=== PATIENT | female | born 1945 | race Caucasian/White ===

== ENCOUNTER 2023-08-09 18:40 | Inpatient (IN) | payer OTHER ==
[~2023-08-09] VITALS: Ht 154.9 cm; Wt 74.5 kg
[2023-08-09 20:01] LABS: Basophils # (auto) 0 10 ^3/uL (0-0.2); Basophils % (auto) 0.4 % (0.0-2.0); Eosinophils # (auto) 0 10 ^3/uL (0-0.8); Eosinophils % (auto) 0.5 % (0.0-7.0); Hematocrit 36.5 % (36.0-46.0); Hemoglobin 11.6 g/dL (12.2-16.2); Lymphocytes # (auto) 0.3 10 ^3/uL (0.4-5.4); Lymphocytes % (auto) 5.4 % (10.0-50.0); Mean Corpuscular Hemoglobin 29.6 pg (28.0-32.0); Mean Corpuscular Hgb Conc. 31.9 g/dL (32.0-36.0); Mean Corpuscular Volume 92.9 fL (80.0-100.0); Monocytes # (auto) 0.5 10 ^3/uL (0-1.3); Monocytes % (auto) 8.2 % (0.0-12.0); Neutrophils # (auto) 5.2 10 ^3/uL (1.6-8.6); Neutrophils % (auto) 85.5 % (37.0-80.0); Nucleated Red Blood Cells % 0.1 %; Red Blood Cells 3.93 10^6/uL (4.0-5.20); Red Cell Distribution Width 16.7 % (11.8-14.3); White Blood Cell 6.1 10^3/uL (4.4-10.8)
[2023-08-09 20:14] LABS: Alanine Aminotransferase 21 U/L (7-40); Albumin 4.1 g/dL (3.2-4.8); Alkaline Phosphatase 81 U/L (46-116); Anion Gap 9 (5-15); Aspartate Aminotransferase 23 U/L (13-40); BUN/Creatinine Ratio 15.9 (10.0-20.0); Blood Urea Nitrogen 13 mg/dL (9-23); Calcium 9.5 mg/dL (8.5-10.1); Carbon Dioxide 29 mmol/L (20-30); Chloride 107 mmol/L (98-107); Glucose 158 mg/dL (74-106); Magnesium 1.9 mg/dL (1.6-2.6); Potassium 3.2 mmol/L (3.5-5.1); Sodium 145 mmol/L (136-145)
[2023-08-09 20:15] LABS: Bilirubin, Total 1.6 mg/dL (0.2-1.0); Total Protein 6.9 g/dL (5.7-8.2)
[2023-08-09 20:17] LABS: INR 1.22 (0.9-1.15); Prothrombin Time 12.7 sec (9.3-11.8)
[2023-08-09 20:45] VITALS: PULSE 87; RESP 17; O2SAT 97
[2023-08-09] MEDS: FUROSEMIDE 40 MG/4 ML VIAL IV ONE (21:02)
[2023-08-09] MEDS ORDERED: ONDANSETRON HCL 4 MG/2 ML VIAL IV PRN (22:15)
[2023-08-09] MEDS ORDERED: ACETAMINOPHEN 325 MG TAB PO PRN (22:15)
[2023-08-09] MEDS ORDERED: DOCUSATE SOD 100 MG CAP PO PRN (22:15)
[2023-08-09] MEDS ORDERED: HYDROcodone-ACET 5/325MG TAB PO PRN (22:15)
[2023-08-09] MEDS ORDERED: DEXTROSE (50%) 50ML SYRG IV PRN (22:15)
[2023-08-09] MEDS ORDERED: hydrALAZINE HCL 20 MG/ML VL IV PRN (22:15)
[2023-08-09] MEDS ORDERED: NITROGLYCERIN 0.4 MG SL TAB SL PRN (23:00)
[2023-08-09] MEDS ORDERED: MORPHINE SULFATE INJ 2 MG/ml SYRG IV PRN (23:00)
[2023-08-09] MEDS: ACETAMINOPHEN 500 MG TAB PO ONE (23:27)
[2023-08-09] MEDS: POTASSIUM CHL 20 Meq TABLET PO ONE (23:27)
[2023-08-10] VITALS (9 sets, daily range): BP systolic 127–144; BP diastolic 55–76; PULSE 72–99; RESP 17–22; TEMP 97.8–98.6; O2SAT 93–96
[2023-08-10 00:03] LABS: Rapid Influenza A Negative (Negative); Rapid Influenza B Negative (Negative)
[2023-08-10 00:04] LABS: COVID19 ANTIGEN SOFIA FIA NEGATIVE (NEGATIVE)
[2023-08-10] MEDS: OXYCODONE W/ ACETAMINOPHEN 5/325MG TABLET PO PRN (02:09)
[2023-08-10] MEDS ORDERED: DONE5TAB80 PO (02:55)
[2023-08-10] MEDS ORDERED: LEVO75TA6 PO (02:55)
[2023-08-10] MEDS ORDERED: FERR325T20 PO (02:55)
[2023-08-10] MEDS ORDERED: PERCOT PO (02:55)
[2023-08-10] MEDS ORDERED: APIX5TAB PO (02:55)
[2023-08-10] MEDS ORDERED: DILT-26 PO (02:55)
[2023-08-10] MEDS ORDERED: ALEN70TA74 PO (02:55)
[2023-08-10] MEDS ORDERED: EMPA1TAB PO (02:55)
[2023-08-10] MEDS ORDERED: AMIO200T13 PO (02:55)
[2023-08-10] MEDS ORDERED: PANT40T PO (02:55)
[2023-08-10] MEDS ORDERED: CLON0.2D6 TOP (02:55)
[2023-08-10] MEDS ORDERED: GABA-1250 PO (02:55)
[2023-08-10] MEDS ORDERED: SERT-160 PO (02:55)
[2023-08-10] MEDS ORDERED: SPIR25TA8 PO (02:55)
[2023-08-10] MEDS ORDERED: LOSA-535 PO (02:55)
[2023-08-10] MEDS ORDERED: METO1TAB9 PO (02:55)
[2023-08-10] MEDS ORDERED: LIOT25TA19 PO (02:55)
[2023-08-10] MEDS: SODIUM CHLOR 0.9% PF (SALINE LOCK) 10ML VIAL/SYR IV SCH (05:42)
[2023-08-10] MEDS: ACCU-CHEK COMFORT CURVE STRIP VI SCH (05:42)
[2023-08-10] MEDS: LEVOTHYROXINE SODIUM 25 MCG TAB PO SCH (06:01)
[2023-08-10] MEDS: GABAPENTIN 300 MG CAP PO SCH (06:01)
[2023-08-10] MEDS: InsuLIN REG 1unit/0.01ml Soln (100units/ml) SC SCH ×2 (06:02→21:00)
[2023-08-10 06:03] LABS: Basophils # (auto) 0 10 ^3/uL (0-0.2); Basophils % (auto) 0.3 % (0.0-2.0); Eosinophils # (auto) 0 10 ^3/uL (0-0.8); Eosinophils % (auto) 0.7 % (0.0-7.0); Hematocrit 35.4 % (36.0-46.0); Hemoglobin 11.4 g/dL (12.2-16.2); Lymphocytes # (auto) 0.6 10 ^3/uL (0.4-5.4); Lymphocytes % (auto) 9.8 % (10.0-50.0); Mean Corpuscular Hemoglobin 29.9 pg (28.0-32.0); Mean Corpuscular Hgb Conc. 32.3 g/dL (32.0-36.0); Mean Corpuscular Volume 92.7 fL (80.0-100.0); Monocytes # (auto) 0.5 10 ^3/uL (0-1.3); Monocytes % (auto) 8.2 % (0.0-12.0); Neutrophils # (auto) 4.9 10 ^3/uL (1.6-8.6); Nucleated Red Blood Cells % 0.1 %; Red Blood Cells 3.81 10^6/uL (4.0-5.20); Red Cell Distribution Width 16.4 % (11.8-14.3)
[2023-08-10 06:19] LABS: Alanine Aminotransferase 19 U/L (7-40); Albumin 4.2 g/dL (3.2-4.8); Alkaline Phosphatase 80 U/L (46-116); Anion Gap 9 (5-15); Aspartate Aminotransferase 21 U/L (13-40); BUN/Creatinine Ratio 17.4 (10.0-20.0); Bilirubin, Total 1.8 mg/dL (0.2-1.0); Blood Urea Nitrogen 15 mg/dL (9-23); Calcium 9.4 mg/dL (8.5-10.1); Carbon Dioxide 31 mmol/L (20-30); Chloride 105 mmol/L (98-107); Glucose 142 mg/dL (74-106); Potassium 3.4 mmol/L (3.5-5.1); Sodium 145 mmol/L (136-145); Total Protein 7.1 g/dL (5.7-8.2)
[2023-08-10 08:18] LABS: Triglycerides 98 mg/dL (< 150)
[2023-08-10 08:19] LABS: LDL Cholesterol 64 mg/dL (< 100)
[2023-08-10 08:20] LABS: Cholesterol 117 mg/dL (< 200); HDL Cholesterol 39 mg/dL (40-59)
[2023-08-10] MEDS: PANTOPRAZOLE 40 MG/10 ML VIAL INJ IV SCH (09:58)
[2023-08-10] MEDS: CARVEDILOL 3.125 MG TAB PO SCH (09:58)
[2023-08-10] MEDS: FUROSEMIDE 40 MG/4 ML VIAL IV SCH (09:59)
[2023-08-10] MEDS ORDERED: APIXABAN 2.5 MG TAB PO SCH (10:00)
[2023-08-10] MEDS: APIXABAN 5 MG TAB PO SCH (15:07)
[2023-08-10] MEDS: ATORVASTATIN 20 MG TAB PO SCH (20:50)
[2023-08-10] MEDS: DONEPEZIL HYDROCHLORIDE 5 MG TAB PO SCH (20:52)
[2023-08-10] MEDS: AMIODARONE HCL 200 MG TAB PO SCH (20:53)
[2023-08-10] MEDS: SACUBITRIL-VALSARTAN 24mg/26mg TAB PO SCH (22:03)
[2023-08-11] VITALS (8 sets, daily range): BP systolic 118–145; BP diastolic 65–80; PULSE 85–115; RESP 16–19; TEMP 97.8–98.5; O2SAT 95–96
[2023-08-11 06:09] LABS: Basophils # (auto) 0 10 ^3/uL (0-0.2); Basophils % (auto) 0.4 % (0.0-2.0); Eosinophils # (auto) 0.1 10 ^3/uL (0-0.8); Hematocrit 33.7 % (36.0-46.0); Hemoglobin 10.8 g/dL (12.2-16.2); Lymphocytes # (auto) 0.4 10 ^3/uL (0.4-5.4); Lymphocytes % (auto) 9.2 % (10.0-50.0); Mean Corpuscular Hemoglobin 29.9 pg (28.0-32.0); Mean Corpuscular Hgb Conc. 32.1 g/dL (32.0-36.0); Mean Corpuscular Volume 93.2 fL (80.0-100.0); Monocytes # (auto) 0.4 10 ^3/uL (0-1.3); Monocytes % (auto) 8.5 % (0.0-12.0); Neutrophils # (auto) 3.5 10 ^3/uL (1.6-8.6); Neutrophils % (auto) 79.9 % (37.0-80.0); Red Blood Cells 3.62 10^6/uL (4.0-5.20); Red Cell Distribution Width 16.9 % (11.8-14.3); White Blood Cell 4.4 10^3/uL (4.4-10.8)
[2023-08-11] MEDS: EMPAGLIFLOZIN 10 MG TAB PO SCH (09:40)
[2023-08-11] MEDS: SPIRONOLACTONE 25 MG TAB PO SCH (09:40)
[2023-08-11] MEDS: POTASSIUM CHL 20 Meq TABLET PO ONE (13:25)
[2023-08-12] VITALS (8 sets, daily range): BP systolic 123–140; BP diastolic 67–85; PULSE 87–131; RESP 17–19; TEMP 97.3–98.5; O2SAT 94–99
[2023-08-12] MEDS: dilTIAZem 25 MG/5 ML VIAL IV ONE (06:57)
[2023-08-12] MEDS: DIGOXIN (250MCG/ML) 2 ML AMPULE IV ONE (11:22)
[2023-08-12] MEDS: dilTIAZem 120MG ER CAP PO ONE (11:29)
[2023-08-12 11:56] LABS: Anion Gap 7 (5-15); Calcium 9.4 mg/dL (8.5-10.1); Carbon Dioxide 29 mmol/L (20-30); Chloride 105 mmol/L (98-107); Sodium 141 mmol/L (136-145)
[2023-08-12 11:59] LABS: BUN/Creatinine Ratio 15.6 (10.0-20.0); Blood Urea Nitrogen 12 mg/dL (9-23); Glucose 157 mg/dL (74-106); Magnesium 2.1 mg/dL (1.6-2.6)
[2023-08-12] MEDS: AMIODARONE BOLUS KIT 100 ML IV ONE (14:08)
[2023-08-12] MEDS: AMIODARONE 450mg/250ml AE 250 ML IV SCH ×2 (14:25→17:45)
[2023-08-12] MEDS: [UNRECOGNIZED DRUG - OTHER] PO SCH (16:51)
[2023-08-12] MEDS: ANASTROZOLE 1 MG PO SCH (16:51)
[2023-08-13] VITALS (8 sets, daily range): BP systolic 102–134; BP diastolic 54–76; PULSE 76–115; RESP 17–19; TEMP 97.7–98.8; O2SAT 97–100
[2023-08-13 07:08] LABS: Basophils # (auto) 0 10 ^3/uL (0-0.2); Basophils % (auto) 0.5 % (0.0-2.0); Eosinophils # (auto) 0.1 10 ^3/uL (0-0.8); Eosinophils % (auto) 1.7 % (0.0-7.0); Hematocrit 37.8 % (36.0-46.0); Lymphocytes # (auto) 0.3 10 ^3/uL (0.4-5.4); Lymphocytes % (auto) 6.7 % (10.0-50.0); Mean Corpuscular Hemoglobin 29.8 pg (28.0-32.0); Mean Corpuscular Hgb Conc. 31.8 g/dL (32.0-36.0); Mean Corpuscular Volume 93.7 fL (80.0-100.0); Monocytes # (auto) 0.7 10 ^3/uL (0-1.3); Monocytes % (auto) 14.6 % (0.0-12.0); Neutrophils # (auto) 3.8 10 ^3/uL (1.6-8.6); Neutrophils % (auto) 76.5 % (37.0-80.0); Nucleated Red Blood Cells % 0.1 %; Red Blood Cells 4.04 10^6/uL (4.0-5.20); Red Cell Distribution Width 16.6 % (11.8-14.3); White Blood Cell 4.9 10^3/uL (4.4-10.8)
[2023-08-13 07:29] LABS: Chloride 101 mmol/L (98-107); Potassium 3.9 mmol/L (3.5-5.1); Sodium 139 mmol/L (136-145)
[2023-08-13 07:30] LABS: Anion Gap 8 (5-15); Carbon Dioxide 30 mmol/L (20-30)
[2023-08-13 07:35] LABS: BUN/Creatinine Ratio 14.6 (10.0-20.0); Blood Urea Nitrogen 14 mg/dL (9-23); Glucose 130 mg/dL (74-106)
[2023-08-13 07:36] LABS: Magnesium 2.1 mg/dL (1.6-2.6)
[2023-08-13] MEDS ORDERED: cefTRIAXone 1GM/50ML D5W 50 ML IV SCH (09:00)
[2023-08-13] MEDS ORDERED: POTA-180 PA (09:52)
[2023-08-13] MEDS ORDERED: ANAS1TAB7 PO (09:52)
[2023-08-13] MEDS ORDERED: FURO20TA3 PO (09:52)
[2023-08-13] MEDS ORDERED: dilTIAZem 120MG ER CAP PO SCH (10:00)
[2023-08-13] MEDS ORDERED: ALBU1AER4 INH (10:01)
[2023-08-13] MEDS: DIGOXIN 0.125 MG TAB PO SCH (10:13)
[2023-08-13] MEDS: FUROSEMIDE 20 MG TAB PO SCH (10:14)
[2023-08-13] MEDS: MAGNESIUM SULFATE 1GM/100ML 100 ML IV ONE (14:38)
[2023-08-13 15:02] LABS: Urine Bacteria None Seen /hpf (None Seen)
[2023-08-13 15:23] LABS: Urine Blood Negative /uL (Negative); Urine Clarity Clear (Clear); Urine Color Light-Yellow (Yellow); Urine Protein, UAD Negative (Negative); Urine Specific Gravity 1.014 (1.001-1.035); Urine Urobilinogen 2 mg/dL (Negative); Urine WBC 2 /hpf (0 - 5)
[2023-08-14 05:00] VITALS: BP 119/62; PULSE 86; RESP 19; TEMP 97.6; O2SAT 95
[2023-08-14 06:51] LABS: Anion Gap 7 (5-15); Calcium 8.9 mg/dL (8.5-10.1); Carbon Dioxide 29 mmol/L (20-30); Chloride 102 mmol/L (98-107); Potassium 4.1 mmol/L (3.5-5.1); Sodium 138 mmol/L (136-145)
[2023-08-14 06:58] LABS: BUN/Creatinine Ratio 10.7 (10.0-20.0); Blood Urea Nitrogen 11 mg/dL (9-23); Glucose 144 mg/dL (74-106)
[2023-08-14 08:15] VITALS: PULSE 73; RESP 18; O2SAT 98
[2023-08-14 09:00] VITALS: BP 119/54; PULSE 75; RESP 18; TEMP 98.3; O2SAT 98
[2023-08-14] MEDS ORDERED: DIGO1TAB48 PO (09:50)
[2023-08-14] MEDS ORDERED: SACU1TAB PO (09:50)
[2023-08-14 10:09] VITALS: BP 111/59; PULSE 90; RESP 18; TEMP 98.6; O2SAT 96
[2023-08-14 10:20] VITALS: PULSE 101
[2023-08-14] MEDS: AMIODARONE HCL 200 MG TAB PO ONE (10:22)
== END 2023-08-14 17:50 | disposition home or self-care (01) | DRG 291 ==
LOC: ER 18:40 → TELE 23:03 → TELE-CENTR 23:50
PROVIDERS: ADMIT Nurse Practitioner Family; ATTEND Internal Medicine Geriatric Medicine
DX: I11.0 Hypertensive heart disease with heart failure (principal); I50.23 Acute on chronic systolic (congestive) heart failure; J96.10 Chronic respiratory failure, unspecified whether with hypoxia or hypercapnia; I48.20 Chronic atrial fibrillation, unspecified; E11.65 Type 2 diabetes mellitus with hyperglycemia; E66.9 Obesity, unspecified; E87.6 Hypokalemia; F03.90 Unspecified dementia, unspecified severity, without behavioral disturbance, psychotic disturbance, mood disturbance, and anxiety; E03.9 Hypothyroidism, unspecified; J44.89 Other specified chronic obstructive pulmonary disease; M81.0 Age-related osteoporosis without current pathological fracture; I27.20 Pulmonary hypertension, unspecified; Z79.01 Long term (current) use of anticoagulants; Z79.899 Other long term (current) drug therapy; Z90.710 Acquired absence of both cervix and uterus; Z99.81 Dependence on supplemental oxygen; Z83.3 Family history of diabetes mellitus; Z82.49 Family history of ischemic heart disease and other diseases of the circulatory system; Z85.3 Personal history of malignant neoplasm of breast; Z87.891 Personal history of nicotine dependence; Z68.31 Body mass index [BMI] 31.0-31.9, adult
CPT/HCPCS: 36415; 71045; 80048; 80053; 80061; 80162; 81001; 82962; 83036; 83735; 83880; 84132; 84443; 84484; 85025; 85610; 85730; 87426; 87804; 93005; 93306; 97163; C9113; G0378; J1815

== ENCOUNTER 2023-09-12 16:54 | Inpatient (IN) | payer OTHER ==
[~2023-09-12] VITALS: Ht 154.9 cm; Wt 80.7 kg
[~2023-09-12 16:54] MED LIST: ALBU1AER4 INH; ALEN70TA74 PO; AMIO200T13 PO; ANAS1TAB7 PO; APIX5TAB PO; CLON0.2D6 TOP; DIGO1TAB48 PO; DONE5TAB80 PO; EMPA1TAB PO; FERR325T20 PO; FURO20TA3 PO; GABA-1250 PO; LEVO75TA6 PO; LIOT25TA19 PO; LOSA-535 PO; METO1TAB9 PO; PANT40T PO; PERCOT PO; POTA-180 PO; SACU1TAB PO; SERT-160 PO; SPIR25TA8 PO
[2023-09-12] MEDS: GLUCAGON EMERG KIT 1mg/1ml IV ONE (17:35)
[2023-09-12 17:36] VITALS: PULSE 31; RESP 15; O2SAT 97
[2023-09-12] MEDS: DOPamine 1600MCG/ML D5W 250 ML IV ONE (18:10)
[2023-09-12 18:18] LABS: Basophils # (auto) 0 10 ^3/uL (0-0.2); Basophils % (auto) 0.5 % (0.0-2.0); Eosinophils # (auto) 0.1 10 ^3/uL (0-0.8); Eosinophils % (auto) 1.5 % (0.0-7.0); Hematocrit 33.1 % (36.0-46.0); Hemoglobin 10.3 g/dL (12.2-16.2); Lymphocytes # (auto) 0.6 10 ^3/uL (0.4-5.4); Lymphocytes % (auto) 7.9 % (10.0-50.0); Mean Corpuscular Hemoglobin 30.5 pg (28.0-32.0); Mean Corpuscular Hgb Conc. 31.2 g/dL (32.0-36.0); Mean Corpuscular Volume 97.8 fL (80.0-100.0); Monocytes # (auto) 0.8 10 ^3/uL (0-1.3); Monocytes % (auto) 10.1 % (0.0-12.0); Neutrophils # (auto) 6.1 10 ^3/uL (1.6-8.6); Nucleated Red Blood Cells % 0.1 %; Red Blood Cells 3.39 10^6/uL (4.0-5.20); Red Cell Distribution Width 17.5 % (11.8-14.3); White Blood Cell 7.6 10^3/uL (4.4-10.8)
[2023-09-12 18:19] LABS: Urine Bacteria FEW /hpf (None Seen); Urine Blood 1+ /uL (Negative); Urine Clarity Turbid (Clear); Urine Color Yellow (Yellow); Urine Hyaline Cast MANY /lpf (0 - 2); Urine Mucus FEW (None Seen); Urine Protein, UAD TRACE (Negative); Urine Specific Gravity 1.024 (1.001-1.035); Urine Urobilinogen 2 mg/dL (Negative); Urine WBC 335 /hpf (0 - 5); Urine WBC Clumps PRESENT /hpf (None Seen)
[2023-09-12 18:25] LABS: Alanine Aminotransferase 28 U/L (7-40); Albumin 3.1 g/dL (3.2-4.8); Alkaline Phosphatase 108 U/L (46-116); Anion Gap 11 (5-15); Aspartate Aminotransferase 46 U/L (13-40); BUN/Creatinine Ratio 8.7 (10.0-20.0); Bilirubin, Total 0.4 mg/dL (0.2-1.0); Blood Urea Nitrogen 27 mg/dL (9-23); Calcium 7.4 mg/dL (8.7-10.4); Carbon Dioxide 21 mmol/L (20-30); Chloride 111 mmol/L (98-107); Glucose 127 mg/dL (74-106); Magnesium 2.3 mg/dL (1.6-2.6); Potassium 3.4 mmol/L (3.5-5.1); Sodium 143 mmol/L (136-145); Total Protein 5.1 g/dL (5.7-8.2)
[2023-09-12] MEDS: METOCLOPRAMIDE HCL 10 MG TAB PO ONE ×2 (18:28→18:39)
[2023-09-12] MEDS: POTASSIUM CHL 20 Meq TABLET PO ONE (18:59)
[2023-09-12] MEDS: CALCIUM GLUC 1,000mg/50ml-NS 50 ML IV ONE (19:14)
[2023-09-12 19:30] VITALS: PULSE 55; RESP 12; O2SAT 95
[2023-09-12] MEDS: cefTRIAXone 1GM/50ML D5W 50 ML IV ONE (20:21)
[2023-09-12] MEDS: POTASSIUM EFFERVESENT TAB 25 MEQ PO ONE (20:21)
[2023-09-12 21:28] LABS: INR 1.19 (0.9-1.15); Partial Thromboplastin Time 29.3 SEC (24.5-34.5); Prothrombin Time 12.5 sec (9.3-11.8)
[2023-09-12] MEDS ORDERED: IBUPROFEN 400 MG TAB PO PRN (22:30)
[2023-09-12] MEDS ORDERED: ALBUTEROL SULF 2.5 MG/0.5ML(0.5%) NEB SOLN NEB PRN (22:30)
[2023-09-12] MEDS ORDERED: VANCOMYCIN PER PHARMACY 0 MG IV SCH (22:30)
[2023-09-12] MEDS ORDERED: DOCUSATE SOD 100 MG CAP PO PRN (22:30)
[2023-09-12] MEDS ORDERED: DEXTROSE (50%) 50ML SYRG IV PRN (22:30)
[2023-09-12 22:52] VITALS: BP 136/31; PULSE 43; RESP 14; TEMP 98.4; O2SAT 97
[2023-09-12] MEDS: ALBUMIN 25% 100 ML IV ONE (22:59)
[2023-09-12 23:22] LABS: Amphetamine Screen, Urine Neg (NEGATIVE); Barbiturate Scree,Urine Neg (NEGATIVE); Benzodiazephine Screen, Urine Neg (NEGATIVE); Cannabinoid Screen, Urine Neg (NEGATIVE); Cocaine Screen, Urine Neg (NEGATIVE); Opiate Scree,Urine Neg (NEGATIVE); Phencyclidine Screen, Urine Neg (NEGATIVE)
[2023-09-12] MEDS: VANCOMYCIN 1GM/200ML 200 ML IV ONE (23:25)
[2023-09-12] MEDS ORDERED: NITROGLYCERIN 0.4 MG SL TAB SL PRN (23:45)
[2023-09-12] MEDS ORDERED: MORPHINE SULFATE INJ 2 MG/ml SYRG IV PRN (23:45)
[2023-09-13] MEDS ORDERED: DIGOXIN IMMUNE FAB IV ONE (01:45)
[2023-09-13] MEDS ORDERED: SODIUM CHL 0.9% IV ONE (01:45)
[2023-09-13] MEDS: DOPamine 1600MCG/ML D5W 250 ML IV SCH (02:46)
[2023-09-13] MEDS: DOPamine 1600MCG/ML D5W 250 ML IV ONE (02:47)
[2023-09-13 05:11] LABS: Hematocrit 35.1 % (36.0-46.0); Hemoglobin 11.3 g/dL (12.2-16.2); Mean Corpuscular Hemoglobin 30.4 pg (28.0-32.0); Mean Corpuscular Hgb Conc. 32.1 g/dL (32.0-36.0); Mean Corpuscular Volume 94.6 fL (80.0-100.0); Red Blood Cells 3.71 10^6/uL (4.0-5.20); Red Cell Distribution Width 16.5 % (11.8-14.3); White Blood Cell 13.9 10^3/uL (4.4-10.8)
[2023-09-13 05:17] LABS: Band Neutrophils % (manual) 0; Basophils % (manual) 0 (0.0-2.0); Blast Cells 0; Metamyelocytes % 0; Monocytes % (manual) 0 (0-12); Promyelocytes % 0; Reactive Lymphocytes 0
[2023-09-13 05:28] LABS: Albumin 3.9 g/dL (3.2-4.8); Alkaline Phosphatase 134 U/L (46-116); Anion Gap 12 (5-15); Aspartate Aminotransferase 56 U/L (13-40); BUN/Creatinine Ratio 13.2 (10.0-20.0); Bilirubin, Total 0.9 mg/dL (0.2-1.0); Calcium 8.9 mg/dL (8.7-10.4); Carbon Dioxide 23 mmol/L (20-30); Chloride 105 mmol/L (98-107); Glucose 153 mg/dL (74-106); Potassium 4.2 mmol/L (3.5-5.1); Sodium 140 mmol/L (136-145); Total Protein 6.4 g/dL (5.7-8.2)
[2023-09-13 05:29] LABS: Blood Urea Nitrogen 41 mg/dL (9-23)
[2023-09-13] MEDS: LEVOTHYROXINE SODIUM 25 MCG TAB PO SCH (05:54)
[2023-09-13] MEDS: SODIUM CHLOR 0.9% PF (SALINE LOCK) 10ML VIAL/SYR IV SCH (05:59)
[2023-09-13 06:10] LABS: Alanine Aminotransferase 34 U/L (7-40)
[2023-09-13 06:26] LABS: Eosinophils % (manual) 1 (0-7); Lymphocytes % (manual) 7 (10.0-50.0); Myelocytes % 1; Platelet Estimate Adequate; Smudge Cells 1 /100 WBC
[2023-09-13] MEDS: ACCU-CHEK COMFORT CURVE STRIP VI SCH (06:54)
[2023-09-13] MEDS: InsuLIN REG 1unit/0.01ml Soln (100units/ml) SC SCH (06:58)
[2023-09-13 08:00] VITALS: PULSE 56; RESP 17; O2SAT 94
[2023-09-13] MEDS: DIGOXIN IMMUNE FAB (OVINE) 80 MG in SODIUM CHL 0.9% 50 ML IV ONE (09:29)
[2023-09-13] MEDS: cefTRIAXone 1GM/50ML D5W 50 ML IV SCH (10:11)
[2023-09-13] MEDS: MULTIPLE VITAMIN TAB PO SCH (10:20)
[2023-09-13] MEDS: APIXABAN 5 MG TAB PO SCH (10:20)
[2023-09-13] MEDS: FAMOTIDINE (10MG/ML) 2ML VL IV SCH (10:20)
[2023-09-13] MEDS: FUROSEMIDE 20 MG/2 ML VIAL IV SCH (10:22)
[2023-09-13] MEDS: SODIUM CHL 0.9% IV ONE (10:56)
[2023-09-13] MEDS: DIGOXIN IMMUNE FAB IV ONE (10:56)
[2023-09-13 11:12] VITALS: O2SAT 93
[2023-09-13 17:57] VITALS: O2SAT 95
[2023-09-14] VITALS (74 sets, daily range): BP systolic 80–184; BP diastolic 26–74; PULSE 50–86; RESP 11–55; TEMP 98.2–99.2; O2SAT 91–100
[2023-09-14 05:15] LABS: Basophils # (auto) 0 10 ^3/uL (0-0.2); Basophils % (auto) 0.5 % (0.0-2.0); Eosinophils # (auto) 0 10 ^3/uL (0-0.8); Eosinophils % (auto) 0.4 % (0.0-7.0); Hematocrit 30.4 % (36.0-46.0); Hemoglobin 9.9 g/dL (12.2-16.2); Lymphocytes # (auto) 0.3 10 ^3/uL (0.4-5.4); Lymphocytes % (auto) 4.5 % (10.0-50.0); Mean Corpuscular Hemoglobin 30.5 pg (28.0-32.0); Mean Corpuscular Hgb Conc. 32.5 g/dL (32.0-36.0); Monocytes # (auto) 0.7 10 ^3/uL (0-1.3); Monocytes % (auto) 9.5 % (0.0-12.0); Neutrophils # (auto) 5.8 10 ^3/uL (1.6-8.6); Neutrophils % (auto) 85.1 % (37.0-80.0); Nucleated Red Blood Cells % 0.1 %; Red Blood Cells 3.23 10^6/uL (4.0-5.20); Red Cell Distribution Width 16.9 % (11.8-14.3); White Blood Cell 6.8 10^3/uL (4.4-10.8)
[2023-09-14 05:36] LABS: Alanine Aminotransferase 21 U/L (7-40); Albumin 3.6 g/dL (3.2-4.8); Alkaline Phosphatase 105 U/L (46-116); Anion Gap 7 (5-15); Aspartate Aminotransferase 25 U/L (13-40); BUN/Creatinine Ratio 23.6 (10.0-20.0); Blood Urea Nitrogen 38 mg/dL (9-23); Calcium 8.8 mg/dL (8.7-10.4); Carbon Dioxide 28 mmol/L (20-30); Chloride 109 mmol/L (98-107); Cholesterol 106 mg/dL (< 200); Glucose 129 mg/dL (74-106); HDL Cholesterol 31 mg/dL (40-59); LDL Cholesterol 54 mg/dL (< 100); Magnesium 2.3 mg/dL (1.6-2.6); Potassium 3.6 mmol/L (3.5-5.1); Sodium 144 mmol/L (136-145); Triglycerides 96 mg/dL (< 150)
[2023-09-14 05:37] LABS: Bilirubin, Total 0.8 mg/dL (0.2-1.0); Phosphorus 3.3 mg/dL (2.4-5.1)
[2023-09-14 06:11] LABS: Uric Acid 10.1 mg/dL (3.1-7.8)
[2023-09-14] MEDS: PANTOPRAZOLE 40 MG/10 ML VIAL INJ IV ONE (06:17)
[2023-09-14 08:03] LABS: Urine Bacteria None Seen /hpf (None Seen)
[2023-09-14 08:34] LABS: Protein, Urine 44.8 mg/dL (0.0-11.9)
[2023-09-14 08:37] LABS: Creatinine, Urine 59.34 mg/dL (30.0-125.0)
[2023-09-14 09:03] LABS: Urine Blood 1+ /uL (Negative); Urine Clarity Clear (Clear); Urine Color Light-Yellow (Yellow); Urine Protein, UAD TRACE (Negative); Urine Specific Gravity 1.015 (1.001-1.035); Urine Urobilinogen Normal (Negative); Urine WBC 18 /hpf (0 - 5); Urine pH 5.5 (5.0-9.0)
[2023-09-14] MEDS: VANCOMYCIN 500 MG in D5W 5% 100 ML IV ONE (11:21)
[2023-09-14] MEDS ORDERED: hydrALAZINE HCL 20 MG/ML VL IV PRN (12:00)
[2023-09-14] MEDS: SODIUM CHL 0.9% IV ONE (12:57)
[2023-09-14] MEDS: DIGOXIN IMMUNE FAB IV ONE (12:57)
[2023-09-14] MEDS ORDERED: DIGOXIN IMMUNE FAB IV ONE ×2 (13:00→15:00)
[2023-09-14] MEDS ORDERED: SODIUM CHL 0.9% IV ONE ×2 (13:00→15:00)
[2023-09-14] MEDS: DIGOXIN IMMUNE FAB (OVINE) 80 MG in SODIUM CHL 0.9% 50 ML IV ONE (14:46)
[2023-09-14] MEDS: hydrALAZINE HCL 20 MG/ML VL IV PRN (15:51)
[2023-09-14] MEDS: PANTOPRAZOLE 40 MG/10 ML VIAL INJ IV SCH (21:27)
[2023-09-15] VITALS (66 sets, daily range): BP systolic 124–196; BP diastolic 34–110; PULSE 52–108; RESP 11–27; TEMP 97.6–98.6; O2SAT 95–100
[2023-09-15] MEDS: OXYCODONE W/ ACETAMINOPHEN 5/325MG TABLET PO PRN (05:12)
[2023-09-15 05:29] LABS: Basophils # (auto) 0 10 ^3/uL (0-0.2); Basophils % (auto) 0.5 % (0.0-2.0); Eosinophils # (auto) 0 10 ^3/uL (0-0.8); Eosinophils % (auto) 0.3 % (0.0-7.0); Hematocrit 31.8 % (36.0-46.0); Hemoglobin 10.2 g/dL (12.2-16.2); Lymphocytes # (auto) 0.4 10 ^3/uL (0.4-5.4); Lymphocytes % (auto) 4.4 % (10.0-50.0); Mean Corpuscular Hemoglobin 30.4 pg (28.0-32.0); Mean Corpuscular Volume 94.9 fL (80.0-100.0); Monocytes # (auto) 0.8 10 ^3/uL (0-1.3); Monocytes % (auto) 8.1 % (0.0-12.0); Neutrophils # (auto) 8.9 10 ^3/uL (1.6-8.6); Neutrophils % (auto) 86.7 % (37.0-80.0); Nucleated Red Blood Cells % 0.1 %; Red Blood Cells 3.35 10^6/uL (4.0-5.20); Red Cell Distribution Width 17.2 % (11.8-14.3); White Blood Cell 10.3 10^3/uL (4.4-10.8)
[2023-09-15 05:30] LABS: Anion Gap 13 (5-15); Carbon Dioxide 24 mmol/L (20-30); Chloride 103 mmol/L (98-107); Potassium 3.2 mmol/L (3.5-5.1); Sodium 140 mmol/L (136-145)
[2023-09-15 05:32] LABS: Calcium 8.9 mg/dL (8.7-10.4)
[2023-09-15 05:36] LABS: BUN/Creatinine Ratio 22.7 (10.0-20.0); Blood Urea Nitrogen 22 mg/dL (9-23); Glucose 136 mg/dL (74-106)
[2023-09-15] MEDS: POTASSIUM CHL 20MEQ/100ML 100 ML IV SCH (06:27)
[2023-09-15] MEDS ORDERED: VANCOMYCIN 1GM/200ML 200 ML IV SCH (10:00)
[2023-09-15] MEDS: amLODIPine BESYLATE 5 MG TAB PO SCH (10:30)
[2023-09-15] MEDS: ONDANSETRON HCL 4 MG/2 ML VIAL IV PRN (11:27)
[2023-09-15] MEDS: amLODIPine BESYLATE 5 MG TAB PO ONE (13:58)
[2023-09-15] MEDS: FUROSEMIDE 40 MG/4 ML VIAL IV ONE (17:15)
[2023-09-15] MEDS: GABAPENTIN 300 MG CAP PO SCH (21:35)
[2023-09-16] VITALS (12 sets, daily range): BP systolic 145–174; BP diastolic 46–75; PULSE 66–86; RESP 17–22; TEMP 98.1–98.9; O2SAT 92–98
[2023-09-16 03:33] LABS: Anion Gap 7 (5-15); Carbon Dioxide 26 mmol/L (20-30); Chloride 108 mmol/L (98-107); Potassium 3.2 mmol/L (3.5-5.1); Sodium 141 mmol/L (136-145)
[2023-09-16 03:34] LABS: Calcium 8.2 mg/dL (8.7-10.4)
[2023-09-16 03:38] LABS: Glucose 115 mg/dL (74-106)
[2023-09-16 03:39] LABS: Blood Urea Nitrogen 27 mg/dL (9-23)
[2023-09-16] MEDS: PANTOPRAZOLE 40 MG TAB PO SCH (06:37)
[2023-09-16] MEDS: amLODIPine BESYLATE 5 MG TAB PO SCH (08:31)
[2023-09-16] MEDS: SERTRALINE HCL 50 MG TAB PO SCH (08:32)
[2023-09-16] MEDS: FERROUS SULFATE 325mg EC TAB PO SCH (08:32)
[2023-09-16] MEDS ORDERED: DONEPEZIL HYDROCHLORIDE 5 MG TAB PO SCH ×2 (10:00→11:30)
[2023-09-16] MEDS: POTASSIUM EFFERVESENT TAB 25 MEQ PO SCH (10:21)
[2023-09-16] MEDS: CARVEDILOL 3.125 MG TAB PO SCH (10:21)
[2023-09-16] MEDS: FUROSEMIDE 20 MG TAB PO ONE (11:40)
[2023-09-16] MEDS ORDERED: FLUT1AER17 INH (17:07)
[2023-09-16] MEDS ORDERED: DILT-102 PO (17:07)
[2023-09-16] MEDS: DONEPEZIL HYDROCHLORIDE 5 MG TAB PO SCH (21:47)
[2023-09-17] VITALS (11 sets, daily range): BP systolic 144–157; BP diastolic 54–67; PULSE 53–84; RESP 16–18; TEMP 97.8–98.7; O2SAT 94–99
[2023-09-17 05:32] LABS: Anion Gap 6 (5-15); Carbon Dioxide 31 mmol/L (20-30); Chloride 108 mmol/L (98-107); Potassium 3.6 mmol/L (3.5-5.1); Sodium 145 mmol/L (136-145)
[2023-09-17 05:33] LABS: Calcium 8.5 mg/dL (8.7-10.4)
[2023-09-17 05:37] LABS: Glucose 107 mg/dL (74-106)
[2023-09-17 05:38] LABS: BUN/Creatinine Ratio 31.3 (10.0-20.0); Blood Urea Nitrogen 25 mg/dL (9-23)
[2023-09-17] MEDS: NITROFURANTOIN 100 mg CAP PO SCH (09:40)
[2023-09-17] MEDS: FUROSEMIDE 20 MG TAB PO SCH (09:41)
[2023-09-18] VITALS (12 sets, daily range): BP systolic 143–168; BP diastolic 51–72; PULSE 69–80; RESP 14–18; TEMP 36.7; O2SAT 98–100
[2023-09-18 06:05] LABS: Anion Gap 5 (5-15); Calcium 8.7 mg/dL (8.7-10.4); Carbon Dioxide 31 mmol/L (20-30); Chloride 107 mmol/L (98-107); Potassium 3.8 mmol/L (3.5-5.1); Sodium 143 mmol/L (136-145)
[2023-09-18 06:11] LABS: BUN/Creatinine Ratio 24.1 (10.0-20.0); Blood Urea Nitrogen 20 mg/dL (9-23); Glucose 117 mg/dL (74-106)
[2023-09-19] VITALS (8 sets, daily range): BP systolic 116–146; BP diastolic 64–75; PULSE 58–81; RESP 16–19; TEMP 98.3–98.7; O2SAT 92–99
== END 2023-09-19 17:00 | DRG 682 ==
LOC: EDBD 16:54 → ER 16:54 → TELE 23:40 → DOU IN ICU 09-14 08:00 → ICU CENTRL 09-14 17:02 → DOU IN ICU 09-15 20:24 → TELE-WESTW 09-15 22:40
PROVIDERS: ADMIT Nurse Practitioner Family; ATTEND Internal Medicine Geriatric Medicine
PROC: 05HB33Z Insertion of Infusion Device into Right Basilic Vein, Percutaneous Approach (ICD-10-PCS; principal; 2023-09-12)
PROC: B54MZZA Ultrasonography of Right Upper Extremity Veins, Guidance (ICD-10-PCS; 2023-09-12)
DX: N17.0 Acute kidney failure with tubular necrosis (principal); I50.23 Acute on chronic systolic (congestive) heart failure; J96.10 Chronic respiratory failure, unspecified whether with hypoxia or hypercapnia; I13.0 Hypertensive heart and chronic kidney disease with heart failure and stage 1 through stage 4 chronic kidney disease, or unspecified chronic kidney disease; I48.20 Chronic atrial fibrillation, unspecified; I27.20 Pulmonary hypertension, unspecified; E66.01 Morbid (severe) obesity due to excess calories; F03.90 Unspecified dementia, unspecified severity, without behavioral disturbance, psychotic disturbance, mood disturbance, and anxiety; T46.0X5A Adverse effect of cardiac-stimulant glycosides and drugs of similar action, initial encounter; J44.89 Other specified chronic obstructive pulmonary disease; E03.9 Hypothyroidism, unspecified; E11.22 Type 2 diabetes mellitus with diabetic chronic kidney disease; N18.2 Chronic kidney disease, stage 2 (mild); E78.5 Hyperlipidemia, unspecified; N30.90 Cystitis, unspecified without hematuria; I37.1 Nonrheumatic pulmonary valve insufficiency; I07.1 Rheumatic tricuspid insufficiency; I35.0 Nonrheumatic aortic (valve) stenosis; Z82.49 Family history of ischemic heart disease and other diseases of the circulatory system; Z85.3 Personal history of malignant neoplasm of breast; Z83.3 Family history of diabetes mellitus; Z88.3 Allergy status to other anti-infective agents; Z68.33 Body mass index [BMI] 33.0-33.9, adult; Z90.49 Acquired absence of other specified parts of digestive tract; Z88.1 Allergy status to other antibiotic agents; Z90.710 Acquired absence of both cervix and uterus; Z79.84 Long term (current) use of oral hypoglycemic drugs; Z79.01 Long term (current) use of anticoagulants; Z79.899 Other long term (current) drug therapy; Y92.89 Other specified places as the place of occurrence of the external cause
CPT/HCPCS: 36415; 71045; 74176; 76775; 80048; 80053; 80061; 80162; 80202; 80307; 81001; 82270; 82570; 82962; 83735; 83880; 84100; 84132; 84156; 84300; 84439; 84443; 84481; 84484; 84550; 85007; 85025; 85027; 85379; 85610; 85730; 87081; 87086; 87088; 87186; 93005; 93306; 96365; 96366; 97163; 99291; G0378; J1815; J2405; J2470; J3480; J3490; J7060; P9047

== ENCOUNTER 2023-12-23 03:55 | Inpatient (IN) | payer MEDICARE, OTHER ==
[2023-12-23] VITALS (10 sets, daily range): BP systolic 104–118; BP diastolic 63–70; PULSE 79–111; RESP 17–21; TEMP 97.4–97.8; O2SAT 95–100
[~2023-12-23] VITALS: Ht 162.6 cm; Wt 69.8 kg
[~2023-12-23 03:55] MED LIST changes: +DILT-102 PO; +FLUT1AER17 INH; -LIOT25TA19 PO
--- NOTE | 2023-12-23 04:13 | ECG ---
[facility] Test Date: 2023-12-23 Test Time: 04:02:18 Pat Name: ZEYAD PENNY Department: ED Room: Gender: F Education Analyst: GAURI : 1945 Requested By: ANGIE WOODRUFF Order Number: [id number] Reading MD: Measurements Intervals Foreman Rate: 101 P: 0 GA: 0 QRS: -109 QRSD: 143 T: 74 QT: 407 QTc: 528 Interpretive Statements Atrial fibrillation IVCD, consider atypical RBBB Anterolateral infarct, old Please click the below link to view image of tracing.
--- NOTE | 2023-12-23 04:29 | ED.PDOC ---
SOB-HPI HPI Comments 78-year-old female with PMHX COPD, CHF, A-Fib, Asthma, DM brought in by EMS presents with a chief complaint of SOB x onset yesterday. Patient was brought in from a post-acute care facility. Patient is normally on 2L of O2 via NC per EMS, but was bumped up to 4L due to low saturation. Patient denies any chest pain, but states that it is difficult for her to breathe and catch her breath. Patient is able to speak in full, complete sentences. No other symptoms or modifying factors present at this time. 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 Pertinent SUPERVISOR MACHINE SETTER History Family History Family History: Unknown Social History Smoker: Non-Smoker Alcohol: Denies ETOH Use Drugs: Denies Drug Use Constitutional: denies: chills, diaphoresis, fatigue, fever, malaise, sweats, weakness, others EENTM: denies: blurred vision, double vision, ear bleeding, ear discharge, ear drainage, ear pain, ear ringing, eye pain, eye redness, hearing loss, mouth pain, mouth swelling, nasal discharge, nose bleeding, nose congestion, nose pain, photophobia, tearing, throat pain, throat swelling, voice changes, others Respiratory: reports: shortness of breath; denies: cough, hemoptysis, orthopnea, SOB at rest, SOB with excertion, stridor, wheezing, others Cardiovascular: denies: chest pain, dizzy spells, diaphoresis, Dyspnea on exertion, edema, irregular heart beat, left arm pain, lightheadedness, palpitations, PND, syncope, others Gastrointestinal: denies: abdomen distended, abdominal pain, blood streaked bowels, constipated, diarrhea, dysphagia, difficulty swallowing, hematemesis, melena, nausea, poor appetite, poor fluid intake, rectal bleeding, rectal pain, vomiting, others Genitourinary: denies: abnormal vagina bleeding, burning, dyspareunia, dysuria, flank pain, frequency, hematuria, incontinence, pain, , vagina discharge, urgency, others Neurological: denies: dizziness, fainting, headache, left sided numbness, left sided weakness, numbness, paresthesia, pre-existing deficit, right sided numbness, right sided weakness, seizure, speech problems, tingling, tremors, weakness, others Musculoskeletal: denies: back pain, gout, joint pain, joint swelling, muscle pain, muscle stiffness, neck pain, others Integumetry: denies: bruises, change in color, change in hair/nails, dryness, laceration, lesions, lumps, rash, wounds, others Allergic/Immunocompromised: denies: Difficulty Healing, Frequent Infections, Hives, Itching, others Hematologic/Lymphatic: denies: anemia, blood clots, easy bleeding, easy bruising, swollen glands, others Endocrine: denies: excessive hunger, excessive sweating, excessive thirst, excessive urination, flushing, intolerance to cold, intolerance to heat, unexplained weight gain, unexplained weight loss, others Psychiatric: denies: anxiety, bipolar disorder, depression, hopeless, panic disorder, schizophrenia, sleepless, suicidal, others All Other Systems: Reviewed and Negative Physical Exam General Appearance: No Apparent Distress HEENT: Normal ENT Inspection Neck: Full Range of Motion, Normal Inspection Respiratory: Crackles, Decreased Breath Sounds, No Accessory Muscle Use, No Respiratory Distress Cardiovascular: Irregular, No Edema, No JVD Breast Exam: Deferred Gastrointestinal: Non Tender, Soft Genitalia: Deferred Pelvic: Deferred Rectal: Deferred Extremities: Normal inspection, Normal range of motion, Non-tender, No pedal edema Neurologic: Alert, No Motor Deficits, Normal Affect, Normal Mood, No Sensory Deficits Cerebellar Function: NOT DONE Reflexes: NOT DONE Skin: Dry, Pallor, Warm Lymphatic: NOT DONE EKG EKG : Comments AFib RVR, rate 101, QRS prolonged at 143, QTC prolonged at 528, indeterminate axis, old inferior or anterolateral infarct, nonspecific T changes. Was a procedure done? Was a procedure done?: No Differential Dx Differential Diagnosis: Asthma, Bronchitis, CHF, COPD, Dysrhythmia, Hyperventilation, Panic Attack, Pneumonia, Pulmonary Embolism, Respiratory Distress, URI X-Ray, Labs, Meds, VS Vital Signs Date Time Temp Pulse Resp B/P (MAP) Pulse Ox O2 Delivery O2 Flow Rate FiO2 12/23/23 04:02 101 12/23/23 04:00 97.4 62 18 114/64 (81) 97 12/23/23 04:00 97 Nasal Cannula* 4 36 Lab Test 12/23/23 04:50 Range/Units White Blood Count Pending Red Blood Count Pending Hemoglobin Pending Hematocrit Pending Mean Corpuscular Volume Pending Mean Corpuscular Hemoglobin Pending Mean Corpuscular Hemoglobin Concent Pending Red Cell Distribution Width Pending Platelet Count Pending Mean Platelet Volume Pending Neutrophils (%) (Auto) Pending Lymphocytes (%) (Auto) Pending Monocytes (%) (Auto) Pending Basophils (%) (Auto) Pending Neutrophils # (Auto) Pending Lymphocytes # (Auto) Pending Monocytes # (Auto) Pending Prothrombin Time Pending Prothrombin Time INR Pending Activated Partial Thromboplast Time Pending Sodium Level Pending Potassium Level Pending Chloride Level Pending Carbon Dioxide Level Pending Anion Gap Pending Blood Urea Nitrogen Pending Creatinine Pending Glomerular Filtration Rate Calc Pending BUN/Creatinine Ratio Pending Serum Glucose Pending Calcium Level Pending Troponin I High Sensitivity Pending B-Type Natriuretic Peptide Pending X-Ray, Labs, Meds, VS Comment 78-year-old female with a history of COPD/asthma on home O2, CHF, AFib, hypertension and diabetes complaining of shortness a breath and noted to be hypoxic on 2 L nasal cannula at her facility. Vitals remarkable for temperature 97.4, heart rate 101, oxygen saturation 97% on 4 L nasal cannula Exam remarkable for bilateral scattered rales and diminished breath sounds. No respiratory distress. EKG AFib with RVR, rate 101, old inferior or anteroseptal infarct, nonspecific T changes Chest x-ray independently interpreted by me: Cardiomegaly with pulmonary vascular congestion and bilateral patchy increased interstitial markings which may represent asymmetric edema or pneumonia, normal mediastinal width, grossly normal bony thorax, no free air, no pneumothorax. CBC, basic metabolic panel, BNP, troponin, coag panel, UA and lactate pending Patient treated with the following in the ED: Xopenex 1.25 mg/Atrovent 0.5 mg nebulized, Solu-Medrol 125 mg IV, Lasix 40 mg IV, Cardizem 10 mg IV On re-evaluation, patient is not in respiratory distress and saturating normally on 4 L nasal cannula. Plan is to admit the patient for respiratory support, diuresis, and Cardiology evaluation. Time of 1ST Reevaluation: 04:46 Reevaluation 1ST: Unchanged Time of 2ND Reevaluation: 05:16 Reevaluation 2ND: Improved Patient Education/Counseling: Diagnosis, Treatment, Prognosis Family Education/Counseling: No Family Present Departure 1 Departure Time of Disposition: 05:16 Impression: Primary Impression: Acute exacerbation of chronic heart failure Additional Impressions: Acute exacerbation of chronic obstructive pulmonary disease (COPD) Atrial fibrillation with RVR Disposition: ADMITTED INPATIENT Admit to: Tele Condition: Guarded Critical Care Note Critical Care Time?: Yes (45 min-critical care time only) Critical care comment: Critical care time including multiple bedside re-evaluations, review of laboratory and imaging studies, and discussion of the case with the admitting provider. Patient is high risk for respiratory and/or hemodynamic decompensation. Stability Stability form required: No Heart Score Heart Score: Heart Score Response (Comments) Value History N/A 0 EKG N/A 0 Age N/A 0 Risk Factors N/A 0 Troponin N/A 0 Total 0 I personally scribed for ANGIE SAHU MD ([email or web address]) on 12/23/23 at 04:29. Electronically submitted by Pastor Harrell ([email or web address]). ANGIE SAHU MD Dec 23, 2023 04:29
[2023-12-23 05:04] LABS: Basophils # (auto) 0 10 ^3/uL (0-0.2); Basophils % (auto) 0.6 % (0.0-2.0); Eosinophils # (auto) 0.1 10 ^3/uL (0-0.8); Eosinophils % (auto) 1.2 % (0.0-7.0); Hematocrit 29.9 % (36.0-46.0); Hemoglobin 9.2 g/dL (12.2-16.2); Lymphocytes # (auto) 0.3 10 ^3/uL (0.4-5.4); Lymphocytes % (auto) 4.6 % (10.0-50.0); Mean Corpuscular Hgb Conc. 30.7 g/dL (32.0-36.0); Mean Corpuscular Volume 81.4 fL (80.0-100.0); Monocytes # (auto) 0.4 10 ^3/uL (0-1.3); Monocytes % (auto) 5.4 % (0.0-12.0); Neutrophils # (auto) 5.9 10 ^3/uL (1.6-8.6); Neutrophils % (auto) 88.2 % (37.0-80.0); Platelet Count (auto) 133 10^3/uL (140-450); Red Blood Cells 3.67 10^6/uL (4.0-5.20); Red Cell Distribution Width 17.6 % (11.8-14.3); White Blood Cell 6.6 10^3/uL (4.4-10.8)
[2023-12-23 05:09] LABS: Chloride 105 mmol/L (98-107); Potassium 3.9 mmol/L (3.5-5.1); Sodium 142 mmol/L (136-145)
[2023-12-23 05:10] LABS: Anion Gap 4 (5-15); Carbon Dioxide 33 mmol/L (20-31)
[2023-12-23 05:11] LABS: Calcium 9.6 mg/dL (8.7-10.4)
[2023-12-23 05:15] LABS: BUN/Creatinine Ratio 18.2 (10.0-20.0); Blood Urea Nitrogen 16 mg/dL (9-23); Glucose 165 mg/dL (74-106)
[2023-12-23 05:16] LABS: INR 1.18 (0.9-1.15); Partial Thromboplastin Time 29.1 SEC (24.5-34.5); Prothrombin Time 12.4 sec (9.3-11.8)
--- NOTE | 2023-12-23 05:21 | DVH ---
CHEST RADIOGRAPH Indication:sob Technique: Single frontal view of the chest was obtained COMPARISON: XY CHEST PORTABLE on DOS: 09/12/23, XY CHEST XRAY 1 VIEW on DOS: 08/11/23, XY CHEST XRAY 1 V IEW on DOS: 08/09/23 FINDINGS: Lines and Tubes: None Lungs: Multifocal airspace disease. Pleura: No effusion. No pneumothorax. Cardiomediastinal contours: Cardiomegaly Bones: Unremarkable IMPRESSION: Multifocal airspace disease may represent mild fluid overload versus atypical infection.
[2023-12-23] MEDS: LEVALBUTEROL HCL 1.25 MG/3 ML NEB NEB SCH (06:03)
[2023-12-23] MEDS: IPRATROPIUM BROM 0.5 MG/2.5ML INH SOL NEB ONE (06:03)
[2023-12-23] MEDS: methylPREDNISolone SOD SUCC 125 MG/2 ML VL IV ONE (06:24)
[2023-12-23] MEDS: dilTIAZem 25 MG/5 ML VIAL IV ONE (06:24)
[2023-12-23] MEDS: FUROSEMIDE 40 MG/4 ML VIAL IV ONE (06:26)
[2023-12-23] MEDS: OXYCODONE W/ ACETAMINOPHEN 5/325MG TABLET PO ONE (10:07)
[2023-12-23] MEDS ORDERED: ACETAMINOPHEN 325 MG TAB PO PRN (11:00)
[2023-12-23] MEDS ORDERED: DOCUSATE SOD 100 MG CAP PO PRN (11:00)
[2023-12-23] MEDS ORDERED: MORPHINE SULFATE INJ 2 MG/ml SYRG IV PRN ×2 (11:00→12:00)
[2023-12-23] MEDS ORDERED: AZITHROMYCIN 500MG/ 250ML 250 ML IV ONE (11:00)
[2023-12-23] MEDS ORDERED: ONDANSETRON HCL 4 MG/2 ML VIAL IV PRN (11:00)
[2023-12-23] MEDS ORDERED: DEXTROSE (50%) 50ML SYRG IV PRN (11:00)
[2023-12-23] MEDS: ACCU-CHEK COMFORT CURVE STRIP VI SCH (11:45)
[2023-12-23] MEDS: DOXYCYCLINE 100MG/250ML 250 ML IV SCH (11:47)
[2023-12-23] MEDS: InsuLIN REG 1unit/0.01ml Soln (100units/ml) SC SCH ×2 (11:50→21:31)
[2023-12-23] MEDS ORDERED: NITROGLYCERIN 0.4 MG SL TAB SL PRN (12:00)
--- NOTE | 2023-12-23 12:02 | DVHHP2 ---
History of Present Illness Reason for Visit: Acute exacerbation of chronic heart failure History of Present Illness Patient is a 78-year-old female with past medical history of AFib, CHF, COPD, DM, hypertension, and asthma who presented to [facility] ED with complaint of shortness of breaths. Patient was seen and evaluated in the ED, laboratory data shows WBC 6.6, hemoglobin 9.2, hematocrit 29.9, platelets 133, sodium 142, potassium 3.9, BUN 16, creatinine 0.88, lactic acid 1.2, glucose 165, troponin 3, BNP 311.77, blood pressure 118/70, heart rate 96, temperature 97.4 F, O2 saturation 93% on oxygen. Chest x-ray revealing multifocal airspace disease may represent mild fluid overload versus atypical infection. Patient was started on IV antibiotic regimen doxycycline, please see medication orders section in the computer. On my assessment, patient denied chest pain, no headache, no dizziness, no diaphoresis, currently on oxygen, no nausea, no vomiting, no fever, no chills. Patient was admitted for further evaluation and medical management. Past Medical History AFIB, Asthma, CHF, COPD, DM, HTN Past Surgical History Cholecystectomy, Hysterectomy Family History Reviewed, noncontributory to the management of this case. Past Social History The patient lives at home, denies smoking, alcohol or illicit drugs abuse. Review of Systems Constitutional: No: Fever, Chills, Sweats, Weakness, Malaise, Other Eyes: No: Pain, Vision change, Conjunctivae inflammation, Eyelid inflammation, Other, Redness ENT: No: Ear pain, Ear discharge, Nose pain, Nose discharge, Nose congestion, Mouth pain, Mouth swelling, Throat pain, Throat swelling, Other Respiratory: Shortness of breath, Other (SOB at rest); No: Cough, Dry, SOB with excertion, Wheezing, Hemoptysis, Pleuritic Pain, Sputum, Wheezing Cardiovascular: No: Chest Pain, Palpitations, Orthopnea, Paroxysmal Noc. Dyspnea, Edema, Lt Headedness, Other Gastrointestinal: No: Nausea, Vomiting, Abdominal Pain, Diarrhea, Constipation, Melena, Hematochezia, Other Genitourinary: No Dysuria, No Frequency, No Incontinence, No Hematuria, No Re tention, No Other Musculoskeletal: No: other, neck pain, shoulder pain, arm pain, back pain, hand pain, leg pain, foot pain Skin: No: Rash, Lesions, Jaundice, Bruising, Other Neurological: No: Weakness, Numbness, Incoordination, Change in speech, Confusion, Seizures, Other Allergies: Coded Allergies: Cephalexin (Verified Allergy, Unknown, 08/10/23) Ciprofloxacin (Verified Allergy, Unknown, 08/10/23) Lidocaine (Verified Allergy, Unknown, 08/10/23) Sucralfate (Verified Allergy, Unknown, 08/10/23) Sulfamethoxazole w/Trimethoprim (Verified Allergy, Unknown, 08/10/23) Hydrocodone (Verified Adverse Reaction, Unknown, 08/10/23) itching Medications Current Medications Medications Dose Ordered Sig/Terrence Route Start Time Stop Time Status Last Admin Dose Admin Levalbuterol HCl 1.25 mg Q6HR NEB 12/23/23 06:00 12/23/23 11:45 1.25 MG Carvedilol 12.5 mg Q12HR PO 12/23/23 22:00 Furosemide 40 mg DAILY IV 12/24/23 10:00 Methylprednisolone Sodium Succinate 40 mg Q8HR IV 12/23/23 14:00 Famotidine 20 mg Q12HR IV 12/23/23 22:00 Albuterol 2.5 mg Q4HPRN PRN NEB 12/23/23 11:00 Ipratropium [place] 0.5 mg Q4HPRN PRN NEB 12/23/23 11:00 Apixaban 5 mg BID PO 12/23/23 22:00 Diagnostic Test (Pha) 1 strip ACHS 12/23/23 11:30 12/23/23 11:45 1 STRIP Insulin Human Regular HS SC 12/23/23 22:00 Insulin Human Regular AC SC 12/23/23 11:30 12/23/23 11:50 3 UNITS Dextrose 50 ml UD PRN IV 12/23/23 11:00 Sodium Chloride 10 ml Q8HR IV 12/23/23 14:00 Ondansetron HCl 4 mg Q4HP PRN IV 12/23/23 11:00 Docusate Sodium 100 mg BIDPRN PRN PO 12/23/23 11:00 Acetaminophen 650 mg Q6HP PRN PO 12/23/23 11:00 Morphine Sulfate 2 mg Q4HPRN PRN IV 12/23/23 11:00 Hold Doxycycline Hyclate 250 ml @ 125 mls/hr Q12H IV 12/23/23 11:30 12/23/23 11:47 125 MLS/HR Exam Vital Signs Vital Signs Date Time Temp Pulse Resp B/P (MAP) Pulse Ox O2 Delivery O2 Flow Rate FiO2 12/23/23 11:49 107 18 95 12/23/23 11:46 Nasal Cannula* 2 28 12/23/23 10:00 128/74 (92) 12/23/23 08:10 97.4 97.4 General Appearance: Alert, Oriented X3, Cooperative, No acute distress HEENT: Atraumatic, PERRLA, EOMI, Mucous membr. moist/pink Respiratory: Clear to auscultation, Normal air movement Cardiovascular: Regular rate, Normal S1, Normal S2, No murmurs Abdominal: Normal bowel sounds, Soft, No tenderness, No hepatospenomegaly, No masses Extremities: No clubbing, No cyanosis, No edema, Normal pulses, No tenderness/swelling Skin: No rashes, No breakdown, No significant lesion Neuro: Normal gait, Normal speech, Strength at 5/5 X4 ext, Normal tone, Se nsation intact, Cranial nerves 3-12 NL, Reflexes 2+ Psych/Mental Status: Mental status NL, Mood NL Labs/Xrays Labs Test 12/23/23 11:44 12/23/23 08:07 12/23/23 05:45 12/23/23 04:50 Range/Units POC Glucose 192 H 70-106 mg/dl Troponin I High Sensitivity < 3 L </=34 ng/L Lactic Acid Level 1.2 0.4-2.0 mmol/L White Blood Count 6.6 4.4-10.8 10^3/uL Red Blood Count 3.67 L 4.0-5.20 10^6/uL Hemoglobin 9.2 L 12.2-16.2 g/dL Hematocrit 29.9 L 36.0-46.0 % Mean Corpuscular Volume 81.4 80.0-100.0 fL Mean Corpuscular Hemoglobin 25.0 L 28.0-32.0 pg Mean Corpuscular Hemoglobin Concent 30.7 L 32.0-36.0 g/dL Red Cell Distribution Width 17.6 H 11.8-14.3 % Platelet Count 133 L 140-450 10^3/uL Mean Platelet Volume 9.6 6.9-10.8 fL Neutrophils (%) (Auto) 88.2 H 37.0-80.0 % Lymphocytes (%) (Auto) 4.6 L 10.0-50.0 % Monocytes (%) (Auto) 5.4 0.0-12.0 % Eosinophils (%) (Auto) 1.2 0.0-7.0 % Basophils (%) (Auto) 0.6 0.0-2.0 % Neutrophils # (Auto) 5.9 1.6-8.6 10 ^3/uL Lymphocytes # (Auto) 0.3 L 0.4-5.4 10 ^3/uL Monocytes # (Auto) 0.4 0-1.3 10 ^3/uL Eosinophils # (Auto) 0.1 0-0.8 10 ^3/uL Basophils # (Auto) 0 0-0.2 10 ^3/uL Nucleated Red Blood Cells 0.0 % Prothrombin Time 12.4 H 9.3-11.8 sec Prothrombin Time INR 1.18 H 0.9-1.15 Activated Partial Thromboplast Time 29.1 24.5-34.5 SEC Sodium Level 142 136-145 mmol/L Potassium Level 3.9 3.5-5.1 mmol/L Chloride Level 105 98-107 mmol/L Carbon Dioxide Level 33 H 20-31 mmol/L Anion Gap 4 L 5-15 Blood Urea Nitrogen 16 9-23 mg/dL Creatinine 0.88 0.550-1.02 mg/dL Glomerular Filtration Rate Calc 68 >90 mL/min BUN/Creatinine Ratio 18.2 10.0-20.0 Serum Glucose 165 H 74-106 mg/dL Calcium Level 9.6 8.7-10.4 mg/dL B-Type Natriuretic Peptide 311.77 0-100 pg/mL PATIENT: ZEYAD PENNY ACCT: [id number] UNIT: [id number] : 1945 LOC: ER ROOM / BED: / AGE / SEX: 78 / F ADM STATUS: REG ER SERVICE [id number] ORDERING PHYSICIAN: ANGIE SAHU MD PROCEDURE(s): CXRP - CHEST PORTABLE REASON: sob ORDER NUMBER(s): [id number], ACCESSION NUMBER(s): [id number] CHEST RADIOGRAPH Indication:sob Technique: Single frontal view of the chest was obtained COMPARISON: XY CHEST PORTABLE on DOS: 09/12/23, XY CHEST XRAY 1 VIEW on DOS: 08/11/23, XY CHEST XRAY 1 VIEW on DOS: 08/09/23 FINDINGS: Lines and Tubes: None Lungs: Multifocal airspace disease. Pleura: No effusion. No pneumothorax. Cardiomediastinal contours: Cardiomegaly Bones: Unremarkable IMPRESSION: Multifocal airspace disease may represent mild fluid overload versus atypical infection. Assessment/Plan Assessment/Plan Acute exacerbation of chronic heart failure COPD with acute exacerbation Atrial fibrillation with RVR Generalized weakness Pneumonia, unspecified organisms Diabetes mellitus with hyperglycemia Plan 1. Admit to telemetry unit 2. Breathing treatment 3. Pain control management 4. IV antibiotic management 5. Management of fluids and electrolytes 6. Consultation for hospitalist 7. Diagnostic test chest x-ray 8. DVT prophylaxis-on Eliquis 9. Repeat labs CBC, CMP in a.m. 10. Home medication reviewed and reconciled 11. Continue with current medical management 12. Treatment plan discussed with patient and RN. Patient verbalized lorna estrada. Plan discussed with: Patient, Other (RN) My Orders Orders - LANG STATON DNP Procedure Category Date Status Time Consistent DIET 12/23/23 Transmitted Carb(Ccho)Diabetes Lunch Carvedilol Tablet PHA 12/23/23 In Process (Coreg Tablet) 22:00 Furosemide Injection PHA 12/24/23 In Process (Lasix Injection) 10:00 Methylprednisolone PHA 12/23/23 In Process Sod Succ (Solu Medrol 14:00 Famotidine Injection PHA 12/23/23 In Process (Pepcid Injection) 22:00 Albuterol Medneb PHA 12/23/23 In Process (Ventolin Medneb) 11:00 Ipratropium Medneb PHA 12/23/23 In Process (Atrovent Medneb) 11:00 Apixaban (Eliquis) PHA 12/23/23 In Process 22:00 Glucose Blood PHA 12/23/23 In Process (Accu-Chek Comfort 11:30 Insulin R (Human) PHA 12/23/23 In Process (Insulin R) 22:00 Insulin R (Human) PHA 12/23/23 In Process (Insulin R) 11:30 Dextrose 50% Syringe PHA 12/23/23 In Process 11:00 Allergies MICHAEL 12/23/23 In Process 10:59 Code Status CODE 12/23/23 Transmitted 10:59 Sodium Chloride Lock PHA 12/23/23 In Process (Saline Lock Ns) 14:00 Oxygen Per Hour RT 12/23/23 Transmitted 10:59 Ondansetron Hcl PHA 12/23/23 In Process (Zofran) 11:00 Docusate Sodium PHA 12/23/23 In Process Capsule (Colace 11:00 Fall Risk Precautions MICHAEL 12/23/[address] 10:59 Complete Blood Count LAB 12/24/23 Verified 04:00 Comprehensive LAB 12/24/23 Verified Metabolic Panel 04:00 Condition: Serious MICHAEL 12/23/23 In Process 10:59 Acetaminophen Tablet [facility] 12/23/23 In Process (Tylenol Tablet) 11:00 Morphine Sulfate PHA 12/23/23 In Process Injection 11:00 Sequential [facility] 12/23/23 In Process Compression Device Admit ADMIT 12/23/23 Transmitted 12:00 Nitroglycerin [facility] 12/23/23 Transmitted Sublingual (Ntrostat 12:00 Morphine Sulfate PHA 12/23/23 Transmitted Injection 12:00 Notify Of Changes [facility] 12/23/23 Transmitted From Base 12:00 Fiber Locking Supervisor For [facility] 12/23/23 Transmitted 24 Hours 12:00 Emergency Dysrhythmia [facility] 12/23/23 Transmitted Protocol 12:00 Rhythm Strips Once [facility] 12/23/23 Transmitted Every Shift 12:00 Oxygen By Nasal RT 12/23/23 Transmitted Cannula 12:00 Problem List: (1) Acute exacerbation of chronic heart failure (2) Pneumonia, unspecified organism (3) COPD with acute exacerbation (4) Atrial fibrillation with RVR (5) Generalized weakness (6) Diabetes mellitus with hyperglycemia Date of Service: Dec 23, 2023 Billing Provider: LANG STATON DNP Common Visit Codes: [id number] INP/OBS CARE (HIGH) LANG STATON DNP Dec 23, 2023 12:02
[2023-12-23] MEDS: SODIUM CHLOR 0.9% PF (SALINE LOCK) 10ML VIAL/SYR IV SCH (13:54)
[2023-12-23] MEDS: methylPREDNISolone SOD SUCC 40 MG/ML VL IV SCH (13:56)
[2023-12-23] MEDS: AMIODARONE HCL 200 MG TAB PO ONE (15:15)
[2023-12-23] MEDS: OXYCODONE W/ ACETAMINOPHEN 5/325MG TABLET PO SCH (17:26)
[2023-12-23] MEDS: MIDODRINE HCL 10 MG TAB PO ONE (20:22)
[2023-12-23] MEDS: CARVEDILOL 12.5 MG TAB PO SCH (21:14)
[2023-12-23] MEDS: FAMOTIDINE (10MG/ML) 2ML VL IV SCH (21:31)
[2023-12-23] MEDS: GABAPENTIN 300 MG CAP PO SCH (21:32)
[2023-12-23] MEDS: APIXABAN 5 MG TAB PO SCH (21:32)
[2023-12-23] MEDS: ALBUTEROL SULF 2.5 MG/0.5ML(0.5%) NEB SOLN NEB PRN (22:49)
[2023-12-24] VITALS (15 sets, daily range): BP systolic 103–118; BP diastolic 62–77; PULSE 82–152; RESP 16–20; TEMP 97.7–98.3; O2SAT 92–100
[2023-12-24] MEDS: MIDODRINE HCL 10 MG TAB PO SCH (06:08)
[2023-12-24 06:13] LABS: Basophils # (auto) 0 10 ^3/uL (0-0.2); Basophils % (auto) 0.2 % (0.0-2.0); Eosinophils # (auto) 0 10 ^3/uL (0-0.8); Hematocrit 33.6 % (36.0-46.0); Lymphocytes # (auto) 0.2 10 ^3/uL (0.4-5.4); Lymphocytes % (auto) 4.3 % (10.0-50.0); Mean Corpuscular Hemoglobin 24.2 pg (28.0-32.0); Mean Corpuscular Hgb Conc. 29.7 g/dL (32.0-36.0); Mean Corpuscular Volume 81.4 fL (80.0-100.0); Monocytes # (auto) 0.2 10 ^3/uL (0-1.3); Monocytes % (auto) 2.8 % (0.0-12.0); Neutrophils # (auto) 5.3 10 ^3/uL (1.6-8.6); Neutrophils % (auto) 92.7 % (37.0-80.0); Nucleated Red Blood Cells % 0.1 %; Platelet Count (auto) 148 10^3/uL (140-450); Red Blood Cells 4.13 10^6/uL (4.0-5.20); Red Cell Distribution Width 17.9 % (11.8-14.3); White Blood Cell 5.8 10^3/uL (4.4-10.8)
[2023-12-24 06:50] LABS: Alanine Aminotransferase 23 U/L (7-40); Albumin 4.2 g/dL (3.2-4.8); Alkaline Phosphatase 85 U/L (46-116); Anion Gap 5 (5-15); Aspartate Aminotransferase 27 U/L (13-40); BUN/Creatinine Ratio 23.5 (10.0-20.0); Bilirubin, Total 0.6 mg/dL (0.2-1.0); Blood Urea Nitrogen 24 mg/dL (9-23); Calcium 9.4 mg/dL (8.7-10.4); Carbon Dioxide 35 mmol/L (20-31); Chloride 101 mmol/L (98-107); Glucose 190 mg/dL (74-106); Sodium 141 mmol/L (136-145)
[2023-12-24] MEDS: FUROSEMIDE 40 MG/4 ML VIAL IV SCH (09:24)
[2023-12-24] MEDS: AMIODARONE HCL 200 MG TAB PO SCH (09:26)
[2023-12-24] MEDS ORDERED: AZITHROMYCIN 500MG/ 250ML 250 ML IV SCH (10:00)
[2023-12-24 11:42] LABS: Urine Bacteria MANY /hpf (None Seen); Urine Blood Negative /uL (Negative); Urine Clarity Turbid (Clear); Urine Color Light-Yellow (Yellow); Urine Hyaline Cast MANY /lpf (0 - 2); Urine Mucus FEW (None Seen); Urine Protein, UAD Negative (Negative); Urine Specific Gravity 1.014 (1.001-1.035); Urine Urobilinogen Normal (Negative); Urine WBC 10 /hpf (0 - 5)
--- NOTE | 2023-12-24 12:48 | DVHPN2 ---
Reviewed: Care Plan, H&P, Labs, Medications, Previous Orders, Radiology Changes from previous H/P or p: No Changes Eyes: No Pain, No Vision change, No Conjunctivae inflammation, No Eyelid inflammation, No Other, No Redness ENT: No Ear pain, No Ear discharge, No Nose pain, No Nose discharge, No Nose congestion, No Mouth pain, No Mouth swelling, No Throat pain, No Throat swelling, No Other Cardiovascular: No Chest Pain, No Palpitations, No Orthopnea, No Paroxysmal Noc. Dyspnea, No Edema, No Lt Headedness, No Other Respiratory: No Cough, No Dry; Shortness of breath; No SOB with excertion, No Wheezing, No Hemoptysis, No Pleuritic Pain, No Sputum; Other (SOB at rest) Gastrointestinal: No Nausea, No Vomiting, No Abdominal Pain, No Diarrhea, No Constipation, No Melena, No Hematochezia, No Other Genitourinary: No Dysuria, No Frequency, No Incontinence, No Hematuria, No Retention, No Other Musculoskeletal: No other, No neck pain, No shoulder pain, No arm pain, No back pain, No hand pain, No leg pain, No foot pain Skin: No Rash, No Lesions, No Jaundice, No Bruising, No Other Objective Vitals Vital Signs Date Time Temp Pulse Resp B/P (MAP) Pulse Ox O2 Delivery O2 Flow Rate FiO2 12/24/23 11:36 102 20 97 12/24/23 11:30 Nasal Cannula 2.0 12/24/23 11:30 28 12/24/23 10:25 118/75 12/24/23 09:43 98.0 98.0 Intake/Output Intake and Output 12/24/23 07:00 Intake Total 200 ml Output Total 0 ml Balance 200 ml Intake Oral 200 ml Output Urine Total 0 ml Medications Current Medications Medications Dose Ordered Sig/Terrence Route Start Time Stop Time Status Last Admin Dose Admin Levalbuterol HCl 1.25 mg Q6HR NEB 12/23/23 06:00 12/24/23 11:30 1.25 MG Carvedilol 12.5 mg Q12HR PO 12/23/23 22:00 12/24/23 09:25 12.5 MG Furosemide 40 mg DAILY IV 12/24/23 10:00 12/24/23 09:24 40 MG Methylprednisolone Sodium Succinate 40 mg Q8HR IV 12/23/23 14:00 12/24/23 06:07 40 MG Famotidine 20 mg Q12HR IV 12/23/23 22:00 12/24/23 09:23 20 MG Albuterol 2.5 mg Q4HPRN PRN NEB 12/23/23 11:00 12/23/23 22:49 2.5 MG Ipratropium [place] 0.5 mg Q4HPRN PRN NEB 12/23/23 11:00 Apixaban 5 mg BID PO 12/23/23 22:00 12/24/23 09:25 5 MG Diagnostic Test (Pha) 1 strip ACHS 12/23/23 11:30 12/24/23 11:30 1 STRIP Insulin Human Regular HS SC 12/23/23 22:00 12/23/23 21:31 4 UNITS Insulin Human Regular AC SC 12/23/23 11:30 12/24/23 06:19 6 UNITS Dextrose 50 ml UD PRN IV 12/23/23 11:00 Sodium Chloride 10 ml Q8HR IV 12/23/23 14:00 12/24/23 06:07 10 ML Ondansetron HCl 4 mg Q4HP PRN IV 12/23/23 11:00 Docusate Sodium 100 mg BIDPRN PRN PO 12/23/23 11:00 Acetaminophen 650 mg Q6HP PRN PO 12/23/23 11:00 Doxycycline Hyclate 250 ml @ 125 mls/hr Q12H IV 12/23/23 11:30 12/24/23 12:24 125 MLS/HR Nitroglycerin 0.4 mg Q5MINP PRN SL 12/23/23 12:00 Oxycodone/ Acetaminophen 1 tab QID PO 12/23/23 18:00 12/24/23 12:25 1 TAB Gabapentin 300 mg BID PO 12/23/23 22:00 12/24/23 09:25 300 MG Sertraline HCl 100 mg DAILY PO 12/24/23 22:00 Amiodarone HCl 200 mg DAILY PO 12/24/23 10:00 12/24/23 09:26 200 MG Midodrine 10 mg TID@0600,1200,1800 PO 12/24/23 06:00 12/24/23 12:25 10 MG Laboratory Results Laboratory Tests 11/12/24 05:28 Chemistry Test 12/24/23 05:28 Albumin 4.2 g/dL (3.2-4.8) Calcium Level 9.4 mg/dL (8.7-10.4) Total Protein 7.0 g/dL (5.7-8.2) LFT Test 12/24/23 05:28 Alanine Aminotransferase (ALT) 23 U/L (7-40) Alkaline Phosphatase 85 U/L (46-116) Aspartate Amino Transferase (AST) 27 U/L (13-40) Total Bilirubin 0.6 mg/dL (0.2-1.0) Urinalysis Test 12/24/23 10:30 Urine Color Light-yellow (Yellow) Urine Clarity Turbid (Clear) H Urine pH 5.0 (5.0-9.0) Urine Specific [place] 1.014 (1.001-1.035) Urine Protein Negative (Negative) Urine Ketones Negative (Negative) Urine Blood Negative /uL (Negative) Urine Nitrite Negative (Negative) Urine Bilirubin Negative (Negative) Urine Urobilinogen Normal mg/dL (Negative) Urine Leukocyte Esterase 3+ /uL (Negative) Urine RBC 10 /hpf (0 - 4) Urine WBC 10 /hpf (0 - 5) Urine Squamous Epithelial Cells Few /hpf (<5) Urine Transitional Epithelial Cells Few /hpf (<2) Urine Bacteria Many /hpf (None Seen) H Urine Hyaline Casts Many /lpf (0 - 2) Urine Mucus Few (None Seen) Urine Glucose Normal mg/dL (Normal) Labs and/or images reviewed: Labs reviewed by me, Image(s) reviewed by me Assessment/Plan Assessment/Plan Hypoxic respiratory failure: Oxygen by nasal cannula Acute COPD exacerbation: Albuterol Atrovent Solu-Medrol Acute CHF exacerbation: Lasix midodrine, coreg History of AFib : Amiodarone Eliquis Community-acquired bilateral pneumonia treated: Doxycycline Diabetes: Insulin sliding scale Diabetic neuropathy vasculopathy nephropathy Hypertension UTI: Rocephin urine cultures Peripheral neuropathy: Gabapentin Moderate malnutrition Patient is full code Advanced care planning time 20 minutes Patient with multiple comorbidities Time spent 65 minutes Will order flu test and Regina test D-dimer Patient came from [facility] Plan discussed with: Patient My Orders Orders - CARLA MARADIAGA MD Procedure Category Date Status Time Urine Bacterial EARLE 12/24/23 Verified Culture 12:31 Date of Service: Dec 24, 2023 Billing Provider: CARLA MARADIAGA MD Common Visit Codes: [id number] CARE 30-74 MIN CARLA MARADIAGA MD Dec 24, 2023 12:48
--- NOTE | 2023-12-24 14:20 | DVHSR ---
APPROVED REPORT EXAM: Two-dimensional and M-mode echocardiogram with Doppler and color Doppler. Blood Pressure: 118/77 mmHg INDICATION CHF exacerbation RISK FACTORS Height: 5'4", Weight: 157 DIMENSIONS LVDd5.6 (3.8-5.7cm)LA (2D)5.0 (1.9-4.0cm)Aortic Root3.1 (2.0-3.7cm) LVDs4.8 (2.5-4.0cm)LA (MM) (1.9-4.0cm)Aortic Cusp Exc1.5 (1.5-2.0cm) EF (%) 30.0 (55-70%)Rt. Atrium4.6 (1.9-4.0cm)Asc. Aorta cm IVSd0.8 (0.7-1.1cm)RV (D)4.0 (1.8-2.4cm) PWd0.7 (0.7-1.1cm) Mitral Valve MitralMitral Stenosis E wave1.03m/sMV Mean GR.mmHg E/A ratio0.02D MVAcm2 Aortic Valve Aortic ValveAortic Stenosis V10.56m/Randee Mean GR.4mmHg V21.45m/Randee Peak GR.8mmHg LVOT Diameter1.9 (1.8-2.4cm)Doppler AVA1.09cm2 AI P 1/2 Olwc551.34ms Pulmonic Valve V20.83m/s Tricuspid Valve TR Velocity3.45m/s [id number] Other Information Quality : Rhythm : Atrial Fibrillation Conclusion Severely dilated left ventricle. Severely reduced left ventricular systolic function estimated eject ion fraction of 25% in a global fashion. Severely dilated right ventricle. Severely reduced right ventricular systolic function. Moderately elevated right ventricular systolic pressure estimated right ventricular systolic [id number] mm of me rcury. Moderately dilated right and left atria. The aortic valve is mildly thickened and sclerotic there is mild aortic valve regurgitation. The mitral valve is mildly thickened there is moderate mitral valve regurgitation. There is mild tricuspid valve regurgitation. The pulmonary valve is grossly normal. No pericardial effusion. New
[2023-12-24] MEDS: METOPROLOL SUCCINATE XL 50 MG TAB PO ONE (14:38)
--- NOTE | 2023-12-24 17:29 | DVHINCON2 ---
Date Seen: Dec 24, [address] Myles Reason for Consultation CHF exacerbation History of Present Illness 78-year-old female patient with past medical history of atrial fibrillation , heart failure reduced ejection fraction, COPD, type 2 diabetes, asthma, severe scoliosis. She is under the care of Dr. Brandon her food scientist, and was recently transferred from [facility] where she was engaged in physical activity following a hospitalization 2 and half months ago. She presents with worsening shortness of breaths that has progressively intensified over the past week. She reports dyspnea on exertion and at times mild orthopnea but denies any new chest pain palpitation or fever. Recent chest x-rays imaging showed multifocal airspace disease, raising concerns for mild fluid overload versus an atypical infection. In light of the this she was started on doxycycline. Her heart rate has been elevated ranging from 100 to- 114 beats per minute with episodes of rapid ventricular response in the setting of her known atrial fibrillation. On physical examination last auscultation revealed crackles particularly at the left, no pedal edema was noted. Past Medical History Atrial fibrillation Heart failure reduced ejection fraction COPD Type 2 diabetes Hypertension Asthma Severe scoliosis Family History: Cancer of vulva G8 FATHER Diabetes mellitus G8 MOTHER G8 FATHER FH: CHF (congestive heart failure) G8 MOTHER FH: kidney failure G8 MOTHER Hypertension G8 FATHER Allergies: Coded Allergies: Cephalexin (Verified Allergy, Unknown, 08/10/23) Ciprofloxacin (Verified Allergy, Unknown, 08/10/23) Lidocaine (Verified Allergy, Unknown, 08/10/23) Sucralfate (Verified Allergy, Unknown, 08/10/23) Sulfamethoxazole w/Trimethoprim (Verified Allergy, Unknown, 08/10/23) Hydrocodone (Verified Adverse Reaction, Unknown, 08/10/23) itching Home Meds Active Scripts Digoxin (Lanoxin) 125 Mcg Tab, 0.125 MG PO DAILY for 30 Days, #30 TAB 5 Refills Prov:ENIO BARRY MD 08/14/23 Sacubitril-Valsartan (Entresto 24-26 mg) 1 Tab Tab, 1 TAB PO BID for 30 Days, #60 TAB 5 Refills Prov:ENIO BARRY MD 08/14/23 Reported Medications Diltiazem HCl (Diltiazem Hydrochloride E) 180 Mg Cap, 1 CAP PO DAILY 09/16/23 [id number] (Trelegy Ellipta 200-62.5-25 Mcg/INH) 1 Aer Aer, 1 PUFF INH DAILY 09/16/23 Albuterol Sulfate (Proair Respiclick) 108 Mcg/Act Aer, 2 PUFF INH Q6HR PRN 08/13/23 Furosemide (Furosemide) 20 Mg Tab, 1 TAB PO BID 08/13/23 Potassium Chloride (Potassium Chloride ER) 20 Meq Tab, 1 TAB PO DAILY 08/13/23 Anastrozole (Anastrozole) 1 Mg Tab, 1 TAB PO DAILY 08/13/23 Oxycodone W/ Acetaminophen (Percocet 5/325MG) 1 Tab Tb, 1 TAB PO QID, #120 TAB 08/10/23 Alendronate Sodium (Alendronate Sodium) 70 Mg Tab, 1 TAB PO QWEEKLY 08/10/23 Donepezil Hydrochloride (DONEPEZIL HCL) 5 Mg Tab, 1 TAB PO DAILY 08/10/23 Gabapentin (Gabapentin) 300 Mg Cap, 1 CAP PO BID 08/10/23 Clonidine Hydrochloride (Clonidine Hcl) 0.2 Mg/24 Hr Dis, 1 PATCH TOP QWEEKLY 08/10/23 Ferrous Sulfate (Ferosul) 325 Mg Tab, 1 TAB PO DAILY 08/10/23 Sertraline Hcl (Sertraline Hcl) 100 Mg Tab, 1.5 TAB PO DAILY Take 1.5 tablets (150 mg) by mouth daily after breakfast. 08/10/23 Amiodarone HCl (Amiodarone HCl) 200 Mg Tab, 1 TAB PO DAILY 08/10/23 Spironolactone (Spironolactone) 25 Mg Tab, 1 TAB PO DAILY 08/10/23 Empagliflozin (Jardiance) 10 Mg Tab, 1 TAB PO DAILY 08/10/23 Levothyroxine Sodium (Levothyroxine Sodium) 75 Mcg Tab, 1 TAB PO DAILY 08/10/23 Losartan Potassium (Losartan Potassium) 100 Mg Tab, 1 TAB PO DAILY 08/10/23 Pantoprazole Sodium Sesquihydr (Pantoprazole Sodium) 40 Mg Tab, 1 TAB PO DAILY 08/10/23 Metoprolol Succinate (Metoprolol Succinate Er) 100 Mg Tab, 1 TAB PO BID 08/10/23 Apixaban Base (ELIQUIS) 5 Mg Tab, 1 TAB PO BID 08/10/23 Current Medications Current Medications Medications (Trade) Dose Ordered Sig/Terrence Route PRN Reason Start Time Stop Time Status Last Admin Carvedilol (Coreg Tablet) 12.5 mg Q12HR PO 12/23/23 22:00 12/24/23 13:30 DC 12/24/23 09:25 Furosemide (Lasix Injection) 40 mg DAILY IV 12/24/23 10:00 12/24/23 09:24 Famotidine (Pepcid Injection) 20 mg Q12HR IV 12/23/23 22:00 12/24/23 09:23 Azithromycin 250 ml @ 125 mls/hr DAILY IV 12/24/23 10:00 12/23/23 11:29 DC Apixaban (Eliquis) 5 mg BID PO 12/23/23 22:00 12/24/23 09:25 Insulin Human Regular (InsuLIN R) HS SC 12/23/23 22:00 12/23/23 21:31 Oxycodone/ Acetaminophen (Percocet 5/ 325MG Tablet) 1 tab QID PO 12/23/23 18:00 12/24/23 12:25 Gabapentin (Neurontin Capsule) 300 mg BID PO 12/23/23 22:00 12/24/23 09:25 Sertraline HCl (Zoloft) 100 mg DAILY PO 12/24/23 22:00 Amiodarone HCl (Cordarone Tablet) 200 mg DAILY PO 12/24/23 10:00 12/24/23 09:26 Midodrine (Proamatine Tablet) 10 mg TID@0600,1200,1800 PO 12/24/23 06:00 12/24/23 12:25 Metoprolol Succinate (Toprol Xl) 100 mg DAILY PO 12/25/23 10:00 Review of Systems Constitutional: No: Fever, Chills, Sweats, Weakness, Malaise, Other Eyes: No: Pain, Vision change, Conjunctivae inflammation, Eyelid inflammation, Other, Redness ENT: No: Ear pain, Ear discharge, Nose pain, Nose discharge, Nose congestion, Mouth pain, Mouth swelling, Throat pain, Throat swelling, Other Respiratory: Yes: Shortness of breath no: Wheezing, Hemoptysis, Pleuritic Pain, Sputum, Wheezing, Other Cardiovascular: Yes: Orthopnea, PND, palpitations No: Chest Pain, Edema, Lt Headedness, Other Gastrointestinal: No: Nausea, Vomiting, Abdominal Pain, Diarrhea, Constipation, Melena, Hematochezia, Other Musculoskeletal: No: other, neck pain, shoulder pain, arm pain, back pain, hand pain, leg pain, foot pain Neurological:; No: Weakness, Numbness, Incoordination, Change in speech, Confusion, Seizures Vital Signs Vital Signs Date Time Temp Pulse Resp B/P (MAP) Pulse Ox O2 Delivery O2 Flow Rate FiO2 12/24/23 14:38 94 106/60 12/24/23 12:35 97.8 20 95 97.8 12/24/23 11:30 Nasal Cannula 2.0 12/24/23 11:30 28 Physical Exam General Appearance: Alert, Oriented X3, Cooperative, No acute distress Respiratory: Crackles on auscultation mainly in the left side Cardiovascular: Irregular rate and rhythm, Normal S1, Normal S2 Abdominal: Normal bowel sounds Extremities: No cyanosis, No edema, Normal pulses, No tenderness/swelling Skin: No rashes, No breakdown Neuro: Normal gait, Normal speech, Strength at 5/5 X4 ext, Normal tone, Sensation intact, Cranial nerves 3-12 NL, Reflexes 2+ Psych/Mental Status: Mental status NL, Mood NL Labs/Diagnostic Data Labs Test 12/24/23 14:00 12/24/23 12:18 12/24/23 10:30 12/24/23 05:28 Range/Units D-Dimer, Quantitative 0.35 0.0-0.49 mg/L FEU POC Glucose 170 H 70-106 mg/dl Urine Color Light-yellow Yellow Urine Clarity Turbid H Clear Urine pH 5.0 5.0-9.0 Urine Specific [place] 1.014 1.001-1.035 Urine Protein Negative Negative Urine Ketones Negative Negative Urine Blood Negative Negative /uL Urine Nitrite Negative Negative Urine Bilirubin Negative Negative Urine Urobilinogen Normal Negative mg/dL Urine Leukocyte Esterase 3+ Negative /uL Urine RBC 10 0 - 4 /hpf Urine WBC 10 0 - 5 /hpf Urine Squamous Epithelial Cells Few <5 /hpf Urine Transitional Epithelial Cells Few <2 /hpf Urine Bacteria Many H None Seen /hpf Urine Hyaline Casts Many 0 - 2 /lpf Urine Mucus Few None Seen Urine Glucose Normal Normal mg/dL White Blood Count 5.8 4.4-10.8 10^3/uL Red Blood Count 4.13 4.0-5.20 10^6/uL Hemoglobin 10.0 L 12.2-16.2 g/dL Hematocrit 33.6 #L 36.0-46.0 % Mean Corpuscular Volume 81.4 80.0-100.0 fL Mean Corpuscular Hemoglobin 24.2 L 28.0-32.0 pg Mean Corpuscular Hemoglobin Concent 29.7 L 32.0-36.0 g/dL Red Cell Distribution Width 17.9 H 11.8-14.3 % Platelet Count 148 140-450 10^3/uL Mean Platelet Volume 9.1 6.9-10.8 fL Neutrophils (%) (Auto) 92.7 H 37.0-80.0 % Lymphocytes (%) (Auto) 4.3 L 10.0-50.0 % Monocytes (%) (Auto) 2.8 0.0-12.0 % Eosinophils (%) (Auto) 0.0 0.0-7.0 % Basophils (%) (Auto) 0.2 0.0-2.0 % Neutrophils # (Auto) 5.3 1.6-8.6 10 ^3/uL Lymphocytes # (Auto) 0.2 L 0.4-5.4 10 ^3/uL Monocytes # (Auto) 0.2 0-1.3 10 ^3/uL Eosinophils # (Auto) 0 0-0.8 10 ^3/uL Basophils # (Auto) 0 0-0.2 10 ^3/uL Nucleated Red Blood Cells 0.1 % Sodium Level 141 136-145 mmol/L Potassium Level 4.0 3.5-5.1 mmol/L Chloride Level 101 98-107 mmol/L Carbon Dioxide Level 35 H 20-31 mmol/L Anion Gap 5 5-15 Blood Urea Nitrogen 24 H 9-23 mg/dL Creatinine 1.02 0.550-1.02 mg/dL Glomerular Filtration Rate Calc 57 >90 mL/min BUN/Creatinine Ratio 23.5 H 10.0-20.0 Serum Glucose 190 H 74-106 mg/dL Calcium Level 9.4 8.7-10.4 mg/dL Total Bilirubin 0.6 0.2-1.0 mg/dL Aspartate Amino Transferase (AST) 27 13-40 U/L Alanine Aminotransferase (ALT) 23 7-40 U/L Alkaline Phosphatase 85 46-116 U/L Total Protein 7.0 5.7-8.2 g/dL Albumin 4.2 3.2-4.8 g/dL Test 12/23/23 08:07 12/23/23 05:45 12/23/23 04:50 Range/Units Troponin I High Sensitivity < 3 L </=34 ng/L Lactic Acid Level 1.2 0.4-2.0 mmol/L Prothrombin Time 12.4 H 9.3-11.8 sec Prothrombin Time INR 1.18 H 0.9-1.15 Activated Partial Thromboplast Time 29.1 24.5-34.5 SEC B-Type Natriuretic Peptide 311.77 0-100 pg/mL Assessment Acute hypoxemic respiratory failure that likely due to congestive heart failure with reduced ejection fraction on 25% NYHA III Acute COPD exacerbation Paroxismal/persistent Atrial fibrillation likely with rapid ventricular response ?Atypical pneumonia Plan/Recommendation Conservative management Continue rhythm control with amiodarone and rate control with metoprolol Continue furosemide to decrease pulmonary congestion Continue Anticoagulation with the apixaban 5 mg Resume GDMT Antibiotics per hospitalist Thank you for allowing us participate in this case Case discussed with Critical care, time spent: 45 minutes. Plan discussed with: Patient Date of Service: Dec 24, 2023 Billing Provider: ARLEEN YEPEZ MD Cardiology Common Codes: [id number] INP/OBS CARE (High) SOLEDAD GOMEZ RESIDENT Dec 24, 2023 17:29
[2023-12-24] MEDS: SACUBITRIL-VALSARTAN 24mg/26mg TAB PO ONE (17:30)
[2023-12-24] MEDS: SPIRONOLACTONE 25 MG TAB PO ONE (19:52)
[2023-12-24] MEDS: SERTRALINE HCL 50 MG TAB PO SCH (21:58)
[2023-12-24] MEDS ORDERED: SERTRALINE HCL 50 MG TAB PO SCH (22:00)
[2023-12-24 22:55] LABS: COVID19 ANTIGEN SOFIA FIA NEGATIVE (NEGATIVE)
[2023-12-24 22:56] LABS: Rapid Influenza A Negative (Negative); Rapid Influenza B Negative (Negative)
[2023-12-25] VITALS (22 sets, daily range): BP systolic 101–119; BP diastolic 52–71; PULSE 55–104; RESP 12–20; TEMP 97.4–97.9; O2SAT 89–100
[2023-12-25] MEDS: SPIRONOLACTONE 25 MG TAB PO SCH (09:33)
[2023-12-25] MEDS: METOPROLOL SUCCINATE XL 50 MG TAB PO SCH (09:34)
[2023-12-25] MEDS: EMPAGLIFLOZIN 10 MG TAB PO SCH (09:34)
[2023-12-25] MEDS: SACUBITRIL-VALSARTAN 24mg/26mg TAB PO SCH (09:35)
--- NOTE | 2023-12-25 11:26 | DVHPN2 ---
Reviewed: Care Plan, H&P, Labs, Medications, Previous Orders, Radiology Changes from previous H/P or p: No Changes Eyes: No Pain, No Vision change, No Conjunctivae inflammation, No Eyelid inflammation, No Other, No Redness ENT: No Ear pain, No Ear discharge, No Nose pain, No Nose discharge, No Nose congestion, No Mouth pain, No Mouth swelling, No Throat pain, No Throat swelling, No Other Cardiovascular: No Chest Pain, No Palpitations, No Orthopnea, No Paroxysmal Noc. Dyspnea, No Edema, No Lt Headedness, No Other Respiratory: No Cough, No Dry; Shortness of breath; No SOB with excertion, No Wheezing, No Hemoptysis, No Pleuritic Pain, No Sputum; Other (SOB at rest) Gastrointestinal: No Nausea, No Vomiting, No Abdominal Pain, No Diarrhea, No Constipation, No Melena, No Hematochezia, No Other Genitourinary: No Dysuria, No Frequency, No Incontinence, No Hematuria, No Retention, No Other Musculoskeletal: No other, No neck pain, No shoulder pain, No arm pain, No back pain, No hand pain, No leg pain, No foot pain Skin: No Rash, No Lesions, No Jaundice, No Bruising, No Other Objective Vitals Vital Signs Date Time Temp Pulse Resp B/P (MAP) Pulse Ox O2 Delivery O2 Flow Rate FiO2 12/25/23 09:36 111/64 12/25/23 09:34 94 12/25/23 08:58 97.9 18 100 97.9 12/25/23 08:00 Nasal Cannula* 2 28 Intake/Output Intake and Output 12/25/23 07:00 Intake Total 2200 ml Output Total 1000 ml Balance 1200 ml Intake Oral 1700 ml IV Total 500 ml Output Urine Total 1000 ml Medications Current Medications Medications Dose Ordered Sig/Terrence Route Start Time Stop Time Status Last Admin Dose Admin Levalbuterol HCl 1.25 mg Q6HR NEB 12/23/23 06:00 12/25/23 07:27 1.25 MG Furosemide 40 mg DAILY IV 12/24/23 10:00 12/25/23 09:36 40 MG Methylprednisolone Sodium Succinate 40 mg Q8HR IV 12/23/23 14:00 12/25/23 06:25 40 MG Famotidine 20 mg Q12HR IV 12/23/23 22:00 12/25/23 09:35 20 MG Albuterol 2.5 mg Q4HPRN PRN NEB 12/23/23 11:00 12/23/23 22:49 2.5 MG Ipratropium [place] 0.5 mg Q4HPRN PRN NEB 12/23/23 11:00 Apixaban 5 mg BID PO 12/23/23 22:00 12/25/23 09:32 5 MG Diagnostic Test (Pha) 1 strip ACHS 12/23/23 11:30 12/25/23 06:25 1 STRIP Insulin Human Regular HS SC 12/23/23 22:00 12/24/23 21:44 4 UNITS Insulin Human Regular AC SC 12/23/23 11:30 12/25/23 06:30 6 UNITS Dextrose 50 ml UD PRN IV 12/23/23 11:00 Sodium Chloride 10 ml Q8HR IV 12/23/23 14:00 12/25/23 06:00 10 ML Ondansetron HCl 4 mg Q4HP PRN IV 12/23/23 11:00 Docusate Sodium 100 mg BIDPRN PRN PO 12/23/23 11:00 Acetaminophen 650 mg Q6HP PRN PO 12/23/23 11:00 Doxycycline Hyclate 250 ml @ 125 mls/hr Q12H IV 12/23/23 11:30 12/24/23 23:30 125 MLS/HR Nitroglycerin 0.4 mg Q5MINP PRN SL 12/23/23 12:00 Oxycodone/ Acetaminophen 1 tab QID PO 12/23/23 18:00 12/25/23 06:25 1 TAB Gabapentin 300 mg BID PO 12/23/23 22:00 12/25/23 09:34 300 MG Amiodarone HCl 200 mg DAILY PO 12/24/23 10:00 12/25/23 09:57 200 MG Midodrine 10 mg TID@0600,1200,1800 PO 12/24/23 06:00 12/25/23 06:25 10 MG Metoprolol Succinate 100 mg DAILY PO 12/25/23 10:00 12/25/23 09:34 100 MG Empaglifozin 10 mg DAILY PO 12/25/23 10:00 12/25/23 09:34 10 MG Sacubitril/ Valsartan 1 tab BID PO 12/25/23 10:00 12/25/23 09:35 1 TAB Spironolactone 25 mg DAILY PO 12/25/23 10:00 12/25/23 09:33 25 MG Sertraline HCl 100 mg DAILY@2200 PO 12/24/23 22:00 12/24/23 21:58 100 MG Laboratory Results Laboratory Tests 12/24/23 05:28 Coagulation Test 12/24/23 14:00 D-Dimer, Quantitative 0.35 mg/L FEU (0.0-0.49) Urinalysis Test 12/24/23 10:30 Urine Color Light-yellow (Yellow) Urine Clarity Turbid (Clear) H Urine pH 5.0 (5.0-9.0) Urine Specific [place] 1.014 (1.001-1.035) Urine Protein Negative (Negative) Urine Ketones Negative (Negative) Urine Blood Negative /uL (Negative) Urine Nitrite Negative (Negative) Urine Bilirubin Negative (Negative) Urine Urobilinogen Normal mg/dL (Negative) Urine Leukocyte Esterase 3+ /uL (Negative) Urine RBC 10 /hpf (0 - 4) Urine WBC 10 /hpf (0 - 5) Urine Squamous Epithelial Cells Few /hpf (<5) Urine Transitional Epithelial Cells Few /hpf (<2) Urine Bacteria Many /hpf (None Seen) H Urine Hyaline Casts Many /lpf (0 - 2) Urine Mucus Few (None Seen) Urine Glucose Normal mg/dL (Normal) Labs and/or images reviewed: Labs reviewed by me, Image(s) reviewed by me Assessment/Plan Assessment/Plan Hypoxic respiratory failure: Oxygen by nasal cannula Acute COPD exacerbation: Albuterol Atrovent Solu-Medrol Acute systolic CHF exacerbation: Ejection fraction 25 % with severely dilated left ventricle and right ventricle Lasix midodrine, coreg, Jardiance, Entresto, Aldactone History of AFib : Amiodarone Eliquis Community-acquired bilateral pneumonia treated: Doxycycline Diabetes: Insulin sliding scale Peripheral neuropathy: Gabapentin Diabetic neuropathy vasculopathy nephropathy Hypertension: Metoprolol UTI: Patient is allergic to many antibiotics, we will wait for the urine culture report Peripheral neuropathy: Gabapentin Moderate malnutrition Patient is full code Advanced care planning time 20 minutes Patient with multiple comorbidities Time spent 65 minutes Will order flu test and Regina test D-dimer Patient came from [facility] Plan discussed with: Patient My Orders Orders - MARADIAGA,CARLA M MD Procedure Category Date Status Time Urine Bacterial EARLE 12/24/23 In Process Culture 12:31 * Cardiology Consult CONS 12/24/23 Transmitted 13:01 Echo 2d Mode Cardiac US 12/24/23 Resulted DOP 13:04 Date of Service: Dec 25, 2023 Billing Provider: CARLA MARADIAGA MD Common Visit Codes: [id number] INP/OBS CARE(HIGH) CARLA MARADIAGA MD Dec 25, 2023 11:26
[2023-12-25] MEDS: IODIXANOL 320MG/ML 100ML BTL IV ONE (15:01)
[2023-12-25] MEDS: LIDOCAINE 2%HCL (LOCAL ANESTH.) INJ 20ML MDV ONE (16:03)
[2023-12-25] MEDS: methylPREDNISolone SOD SUCC 125 MG/2 ML VL ONE (16:03)
[2023-12-25] MEDS: diphenhdrAMINE HCL 50 MG/1 ML VL ONE (16:03)
[2023-12-25] MEDS: MIDAZOLAM HCL 2MG/2ML 2ml VIAL (1mg/ml) ONE (16:03)
[2023-12-25] MEDS: FAMOTIDINE (10MG/ML) 2ML VL IV ONE (16:03)
[2023-12-25] MEDS: fentaNYL CITRATE 100 MCG/2 ML VL ONE (16:03)
[2023-12-25] MEDS: ANGIOMAX 250 MG VIAL IV ONE (16:04)
[2023-12-25] MEDS: VERAPAMIL 2.5MG/ML INJ 2ML VIAL IV ONE (16:04)
[2023-12-25] MEDS: HEPARIN SODIUM (PORCINE) 5000 UNITS/ML 1ML VIAL ONE (16:04)
[2023-12-25] MEDS: SODIUM CHL 0.9% 0 ML ONE (16:05)
--- NOTE | 2023-12-25 16:20 | DVHOP2 ---
Operative Report -Cardiology Report Details Date: 12/25/23 Preop Diagnosis: Severely reduced left ventricular systolic function, newly diagnosed with heart failure. Coronary angiogram done to rule out ischemia Postop Diagnosis: Patient has no significant coronary artery disease to account for reduced ejection fraction. Of note, she has a normal origin of the valve structure ventricular systolic distal right coronary artery. Surgeon: Obed Jones MD Anesthesiologist: Conscious sedation using25 mcg of fentanyl as well as a mg midazolam. It was given under direct supervision of myself the primary blue line hanger as well as the attending nurses. The patient was monitored for total of35 minutes without complication. Anesthesia: Local Consent: The patient was informed of the risks and benefits of the procedure. These in clude but are not limited to complications of anesthesia, postoperative infection, incomplete relief of symptoms, recurrence of symptoms, damage to blood vessels, nerves and tendons, deep venous thrombosis, pulmonary embolism and possible need for repeat surgery in the future. Indications for Surgery: 78-year-old female patient with past medical history of atrial fibrillation , heart failure reduced ejection fraction, COPD, type 2 diabetes, asthma, severe scoliosis. She is under the care of Dr. Brandon her blue line hanger, and was recently transferred from [facility] where she was saritha vaughn in physical activity following a hospitalization 2 and half months ago. She presents with worsening shortness of breaths that has progressively intensified over the past week. She reports dyspnea on exertion and at times mild orthopnea but denies any new chest pain palpitation or fever. Recent chest x-rays imaging showed multifocal airspace disease, raising concerns for mild fluid overload versus an atypical infection. In light of the this she was started on doxycycline. Her heart rate has been elevated ranging from 100 to-114 beats per minute with episodes of rapid ventricular response in the setting of her known atrial fibrillation. On physical examination last auscultation revealed crackles particularly at the left, no pedal edema was noted. Name of Procedure Performed 1. Left heart catheterization with left ventricular end-diastolic pressure measurement. 2. Selective right and left coronary angiography utilizing right transradial approach. 3. Conscious sedation using25 mcg of fentanyl and 1 mg of midazolam. Procedure Details Procedure Details: Procedure note and vascular access: After informed consent was obtained, risks, benefits, complications, alternatives were discussed in details with the patient who agrees to have the procedure done. At the beginning of the procedure, the right wrist and right groin were prepped and draped in usual sterile fashion. Patient received a total of 25 mcg of fentanyl as well as a mg midazolam for conscious sedation. Thereafter, due to allergy to xylocaine no local anesthetic was applied. Six [place] sheath was placed through modified Seldinger technique without difficulty. A cocktail of 2.5 mg of verapamil as well as 100 mcg of nitroglycerin were given intra-arterial to prevent vasospasm. A tiger five [place] catheter as well as the been sent J-tip wire was used to cross the aortic arch to the aortic root before engage the right and left coronary system respectively. Patient received 3000 of heparin prior to starting the procedure. Findings were as follows: 1. Left heart catheterization with left ventricular end-diastolic pressure measurement. With the help of tiger five [place] catheter as well as a J-tip wire we were able to cross the aortic valve and measured left ventricular end-diastolic pressure which was elevated at 14 mm of mercury. There was no gradient across the aortic valve on the pullback. 2. Selective right and left coronary angiography utilizing right transradial approach: 1. Left main comes off left coronary cusp it has mild proximal and ostial disease of 20% with no damping and no significant stenosis. It gives rise to a large left anterior descending artery but no left circumflex artery was coming off the left main. 2. Left anterior descending artery is large with transapical course gives rise to a medium-sized two diagonal branches. The LAD has no significant atherosclerotic plaquing. 3. The right coronary artery is superdominant vessel gives rise to large posterior descending artery and large posterior lateral branches one of which serve likely left circumflex vessel, no significant stenosis or disease was noted in the right coronary artery. Impression and plan: 1. 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 Patient has a superdominant right coronary artery. With a at least five posterolateral branches and three posterior descending artery branches. 2. No significant atherosclerotic plaquing was noted apart from the ostial left main which was mild at 20%. 3. Quite elevated left ventricular end-diastolic pressure indicating underlying diastolic heart failure. In addition to reduced left ventricular systolic function. 4. Patient has no ischemia to explain her reduced ejection fraction I would recommend aggressive medical therapy with a goal directed guidelines. She will need regular follow-up in the outpatient set up. Condition Fair CSHA Clinical Frailty Scale CSHA Clinical Frailty Scale: Mildly Frail Stress Test Stress Test Performed: No Dominance Dominance: Right Disposition OBED JONES MD Dec 25, 2023 16:20
--- NOTE | 2023-12-25 16:54 | DVHPN2 ---
Consult Progress Note Date Seen: Dec 25, 2023 Subjective Patient reports: No new complaints Review of Systems: HEENT:Normal, CVS:Normal, RESPIRATORY:Normal, GI:Normal, :Normal, MSK:Normal, NEURO:Normal Objective vital signs Vital Sign Date Time Temp Pulse Resp B/P (MAP) Pulse Ox O2 Delivery O2 Flow Rate FiO2 12/25/23 13:00 97.4 104 20 109/57 (74) 93 97.4 12/25/23 10:00 Nasal Cannula 2.0 12/25/23 10:00 28 Total Intake and Output 12/24/23 12/24/23 12/25/23 15:00 23:00 07:00 Intake Total 250 ml 750 ml 1200 ml Output Total 800 ml 200 ml Balance 250 ml -50 ml 1000 ml medications Current Medications Medications Dose Ordered Sig/Terrence Route Start Time Stop Time Status Last Admin Dose Admin Levalbuterol HCl 1.25 mg Q6HR NEB 12/23/23 06:00 12/25/23 12:21 1.25 MG Furosemide 40 mg DAILY IV 12/24/23 10:00 12/25/23 09:36 40 MG Methylprednisolone Sodium Succinate 40 mg Q8HR IV 12/23/23 14:00 12/25/23 13:49 40 MG Famotidine 20 mg Q12HR IV 12/23/23 22:00 12/25/23 09:35 20 MG Albuterol 2.5 mg Q4HPRN PRN NEB 12/23/23 11:00 12/23/23 22:49 2.5 MG Ipratropium [place] 0.5 mg Q4HPRN PRN NEB 12/23/23 11:00 Apixaban 5 mg BID PO 12/23/23 22:00 12/25/23 09:32 5 MG Diagnostic Test (Pha) 1 strip ACHS 12/23/23 11:30 12/25/23 11:57 1 STRIP Insulin Human Regular HS SC 12/23/23 22:00 12/24/23 21:44 4 UNITS Insulin Human Regular AC SC 12/23/23 11:30 12/25/23 12:04 3 UNITS Dextrose 50 ml UD PRN IV 12/23/23 11:00 Sodium Chloride 10 ml Q8HR IV 12/23/23 14:00 12/25/23 13:49 10 ML Ondansetron HCl 4 mg Q4HP PRN IV 12/23/23 11:00 Docusate Sodium 100 mg BIDPRN PRN PO 12/23/23 11:00 Acetaminophen 650 mg Q6HP PRN PO 12/23/23 11:00 Doxycycline Hyclate 250 ml @ 125 mls/hr Q12H IV 12/23/23 11:30 12/25/23 11:58 125 MLS/HR Nitroglycerin 0.4 mg Q5MINP PRN SL 12/23/23 12:00 Oxycodone/ Acetaminophen 1 tab QID PO 12/23/23 18:00 12/25/23 11:57 1 TAB Gabapentin 300 mg BID PO 12/23/23 22:00 12/25/23 09:34 300 MG Amiodarone HCl 200 mg DAILY PO 12/24/23 10:00 12/25/23 09:57 200 MG Midodrine 10 mg TID@0600,1200,1800 PO 12/24/23 06:00 12/25/23 11:57 10 MG Metoprolol Succinate 100 mg DAILY PO 12/25/23 10:00 12/25/23 09:34 100 MG Empaglifozin 10 mg DAILY PO 12/25/23 10:00 12/25/23 09:34 10 MG Sacubitril/ Valsartan 1 tab BID PO 12/25/23 10:00 12/25/23 09:35 1 TAB Spironolactone 25 mg DAILY PO 12/25/23 10:00 12/25/23 09:33 25 MG Sertraline HCl 100 mg DAILY@2200 PO 12/24/23 22:00 12/24/23 21:58 100 MG Examination: GENERAL:Normal, HEENT:Normal, NECK:Normal, LUNGS:Normal, CVS:Normal, ABDOMEN:Normal, MSK:Normal, SKIN:Normal, NEURO:Normal, :Normal laboratory and microbiology Laboratory Tests 12/24/23 05:28 Test 12/24/23 05:28 Range/Units Serum Glucose 190 H 74-106 mg/dL Problem List/Assessment/Plan Problem List/Assessment/Plan Assessment Acute hypoxemic respiratory failure that likely due to congestive heart failure with reduced ejection fraction on 25% NYHA III Acute COPD exacerbation Paroxismal Atrial fibrillation likely with rapid ventricular response 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 elevated LVEDP indicating underlying diastolic heart failure Underlying ischemic cardiomyopathy, ruled out Plan/Recommendation Conservative management recommend aggressive medical therapy with a goal directed guidelines. Continue rhythm control with amiodarone and rate control with metoprolol Continue furosemide to decrease pulmonary congestion Continue Anticoagulation with the apixaban 5 mg Regular follow-up in the outpatient set up. Thank you for allowing us participate in this case, there is no further workup indicated at this time, we are signing off Case discussed with Dr. Jones Critical care, time spent: 59 minutes. Plan discussed with: Patient Date of Service: Dec 25, 2023 Billing Provider: ARLEEN JONES MD Cardiology Common Codes: [id number] [facility] SOLEDAD GOMEZ RESIDENT Dec 25, 2023 16:54
[2023-12-26] VITALS (14 sets, daily range): BP systolic 98–107; BP diastolic 51–69; PULSE 69–89; RESP 14–20; TEMP 36.3; O2SAT 93–100
[2023-12-26] MEDS: IPRATROPIUM BROM 0.5 MG/2.5ML INH SOL NEB PRN (06:46)
--- NOTE | 2023-12-26 10:26 | DVHPN2 ---
Reviewed: Care Plan, H&P, Labs, Medications, Previous Orders, Radiology Changes from previous H/P or p: No Changes Eyes: No Pain, No Vision change, No Conjunctivae inflammation, No Eyelid inflammation, No Other, No Redness ENT: No Ear pain, No Ear discharge, No Nose pain, No Nose discharge, No Nose congestion, No Mouth pain, No Mouth swelling, No Throat pain, No Throat swelling, No Other Cardiovascular: No Chest Pain, No Palpitations, No Orthopnea, No Paroxysmal Noc. Dyspnea, No Edema, No Lt Headedness, No Other Respiratory: No Cough, No Dry; Shortness of breath; No SOB with excertion, No Wheezing, No Hemoptysis, No Pleuritic Pain, No Sputum; Other (SOB at rest) Gastrointestinal: No Nausea, No Vomiting, No Abdominal Pain, No Diarrhea, No Constipation, No Melena, No Hematochezia, No Other Genitourinary: No Dysuria, No Frequency, No Incontinence, No Hematuria, No Retention, No Other Musculoskeletal: No other, No neck pain, No shoulder pain, No arm pain, No back pain, No hand pain, No leg pain, No foot pain Skin: No Rash, No Lesions, No Jaundice, No Bruising, No Other Objective Vitals Vital Signs Date Time Temp Pulse Resp B/P (MAP) Pulse Ox O2 Delivery O2 Flow Rate FiO2 12/26/23 10:00 83 102/69 12/26/23 09:38 95 Nasal Cannula 3.0 12/26/23 09:37 32 12/26/23 08:00 16 12/26/23 05:00 98.4 98.4 Intake/Output Intake and Output 12/26/23 07:00 Intake Total 700 ml Balance 700 ml Intake Oral 200 ml IV Total 500 ml # Voids 3 Medications Current Medications Medications Dose Ordered Sig/Terrence Route Start Time Stop Time Status Last Admin Dose Admin Levalbuterol HCl 1.25 mg Q6HR NEB 12/23/23 06:00 12/26/23 06:46 1.25 MG Furosemide 40 mg DAILY IV 12/24/23 10:00 12/26/23 09:56 40 MG Methylprednisolone Sodium Succinate 40 mg Q8HR IV 12/23/23 14:00 12/26/23 06:18 40 MG Famotidine 20 mg Q12HR IV 12/23/23 22:00 12/26/23 09:56 20 MG Albuterol 2.5 mg Q4HPRN PRN NEB 12/23/23 11:00 12/23/23 22:49 2.5 MG Ipratropium [place] 0.5 mg Q4HPRN PRN NEB 12/23/23 11:00 12/26/23 06:46 0.5 MG Apixaban 5 mg BID PO 12/23/23 22:00 12/26/23 09:57 5 MG Diagnostic Test (Pha) 1 strip ACHS 12/23/23 11:30 12/26/23 06:16 1 STRIP Insulin Human Regular HS SC 12/23/23 22:00 12/25/23 22:22 4 UNITS Insulin Human Regular AC SC 12/23/23 11:30 12/26/23 06:23 3 UNITS Dextrose 50 ml UD PRN IV 12/23/23 11:00 Sodium Chloride 10 ml Q8HR IV 12/23/23 14:00 12/26/23 06:16 10 ML Ondansetron HCl 4 mg Q4HP PRN IV 12/23/23 11:00 Docusate Sodium 100 mg BIDPRN PRN PO 12/23/23 11:00 Acetaminophen 650 mg Q6HP PRN PO 12/23/23 11:00 Doxycycline Hyclate 250 ml @ 125 mls/hr Q12H IV 12/23/23 11:30 12/26/23 00:24 125 MLS/HR Nitroglycerin 0.4 mg Q5MINP PRN SL 12/23/23 12:00 Oxycodone/ Acetaminophen 1 tab QID PO 12/23/23 18:00 12/25/23 17:58 1 TAB Gabapentin 300 mg BID PO 12/23/23 22:00 12/26/23 09:57 300 MG Amiodarone HCl 200 mg DAILY PO 12/24/23 10:00 12/26/23 09:56 200 MG Midodrine 10 mg TID@0600,1200,1800 PO 12/24/23 06:00 12/26/23 06:17 10 MG Metoprolol Succinate 100 mg DAILY PO 12/25/23 10:00 12/25/23 09:34 100 MG Empaglifozin 10 mg DAILY PO 12/25/23 10:00 12/26/23 09:57 10 MG Sacubitril/ Valsartan 1 tab BID PO 12/25/23 10:00 12/26/23 09:57 1 TAB Spironolactone 25 mg DAILY PO 12/25/23 10:00 12/26/23 09:56 25 MG Sertraline HCl 100 mg DAILY@2200 PO 12/24/23 22:00 12/25/23 22:16 100 MG Laboratory Results Laboratory Tests 12/24/23 05:28 HgA1c, TSH Test 12/25/23 14:34 Hemoglobin A1c 6.0 % A1C (<5.7) H Thyroid Stimulating Hormone (TSH) 41.30 uIU/mL (0.55-4.78) H Urinalysis Test 12/24/23 10:30 Urine Color Light-yellow (Yellow) Urine Clarity Turbid (Clear) H Urine pH 5.0 (5.0-9.0) Urine Specific [place] 1.014 (1.001-1.035) Urine Protein Negative (Negative) Urine Ketones Negative (Negative) Urine Blood Negative /uL (Negative) Urine Nitrite Negative (Negative) Urine Bilirubin Negative (Negative) Urine Urobilinogen Normal mg/dL (Negative) Urine Leukocyte Esterase 3+ /uL (Negative) Urine RBC 10 /hpf (0 - 4) Urine WBC 10 /hpf (0 - 5) Urine Squamous Epithelial Cells Few /hpf (<5) Urine Transitional Epithelial Cells Few /hpf (<2) Urine Bacteria Many /hpf (None Seen) H Urine Hyaline Casts Many /lpf (0 - 2) Urine Mucus Few (None Seen) Urine Glucose Normal mg/dL (Normal) Microbiology Microbiology Date/Time Source Procedure Growth Status 12/24/23 10:30 Urine - Midstream Clean Catch Urine Culture - Preliminary Resulted Labs and/or images reviewed: Labs reviewed by me, Image(s) reviewed by me Assessment/Plan Assessment/Plan Acute Hypoxic respiratory failure: Oxygen by nasal cannula Acute COPD exacerbation: Albuterol Atrovent Solu-Medrol Acute systolic CHF exacerbation: Ejection fraction 25 % with severely dilated left ventricle and right ventricle Lasix midodrine, coreg, Jardiance, Entresto, Aldactone Status post Left heart catheterization by Dr. 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 Patient has a superdominant right coronary artery. With a at least five posterolateral branches and three posterior descending artery branches, advised aggressive medical management Ischemic Cardiomyopathy ruled out History of AFib : Amiodarone Eliquis Community-acquired bilateral pneumonia treated: Doxycycline Diabetes: Insulin sliding scale Peripheral neuropathy: Gabapentin Diabetic neuropathy vasculopathy nephropathy Hypertension: Metoprolol Mild UTI: Urine cultures mixed Peripheral neuropathy: Gabapentin Flu test Negative Regina test negative D-dimer normal Moderate malnutrition Patient is full code Advanced care planning time 20 minutes Patient with multiple comorbidities Time spent 55 minutes\ Spoke with the patient's daughter Mima on the phone [phone] and she is agreeable for the patient to be transferred back to [facility]. Plan discussed with: Patient Date of Service: Dec 26, 2023 Billing Provider: CARLA MARADIAGA MD Common Visit Codes: [id number] INP/OBS CARE(HIGH) CARLA MARADIAGA MD Dec 26, 2023 10:26
--- NOTE | 2023-12-26 10:35 | DVHDS2 ---
Discharge Summary Date of Admission Dec 23, 2023 at 12:00 Date of Discharge: Dec 26, 2023 Admitting Diagnosis Increasing Shortness of breath Wounds: left heart catheterization Labs/Diagnostic Data: Laboratory Results Test 12/26/23 05:48 12/25/23 14:34 12/24/23 22:15 12/24/23 22:14 POC Glucose 199 mg/dl (70-106) Hemoglobin A1c 6.0 % A1C (<5.7) Thyroid Stimulating Hormone (TSH) 41.30 uIU/mL (0.55-4.78) Influenza Type A Antigen Negative (Negative) Influenza Type B Antigen Negative (Negative) SARS-CoV-2 Antigen (Rapid) Negative (NEGATIVE) Test 12/24/23 14:00 12/24/23 10:30 12/24/23 05:28 12/23/23 08:07 D-Dimer, Quantitative 0.35 mg/L FEU (0.0-0.49) Urine Color Light-yellow (Yellow) Urine Clarity Turbid (Clear) Urine pH 5.0 (5.0-9.0) Urine Specific [place] 1.014 (1.001-1.035) Urine Protein Negative (Negative) Urine Ketones Negative (Negative) Urine Blood Negative /uL (Negative) Urine Nitrite Negative (Negative) Urine Bilirubin Negative (Negative) Urine Urobilinogen Normal mg/dL (Negative) Urine Leukocyte Esterase 3+ /uL (Negative) Urine RBC 10 /hpf (0 - 4) Urine WBC 10 /hpf (0 - 5) Urine Squamous Epithelial Cells Few /hpf (<5) Urine Transitional Epithelial Cells Few /hpf (<2) Urine Bacteria Many /hpf (None Seen) Urine Hyaline Casts Many /lpf (0 - 2) Urine Mucus Few (None Seen) Urine Glucose Normal mg/dL (Normal) White Blood Count 5.8 10^3/uL (4.4-10.8) Red Blood Count 4.13 10^6/uL (4.0-5.20) Hemoglobin 10.0 g/dL (12.2-16.2) Hematocrit 33.6 % (36.0-46.0) Mean Corpuscular Volume 81.4 fL (80.0-100.0) Mean Corpuscular Hemoglobin 24.2 pg (28.0-32.0) Mean Corpuscular Hemoglobin Concent 29.7 g/dL (32.0-36.0) Red Cell Distribution Width 17.9 % (11.8-14.3) Platelet Count 148 10^3/uL (140-450) Mean Platelet Volume 9.1 fL (6.9-10.8) Neutrophils (%) (Auto) 92.7 % (37.0-80.0) Lymphocytes (%) (Auto) 4.3 % (10.0-50.0) Monocytes (%) (Auto) 2.8 % (0.0-12.0) Eosinophils (%) (Auto) 0.0 % (0.0-7.0) Basophils (%) (Auto) 0.2 % (0.0-2.0) Neutrophils # (Auto) 5.3 10 ^3/uL (1.6-8.6) Lymphocytes # (Auto) 0.2 10 ^3/uL (0.4-5.4) Monocytes # (Auto) 0.2 10 ^3/uL (0-1.3) Eosinophils # (Auto) 0 10 ^3/uL (0-0.8) Basophils # (Auto) 0 10 ^3/uL (0-0.2) Nucleated Red Blood Cells 0.1 % Sodium Level 141 mmol/L (136-145) Potassium Level 4.0 mmol/L (3.5-5.1) Chloride Level 101 mmol/L (98-107) Carbon Dioxide Level 35 mmol/L (20-31) Anion Gap 5 (5-15) Blood Urea Nitrogen 24 mg/dL (9-23) Creatinine 1.02 mg/dL (0.550-1.02) Glomerular Filtration Rate Calc 57 mL/min (>90) BUN/Creatinine Ratio 23.5 (10.0-20.0) Serum Glucose 190 mg/dL (74-106) Calcium Level 9.4 mg/dL (8.7-10.4) Total Bilirubin 0.6 mg/dL (0.2-1.0) Aspartate Amino Transferase (AST) 27 U/L (13-40) Alanine Aminotransferase (ALT) 23 U/L (7-40) Alkaline Phosphatase 85 U/L (46-116) Total Protein 7.0 g/dL (5.7-8.2) Albumin 4.2 g/dL (3.2-4.8) Troponin I High Sensitivity < 3 ng/L (</=34) Test 12/23/23 05:45 12/23/23 04:50 Lactic Acid Level 1.2 mmol/L (0.4-2.0) Prothrombin Time 12.4 sec (9.3-11.8) Prothrombin Time INR 1.18 (0.9-1.15) Activated Partial Thromboplast Time 29.1 SEC (24.5-34.5) B-Type Natriuretic Peptide 311.77 pg/mL (0-100) Other Laboratory Tests 12/24/23 05:28 Brief Hx & Hospital Course: 78-year-old female with multiple medical problems including congestive heart failure COPD is atrial fibrillation diabetes peripheral neuropathy hypotension malnutrition resident of [facility], [facility] brought in for increasing shortness of breath and admitted to the hospital. Patient was found to have acute COPD exacerbation treated with albuterol Atrovent and Solu-Medrol. Patient had acute exacerbation of CHF treated with Lasix midodrine Coreg Jardiance Entresto Aldactone ejection fraction 25 percent left heart catheterization by printing plate clerk Dr Jones showed anomalous origin of the left circumflex artery from distal right coronary artery which is super dominant. No blockage of the coronary arteries advised aggressive medical management. Ischemic cardiomyopathy was ruled out placed on amiodarone Eliquis for AFib possible community-acquired pneumonia treated with the doxycycline flu test next two Regina test negative D-dimer normal mild UTI. [facility] general condition poor but stable at the time of discharge. Physical therapy recommended [facility] facility placement. Discussed discharge plan with the patient and her daughter Mima on the phone and they are agreeable.. Consults/Reason for consult Cardiology Dr. Lange Operations or Procedures Left heart catheterization Condition at Discharge: Poor Final Diagnosis/Problems List Acute Hypoxic respiratory failure: Oxygen by nasal cannula Acute COPD exacerbation: Albuterol Atrovent Solu-Medrol Acute systolic CHF exacerbation: Ejection fraction 25 % with severely dilated left ventricle and right ventricle Lasix midodrine, coreg, Jardiance, Entresto, Aldactone Status post Left heart catheterization by Dr. 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 Patient has a superdominant right coronary artery. With a at least five posterolateral branches and three posterior descending artery branches, advised aggressive medical management Ischemic Cardiomyopathy ruled out History of AFib : Amiodarone Eliquis Community-acquired bilateral pneumonia treated: Doxycycline Diabetes: Insulin sliding scale Peripheral neuropathy: Gabapentin Diabetic neuropathy vasculopathy nephropathy Hypertension: Metoprolol Mild UTI: Urine cultures mixed Peripheral neuropathy: Gabapentin Flu test Negative Regina test negative D-dimer normal Moderate malnutrition [facility]charge Disposition: [facility] Discharge Instruct/Medications Diet: Cardiac 2g Na,low cholest Activity: Light activity Follow Up/Referral: Follow up with the intermediate Medications: see list 39 (Time Taken For discharge summary 39 minutes) Discharge Statement: "Patient was advised to return to the ER or call 911 if any headaches, dizziness, shortness of breath, chest pain, abdominal pain, bleeding, fevers, or worsening of medical condition. Patient was counseled about treatment plan, medications, possible side effects, patientverbalized understanding. All questions were answered to the best of my ability. This discharge took greater then 30 minutes in planning, reviewing documentation, counseling the patient, and discussing with other team members." ASSESSMENT ASSESSMENT Hospital Course Marginal improvement Assessment Acute Hypoxic respiratory failure: Oxygen by nasal cannula Acute COPD exacerbation: Albuterol Atrovent Solu-Medrol Acute systolic CHF exacerbation: Ejection fraction 25 % with severely dilated left ventricle and right ventricle Lasix midodrine, coreg, Jardiance, Entresto, Aldactone Status post Left heart catheterization by Dr. 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 Patient has a superdominant right coronary artery. With a at least five posterolateral branches and three posterior descending artery branches, advised aggressive medical management Ischemic Cardiomyopathy ruled out History of AFib : Amiodarone Eliquis Community-acquired bilateral pneumonia treated: Doxycycline Diabetes: Insulin sliding scale Peripheral neuropathy: Gabapentin Diabetic neuropathy vasculopathy nephropathy Hypertension: Metoprolol Mild UTI: Urine cultures mixed Peripheral neuropathy: Gabapentin Flu test Negative Regina test negative D-dimer normal Moderate malnutrition Date of Service: Dec 26, 2023 Billing Provider: CARLA MARADIAGA MD Common Visit Codes: [id number] DISCH DAY >30min CARLA MARADIAGA MD Dec 26, 2023 10:35
== END 2023-12-26 15:50 | DRG 286 ==
LOC: EDBD 03:55 → ER 03:55 → TELE 12:00 → TELE-WESTW 22:45
PROVIDERS: ADMIT Nurse Practitioner Family; ATTEND Family Medicine
PROC: 4A023N7 Measurement of Cardiac Sampling and Pressure, Left Heart, Percutaneous Approach (ICD-10-PCS; principal; 2023-12-25)
PROC: B211YZZ Fluoroscopy of Multiple Coronary Arteries using Other Contrast (ICD-10-PCS; 2023-12-25)
PROC: B215YZZ Fluoroscopy of Left Heart using Other Contrast (ICD-10-PCS; 2023-12-25)
DX: I11.0 Hypertensive heart disease with heart failure (principal); I50.21 Acute systolic (congestive) heart failure; J96.01 Acute respiratory failure with hypoxia; J15.69 Pneumonia due to other Gram-negative bacteria; J15.9 Unspecified bacterial pneumonia; J44.1 Chronic obstructive pulmonary disease with (acute) exacerbation; E44.0 Moderate protein-calorie malnutrition; I48.19 Other persistent atrial fibrillation; N39.0 Urinary tract infection, site not specified; J44.0 Chronic obstructive pulmonary disease with (acute) lower respiratory infection; Z20.822 Contact with and (suspected) exposure to COVID-19; E11.65 Type 2 diabetes mellitus with hyperglycemia; M41.9 Scoliosis, unspecified; E11.42 Type 2 diabetes mellitus with diabetic polyneuropathy; Z90.710 Acquired absence of both cervix and uterus; Z88.3 Allergy status to other anti-infective agents; Z88.1 Allergy status to other antibiotic agents; Z90.49 Acquired absence of other specified parts of digestive tract; Z82.49 Family history of ischemic heart disease and other diseases of the circulatory system; Z83.3 Family history of diabetes mellitus; Z79.01 Long term (current) use of anticoagulants; Z68.26 Body mass index [BMI] 26.0-26.9, adult
CPT/HCPCS: 36415; 71045; 80048; 80053; 81001; 82962; 83036; 83605; 83880; 84443; 84484; 85025; 85379; 85610; 85730; 87086; 87426; 87804; 93005; 93306; 93458; 94640; 99152; 99291; G0378; J1815; J2250; J3490; Q9967

== ENCOUNTER 2024-02-16 01:55 | Inpatient (IN) | payer MEDICARE, OTHER ==
[~2024-02-16] VITALS: Ht 157.5 cm; Wt 71.7 kg
[2024-02-16] VITALS (7 sets, daily range): BP systolic 96–122; BP diastolic 71–77; PULSE 108–122; RESP 16–20; TEMP 97.7–98; O2SAT 91–98
[2024-02-16] MEDS: IPRATROPIUM BROM 0.5 MG/2.5ML INH SOL NEB ONE ×2 (03:13→11:53)
[2024-02-16] MEDS: ALBUTEROL SULF 2.5 MG/0.5ML(0.5%) NEB SOLN NEB ONE ×2 (03:13→11:53)
[2024-02-16 03:17] LABS: Base Excess 5.4 mmol/L (-2.0-3.0)
--- NOTE | 2024-02-16 03:20 | ED.PDOC ---
History of Present Illness HPI Comments 78-year-old female came to ER for shortness of breath. Patient picked up by the half-way facility, has history of hypertension, diabetes, AFib, CHF, and COPD. Was noted by caregivers that patient has been short of breath for the past 2 days. Denies any acute chest pains. Saturating 94% on room air. Chief Complaint: Shortness of Breath Time Seen by MD: 03:20 Reviewed Notes: Nurses Notes Allergies: Coded Allergies: Cephalexin (Verified Allergy, Unknown, 08/10/23) Ciprofloxacin (Verified Allergy, Unknown, 08/10/23) Lidocaine (Verified Allergy, Unknown, 08/10/23) Sucralfate (Verified Allergy, Unknown, 08/10/23) Sulfamethoxazole w/Trimethoprim (Verified Allergy, Unknown, 08/10/23) Hydrocodone (Verified Adverse Reaction, Unknown, 08/10/23) itching Home Meds Active Scripts Digoxin (Lanoxin) 125 Mcg Tab, 0.125 MG PO DAILY for 30 Days, #30 TAB 5 Refills Prov:ENIO BARRY MD 08/14/23 Sacubitril-Valsartan (Entresto 24-26 mg) 1 Tab Tab, 1 TAB PO BID for 30 Days, #60 TAB 5 Refills Prov:ENIO BARRY MD 08/14/23 Reported Medications Diltiazem HCl (Diltiazem Hydrochloride E) 180 Mg Cap, 1 CAP PO DAILY 09/16/23 Jbqmimxxdty-Yjgekhcbeslr-Owbbu (Trelegy Ellipta 200-62.5-25 Mcg/INH) 1 Aer Aer, 1 PUFF INH DAILY 09/16/23 Albuterol Sulfate (Proair Respiclick) 108 Mcg/Act Aer, 2 PUFF INH Q6HR PRN 08/13/23 Furosemide (Furosemide) 20 Mg Tab, 1 TAB PO BID 08/13/23 Potassium Chloride (Potassium Chloride ER) 20 Meq Tab, 1 TAB PO DAILY 08/13/23 Anastrozole (Anastrozole) 1 Mg Tab, 1 TAB PO DAILY 08/13/23 Oxycodone W/ Acetaminophen (Percocet 5/325MG) 1 Tab Tb, 1 TAB PO QID, #120 TAB 08/10/23 Alendronate Sodium (Alendronate Sodium) 70 Mg Tab, 1 TAB PO QWEEKLY 08/10/23 Donepezil Hydrochloride (DONEPEZIL HCL) 5 Mg Tab, 1 TAB PO DAILY 08/10/23 Gabapentin (Gabapentin) 300 Mg Cap, 1 CAP PO BID 08/10/23 Clonidine Hydrochloride (Clonidine Hcl) 0.2 Mg/24 Hr Dis, 1 PATCH TOP QWEEKLY 08/10/23 Ferrous Sulfate (Ferosul) 325 Mg Tab, 1 TAB PO DAILY 08/10/23 Sertraline Hcl (Sertraline Hcl) 100 Mg Tab, 1.5 TAB PO DAILY Take 1.5 tablets (150 mg) by mouth daily after breakfast. 08/10/23 Amiodarone HCl (Amiodarone HCl) 200 Mg Tab, 1 TAB PO DAILY 08/10/23 Spironolactone (Spironolactone) 25 Mg Tab, 1 TAB PO DAILY 08/10/23 Empagliflozin (Jardiance) 10 Mg Tab, 1 TAB PO DAILY 08/10/23 Levothyroxine Sodium (Levothyroxine Sodium) 75 Mcg Tab, 1 TAB PO DAILY 08/10/23 Losartan Potassium (Losartan Potassium) 100 Mg Tab, 1 TAB PO DAILY 08/10/23 Pantoprazole Sodium Sesquihydr (Pantoprazole Sodium) 40 Mg Tab, 1 TAB PO DAILY 08/10/23 Metoprolol Succinate (Metoprolol Succinate Er) 100 Mg Tab, 1 TAB PO BID 08/10/23 Apixaban Base (ELIQUIS) 5 Mg Tab, 1 TAB PO BID 08/10/23 Information Source: Patient, Emergency Med Personnel Mode of Arrival: EMS Severity: Moderate Timing: Days Duration: Since onset Prehospital treatment: Oxygen Past Medical History PAST MEDICAL HISTORY: AFIB, Asthma, CHF, COPD, DM, HTN Surgical History: Cholecystectomy, Hysterectomy COLOR COATER History: No Pertinent COLOR COATER History Family History Family History: Unknown Social History Smoker: Non-Smoker Alcohol: Denies ETOH Use Drugs: Denies Drug Use Lives In: Half-Way Constitutional: denies: chills, diaphoresis, fatigue, fever, malaise, sweats, weakness, others EENTM: denies: blurred vision, double vision, ear bleeding, ear discharge, ear drainage, ear pain, ear ringing, eye pain, eye redness, hearing loss, mouth pain, mouth swelling, nasal discharge, nose bleeding, nose congestion, nose pain, photophobia, tearing, throat pain, throat swelling, voice changes, others Respiratory: reports: SOB at rest, shortness of breath; denies: cough, hemoptysis, orthopnea, SOB with excertion, stridor, wheezing, others Cardiovascular: denies: chest pain, dizzy spells, diaphoresis, Dyspnea on exertion, edema, irregular heart beat, left arm pain, lightheadedness, palpitations, PND, syncope, others Gastrointestinal: denies: abdomen distended, abdominal pain, blood streaked bowels, constipated, diarrhea, dysphagia, difficulty swallowing, hematemesis, melena, nausea, poor appetite, poor fluid intake, rectal bleeding, rectal pain, vomiting, others Genitourinary: denies: abnormal vagina bleeding, burning, dyspareunia, dysuria, flank pain, frequency, hematuria, incontinence, pain, , vagina discharge, urgency, others Neurological: denies: dizziness, fainting, headache, left sided numbness, left sided weakness, numbness, paresthesia, pre-existing deficit, right sided numbness, right sided weakness, seizure, speech problems, tingling, tremors, weakness, others Musculoskeletal: denies: back pain, gout, joint pain, joint swelling, muscle pain, muscle stiffness, neck pain, others Integumetry: denies: bruises, change in color, change in hair/nails, dryness, laceration, lesions, lumps, rash, wounds, others Allergic/Immunocompromised: denies: Difficulty Healing, Frequent Infections, Hives, Itching, others Hematologic/Lymphatic: denies: anemia, blood clots, easy bleeding, easy bruising, swollen glands, others Endocrine: denies: excessive hunger, excessive sweating, excessive thirst, excessive urination, flushing, intolerance to cold, intolerance to heat, unexplained weight gain, unexplained weight loss, others Psychiatric: denies: anxiety, bipolar disorder, depression, hopeless, panic disorder, schizophrenia, sleepless, suicidal, others Physical Exam General Appearance: Moderate Distress, Normal HEENT: Normal ENT Inspection, Pharynx Normal, TMs Normal Neck: Full Range of Motion, Non-Tender, Normal, Normal Inspection Respiratory: Chest Non-Tender, Decreased Breath Sounds, Lungs Clear, No Accessory Muscle Use, Normal Breath Sounds, Wheezing Cardiovascular: No Edema, No JVD, No Murmur, No Gallop, Normal Peripheral Pulses, Regular Rate/Rhythm Breast Exam: Deferred Gastrointestinal: No Organomegaly, Non Tender, No Pulsatile Mass, Normal Bowel Sounds, Soft Genitalia: Deferred Pelvic: Deferred Rectal: Deferred Extremities: No calf tenderness, Normal capillary refill, Normal inspection, Normal range of motion, Non-tender, No pedal edema Musculoskeletal : Apperance: Normal Neurologic: Alert, spd manager II-XII nml as Tested, No Motor Deficits, Normal Affect, Normal Mood, No Sensory Deficits Cerebellar Function: Normal Reflexes: Normal Skin: Dry, Normal Color, Warm Lymphatic: No Adenopathy Was a procedure done? Was a procedure done?: No EKG EKG : Pulse Rate (adult): 125 Cardiac Rhythm: Afib Differential Dx Considerations may include: AFib and RVR, pneumonia, viral syndrome CHF, COPD X-Ray, Labs, Meds, VS Vital Signs Date Time Temp Pulse Resp B/P (MAP) Pulse Ox O2 Delivery O2 Flow Rate FiO2 02/16/24 03:20 125 02/16/24 03:17 18 93 Nasal Cannula* 4 36 02/16/24 02:00 125 02/16/24 01:55 98.1 118 22 109/68 (82) 94 Lab Test 02/16/24 03:20 02/16/24 03:13 Range/Units White Blood Count 9.4 4.4-10.8 10^3/uL Red Blood Count 3.84 L 4.0-5.20 10^6/uL Hemoglobin 9.4 L 12.2-16.2 g/dL Hematocrit 31.2 L 36.0-46.0 % Mean Corpuscular Volume 81.4 80.0-100.0 fL Mean Corpuscular Hemoglobin 24.5 L 28.0-32.0 pg Mean Corpuscular Hemoglobin Concent 30.2 L 32.0-36.0 g/dL Red Cell Distribution Width 20.7 H 11.8-14.3 % Platelet Count 352 140-450 10^3/uL Mean Platelet Volume 8.2 6.9-10.8 fL Neutrophils (%) (Auto) 80.7 H 37.0-80.0 % Lymphocytes (%) (Auto) 5.6 L 10.0-50.0 % Monocytes (%) (Auto) 8.9 0.0-12.0 % Eosinophils (%) (Auto) 4.1 0.0-7.0 % Basophils (%) (Auto) 0.7 0.0-2.0 % Neutrophils # (Auto) 7.6 1.6-8.6 10 ^3/uL Lymphocytes # (Auto) 0.5 0.4-5.4 10 ^3/uL Monocytes # (Auto) 0.8 0-1.3 10 ^3/uL Eosinophils # (Auto) 0.4 0-0.8 10 ^3/uL Basophils # (Auto) 0.1 0-0.2 10 ^3/uL Nucleated Red Blood Cells 0.1 % Platelet Estimate Pending Prothrombin Time Pending Prothrombin Time INR Pending Activated Partial Thromboplast Time Pending D-Dimer, Quantitative Pending Sodium Level 136 136-145 mmol/L Potassium Level 4.5 3.5-5.1 mmol/L Chloride Level 100 98-107 mmol/L Carbon Dioxide Level 29 20-31 mmol/L Anion Gap 7 5-15 Blood Urea Nitrogen Pending Creatinine 1.35 H 0.550-1.02 mg/dL Glomerular Filtration Rate Calc 41 >90 mL/min BUN/Creatinine Ratio Pending Serum Glucose 149 H 74-106 mg/dL Calcium Level 9.8 8.7-10.4 mg/dL Total Bilirubin 0.6 0.2-1.0 mg/dL Aspartate Amino Transferase (AST) 25 13-40 U/L Alanine Aminotransferase (ALT) 15 7-40 U/L Alkaline Phosphatase 122 H 46-116 U/L Troponin I High Sensitivity 5 </=34 ng/L B-Type Natriuretic Peptide Pending Total Protein 7.0 5.7-8.2 g/dL Albumin 4.0 3.2-4.8 g/dL Blood Gas Specimen Type Arterial Blood Gas Sample Site Right radial Blood Gas Patient Temperature 37.0 Arterial Blood Date Drawn [id number] Arterial Blood pH 7.447 7.350-7.450 Arterial Blood Partial Pressure CO2 44.5 32.0-45.0 mmHg Arterial Blood Partial Pressure O2 72.6 L 83.0-108.0 mmHg Arterial Blood HCO3 30.0 H 21.0-28.0 mmol/L Arterial Blood Oxygen Saturation 94.2 94.0-98.0 % Arterial Blood Base Excess 5.4 H -2.0-3.0 mmol/L Arterial Blood Oxyhemoglobin 92.8 L 94.0-98.0 % Arterial Blood Carboxyhemoglobin 0.9 0.5-1.5 % Arterial Blood Methemoglobin 0.6 0.0-1.5 % Nathanael Test Modified Blood Gas Total Hemoglobin 10.40 L 12.0-16.0 g/dL Blood Gas Liter Flow 4.00 Blood Gas Modality Nasal cannula Blood Gas Spontaneous Rate 18 FiO2 % 36.0 Specimen Drawn By Tera otero rt Current Medications Medications (Trade) Dose Ordered Sig/Terrence Route Start Time Stop Time Status Last Admin Diltiazem HCl (Cardizem Injection) 20 mg ONCE ONCE IV 02/16/24 02:30 02/16/24 02:31 DC 02/16/24 04:08 Methylprednisolone Sodium Succinate (Solu Medrol) 125 mg ONCE ONCE IV 02/16/24 03:00 02/16/24 03:01 DC 02/16/24 04:08 Ceftriaxone Sodium 50 ml @ 100 mls/hr ONCE ONCE IV 02/16/24 03:00 02/16/24 03:29 DC 02/16/24 04:08 Albuterol (Ventolin Medneb) 2.5 mg ONCE ONCE NEB 02/16/24 03:00 02/16/24 03:01 DC 02/16/24 03:13 Ipratropium [place] (Atrovent Medneb) 0.5 mg ONCE ONCE NEB 02/16/24 03:00 02/16/24 03:01 DC 02/16/24 03:13 Hemoglobin is 9.4 PO2 is 73 on 3 L of oxygen. Patient has AFib on EKG and treated with diltiazem. COPD treated with Solu-Medrol Rocephin and DuoNeb treatment. Chest x-ray troponin and CMP are pending. The patient will be admitted to the hospitalist for further evaluation and care. Time of 1ST Reevaluation: 03:11 Reevaluation 1ST: Unchanged Patient Education/Counseling: Diagnosis, Treatment Family Education/Counseling: No Family Present Departure 1 Departure Time of Disposition: 04:17 Impression: Primary Impression: Acute exacerbation of chronic obstructive pulmonary disease (COPD) Additional Impression: Atrial fibrillation with RVR Disposition: ADMITTED INPATIENT Admit to: [facility] Condition: Guarded Critical Care Note Critical Care Time?: Yes (35 min-critical care time only) Critical care comment: Shortness of breath, AFib in RVR Stability Stability form required: No Heart Score Heart Score: Heart Score Response (Comments) Value History Slightly Suspicious 0 EKG Repolarization Disturb 1 Age >65 2 Risk Factors >3 or Hx ASHD 2 Troponin Normal limit 0 Total 5 I personally scribed for VALENTIN STEVENSON MD ([email or web address]) on 02/16/24 at 03:20. Electronically submitted by Angel Fletcher ([email or web address]). I personally scribed for VALENTIN STEVENSON MD ([email or web address]) on 02/16/24 at 03:22. Electronically submitted by Angel Fletcher ([email or web address]). VALENTIN STEVENSON MD Feb 16, 2024 03:20
[2024-02-16 03:44] LABS: Hemoglobin 9.4 g/dL (12.2-16.2); Platelet Count (auto) 352 10^3/uL (140-450); Red Blood Cells 3.84 10^6/uL (4.0-5.20); White Blood Cell 9.4 10^3/uL (4.4-10.8)
[2024-02-16 03:46] LABS: Basophils # (auto) 0.1 10 ^3/uL (0-0.2); Basophils % (auto) 0.7 % (0.0-2.0); Eosinophils # (auto) 0.4 10 ^3/uL (0-0.8); Eosinophils % (auto) 4.1 % (0.0-7.0); Hematocrit 31.2 % (36.0-46.0); Lymphocytes # (auto) 0.5 10 ^3/uL (0.4-5.4); Lymphocytes % (auto) 5.6 % (10.0-50.0); Mean Corpuscular Hemoglobin 24.5 pg (28.0-32.0); Mean Corpuscular Hgb Conc. 30.2 g/dL (32.0-36.0); Mean Corpuscular Volume 81.4 fL (80.0-100.0); Monocytes # (auto) 0.8 10 ^3/uL (0-1.3); Monocytes % (auto) 8.9 % (0.0-12.0); Neutrophils # (auto) 7.6 10 ^3/uL (1.6-8.6); Neutrophils % (auto) 80.7 % (37.0-80.0); Nucleated Red Blood Cells % 0.1 %
[2024-02-16 04:01] LABS: Alanine Aminotransferase 15 U/L (7-40); Anion Gap 7 (5-15); Aspartate Aminotransferase 25 U/L (13-40); Bilirubin, Total 0.6 mg/dL (0.2-1.0); Calcium 9.8 mg/dL (8.7-10.4); Carbon Dioxide 29 mmol/L (20-31); Chloride 100 mmol/L (98-107); Potassium 4.5 mmol/L (3.5-5.1); Sodium 136 mmol/L (136-145)
[2024-02-16 04:07] LABS: Red Cell Distribution Width 20.7 % (11.8-14.3)
[2024-02-16] MEDS: dilTIAZem 25 MG/5 ML VIAL IV ONE (04:08)
[2024-02-16] MEDS: cefTRIAXone 1GM/50ML D5W 50 ML IV ONE (04:08)
[2024-02-16] MEDS: methylPREDNISolone SOD SUCC 125 MG/2 ML VL IV ONE (04:08)
--- NOTE | 2024-02-16 04:11 | DVH ---
CHEST RADIOGRAPH Indication: sob Technique: Single frontal view of the chest was obtained Comparison: XY CHEST PORTABLE on DOS: 12/23/23, XY CHEST PORTABLE on DOS: 09/12/23, XY CHEST XRAY 1 VIE W on DOS: 08/11/23 IMPRESSION: The cardiac silhouette is enlarged. Coarsened interstitial markings with [id number] pulmonary v ascular congestion. No sizable effusion or pneumothorax.
[2024-02-16 04:12] LABS: Alkaline Phosphatase 122 U/L (46-116); Glucose 149 mg/dL (74-106)
[2024-02-16 04:17] LABS: INR 1.35 (0.9-1.15); Partial Thromboplastin Time 35.8 SEC (24.5-34.5)
[2024-02-16 04:42] LABS: BUN/Creatinine Ratio 27.4 (10.0-20.0)
[2024-02-16 04:49] LABS: Blood Urea Nitrogen 37 mg/dL (9-23)
--- NOTE | 2024-02-16 05:58 | DVH ---
INDICATION: elevates d dimer TECHNIQUE: Multidetector CTA of the chest was performed of the chest with 100 cc of intravenous contr ast. PULMONARY ANGIOGRAPHY PROTOCOL was utilized using a bolus-tracking technique centered on the sandra n pulmonary artery. Axial, coronal and sagittal multiplanar and MIP reformats were performed. Radiation Dose Information: CT Dose: CTDI volume is 24.44 mGy. Dose-length product is 1887.8 mGy*cm The dose indicators for CT are the volume Computed Tomography (CT) Dose Index (CTDIvol) and the Dose Length Product (DLP), and are measured in units of mGy and mGy-cm, respectively. These indicators are not patient dose, but values generated from the CT scanner acquisition factors. The report includes radiation exposure data for exposures received during this examination. Comparison: Same day chest x-ray Findings: Evaluation of the pulmonary artery demonstrates no evidence of focal filling defect to suggest pulmon raffi embolus. There is cardiomegaly with coronary artery calcifications. Small to moderate right pleur al effusion with associated atelectasis. Patchy airspace opacity in the right middle lobe. Interlobul ar septal thickening and areas of fibrosis in the left upper lobe and right upper lobe. Lobulated appearance of the liver with mild perihepatic ascites. Post cholecystectomy changes. Severe degenerative changes of the spine. IMPRESSION: 1. No pulmonary embolism. 2. Consolidation in the right middle lobe concerning for infectious process with [id number] ri ght pleural effusion 3. Chronic appearing fibrotic subpleural changes in interstitial thickening. 4. Cirrhotic appearance of the liver with mild ascites
[2024-02-16 06:17] LABS: Anisocytosis Slight; Hypochromia Slight; Platelet Estimate Adequate; Polychromasia Slight
--- NOTE | 2024-02-16 07:27 | ECG ---
Test Date: 2024-02-16 Test Time: 01:53:55 Pat Name: ZEYAD PENNY Department: er Room: Gender: F Sole Rougher: : 1945 Requested By: EMERGENCY EMERGENCY Order Number: [id number] Reading MD: Measurements Intervals [place] Rate: 125 P: 0 IL: 0 QRS: 264 QRSD: 160 T: 73 QT: 396 QTc: 572 Interpretive Statements Atrial fibrillation Nonspecific IVCD with LAD Anterior infarct, old Please click the below link to view image of tracing.
[2024-02-16] MEDS ORDERED: NITROGLYCERIN 0.4 MG SL TAB SL PRN (12:15)
[2024-02-16] MEDS ORDERED: MORPHINE SULFATE INJ 2 MG/ml SYRG IV PRN (12:15)
--- NOTE | 2024-02-16 12:44 | DVHHP2 ---
History of Present Illness Reason for Visit: Shortness of breath History of Present Illness This 78-year-old female presents in the ED with a chief complaint of shortness of breath. The patient reports progressive shortness of breath for the past two days, associated with productive cough, difficulty in breathing and chest hea viness for which prompted her ED visit. The patient denies dizziness, lightheadedness, syncope, chest pain, palpitations, or any other acute symptoms. The patient also complains of left-sided weakness for which CT of head stat was ordered. The patient reports that she had last seen her associate professor computer science Dr. Brandon six months ago for a routine checkup. The patient with significant cardiac history was admitted in this facility in January 01, 2024 she underwent cardiac catheterization for which she was found to have low EF 25% and was advised aggressive medical treatment. The patient is currently on amiodarone and Eliquis for chronic AFib. The patient reports that she was placed on digoxin which dropped her heart rate significantly thus discontinued taking digoxin. Other past medical history includes hypertension, diabetes, COPD, and asthma. Past Medical History As stated in HPI Past Surgical History Cholecystectomy Hysterectomy Family History Reviewed, non-contributory to the management of this case. Past Social History Currently resides in a longterm facility Review of Systems Constitutional: Yes: Weakness, Malaise; No: Fever, Chills, Sweats, Other Eyes: No: Pain, Vision change, Conjunctivae inflammation, Eyelid inflammation, Other, Redness ENT: No: Ear pain, Ear discharge, Nose pain, Nose discharge, Nose congestion, Mouth pain, Mouth swelling, Throat pain, Throat swelling, Other Respiratory: Cough, Shortness of breath, SOB with excertion, Wheezing; No: Dry, Hemoptysis, Pleuritic Pain, Sputum, Wheezing, Other Cardiovascular: Other (Atrial fibrillation); No: Chest Pain, Palpitations, Orthopnea, Paroxysmal Noc. Dyspnea, Edema, Lt Headedness Gastrointestinal: No: Nausea, Vomiting, Abdominal Pain, Diarrhea, Constipation, Melena, Hematochezia, Other Musculoskeletal: No: other, neck pain, shoulder pain, arm pain, back pain, hand pain, leg pain, foot pain Skin: No: Rash, Lesions, Jaundice, Bruising, Other Neurological: Weakness, Other (Left-sided weakness); No: Numbness, Incoordination, Change in speech, Confusion, Seizures Allergies: Coded Allergies: Cephalexin (Verified Allergy, Unknown, 08/10/23) Ciprofloxacin (Verified Allergy, Unknown, 08/10/23) Lidocaine (Verified Allergy, Unknown, 08/10/23) Sucralfate (Verified Allergy, Unknown, 08/10/23) Sulfamethoxazole w/Trimethoprim (Verified Allergy, Unknown, 08/10/23) Hydrocodone (Verified Adverse Reaction, Unknown, 08/10/23) itching Medications Current Medications Medications Dose Ordered Sig/Terrence Route Start Time Stop Time Status Last Admin Dose Admin Enoxaparin Sodium 40 mg DAILY SC 02/17/24 10:00 UNV Nitroglycerin 0.4 mg Q5MINP PRN SL 02/16/24 12:15 UNV Morphine Sulfate 2 mg Q30M PRN IV 02/16/24 12:15 UNV Levalbuterol HCl 1.25 mg Q6HR NEB 02/16/24 18:00 UNV Ipratropium Montezuma 0.5 mg Q4HPRN PRN NEB 02/16/24 12:15 UNV Exam Vital Signs Vital Signs Date Time Temp Pulse Resp B/P (MAP) Pulse Ox O2 Delivery O2 Flow Rate FiO2 02/16/24 11:54 20 96 Nasal Cannula* 6 44 02/16/24 09:57 125 94/61 (72) 02/16/24 04:34 98.1 98.1 General Appearance: Alert, Oriented X3, Cooperative, mild distress, moderate distress HEENT: Atraumatic, PERRLA, EOMI, Mucous membr. moist/pink Respiratory: Other (Rales) Cardiovascular: Other (AFib wuth RVR 120s, RAMIREZ) Abdominal: Normal bowel sounds, Soft, No tenderness, No hepatospenomegaly Extremities: No clubbing, No cyanosis, No edema Skin: No rashes, No breakdown Neuro: Normal tone, Other (Left-sided weakness) Psych/Mental Status: Mental status NL Labs/Xrays Labs Test 02/16/24 06:30 02/16/24 03:20 02/16/24 03:13 Range/Units Troponin I High Sensitivity 4 </=34 ng/L White Blood Count 9.4 4.4-10.8 10^3/uL Red Blood Count 3.84 L 4.0-5.20 10^6/uL Hemoglobin 9.4 L 12.2-16.2 g/dL Hematocrit 31.2 L 36.0-46.0 % Mean Corpuscular Volume 81.4 80.0-100.0 fL Mean Corpuscular Hemoglobin 24.5 L 28.0-32.0 pg Mean Corpuscular Hemoglobin Concent 30.2 L 32.0-36.0 g/dL Red Cell Distribution Width 20.7 H 11.8-14.3 % Platelet Count 352 140-450 10^3/uL Mean Platelet Volume 8.2 6.9-10.8 fL Neutrophils (%) (Auto) 80.7 H 37.0-80.0 % Lymphocytes (%) (Auto) 5.6 L 10.0-50.0 % Monocytes (%) (Auto) 8.9 0.0-12.0 % Eosinophils (%) (Auto) 4.1 0.0-7.0 % Basophils (%) (Auto) 0.7 0.0-2.0 % Neutrophils # (Auto) 7.6 1.6-8.6 10 ^3/uL Lymphocytes # (Auto) 0.5 0.4-5.4 10 ^3/uL Monocytes # (Auto) 0.8 0-1.3 10 ^3/uL Eosinophils # (Auto) 0.4 0-0.8 10 ^3/uL Basophils # (Auto) 0.1 0-0.2 10 ^3/uL Nucleated Red Blood Cells 0.1 % Platelet Estimate Adequate Polychromasia Slight Hypochromasia (manual) Slight Anisocytosis (manual) Slight Prothrombin Time 14.0 H 9.3-11.8 sec Prothrombin Time INR 1.35 H 0.9-1.15 Activated Partial Thromboplast Time 35.8 H 24.5-34.5 SEC D-Dimer, Quantitative 0.58 H 0.0-0.49 mg/L FEU Sodium Level 136 136-145 mmol/L Potassium Level 4.5 3.5-5.1 mmol/L Chloride Level 100 98-107 mmol/L Carbon Dioxide Level 29 20-31 mmol/L Anion Gap 7 5-15 Blood Urea Nitrogen 37 H 9-23 mg/dL Creatinine 1.35 H 0.550-1.02 mg/dL Glomerular Filtration Rate Calc 41 >90 mL/min BUN/Creatinine Ratio 27.4 H 10.0-20.0 Serum Glucose 149 H 74-106 mg/dL Calcium Level 9.8 8.7-10.4 mg/dL Total Bilirubin 0.6 0.2-1.0 mg/dL Aspartate Amino Transferase (AST) 25 13-40 U/L Alanine Aminotransferase (ALT) 15 7-40 U/L Alkaline Phosphatase 122 H 46-116 U/L B-Type Natriuretic Peptide 1451.90 0-100 pg/mL Total Protein 7.0 5.7-8.2 g/dL Albumin 4.0 3.2-4.8 g/dL Blood Gas Specimen Type Arterial Blood Gas Sample Site Right radial Blood Gas Patient Temperature 37.0 Arterial Blood Date Drawn [id number] Arterial Blood pH 7.447 7.350-7.450 Arterial Blood Partial Pressure CO2 44.5 32.0-45.0 mmHg Arterial Blood Partial Pressure O2 72.6 L 83.0-108.0 mmHg Arterial Blood HCO3 30.0 H 21.0-28.0 mmol/L Arterial Blood Oxygen Saturation 94.2 94.0-98.0 % Arterial Blood Base Excess 5.4 H -2.0-3.0 mmol/L Arterial Blood Oxyhemoglobin 92.8 L 94.0-98.0 % Arterial Blood Carboxyhemoglobin 0.9 0.5-1.5 % Arterial Blood Methemoglobin 0.6 0.0-1.5 % Nathanael Test Modified Blood Gas Total Hemoglobin 10.40 L 12.0-16.0 g/dL Blood Gas Liter Flow 4.00 Blood Gas Modality Nasal cannula Blood Gas Spontaneous Rate 18 FiO2 % 36.0 Specimen Drawn By Tera otero rt PROCEDURE(s): CTACH - CT ANGIO CHEST CONTRAST REASON: elevates d dimer ORDER NUMBER(s): [id number], ACCESSION NUMBER(s): [id number] INDICATION: elevates d dimer TECHNIQUE: Multidetector CTA of the chest was performed of the chest with 100 cc of intravenous contrast. PULMONARY ANGIOGRAPHY PROTOCOL was utilized using a bolus-tracking technique centered on the main pulmonary artery. Axial, coronal and sagittal multiplanar and MIP reformats were performed. Radiation Dose Information: CT Dose: CTDI volume is 24.44 mGy. Dose-length product is 1887.8 mGy*cm The dose indicators for CT are the volume Computed Tomography (CT) Dose Index (CTDIvol) and the Dose Length Product (DLP), and are measured in units of mGy and mGy-cm, respectively. These indicators are not patient dose, but values generated from the CT scanner acquisition factors. The report includes radiation exposure data for exposures received during this examination. Comparison: Same day chest x-ray Findings: Evaluation of the pulmonary artery demonstrates no evidence of focal filling defect to suggest pulmonary embolus. There is cardiomegaly with coronary artery calcifications. Small to moderate right pleural effusion with associated atelectasis. Patchy airspace opacity in the right middle lobe. Interlobular septal thickening and areas of fibrosis in the left upper lobe and right upper lobe. Lobulated appearance of the liver with mild perihepatic ascites. Post cholecystectomy changes. Severe degenerative changes of the spine. IMPRESSION: 1. No pulmonary embolism. 2. Consolidation in the right middle lobe concerning for infectious process with [id number] right pleural effusion 3. Chronic appearing fibrotic subpleural changes in interstitial thickening. 4. 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) # chronic AFib with RVR Cardiology consult Continue amiodarone PO, continue beta ju Magnesium oxide IV diuresis Check Mag level Lovenox once CT head is back Check digoxin # ZEKE on CKD 3 Monitor Nephrology consult as necessary # right-sided weakness Stat CT head # Diabetes type 2 ISS # neuropathy # chronic pain syndrome Percocet Gabapentin # dementia Memantine Plan discussed with: Patient, Daughter My Orders Orders - CHRISTEL MENDOZA Procedure Category Date Status Time Admit ADMIT 02/16/24 Transmitted 12:02 Code Status CODE 02/16/24 Transmitted 12: Enoxaparin Sodium PHA 02/17/24 Logged (Lovenox) 10:00 Fall Risk Precautions MICHAEL 02/16/[address] 12:02 Complete Blood Count LAB 02/17/24 Verified 04:00 Comprehensive LAB 02/17/24 Verified Metabolic Panel 04:00 Cardiac DIET 02/16/24 Transmitted Diet-2gna,Lofat,Lochol Lunch Condition: Fair [facility] 02/16/24 In Process 12:02 Nitroglycerin PHA 02/16/24 Logged Sublingual (Ntrostat 12:15 Morphine Sulfate PHA 02/16/24 Logged Injection 12:15 Stat Ekg For Chest [facility] 02/16/24 In Process Pain 12:02 Notify Of Changes [facility] 02/16/24 In Process From Base 12:02 Wafer Fab Operator For [facility] 02/16/24 In Process 24 Hours 12:02 Emergency Dysrhythmia [facility] 02/16/24 In Process Protocol 12:02 Rhythm Strips Once [facility] 02/16/24 In Process Every Shift 12:02 Oxygen By Nasal RT 02/16/24 Transmitted Cannula 12:02 Levalbuterol Hcl PHA 02/16/24 Transmitted (Xopenex Medneb) 18:00 Ipratropium Medneb PHA 02/16/24 Transmitted (Atrovent Medneb) 12:15 Ipratropium Medneb PHA 02/16/24 Transmitted (Atrovent Medneb) 18:00 Azithromycin 500mg/ PHA 02/17/24 Transmitted 250ml (Zithromax 50 10:00 Azithromycin 500mg/ PHA 02/17/24 Transmitted 250ml (Zithromax 50 10:00 Ceftriaxone Ivpb PHA 02/17/24 Transmitted Rocephin 09:00 Methylprednisolone PHA 02/16/24 Transmitted Sod Succ (Solu Medrol 22:00 Respiratory Culture EARLE 02/16/24 Logged W/ Gs 12:02 Furosemide Injection PHA 02/17/24 Transmitted (Lasix Injection) 10:00 Furosemide Injection PHA 02/16/24 Transmitted (Lasix Injection) 12:15 Albumin Ivpb PHA 02/16/24 Transmitted 12:15 Magnesium LAB 02/16/24 Logged 12:02 Amiodarone Tablet PHA 02/17/24 Transmitted (Cordarone Tablet) 10:00 Donepezil Tablet PHA 02/17/24 Transmitted (Aricept Tablet) 10:00 Empagliflozin PHA 02/17/24 Transmitted (Jardiance) 10:00 Gabapentin Capsule PHA 02/16/24 Transmitted (Neurontin Capsule) 22:00 Oxycodone W/ Acet PHA 02/16/24 Transmitted 5/325mg Tab (Percocet 18:00 (Nf) Levothyroxine PHA 02/17/24 Transmitted Sodium 10:00 (Nf) Metoprolol PHA 02/16/24 Transmitted Succinate (Metoprolol 22:00 (Nf) Sertraline Hcl PHA 02/17/24 Transmitted 10:[address] 02/16/24 Verified 12:43 Date of Service: Feb 16, 2024 Billing Provider: CHRISTEL MENDOZA Common Visit Codes: [id number] INP/OBS CARE (HIGH) CHRISTEL MENDOZA Feb 16, 2024 12:44
[2024-02-16] MEDS ORDERED: DEXTROSE (50%) 50ML SYRG IV PRN (13:00)
--- NOTE | 2024-02-16 13:24 | DVH ---
CT STROKE CTH INDICATION: left sided weakness EXAM DATE: 02/16/2024 12:58 PM COMPARISON: None RADIATION DOSE: CTDIvol: 48.82 mGy, DLP: 782.85 mGy*cm PROCEDURE: CT scans of the head were obtained from the vertex to the skull base. Sagittal and coronal reconstructions were provided. All CT scans at this medical facility are performed using dose modulation techniques as appropriate t o a performed exam including the following: Automated exposure control was utilized; adjustment of th e MA and/or KV according to patient size; and use of iterative reconstruction technique. FINDINGS: There is sulcal and ventricular prominence. The brain otherwise shows normal morphology a nd domínguez-white matter differentiation, without intracranial hemorrhage, extra-axial fluid collection, mass effect or acute large vessel infarct. he basal cisterns are patent. The skull and visible facial bones are intact. The paranasal sinuses, mastoid air cells and middle ear cavities are well-aerated. The soft tissues of the scalp are unremarkable. IMPRESSION: No acute intracranial abnormality.
[2024-02-16 13:50] LABS: Urine Bacteria FEW /hpf (None Seen); Urine Blood Negative /uL (Negative); Urine Clarity Clear (Clear); Urine Color Yellow (Yellow); Urine Hyaline Cast FEW /lpf (0 - 2); Urine Protein, UAD Negative (Negative); Urine Squamous Epithelial Cell FEW /hpf (<5); Urine Urobilinogen Normal (Negative); Urine WBC 1 /hpf (0 - 5)
[2024-02-16] MEDS: IOHEXOL 350 MG/ML 100ML IJ ONE (14:04)
[2024-02-16] MEDS: ALBUMIN 5% 50 ML IV ONE (14:18)
[2024-02-16] MEDS: FUROSEMIDE 40 MG/4 ML VIAL IV ONE (14:46)
[2024-02-16] MEDS: OXYCODONE W/ ACETAMINOPHEN 5/325MG TABLET PO SCH (14:47)
[2024-02-16] MEDS: MAGNESIUM OXIDE 400 MG TAB PO ONE (14:47)
[2024-02-16] MEDS: ACCU-CHEK COMFORT CURVE STRIP VI SCH (17:00)
[2024-02-16] MEDS: IPRATROPIUM BROM 0.5 MG/2.5ML INH SOL NEB SCH (18:28)
[2024-02-16] MEDS: LEVALBUTEROL HCL 1.25 MG/3 ML NEB NEB SCH (18:28)
[2024-02-16] MEDS: InsuLIN REG 1unit/0.01ml Soln (100units/ml) SC SCH (18:38)
[2024-02-16] MEDS: methylPREDNISolone SOD SUCC 125 MG/2 ML VL IV SCH (23:34)
[2024-02-16] MEDS: GABAPENTIN 300 MG CAP PO SCH (23:34)
[2024-02-16] MEDS: MAGNESIUM OXIDE 400 MG TAB PO SCH (23:36)
[2024-02-17] VITALS (19 sets, daily range): BP systolic 103–122; BP diastolic 52–81; PULSE 69–117; RESP 16–22; TEMP 97.3–97.9; O2SAT 93–100
--- NOTE | 2024-02-17 00:04 | DVHINCON2 ---
Date of service: Feb 16, 2024 Referring Physician Joni Roa MD Reason for Consultation Acute on chronic hypoxic respiratory failure, COPD exacerbation History of Present Illness A 78-year-old woman with PMHx of hypertension, diabetes, COPD, and asthma who presents to the ED today with chief complaint of shortness of breath. The patient reports progressive shortness of breath for the past two days, associated with productive cough, difficulty in breathing and chest heaviness which prompted her ED visit. Pt also c/o left-sided weakness, for which CT of head stat was ordered. Denies dizziness, lightheadedness, syncope, chest pain, palpitations, or any other acute symptoms. 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 The patient with significant cardiac history, admitted at [facility] on January 01, 2024 when she underwent cardiac catheterization - noted low EF 25% and was advised aggressive medical treatment. Currently on amiodarone and Eliquis for chronic AFib. Patient was admitted for further care and pulmonary consultation is requested for evaluation and management due to the above findings. Review of Systems: 14-point review of systems negative unless otherwise noted above. Past Medical History: Hypertension, diabetes, COPD, asthma. Atrial fibrillation. Hx of cardiac catheterization in 12/2023 showing EF of 25% Past Surgical History: Cardiac catheterization Cholecystectomy Hysterectomy Medications: Reviewed. Allergies: Cephalexin Ciprofloxacin Lidocaine Sucralfate Sulfamethoxazole w/ trimethoprim Hydrocodone.. Family History: Cancer (vulva), diabetes, CHF, kidney failure, hypertension Social History: Nonsmoker. No alcohol or illicit drug use. Family History: Cancer of vulva G8 FATHER Diabetes mellitus G8 MOTHER G8 FATHER FH: CHF (congestive heart failure) G8 MOTHER FH: kidney failure G8 MOTHER Hypertension G8 FATHER Allergies: Coded Allergies: Cephalexin (Verified Allergy, Unknown, 08/10/23) Ciprofloxacin (Verified Allergy, Unknown, 08/10/23) Lidocaine (Verified Allergy, Unknown, 08/10/23) Sucralfate (Verified Allergy, Unknown, 08/10/23) Sulfamethoxazole w/Trimethoprim (Verified Allergy, Unknown, 08/10/23) Hydrocodone (Verified Adverse Reaction, Unknown, 08/10/23) itching Home Meds Active Scripts Digoxin (Lanoxin) 125 Mcg Tab, 0.125 MG PO DAILY for 30 Days, #30 TAB 5 Refills Prov:ENIO BARRY MD 08/14/23 Sacubitril-Valsartan (Entresto 24-26 mg) 1 Tab Tab, 1 TAB PO BID for 30 Days, #60 TAB 5 Refills Prov:ENIO BARRY MD 08/14/23 Reported Medications Diltiazem HCl (Diltiazem Hydrochloride E) 180 Mg Cap, 1 CAP PO DAILY 09/16/23 Mjhbsemqgot-Rlpzbmrsielz-Pcyfx (Trelegy Ellipta 200-62.5-25 Mcg/INH) 1 Aer Aer, 1 PUFF INH DAILY 09/16/23 Albuterol Sulfate (Proair Respiclick) 108 Mcg/Act Aer, 2 PUFF INH Q6HR PRN 08/13/23 Furosemide (Furosemide) 20 Mg Tab, 1 TAB PO BID 08/13/23 Potassium Chloride (Potassium Chloride ER) 20 Meq Tab, 1 TAB PO DAILY 08/13/23 Anastrozole (Anastrozole) 1 Mg Tab, 1 TAB PO DAILY 08/13/23 Oxycodone W/ Acetaminophen (Percocet 5/325MG) 1 Tab Tb, 1 TAB PO QID, #120 TAB 08/10/23 Alendronate Sodium (Alendronate Sodium) 70 Mg Tab, 1 TAB PO QWEEKLY 08/10/23 Donepezil Hydrochloride (DONEPEZIL HCL) 5 Mg Tab, 1 TAB PO DAILY 08/10/23 Gabapentin (Gabapentin) 300 Mg Cap, 1 CAP PO BID 08/10/23 Clonidine Hydrochloride (Clonidine Hcl) 0.2 Mg/24 Hr Dis, 1 PATCH TOP QWEEKLY 08/10/23 Ferrous Sulfate (Ferosul) 325 Mg Tab, 1 TAB PO DAILY 08/10/23 Sertraline Hcl (Sertraline Hcl) 100 Mg Tab, 1.5 TAB PO DAILY Take 1.5 tablets (150 mg) by mouth daily after breakfast. 08/10/23 Amiodarone HCl (Amiodarone HCl) 200 Mg Tab, 1 TAB PO DAILY 08/10/23 Spironolactone (Spironolactone) 25 Mg Tab, 1 TAB PO DAILY 08/10/23 Empagliflozin (Jardiance) 10 Mg Tab, 1 TAB PO DAILY 08/10/23 Levothyroxine Sodium (Levothyroxine Sodium) 75 Mcg Tab, 1 TAB PO DAILY 08/10/23 Losartan Potassium (Losartan Potassium) 100 Mg Tab, 1 TAB PO DAILY 08/10/23 Pantoprazole Sodium Sesquihydr (Pantoprazole Sodium) 40 Mg Tab, 1 TAB PO DAILY 08/10/23 Metoprolol Succinate (Metoprolol Succinate Er) 100 Mg Tab, 1 TAB PO BID 08/10/23 Apixaban Base (ELIQUIS) 5 Mg Tab, 1 TAB PO BID 08/10/23 Current Medications Current Medications Medications (Trade) Dose Ordered Sig/Terrence Route PRN Reason Start Time Stop Time Status Last Admin Enoxaparin Sodium (Lovenox) 40 mg DAILY SC 02/17/24 10:00 Nitroglycerin (Ntrostat Sublingual) 0.4 mg Q5MINP PRN SL FOR CHEST PAIN 02/16/24 12:15 Morphine Sulfate 2 mg Q30M PRN IV FOR CHEST PAIN 02/16/24 12:15 Hold Levalbuterol HCl (Xopenex Medneb) 1.25 mg Q6HR NEB 02/16/24 18:00 02/16/24 18:28 Ipratropium [place] (Atrovent Medneb) 0.5 mg Q4HPRN PRN NEB SHORTNESS OF BREATH 02/16/24 12:15 Ipratropium [place] (Atrovent Medneb) 0.5 mg Q6HR NEB 02/16/24 18:00 02/16/24 18:28 Azithromycin 250 ml @ 125 mls/hr DAILY IV 02/17/24 10:00 02/16/24 14:12 DC Azithromycin 250 ml @ 125 mls/hr DAILY IV 02/17/24 10:00 Future Hold Ceftriaxone Sodium 50 ml @ 100 mls/hr DAILY@09 IV 02/17/24 09:00 Methylprednisolone Sodium Succinate (Solu Medrol) 60 mg BID IV 02/16/24 22:00 02/16/24 23:34 Furosemide (Lasix Injection) 40 mg DAILY IV 02/17/24 10:00 Amiodarone HCl (Cordarone Tablet) 200 mg DAILY PO 02/17/24 10:00 Donepezil HCl (Aricept Tablet) 5 mg DAILY PO 02/17/24 10:00 Empaglifozin (Jardiance) 10 mg DAILY PO 02/17/24 10:00 Gabapentin (Neurontin Capsule) 300 mg BID PO 02/16/24 22:00 02/16/24 23:34 Oxycodone/ Acetaminophen (Percocet 5/ 325MG Tablet) 1 tab QID PO 02/16/24 18:00 02/16/24 23:35 Levothyroxine Sodium (Synthroid Tablet) 75 mcg DAILY@0600 PO 02/17/24 06:00 Metoprolol Succinate (Toprol Xl) 100 mg DAILY PO 02/17/24 10:00 Sertraline HCl (Zoloft) 150 mg DAILY PO 02/17/24 10:00 Diagnostic Test (Pha) (Accu-Chek Comfort Curve T) 1 strip ACHS 02/16/24 17:00 02/16/24 22:00 Insulin Human Regular (InsuLIN R) ACHS SC 02/16/24 17:00 02/16/24 23:36 Dextrose 50 ml UD PRN IV Blood Sugar LESS THAN 60 02/16/24 13:00 Magnesium Oxide (Mag-Ox Tablet) 400 mg BID PO 02/16/24 22:00 02/16/24 23:36 Vital Signs Vital Signs Date Time Temp Pulse Resp B/P (MAP) Pulse Ox O2 Delivery O2 Flow Rate FiO2 02/16/24 21:00 118 18 112/76 (88) 96 02/16/24 19:30 98.4 98.4 02/16/24 19:20 Nasal Cannula* 3 32 Physical Exam Gen.: Patient lying in bed in no apparent distress. On supplemental oxygen. Head: Normocephalic, atraumatic. Eyes: EOMI/PERRLA. Ears: Normal hearing. Normal anatomy. Neck/trachea: Trachea midline, supple. Nose: Normal external anatomy. Mouth: Moist mucous membranes. Chest: Decreased air entry bilaterally. No wheezing or rhonchi. Cardiovascular: Positive S1, positive S2. Regular rate and rhythm. Abdomen: Positive bowel sounds in all 4 quadrants. Soft, non-tender, non- distended. : Deferred. Rectal: Deferred. Skin: Warm, dry. Intact. Extremities: 2+ radial pulses bilaterally. No lower extremity edema. Neuro: Awake, alert, oriented x3. No gross motor or sensory deficits. Cranial nerves II through XII intact. Gait not assessed. Labs/Diagnostic Data Labs Test 02/16/24 13:12 02/16/24 12:51 02/16/24 06:30 02/16/24 03:20 Range/Units Magnesium Level 2.8 H 1.6-2.6 mg/dL Digoxin Level < 0.14 L 0.8-2 ng/mL Urine Color Yellow Yellow Urine Clarity Clear Clear Urine pH 5.0 5.0-9.0 Urine Specific [place] 1.020 1.001-1.035 Urine Protein Negative Negative Urine Ketones Negative Negative Urine Blood Negative Negative /uL Urine Nitrite Negative Negative Urine Bilirubin Negative Negative Urine Urobilinogen Normal Negative mg/dL Urine Leukocyte Esterase Negative Negative /uL Urine RBC 1 0 - 4 /hpf Urine WBC 1 0 - 5 /hpf Urine Squamous Epithelial Cells Few <5 /hpf Urine Bacteria Few H None Seen /hpf Urine Hyaline Casts Few 0 - 2 /lpf Urine Glucose Normal Normal mg/dL Troponin I High Sensitivity 4 </=34 ng/L White Blood Count 9.4 4.4-10.8 10^3/uL Red Blood Count 3.84 L 4.0-5.20 10^6/uL Hemoglobin 9.4 L 12.2-16.2 g/dL Hematocrit 31.2 L 36.0-46.0 % Mean Corpuscular Volume 81.4 80.0-100.0 fL Mean Corpuscular Hemoglobin 24.5 L 28.0-32.0 pg Mean Corpuscular Hemoglobin Concent 30.2 L 32.0-36.0 g/dL Red Cell Distribution Width 20.7 H 11.8-14.3 % Platelet Count 352 140-450 10^3/uL Mean Platelet Volume 8.2 6.9-10.8 fL Neutrophils (%) (Auto) 80.7 H 37.0-80.0 % Lymphocytes (%) (Auto) 5.6 L 10.0-50.0 % Monocytes (%) (Auto) 8.9 0.0-12.0 % Eosinophils (%) (Auto) 4.1 0.0-7.0 % Basophils (%) (Auto) 0.7 0.0-2.0 % Neutrophils # (Auto) 7.6 1.6-8.6 10 ^3/uL Lymphocytes # (Auto) 0.5 0.4-5.4 10 ^3/uL Monocytes # (Auto) 0.8 0-1.3 10 ^3/uL Eosinophils # (Auto) 0.4 0-0.8 10 ^3/uL Basophils # (Auto) 0.1 0-0.2 10 ^3/uL Nucleated Red Blood Cells 0.1 % Platelet Estimate Adequate Polychromasia Slight Hypochromasia (manual) Slight Anisocytosis (manual) Slight Prothrombin Time 14.0 H 9.3-11.8 sec Prothrombin Time INR 1.35 H 0.9-1.15 Activated Partial Thromboplast Time 35.8 H 24.5-34.5 SEC D-Dimer, Quantitative 0.58 H 0.0-0.49 mg/L FEU Sodium Level 136 136-145 mmol/L Potassium Level 4.5 3.5-5.1 mmol/L Chloride Level 100 98-107 mmol/L Carbon Dioxide Level 29 20-31 mmol/L Anion Gap 7 5-15 Blood Urea Nitrogen 37 H 9-23 mg/dL Creatinine 1.35 H 0.550-1.02 mg/dL Glomerular Filtration Rate Calc 41 >90 mL/min BUN/Creatinine Ratio 27.4 H 10.0-20.0 Serum Glucose 149 H 74-106 mg/dL Calcium Level 9.8 8.7-10.4 mg/dL Total Bilirubin 0.6 0.2-1.0 mg/dL Aspartate Amino Transferase (AST) 25 13-40 U/L Alanine Aminotransferase (ALT) 15 7-40 U/L Alkaline Phosphatase 122 H 46-116 U/L B-Type Natriuretic Peptide 1451.90 0-100 pg/mL Total Protein 7.0 5.7-8.2 g/dL Albumin 4.0 3.2-4.8 g/dL Test 02/16/24 03:13 Range/Units Blood Gas Specimen Type Arterial Blood Gas Sample Site Right radial Blood Gas Patient Temperature 37.0 Arterial Blood Date Drawn [id number] Arterial Blood pH 7.447 7.350-7.450 Arterial Blood Partial Pressure CO2 44.5 32.0-45.0 mmHg Arterial Blood Partial Pressure O2 72.6 L 83.0-108.0 mmHg Arterial Blood HCO3 30.0 H 21.0-28.0 mmol/L Arterial Blood Oxygen Saturation 94.2 94.0-98.0 % Arterial Blood Base Excess 5.4 H -2.0-3.0 mmol/L Arterial Blood Oxyhemoglobin 92.8 L 94.0-98.0 % Arterial Blood Carboxyhemoglobin 0.9 0.5-1.5 % Arterial Blood Methemoglobin 0.6 0.0-1.5 % Nathanael Test Modified Blood Gas Total Hemoglobin 10.40 L 12.0-16.0 g/dL Blood Gas Liter Flow 4.00 Blood Gas Modality Nasal cannula Blood Gas Spontaneous Rate 18 FiO2 % 36.0 Specimen Drawn By Tera otero rt Assessment Impression: Acute on chronic hypoxic respiratory failure COPD exacerbation Elevated D-dimer CHF exacerbation Possible pneumonia, right mid lobe with pleural effusion Chronic AFib with RVR ZEKE on CKD stage 3 DM type II Dementia Plan: Supplemental oxygen Titrate to keep O2 sats above 92%. Continue steroids Continue antibiotics Follow up cultures PO amiodarone Follow up cardiology recs Pain control Avoid oversedation Monitor renal function. Monitor electrolytes. Supplement as necessary. Monitor ins and outs. Follow up nephrology recs DVT prophylaxis. Prognosis: Poor given patient's multiple co-morbidities. Rest of plan per hospitalist and other consultants. Thank you Dr. Roa, for allowing me to participate in this patient's care. Further recommendations will depend on the patient's clinical course. Please do not hesitate to contact me if you have any questions or concerns. This medical document was created using an electronic medical record system with [employer] dictation system. Although these documentations are being carefully reviewed, there may still be some phonetic and typographical changes. The errors are purely typographical, due to imperfection on the software program, and do not reflect any compromise in the patient's medical care. Plan discussed with: Patient, Other (RN/MD Roa) JONE ALEXANDRA MD Feb 17, 2024 00:04
[2024-02-17] MEDS: LEVOTHYROXINE SODIUM 25 MCG TAB PO SCH (05:56)
[2024-02-17 06:36] LABS: Alanine Aminotransferase 23 U/L (7-40); Albumin 4.1 g/dL (3.2-4.8); Anion Gap 9 (5-15); Aspartate Aminotransferase 38 U/L (13-40); Calcium 9.4 mg/dL (8.7-10.4); Carbon Dioxide 30 mmol/L (20-31); Chloride 99 mmol/L (98-107); Potassium 4.9 mmol/L (3.5-5.1); Sodium 138 mmol/L (136-145)
[2024-02-17 06:37] LABS: Bilirubin, Total 0.5 mg/dL (0.2-1.0); Total Protein 6.9 g/dL (5.7-8.2)
[2024-02-17 06:38] LABS: Alkaline Phosphatase 124 U/L (46-116); Glucose 174 mg/dL (74-106)
[2024-02-17 07:03] LABS: BUN/Creatinine Ratio 32.2 (10.0-20.0)
[2024-02-17 07:08] LABS: Basophils # (auto) 0 10 ^3/uL (0-0.2); Basophils % (auto) 0.4 % (0.0-2.0); Eosinophils # (auto) 0 10 ^3/uL (0-0.8); Eosinophils % (auto) 0.1 % (0.0-7.0); Hematocrit 30.8 % (36.0-46.0); Hemoglobin 9.5 g/dL (12.2-16.2); Lymphocytes # (auto) 0.3 10 ^3/uL (0.4-5.4); Lymphocytes % (auto) 6.9 % (10.0-50.0); Mean Corpuscular Hgb Conc. 30.8 g/dL (32.0-36.0); Mean Corpuscular Volume 81.3 fL (80.0-100.0); Monocytes # (auto) 0.1 10 ^3/uL (0-1.3); Monocytes % (auto) 2.1 % (0.0-12.0); Neutrophils # (auto) 4.1 10 ^3/uL (1.6-8.6); Neutrophils % (auto) 90.5 % (37.0-80.0); Platelet Count (auto) 277 10^3/uL (140-450); Red Blood Cells 3.78 10^6/uL (4.0-5.20); Red Cell Distribution Width 20.5 % (11.8-14.3); White Blood Cell 4.5 10^3/uL (4.4-10.8)
[2024-02-17 07:12] LABS: Blood Urea Nitrogen 46 mg/dL (9-23)
[2024-02-17] MEDS: cefTRIAXone 1GM/50ML D5W 50 ML IV SCH (09:18)
[2024-02-17] MEDS: FUROSEMIDE 40 MG/4 ML VIAL IV SCH (09:19)
[2024-02-17] MEDS: AMIODARONE HCL 200 MG TAB PO SCH (09:24)
[2024-02-17] MEDS: ENOXAPARIN SOD 40 MG/0.4 ML SYRINGE SC SCH (09:24)
[2024-02-17] MEDS: SERTRALINE HCL 50 MG TAB PO SCH (09:25)
[2024-02-17] MEDS: EMPAGLIFLOZIN 10 MG TAB PO SCH (09:25)
[2024-02-17] MEDS: DONEPEZIL HYDROCHLORIDE 5 MG TAB PO SCH (09:25)
[2024-02-17] MEDS: METOPROLOL SUCCINATE XL 50 MG TAB PO SCH (09:26)
[2024-02-17] MEDS ORDERED: AZITHROMYCIN 500MG/ 250ML 250 ML IV SCH ×2 (10:00)
--- NOTE | 2024-02-17 12:56 | DVHPN2 ---
Progress Note Date Seen: Feb 17, 2024 Medical Necessity Reason Pt with a Central, PICC or Fol: No Subjective Patient reports: No new complaints Review of Systems: HEENT:Normal, CVS:Normal, RESPIRATORY:Normal, GI:Normal, :Normal, MSK:Normal, NEURO:Normal Objective vital signs Vital Sign Date Time Temp Pulse Resp B/P (MAP) Pulse Ox O2 Delivery O2 Flow Rate FiO2 02/17/24 12:03 104 20 100 02/17/24 11:59 Nasal Cannula* 4 36 02/17/24 09:26 117/81 02/17/24 08:30 97.6 97.6 Total Intake and Output 02/16/24 02/16/24 02/17/24 15:00 23:00 07:00 Intake Total 400 ml 300 ml Output Total 600 ml 200 ml Balance -200 ml 100 ml medications Current Medications Medications Dose Ordered Sig/Terrence Route Start Time Stop Time Status Last Admin Dose Admin Enoxaparin Sodium 40 mg DAILY SC 02/17/24 10:00 02/17/24 09:24 40 MG Nitroglycerin 0.4 mg Q5MINP PRN SL 02/16/24 12:15 Morphine Sulfate 2 mg Q30M PRN IV 02/16/24 12:15 Hold Levalbuterol HCl 1.25 mg Q6HR NEB 02/16/24 18:00 02/17/24 11:57 1.25 MG Ipratropium [place] 0.5 mg Q4HPRN PRN NEB 02/16/24 12:15 Ipratropium [place] 0.5 mg Q6HR NEB 02/16/24 18:00 02/17/24 11:57 0.5 MG Azithromycin 250 ml @ 125 mls/hr DAILY IV 02/17/24 10:00 Hold Ceftriaxone Sodium 50 ml @ 100 mls/hr DAILY@09 IV 02/17/24 09:00 02/17/24 09:18 100 MLS/HR Methylprednisolone Sodium Succinate 60 mg BID IV 02/16/24 22:00 02/17/24 09:23 60 MG Furosemide 40 mg DAILY IV 02/17/24 10:00 02/17/24 09:19 40 MG Amiodarone HCl 200 mg DAILY PO 02/17/24 10:00 02/17/24 09:24 200 MG Donepezil HCl 5 mg DAILY PO 02/17/24 10:00 02/17/24 09:25 5 MG Empaglifozin 10 mg DAILY PO 02/17/24 10:00 02/17/24 09:25 10 MG Gabapentin 300 mg BID PO 02/16/24 22:00 02/17/24 09:25 300 MG Oxycodone/ Acetaminophen 1 tab QID PO 02/16/24 18:00 02/17/24 11:47 1 TAB Levothyroxine Sodium 75 mcg DAILY@0600 PO 02/17/24 06:00 02/17/24 05:56 75 MCG Metoprolol Succinate 100 mg DAILY PO 02/17/24 10:00 02/17/24 09:26 100 MG Sertraline HCl 150 mg DAILY PO 02/17/24 10:00 02/17/24 09:25 150 MG Diagnostic Test (Pha) 1 strip ACHS 02/16/24 17:00 02/17/24 11:52 1 STRIP Insulin Human Regular ACHS SC 02/16/24 17:00 02/17/24 11:52 4 UNITS Dextrose 50 ml UD PRN IV 02/16/24 13:00 Magnesium Oxide 400 mg BID PO 02/16/24 22:00 02/17/24 09:24 400 MG Examination: GENERAL:Normal, HEENT:Normal, NECK:Normal, LUNGS:Normal, LUNGS:Abnormal (ON OXYGEN), CVS:Normal, ABDOMEN:Normal, MSK:Normal, SKIN:Normal, NEURO:Normal, NEURO:Abnormal (quadriparesis), :Normal laboratory and microbiology Laboratory Tests 02/17/24 05:05 Test 02/17/24 05:05 Range/Units Serum Glucose 174 H 74-106 mg/dL Problem List/Assessment/Plan Problem List/Assessment/Plan #1 acute resp failure: cont oxygen #2 acute on chronic systolic heart failure: lasixi iv #3 liver cirrhosis: check hep panel #4 hypothyroidism: check tsh #5 acute renal failure ?vasomotor nephropathy #6 h/o a fib #7 copd #8 anemia #9 quadriparesis: neuro eval advance care planning- full code-time spent 21 mins Plan discussed with: Patient My Orders My Orders Orders - SAIDA HAN MD Procedure Category Date Status Time Metoprolol Xl PHA 02/18/24 Verified Succinate (Toprol Xl) 10:00 * Neurology Consult CONS 02/17/24 Verified 12:47 Basic Metabolic Panel LAB 02/18/24 Verified 06:00 Complete Blood Count LAB 02/18/24 Verified 06:00 Acute Hepatitis Panel LAB 02/17/24 Verified 12:47 Thyroid Stimulating LAB 02/18/24 Verified Hormone 05:00 Date of Service: Feb 17, 2024 Billing Provider: SAIDA HAN MD Common Visit Codes: [id number] INP/OBS CARE(HIGH) Secondary Visit Codes: [id number] CARE PLAN 30 MINUTES SAIDA HAN MD Feb 17, 2024 12:56
--- NOTE | 2024-02-17 13:36 | DVHINCON2 ---
[facility] 02/17/24 1336: Date Seen: Feb 17, 2024 Referring Physician DEXTER Bermudez Reason for Consultation CHF exacerbation History of Present Illness This is a pleasant 78-year-old female who [facility] with a chief complaint of shortness of breath for two days. The patient complains of progressive shortness of breath associated with PND and RAMIREZ. Per records, O2 saturations with a 4% on room air. She underwent a 12 lead electrocardiogram revealing an atrial fibrillation rhythm with rapid ventricular rate in the 120s bpm. Serial troponin levels are negative. BNP level over 1900s. Follows up in the outpatient setting with the primary product examiner Dr. Brandon. Significant past medical history includes congestive heart failure, paroxysmal atrial fibrillation (on Amiodarone and Eliquis), hypertension, COPD on home O2, type 2 diabetes mellitus, thyroid disease, osteoporosis, dementia, breast cancer with radiation treatment, and remote history of tobacco use. Past Medical History Past medical history reviewed. No other significant than mentioned above. Past Surgical History Breast cancer status post left lumpectomy Cholecystectomy Hysterectomy Family History: Cancer of vulva G8 FATHER Diabetes mellitus G8 MOTHER G8 FATHER FH: CHF (congestive heart failure) G8 MOTHER FH: kidney failure G8 MOTHER Hypertension G8 FATHER Family History Family history reviewed. Social History Denies the use of illicit drugs, alcohol, or tobacco use. Quit tobacco use approximately 20 years ago. Allergies: Coded Allergies: Cephalexin (Verified Allergy, Unknown, 08/10/23) Ciprofloxacin (Verified Allergy, Unknown, 08/10/23) Lidocaine (Verified Allergy, Unknown, 08/10/23) Sucralfate (Verified Allergy, Unknown, 08/10/23) Sulfamethoxazole w/Trimethoprim (Verified Allergy, Unknown, 08/10/23) Hydrocodone (Verified Adverse Reaction, Unknown, 08/10/23) itching Home Meds Active Scripts Digoxin (Lanoxin) 125 Mcg Tab, 0.125 MG PO DAILY for 30 Days, #30 TAB 5 Refills Prov:ENIO BARRY MD 08/14/23 Sacubitril-Valsartan (Entresto 24-26 mg) 1 Tab Tab, 1 TAB PO BID for 30 Days, #60 TAB 5 Refills Prov:ENIO BARRY MD 08/14/23 Reported Medications Diltiazem HCl (Diltiazem Hydrochloride E) 180 Mg Cap, 1 CAP PO DAILY 09/16/23 Ezkvjzxjaoy-Omiuioixqtwm-Kwzgl (Trelegy Ellipta 200-62.5-25 Mcg/INH) 1 Aer Aer, 1 PUFF INH DAILY 09/16/23 Albuterol Sulfate (Proair Respiclick) 108 Mcg/Act Aer, 2 PUFF INH Q6HR PRN 08/13/23 Furosemide (Furosemide) 20 Mg Tab, 1 TAB PO BID 08/13/23 Potassium Chloride (Potassium Chloride ER) 20 Meq Tab, 1 TAB PO DAILY 08/13/23 Anastrozole (Anastrozole) 1 Mg Tab, 1 TAB PO DAILY 08/13/23 Oxycodone W/ Acetaminophen (Percocet 5/325MG) 1 Tab Tb, 1 TAB PO QID, #120 TAB 08/10/23 Alendronate Sodium (Alendronate Sodium) 70 Mg Tab, 1 TAB PO QWEEKLY 08/10/23 Donepezil Hydrochloride (DONEPEZIL HCL) 5 Mg Tab, 1 TAB PO DAILY 08/10/23 Gabapentin (Gabapentin) 300 Mg Cap, 1 CAP PO BID 08/10/23 Clonidine Hydrochloride (Clonidine Hcl) 0.2 Mg/24 Hr Dis, 1 PATCH TOP QWEEKLY 08/10/23 Ferrous Sulfate (Ferosul) 325 Mg Tab, 1 TAB PO DAILY 08/10/23 Sertraline Hcl (Sertraline Hcl) 100 Mg Tab, 1.5 TAB PO DAILY Take 1.5 tablets (150 mg) by mouth daily after breakfast. 08/10/23 Amiodarone HCl (Amiodarone HCl) 200 Mg Tab, 1 TAB PO DAILY 08/10/23 Spironolactone (Spironolactone) 25 Mg Tab, 1 TAB PO DAILY 08/10/23 Empagliflozin (Jardiance) 10 Mg Tab, 1 TAB PO DAILY 08/10/23 Levothyroxine Sodium (Levothyroxine Sodium) 75 Mcg Tab, 1 TAB PO DAILY 08/10/23 Losartan Potassium (Losartan Potassium) 100 Mg Tab, 1 TAB PO DAILY 08/10/23 Pantoprazole Sodium Sesquihydr (Pantoprazole Sodium) 40 Mg Tab, 1 TAB PO DAILY 08/10/23 Metoprolol Succinate (Metoprolol Succinate Er) 100 Mg Tab, 1 TAB PO BID 08/10/23 Apixaban Base (ELIQUIS) 5 Mg Tab, 1 TAB PO BID 08/10/23 Home Meds Home medications reviewed. Current Medications Current Medications Medications (Trade) Dose Ordered Sig/Terrence Route PRN Reason Start Time Stop Time Status Last Admin Enoxaparin Sodium (Lovenox) 40 mg DAILY SC 02/17/24 10:00 02/17/24 09:24 Levalbuterol HCl (Xopenex Medneb) 1.25 mg Q6HR NEB 02/16/24 18:00 02/17/24 11:57 Ipratropium Ferdinand (Atrovent Medneb) 0.5 mg Q6HR NEB 02/16/24 18:00 02/17/24 11:57 Azithromycin 250 ml @ 125 mls/hr DAILY IV 02/17/24 10:00 02/16/24 14:12 DC Azithromycin 250 ml @ 125 mls/hr DAILY IV 02/17/24 10:00 Hold Ceftriaxone Sodium 50 ml @ 100 mls/hr DAILY@09 IV 02/17/24 09:00 02/17/24 09:18 Methylprednisolone Sodium Succinate (Solu Medrol) 60 mg BID IV 02/16/24 22:00 02/17/24 12:52 DC 02/17/24 09:23 Furosemide (Lasix Injection) 40 mg DAILY IV 02/17/24 10:00 02/17/24 09:19 Amiodarone HCl (Cordarone Tablet) 200 mg DAILY PO 02/17/24 10:00 02/17/24 09:24 Donepezil HCl (Aricept Tablet) 5 mg DAILY PO 02/17/24 10:00 02/17/24 09:25 Empaglifozin (Jardiance) 10 mg DAILY PO 02/17/24 10:00 02/17/24 09:25 Gabapentin (Neurontin Capsule) 300 mg BID PO 02/16/24 22:00 02/17/24 09:25 Oxycodone/ Acetaminophen (Percocet 5/ 325MG Tablet) 1 tab QID PO 02/16/24 18:00 02/17/24 11:47 Levothyroxine Sodium (Synthroid Tablet) 75 mcg DAILY@0600 PO 02/17/24 06:00 02/17/24 05:56 Metoprolol Succinate (Toprol Xl) 100 mg DAILY PO 02/17/24 10:00 02/17/24 12:52 DC 02/17/24 09:26 Sertraline HCl (Zoloft) 150 mg DAILY PO 02/17/24 10:00 02/17/24 09:25 Diagnostic Test (Pha) (Accu-Chek Comfort Curve T) 1 strip ACHS 02/16/24 17:00 02/17/24 11:52 Insulin Human Regular (InsuLIN R) ACHS SC 02/16/24 17:00 02/17/24 11:52 Magnesium Oxide (Mag-Ox Tablet) 400 mg BID PO 02/16/24 22:00 02/17/24 09:24 Metoprolol Succinate (Toprol Xl) 25 mg DAILY PO 02/18/24 10:00 Review of Systems Constitutional: No symptom reported Ears, Nose, & Throat: No symptom reported Eyes: No symptom reported Neurological: No symptoms reported Pulmonary/Respiratory: SOB Cardiovascular: No symptom reported Gastrointestinal: No symptom reported Genitourinary: No symptom reported Musculoskeletal: No symptom reported Skin: No symptom reported Psychiatric: No symptom reported Endocrine: No symptom reported Hemotologic/Lymphatic: No symptom reported Vital Signs Vital Signs Date Time Temp Pulse Resp B/P (MAP) Pulse Ox O2 Delivery O2 Flow Rate FiO2 02/17/24 12:03 104 20 100 02/17/24 11:59 Nasal Cannula* 4 36 02/17/24 09:26 117/81 02/17/24 08:30 97.6 97.6 Physical Exam General Appearance: Cooperative. Well developed. Well nourished. In no acute distress Head Exam: Normal inspection Neck Exam: Normal inspection. Non-tender. Normal alignment Pulmonary/Respiratory: Chest non-tender. Coarse bilateral breath sounds. O2 via NC Cardiovascular/Chest: Irregularly irregular rate and rhythm. AFib, controlled rate. No murmurs. No JVD. Peripheral Pulses: 2+ Radial (R). 2+ Radial (L). 2+ Pedal (R). 2+ Pedal (L) Abdominal Exam: Normal bowel sounds. Soft. Nontender. No hepatospenomegaly. No masses Ankle Exam: Positive ankle edema, 1+ Lower extremities: Positive lower extremity edema, 1+ Neuro/Mental Status: A&O x3. Coherent but somewhat poor historian Thoughts/Psych: Normal thought pattern. Appropriate mood and affect. Good judgement and insight Appearance: In no acute distress Skin Exam: Normal inspection. Normal color. Warm. Dry Labs/Diagnostic Data Labs Test 02/17/24 05:05 02/16/24 13:12 02/16/24 12:51 02/16/24 06:30 Range/Units White Blood Count 4.5 # 4.4-10.8 10^3/uL Red Blood Count 3.78 L 4.0-5.20 10^6/uL Hemoglobin 9.5 L 12.2-16.2 g/dL Hematocrit 30.8 L 36.0-46.0 % Mean Corpuscular Volume 81.3 80.0-100.0 fL Mean Corpuscular Hemoglobin 25.0 L 28.0-32.0 pg Mean Corpuscular Hemoglobin Concent 30.8 L 32.0-36.0 g/dL Red Cell Distribution Width 20.5 H 11.8-14.3 % Platelet Count 277 140-450 10^3/uL Mean Platelet Volume 8.2 6.9-10.8 fL Neutrophils (%) (Auto) 90.5 H 37.0-80.0 % Lymphocytes (%) (Auto) 6.9 L 10.0-50.0 % Monocytes (%) (Auto) 2.1 0.0-12.0 % Eosinophils (%) (Auto) 0.1 0.0-7.0 % Basophils (%) (Auto) 0.4 0.0-2.0 % Neutrophils # (Auto) 4.1 1.6-8.6 10 ^3/uL Lymphocytes # (Auto) 0.3 L 0.4-5.4 10 ^3/uL Monocytes # (Auto) 0.1 0-1.3 10 ^3/uL Eosinophils # (Auto) 0 0-0.8 10 ^3/uL Basophils # (Auto) 0 0-0.2 10 ^3/uL Nucleated Red Blood Cells 0.0 % Sodium Level 138 136-145 mmol/L Potassium Level 4.9 3.5-5.1 mmol/L Chloride Level 99 98-107 mmol/L Carbon Dioxide Level 30 20-31 mmol/L Anion Gap 9 5-15 Blood Urea Nitrogen 46 H 9-23 mg/dL Creatinine 1.43 H 0.550-1.02 mg/dL Glomerular Filtration Rate Calc 38 >90 mL/min BUN/Creatinine Ratio 32.2 H 10.0-20.0 Serum Glucose 174 H 74-106 mg/dL Calcium Level 9.4 8.7-10.4 mg/dL Total Bilirubin 0.5 0.2-1.0 mg/dL Aspartate Amino Transferase (AST) 38 13-40 U/L Alanine Aminotransferase (ALT) 23 7-40 U/L Alkaline Phosphatase 124 H 46-116 U/L B-Type Natriuretic Peptide 1912.43 0-100 pg/mL Total Protein 6.9 5.7-8.2 g/dL Albumin 4.1 3.2-4.8 g/dL Magnesium Level 2.8 H 1.6-2.6 mg/dL Digoxin Level < 0.14 L 0.8-2 ng/mL Urine Color Yellow Yellow Urine Clarity Clear Clear Urine pH 5.0 5.0-9.0 Urine Specific Lawrence 1.020 1.001-1.035 Urine Protein Negative Negative Urine Ketones Negative Negative Urine Blood Negative Negative /uL Urine Nitrite Negative Negative Urine Bilirubin Negative Negative Urine Urobilinogen Normal Negative mg/dL Urine Leukocyte Esterase Negative Negative /uL Urine RBC 1 0 - 4 /hpf Urine WBC 1 0 - 5 /hpf Urine Squamous Epithelial Cells Few <5 /hpf Urine Bacteria Few H None Seen /hpf Urine Hyaline Casts Few 0 - 2 /lpf Urine Glucose Normal Normal mg/dL Troponin I High Sensitivity 4 </=34 ng/L Test 02/16/24 03:20 02/16/24 03:13 Range/Units Platelet Estimate Adequate Polychromasia Slight Hypochromasia (manual) Slight Anisocytosis (manual) Slight Prothrombin Time 14.0 H 9.3-11.8 sec Prothrombin Time INR 1.35 H 0.9-1.15 Activated Partial Thromboplast Time 35.8 H 24.5-34.5 SEC D-Dimer, Quantitative 0.58 H 0.0-0.49 mg/L FEU Blood Gas Specimen Type Arterial Blood Gas Sample Site Right radial Blood Gas Patient Temperature 37.0 Arterial Blood Date Drawn [id number] Arterial Blood pH 7.447 7.350-7.450 Arterial Blood Partial Pressure CO2 44.5 32.0-45.0 mmHg Arterial Blood Partial Pressure O2 72.6 L 83.0-108.0 mmHg Arterial Blood HCO3 30.0 H 21.0-28.0 mmol/L Arterial Blood Oxygen Saturation 94.2 94.0-98.0 % Arterial Blood Base Excess 5.4 H -2.0-3.0 mmol/L Arterial Blood Oxyhemoglobin 92.8 L 94.0-98.0 % Arterial Blood Carboxyhemoglobin 0.9 0.5-1.5 % Arterial Blood Methemoglobin 0.6 0.0-1.5 % Nathanael Test Modified Blood Gas Total Hemoglobin 10.40 L 12.0-16.0 g/dL Blood Gas Liter Flow 4.00 Blood Gas Modality Nasal cannula Blood Gas Spontaneous Rate 18 FiO2 % 36.0 Specimen Drawn By Tera otero rt Assessment Acute on chronic decompensated HFrEF, NYHA class III-IV Acute on chronic respiratory failure with possible pneumonia Paroxysmal atrial fibrillation (on Amiodarone and Eliquis) 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 Joseph) The patient presents with the acute on chronic exacerbation of nonischemic cardiomyopathy. He underwent a recent transthoracic echocardiogram revealing LVEF of 25% with severe biventricular dilatation. She also underwent a left cardiac catheterization and coronary angiogram on 12/25/2023 revealing no significant atherosclerotic plaquing and anomalous origin of the LCx from the di stal RCA system. Continue antiarrhythmic. DOAC therapy with low-dose Eliquis ([id number] VASc score: 6 points) held given +FOBT. Consider GI consultation. Currently on DVT prophylaxis, patient is at high risk for acute CVA . Continue GDMT for CHF as renal function permits. Strict intake and output, daily weights, maintain fluid restriction. Preload and afterload reduction. Obtain digoxin level. Monitor ECG changes closely and notify. Thank you for allowing us to participate in this patient's care. Please call if you have any questions or concerns. This medical document was created using an electronic medical record system with voice recognition software and computerized dictation system. Although this document has been carefully reviewed, there might still be some phonetic and typographical errors. Occasional wrong-word or ``sound-alike substitutions may have occurred due to the inherent limitations of voice recognition software. These areas are purely typographical due to imperfections of the software programs and do not reflect any compromise in the patient's medical care. Please read the chart carefully and recognize, using context, where these substitutions have occurred. Plan discussed with: Patient, Other NYHA Physical activity limitations: Class4(Severe)discomfort (w any activit,symptoms at rest) Date of Service: Feb 17, 2024 Billing Provider: NÉSTOR JOSEPH MD Cardiology Common Codes: [id number] INP/OBS CARE (High) NÉSTOR JOSEPH MD 02/17/24 1407: Date Seen: Feb 17, 2024 Family History: Cancer of vulva G8 FATHER Diabetes mellitus G8 MOTHER G8 FATHER FH: CHF (congestive heart failure) G8 MOTHER FH: kidney failure G8 MOTHER Hypertension G8 FATHER Allergies: Coded Allergies: Cephalexin (Verified Allergy, Unknown, 08/10/23) Ciprofloxacin (Verified Allergy, Unknown, 08/10/23) Lidocaine (Verified Allergy, Unknown, 08/10/23) Sucralfate (Verified Allergy, Unknown, 08/10/23) Sulfamethoxazole w/Trimethoprim (Verified Allergy, Unknown, 08/10/23) Hydrocodone (Verified Adverse Reaction, Unknown, 08/10/23) itching Home Meds Active Scripts Digoxin (Lanoxin) 125 Mcg Tab, 0.125 MG PO DAILY for 30 Days, #30 TAB 5 Refills Prov:ENIO BARRY MD 08/14/23 Sacubitril-Valsartan (Entresto 24-26 mg) 1 Tab Tab, 1 TAB PO BID for 30 Days, #60 TAB 5 Refills Prov:ENIO BARRY MD 08/14/23 Reported Medications Diltiazem HCl (Diltiazem Hydrochloride E) 180 Mg Cap, 1 CAP PO DAILY 09/16/23 Tjdcerczktx-Jcacihgevarc-Xyeoh (Trelegy Ellipta 200-62.5-25 Mcg/INH) 1 Aer Aer, 1 PUFF INH DAILY 09/16/23 Albuterol Sulfate (Proair Respiclick) 108 Mcg/Act Aer, 2 PUFF INH Q6HR PRN 08/13/23 Furosemide (Furosemide) 20 Mg Tab, 1 TAB PO BID 08/13/23 Potassium Chloride (Potassium Chloride ER) 20 Meq Tab, 1 TAB PO DAILY 08/13/23 Anastrozole (Anastrozole) 1 Mg Tab, 1 TAB PO DAILY 08/13/23 Oxycodone W/ Acetaminophen (Percocet 5/325MG) 1 Tab Tb, 1 TAB PO QID, #120 TAB 08/10/23 Alendronate Sodium (Alendronate Sodium) 70 Mg Tab, 1 TAB PO QWEEKLY 08/10/23 Donepezil Hydrochloride (DONEPEZIL HCL) 5 Mg Tab, 1 TAB PO DAILY 08/10/23 Gabapentin (Gabapentin) 300 Mg Cap, 1 CAP PO BID 08/10/23 Clonidine Hydrochloride (Clonidine Hcl) 0.2 Mg/24 Hr Dis, 1 PATCH TOP QWEEKLY 08/10/23 Ferrous Sulfate (Ferosul) 325 Mg Tab, 1 TAB PO DAILY 08/10/23 Sertraline Hcl (Sertraline Hcl) 100 Mg Tab, 1.5 TAB PO DAILY Take 1.5 tablets (150 mg) by mouth daily after breakfast. 08/10/23 Amiodarone HCl (Amiodarone HCl) 200 Mg Tab, 1 TAB PO DAILY 08/10/23 Spironolactone (Spironolactone) 25 Mg Tab, 1 TAB PO DAILY 08/10/23 Empagliflozin (Jardiance) 10 Mg Tab, 1 TAB PO DAILY 08/10/23 Levothyroxine Sodium (Levothyroxine Sodium) 75 Mcg Tab, 1 TAB PO DAILY 08/10/23 Losartan Potassium (Losartan Potassium) 100 Mg Tab, 1 TAB PO DAILY 08/10/23 Pantoprazole Sodium Sesquihydr (Pantoprazole Sodium) 40 Mg Tab, 1 TAB PO DAILY 08/10/23 Metoprolol Succinate (Metoprolol Succinate Er) 100 Mg Tab, 1 TAB PO BID 08/10/23 Apixaban Base (ELIQUIS) 5 Mg Tab, 1 TAB PO BID 08/10/23 Plan/Recommendation Patient was seen and examined. I agree with the above plan. She continues to be hypervolemic on exam today. We will continue with diuresis. We will continu e to adjust medications for heart failure. Plan discussed with: Patient JOAQUIN ALDRIDGE SOLOMON Feb 17, 2024 13:36 NÉSTOR JOSEPH MD Feb 17, 2024 14:07
[2024-02-17 13:43] LABS: Hepatitis B Surface Antigen Negative (Negative)
[2024-02-17 14:01] LABS: Hepatitis A Ab IgM Negative; Hepatitis B Core IgM Negative (Negative); Hepatitis C Antibody Negative (Negative)
[2024-02-17] MEDS: DOCUSATE SOD 100 MG CAP PO PRN (15:31)
--- NOTE | 2024-02-17 16:54 | MEDREC ---
[facility] ASP Intervention Section I [facility] ASP Intervention: Review courses of therapy (DUE TO PROLONG QTc > 500 PLEASE CONSIDER SWITCHING AZITHROMYCIN TO DOXYCYCLINE) REILLY CHAVIRA PHARMACIST Feb 17, 2024 16:54
--- NOTE | 2024-02-17 22:26 | DVHINCON2 ---
Date of service: Feb 17, [address] Roa Reason for Consultation Quadriparesis History of Present Illness Mr. Whitney is a 78 years old right-handed female with a history of hypertension, diabetes, congestive heart failure, atrial fibrillation, asthma, scoliosis, breast cancer, she was brought from her half-way facility to [facility] on 02/16/2024 for shortness breath, but patient also has other complaints. At this time, she was alert and fully oriented, she provided the following history She reports having progressive bilateral extremity weakness for about one year. She reports progressive imbalance since [id number], she has not able to walk since early 2022 She was urinary incontinence when she coughs, sneeze for many years, since early 2022, the patient sometimes has problem to hold her bladder She denies headache, neck pain Urinalysis, 02/16/2024: Unremarkable ABG, 02/16/2024: Hypoxia, carbon dioxide retention WBC/HB/PLT/MCV, 02/17/2024: 4.5/9.5/277/81.3 PTT/INR/ABG, 02/16/2024: 14/1.35/35.8 BUN/CR, 02/17/2024: 46/1.43 Liver function tests, 02/17/2024: Unremarkable TG/HDL/LDL/HDL, 09/14/2023: 96/106/54/31 TSH, 09/14/2023: 0.56, 01/11/2024: 41.3 CT head, 02/16/2024: No acute intracranial abnormality CTA chest, 02/16/2024: 1. No pulmonary embolism. 2. Consolidation in the right middle lobe concerning for infectious process with obpta-sp-kyhuybll right pleural effusion 3. Chronic appearing fibrotic subpleural changes in interstitial thickening. 4. Cirrhotic appearance of the liver with mild ascites Past Medical History Hypertension, diabetes, congestive heart failure, atrial fibrillation, asthma, scoliosis, breast cancer Past Surgical History Cholecystectomy, hysterectomy, breast cancer resection Family History: Cancer of vulva G8 FATHER Diabetes mellitus G8 MOTHER G8 FATHER FH: CHF (congestive heart failure) G8 MOTHER FH: kidney failure G8 MOTHER Hypertension G8 FATHER Family History She does not know her family history well, father might have heart failure, diabetes, her mom had kidney failure Social History She was a tobacco smoker, she was no history of alcohol or recreational substance abuse Allergies: Coded Allergies: Cephalexin (Verified Allergy, Unknown, 08/10/23) Ciprofloxacin (Verified Allergy, Unknown, 08/10/23) Lidocaine (Verified Allergy, Unknown, 08/10/23) Sucralfate (Verified Allergy, Unknown, 08/10/23) Sulfamethoxazole w/Trimethoprim (Verified Allergy, Unknown, 08/10/23) Hydrocodone (Verified Adverse Reaction, Unknown, 08/10/23) itching Home Meds Active Scripts Digoxin (Lanoxin) 125 Mcg Tab, 0.125 MG PO DAILY for 30 Days, #30 TAB 5 Refills Prov:ENIO BARRY MD 08/14/23 Sacubitril-Valsartan (Entresto 24-26 mg) 1 Tab Tab, 1 TAB PO BID for 30 Days, #60 TAB 5 Refills Prov:ENIO BARRY MD 08/14/23 Reported Medications Diltiazem HCl (Diltiazem Hydrochloride E) 180 Mg Cap, 1 CAP PO DAILY 09/16/23 Jwqurfagzif-Qcirvuirxlvs-Pcgcu (Trelegy Ellipta 200-62.5-25 Mcg/INH) 1 Aer Aer, 1 PUFF INH DAILY 09/16/23 Albuterol Sulfate (Proair Respiclick) 108 Mcg/Act Aer, 2 PUFF INH Q6HR PRN 08/13/23 Furosemide (Furosemide) 20 Mg Tab, 1 TAB PO BID 08/13/23 Potassium Chloride (Potassium Chloride ER) 20 Meq Tab, 1 TAB PO DAILY 08/13/23 Anastrozole (Anastrozole) 1 Mg Tab, 1 TAB PO DAILY 08/13/23 Oxycodone W/ Acetaminophen (Percocet 5/325MG) 1 Tab Tb, 1 TAB PO QID, #120 TAB 08/10/23 Alendronate Sodium (Alendronate Sodium) 70 Mg Tab, 1 TAB PO QWEEKLY 08/10/23 Donepezil Hydrochloride (DONEPEZIL HCL) 5 Mg Tab, 1 TAB PO DAILY 08/10/23 Gabapentin (Gabapentin) 300 Mg Cap, 1 CAP PO BID 08/10/23 Clonidine Hydrochloride (Clonidine Hcl) 0.2 Mg/24 Hr Dis, 1 PATCH TOP QWEEKLY 08/10/23 Ferrous Sulfate (Ferosul) 325 Mg Tab, 1 TAB PO DAILY 08/10/23 Sertraline Hcl (Sertraline Hcl) 100 Mg Tab, 1.5 TAB PO DAILY Take 1.5 tablets (150 mg) by mouth daily after breakfast. 08/10/23 Amiodarone HCl (Amiodarone HCl) 200 Mg Tab, 1 TAB PO DAILY 08/10/23 Spironolactone (Spironolactone) 25 Mg Tab, 1 TAB PO DAILY 08/10/23 Empagliflozin (Jardiance) 10 Mg Tab, 1 TAB PO DAILY 08/10/23 Levothyroxine Sodium (Levothyroxine Sodium) 75 Mcg Tab, 1 TAB PO DAILY 08/10/23 Losartan Potassium (Losartan Potassium) 100 Mg Tab, 1 TAB PO DAILY 08/10/23 Pantoprazole Sodium Sesquihydr (Pantoprazole Sodium) 40 Mg Tab, 1 TAB PO DAILY 08/10/23 Metoprolol Succinate (Metoprolol Succinate Er) 100 Mg Tab, 1 TAB PO BID 08/10/23 Apixaban Base (ELIQUIS) 5 Mg Tab, 1 TAB PO BID 08/10/23 Current Medications Current Medications Medications (Trade) Dose Ordered Sig/Terrence Route PRN Reason Start Time Stop Time Status Last Admin Enoxaparin Sodium (Lovenox) 40 mg DAILY SC 02/17/24 10:00 02/17/24 09:24 Azithromycin 250 ml @ 125 mls/hr DAILY IV 02/17/24 10:00 02/16/24 14:12 DC Azithromycin 250 ml @ 125 mls/hr DAILY IV 02/17/24 10:00 Hold Ceftriaxone Sodium 50 ml @ 100 mls/hr DAILY@09 IV 02/17/24 09:00 02/17/24 09:18 Furosemide (Lasix Injection) 40 mg DAILY IV 02/17/24 10:00 02/17/24 09:19 Amiodarone HCl (Cordarone Tablet) 200 mg DAILY PO 02/17/24 10:00 02/17/24 09:24 Donepezil HCl (Aricept Tablet) 5 mg DAILY PO 02/17/24 10:00 02/17/24 09:25 Empaglifozin (Jardiance) 10 mg DAILY PO 02/17/24 10:00 02/17/24 09:25 Levothyroxine Sodium (Synthroid Tablet) 75 mcg DAILY@0600 PO 02/17/24 06:00 02/17/24 05:56 Metoprolol Succinate (Toprol Xl) 100 mg DAILY PO 02/17/24 10:00 02/17/24 12:52 DC 02/17/24 09:26 Sertraline HCl (Zoloft) 150 mg DAILY PO 02/17/24 10:00 02/17/24 09:25 Metoprolol Succinate (Toprol Xl) 25 mg DAILY PO 02/18/24 10:00 Docusate Sodium (Colace Capsule) 100 mg BIDPRN PRN PO FOR CONSTIPATION 02/17/24 14:45 02/17/24 15:31 Review of Systems As above, the other systems are negative Vital Signs Vital Signs Date Time Temp Pulse Resp B/P (MAP) Pulse Ox O2 Delivery O2 Flow Rate FiO2 02/17/24 20:00 18 95 Nasal Cannula* 2 28 02/17/24 18:38 91 02/17/24 16:18 97.7 110/52 (71) 97.7 Physical Exam GENERAL EXAM: General: the patient is well developed and nourished. No acute distress. HEENT: Normocephalic, neck is supple, no carotid bruits. No mass. RESPIRATORY: Normal respiratory effort with symmetrical lung expansion. Lungs clear to auscultation. CARDIOVASCULAR: Regular rate and rhythm with no murmurs. S1, S2. ABDOMEN: Soft, nontender, normal bowel sound MUSCULOSKELETAL EXAM: Mild tenderness to palpation in the cervical spine NEUROLOGICAL: MENTAL STATUS: Awake and alert. Oriented to person, place, time and general circumstances. Able to give personal history. SPEECH, LANGUAGE, HIGHER CORTICAL FUNCTION: no aphasia or dysathria. CRANIAL NERVES: #2: Intact visual michaud to confrontation. The optic discs were sharp. #3,4,6: Pupils are equal, round and reactive. EOMs full and conjugate. No nystagmus. #5: Facial sensation intact in all three divisions bilaterally. Mandibular strength intact. #7: Facial muscles symmetrical and strength intact. #8: Hearing grossly normal to voice. #9,10: Uvula and soft palate rise in the midline. Swallow and voice are normal. #11: Trapezius and sternomastoid strength intact bilaterally. #12: Tongue midline. No fasciculations or atrophy. SENSATION: Sensation to touch and pinprick is normal. No sensory level MOTOR: Normal tone in the upper and lower extremity. Normal muscle bulk. No fasciculations. No abnormal movements or posturing. Muscle strength of the major groups in the upper extremities is 4-5/5 with left side weaker. Muscle strength of the major groups in the lower extremities is 3-4/with left-sided weaker 5. REFLEXES: Deep tendon reflexes symmetrically increased in the arms, knees, with possible clonus in the left wrist. Upgoing toes in left foot CEREBELLAR/COORDINATION: Finger to nose is unremarkable GAIT/STATION: deferred. Labs/Diagnostic Data Labs Test 02/17/24 15:55 02/17/24 05:05 02/16/24 13:12 02/16/24 12:51 Range/Units Digoxin Level < 0.14 L 0.8-2 ng/mL White Blood Count 4.5 # 4.4-10.8 10^3/uL Red Blood Count 3.78 L 4.0-5.20 10^6/uL Hemoglobin 9.5 L 12.2-16.2 g/dL Hematocrit 30.8 L 36.0-46.0 % Mean Corpuscular Volume 81.3 80.0-100.0 fL Mean Corpuscular Hemoglobin 25.0 L 28.0-32.0 pg Mean Corpuscular Hemoglobin Concent 30.8 L 32.0-36.0 g/dL Red Cell Distribution Width 20.5 H 11.8-14.3 % Platelet Count 277 140-450 10^3/uL Mean Platelet Volume 8.2 6.9-10.8 fL Neutrophils (%) (Auto) 90.5 H 37.0-80.0 % Lymphocytes (%) (Auto) 6.9 L 10.0-50.0 % Monocytes (%) (Auto) 2.1 0.0-12.0 % Eosinophils (%) (Auto) 0.1 0.0-7.0 % Basophils (%) (Auto) 0.4 0.0-2.0 % Neutrophils # (Auto) 4.1 1.6-8.6 10 ^3/uL Lymphocytes # (Auto) 0.3 L 0.4-5.4 10 ^3/uL Monocytes # (Auto) 0.1 0-1.3 10 ^3/uL Eosinophils # (Auto) 0 0-0.8 10 ^3/uL Basophils # (Auto) 0 0-0.2 10 ^3/uL Nucleated Red Blood Cells 0.0 % Sodium Level 138 136-145 mmol/L Potassium Level 4.9 3.5-5.1 mmol/L Chloride Level 99 98-107 mmol/L Carbon Dioxide Level 30 20-31 mmol/L Anion Gap 9 5-15 Blood Urea Nitrogen 46 H 9-23 mg/dL Creatinine 1.43 H 0.550-1.02 mg/dL Glomerular Filtration Rate Calc 38 >90 mL/min BUN/Creatinine Ratio 32.2 H 10.0-20.0 Serum Glucose 174 H 74-106 mg/dL Calcium Level 9.4 8.7-10.4 mg/dL Total Bilirubin 0.5 0.2-1.0 mg/dL Aspartate Amino Transferase (AST) 38 13-40 U/L Alanine Aminotransferase (ALT) 23 7-40 U/L Alkaline Phosphatase 124 H 46-116 U/L B-Type Natriuretic Peptide 1912.43 0-100 pg/mL Total Protein 6.9 5.7-8.2 g/dL Albumin 4.1 3.2-4.8 g/dL Hepatitis A IgM Antibody Negative Hepatitis B Surface Antigen Negative Negative Hepatitis B Core IgM Antibody Negative Negative Hepatitis C Antibody Negative Negative Magnesium Level 2.8 H 1.6-2.6 mg/dL Urine Color Yellow Yellow Urine Clarity Clear Clear Urine pH 5.0 5.0-9.0 Urine Specific Fenton 1.020 1.001-1.035 Urine Protein Negative Negative Urine Ketones Negative Negative Urine Blood Negative Negative /uL Urine Nitrite Negative Negative Urine Bilirubin Negative Negative Urine Urobilinogen Normal Negative mg/dL Urine Leukocyte Esterase Negative Negative /uL Urine RBC 1 0 - 4 /hpf Urine WBC 1 0 - 5 /hpf Urine Squamous Epithelial Cells Few <5 /hpf Urine Bacteria Few H None Seen /hpf Urine Hyaline Casts Few 0 - 2 /lpf Urine Glucose Normal Normal mg/dL Test 02/16/24 06:30 02/16/24 03:20 02/16/24 03:13 Range/Units Troponin I High Sensitivity 4 </=34 ng/L Platelet Estimate Adequate Polychromasia Slight Hypochromasia (manual) Slight Anisocytosis (manual) Slight Prothrombin Time 14.0 H 9.3-11.8 sec Prothrombin Time INR 1.35 H 0.9-1.15 Activated Partial Thromboplast Time 35.8 H 24.5-34.5 SEC D-Dimer, Quantitative 0.58 H 0.0-0.49 mg/L FEU Blood Gas Specimen Type Arterial Blood Gas Sample Site Right radial Blood Gas Patient Temperature 37.0 Arterial Blood Date Drawn [id number] Arterial Blood pH 7.447 7.350-7.450 Arterial Blood Partial Pressure CO2 44.5 32.0-45.0 mmHg Arterial Blood Partial Pressure O2 72.6 L 83.0-108.0 mmHg Arterial Blood HCO3 30.0 H 21.0-28.0 mmol/L Arterial Blood Oxygen Saturation 94.2 94.0-98.0 % Arterial Blood Base Excess 5.4 H -2.0-3.0 mmol/L Arterial Blood Oxyhemoglobin 92.8 L 94.0-98.0 % Arterial Blood Carboxyhemoglobin 0.9 0.5-1.5 % Arterial Blood Methemoglobin 0.6 0.0-1.5 % Nahtanael Test Modified Blood Gas Total Hemoglobin 10.40 L 12.0-16.0 g/dL Blood Gas Liter Flow 4.00 Blood Gas Modality Nasal cannula Blood Gas Spontaneous Rate 18 FiO2 % 36.0 Specimen Drawn By Tera otero rt Assessment Quadriparesis, hyperreflexia, gait disturbance, upgoing toes in the left foot C-spine myelopathy Intracranial pathology ? Stroke Scoliosis Acute on chronic respiratory failure Congestive heart failure AFib Plan/Recommendation Monitoring Supportive treatment Telemetry MRI brain scan MRI C-spine Respiratory support p.r.n. Oxygen IV antibiotics DVT prophylaxis More recommendation per clinical course Prognosis: Poor This medical document was created using an electronic medical record system with Waluzi dictation system. Although this document has been carefully reviewed, there may still be some phonetic and typographical errors. These areas are purely typographical due to imperfections of the software programs, and do not reflect any compromise in the patient's medical care. Plan discussed with: Patient, Other HARESH BURNETTE MD Feb 17, 2024 22:26
[2024-02-17] MEDS ORDERED: LORazepam 2MG/ML-1ML VIAL IV PRN (23:00)
[2024-02-18] VITALS (20 sets, daily range): BP systolic 93–132; BP diastolic 55–80; PULSE 55–100; RESP 16–20; TEMP 97.5–97.9; O2SAT 93–100
[2024-02-18] MEDS: METOPROLOL SUCCINATE XL 50 MG TAB PO SCH (09:27)
--- NOTE | 2024-02-18 09:36 | DVHPN2 ---
Consult Progress Note Date Seen: Feb 18, 2024 Subjective Review of Systems: CVS:Normal, RESPIRATORY:Abnormal, NEURO:Normal Other Systems: C/o mild SOB (improving) and cough Objective vital signs Vital Sign Date Time Temp Pulse Resp B/P (MAP) Pulse Ox O2 Delivery O2 Flow Rate FiO2 02/18/24 08:30 97.9 89 17 103/61 (75) 96 97.9 02/18/24 05:53 Nasal Cannula* 4 36 Total Intake and Output 02/17/24 02/17/24 02/18/24 15:00 23:00 07:00 Intake Total 50 ml 420 ml 300 ml Output Total 600 ml 500 ml Balance 50 ml -180 ml -200 ml medications Current Medications Medications Dose Ordered Sig/Terrence Route Start Time Stop Time Status Last Admin Dose Admin Enoxaparin Sodium 40 mg DAILY SC 02/17/24 10:00 02/17/24 09:24 40 MG Nitroglycerin 0.4 mg Q5MINP PRN SL 02/16/24 12:15 Morphine Sulfate 2 mg Q30M PRN IV 02/16/24 12:15 Hold Levalbuterol HCl 1.25 mg Q6HR [facility] 02/16/24 18:00 02/18/24 05:53 1.25 MG Ipratropium [place] 0.5 mg Q4HPRN PRN [facility] 02/16/24 12:15 Ipratropium [place] 0.5 mg Q6HR [facility] 02/16/24 18:00 02/18/24 05:53 0.5 MG Azithromycin 250 ml @ 125 mls/hr DAILY IV 02/17/24 10:00 Hold Ceftriaxone Sodium 50 ml @ 100 mls/hr DAILY@09 IV 02/17/24 09:00 02/17/24 09:18 100 MLS/HR Furosemide 40 mg DAILY IV 02/17/24 10:00 02/17/24 09:19 40 MG Amiodarone HCl 200 mg DAILY PO 02/17/24 10:00 02/17/24 09:24 200 MG Donepezil HCl 5 mg DAILY PO 02/17/24 10:00 02/17/24 09:25 5 MG Empaglifozin 10 mg DAILY PO 02/17/24 10:00 02/17/24 09:25 10 MG Gabapentin 300 mg BID PO 02/16/24 22:00 02/17/24 21:53 300 MG Oxycodone/ Acetaminophen 1 tab QID PO 02/16/24 18:00 02/18/24 05:55 1 TAB Levothyroxine Sodium 75 mcg DAILY@0600 PO 02/17/24 06:00 02/18/24 05:52 75 MCG Sertraline HCl 150 mg DAILY PO 02/17/24 10:00 02/17/24 09:25 150 MG Diagnostic Test (Pha) 1 strip ACHS 02/16/24 17:00 02/18/24 05:55 1 STRIP Insulin Human Regular ACHS SC 02/16/24 17:00 02/18/24 05:56 2 UNITS Dextrose 50 ml UD PRN IV 02/16/24 13:00 Magnesium Oxide 400 mg BID PO 02/16/24 22:00 02/17/24 21:53 400 MG Metoprolol Succinate 25 mg DAILY PO 02/18/24 10:00 Docusate Sodium 100 mg BIDPRN PRN PO 02/17/24 14:45 02/17/24 15:31 100 MG Lorazepam 1 mg ONCE PRN IV 02/17/24 23:00 Examination: GENERAL:Abnormal (Chronically ill), LUNGS:Abnormal (Bibasilar crackles, O2 via NC at 4L/min), CVS:Normal (A-fib controlled rate) laboratory and microbiology Laboratory Tests 02/17/24 05:05 Test 02/17/24 05:05 Range/Units Serum Glucose 174 H 74-106 mg/dL Problem List/Assessment/Plan Problem List/Assessment/Plan Acute on chronic decompensated HFrEF, NYHA class III-IV Acute on chronic respiratory failure with possible pneumonia Paroxysmal atrial fibrillation (on Amiodarone and Eliquis) 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 Webster) The patient presents with the acute on chronic exacerbation of a nonischemic cardiomyopathy. She underwent a recent transthoracic echocardiogram revealing an LVEF of 25% with severe biventricular dilatation. She also underwent a left cardiac catheterization and coronary angiogram on 12/25/2023 revealing no significant atherosclerotic plaquing and anomalous origin of the LCx from the distal RCA system. Continue antiarrhythmic agent. Initiate DOAC therapy with low-dose Eliquis ([id number] VASc score: 6 points). Continue GDMT for CHF as renal function permits. Strict intake and output, daily weights, maintain fluid restriction. Preload and afterload reduction. Monitor ECG changes closely and notify. Thank you for allowing us to participate in this patient's care. Please call if you have any questions or concerns. This medical document was created using an electronic medical record system with voice recognition software and computerized dictation system. Although this document has been carefully reviewed, there might still be some phonetic and typographical errors. Occasional wrong-word or ``sound-alike substitutions may have occurred due to the inherent limitations of voice recognition software. These areas are purely typographical due to imperfections of the software programs and do not reflect any compromise in the patient's medical care. Please read the chart carefully and recognize, using context, where these substitutions have occurred. Plan discussed with: Patient, Other Date of Service: Feb 18, 2024 Billing Provider: LISSA WEBSTER Sr., MD Cardiology Common Codes: [id number](JOAQUIN Hernandez [facility] Feb 18, 2024 09:36
[2024-02-18 10:06] LABS: Basophils # (auto) 0 10 ^3/uL (0-0.2); Basophils % (auto) 0.1 % (0.0-2.0); Eosinophils # (auto) 0 10 ^3/uL (0-0.8); Hematocrit 29.8 % (36.0-46.0); Hemoglobin 9.1 g/dL (12.2-16.2); Lymphocytes # (auto) 0.4 10 ^3/uL (0.4-5.4); Lymphocytes % (auto) 4.7 % (10.0-50.0); Mean Corpuscular Hemoglobin 24.9 pg (28.0-32.0); Mean Corpuscular Hgb Conc. 30.6 g/dL (32.0-36.0); Mean Corpuscular Volume 81.1 fL (80.0-100.0); Monocytes # (auto) 0.5 10 ^3/uL (0-1.3); Monocytes % (auto) 6.9 % (0.0-12.0); Neutrophils # (auto) 6.7 10 ^3/uL (1.6-8.6); Neutrophils % (auto) 88.3 % (37.0-80.0); Platelet Count (auto) 316 10^3/uL (140-450); Red Blood Cells 3.68 10^6/uL (4.0-5.20); Red Cell Distribution Width 19.5 % (11.8-14.3); White Blood Cell 7.6 10^3/uL (4.4-10.8)
[2024-02-18 10:14] LABS: Anion Gap 6 (5-15); Potassium 4.5 mmol/L (3.5-5.1)
[2024-02-18 10:16] LABS: Calcium 9.5 mg/dL (8.7-10.4)
[2024-02-18 10:20] LABS: BUN/Creatinine Ratio 32.2 (10.0-20.0)
[2024-02-18 10:25] LABS: Blood Urea Nitrogen 49 mg/dL (9-23); Carbon Dioxide 32 mmol/L (20-31); Chloride 97 mmol/L (98-107); Glucose 190 mg/dL (74-106); Sodium 135 mmol/L (136-145)
--- NOTE | 2024-02-18 10:31 | DVH ---
PROCEDURE: MRI BRAIN HEAD WO CONTRAST INDICATION: Quadriparesis EXAM DATE: 02/18/2024 10:02 AM COMPARISON: None TECHNIQUE: MRI of the brain without intravenous contrast. FINDINGS: Diffusion weighted images of the brain demonstrate no evidence of acute infarction. There is no evidence of acute intracranial hemorrhage, extra-axial collection, mass effect, midline s hift, herniation or hydrocephalus. The ventricles, sulci and cisterns appear age appropriate. Mild changes of chronic microvascular ischemic disease. There are no signal abnormalities on the susceptibility weighted sequences. The major vascular flow voids are present. The visualized paranasal sinuses and mastoid air cells are clear. The surrounding soft tissues and o sseous structures are unremarkable. IMPRESSION: 1. No evidence of acute infarction, intracranial hemorrhage, mass effect or hydrocephalus. Mild kirkpatrick es of chronic microvascular ischemic disease. HS:Y
--- NOTE | 2024-02-18 10:44 | DVH ---
MRI CERVICAL SPINE CLINICAL HISTORY: Quadriparesis, C-spine myelopathy Comparison: None Technique: Multi planar, multi sequence MR images of the cervical spine without intravenous contrast. FINDINGS: The cervical spinal cord grossly demonstrates normal signal. The visualized posterior fossa contents appear unremarkable. The craniocervical junction is within normal limits. The vertebral body heights and bone marrow signal are appropriate. There is straightening of the cervical lordosis. There are m ultilevel degenerative disc changes with disc desiccation and disc space narrowing / loss. At C2-C3 there is no significant disc herniation. At C3-C4 there is a 6 mm broad-based central disc protrusion. There is advanced left facet arthropath y with fluid in the left facet joint. There is moderate to severe spinal canal stenosis. There is mod erate left and mild right neural foraminal stenosis. At C4-C5 there is posterior disc osteophyte complex and bilateral facet arthropathy, left greater aleshia n right. There is fluid in the left facet joint. There is moderate spinal canal stenosis. There is mo derate left and ecgm-da-eanmsaae right neural foraminal stenosis. At C5-C6 there is posterior disc osteophyte complex and bilateral uncovertebral arthropathy. There is effacement of the ventral thecal sac without canal stenosis. There is moderate bilateral neural fora sadie stenosis, appyg-qrtriyv-femq-left. At C6-C7 there is posterior disc osteophyte complex and bilateral uncovertebral arthropathy. There is effacement of the ventral thecal sac without canal stenosis. There is moderate bilateral neural fora sadie stenosis, zlxua-xkoylix-cmmg-left. At C7-T1 there is bilateral facet arthropathy, emke-ertzkjq-mujh-right. There is slight grade 1 anter olisthesis of C7 on T1. There is disc bulge without canal stenosis. There is moderate left and mild r ight neural foraminal stenosis. IMPRESSION: 1. Multilevel degenerative changes in the cervical spine as described above, worst at C3-C4. There is a 6 mm broad-based central disc protrusion at this level resulting in moderate to severe spinal kristy l stenosis. 2. There is moderate spinal canal stenosis at C4-C5. HS:Y
--- NOTE | 2024-02-18 14:50 | DVHPN2 ---
Progress Note Date Seen: Feb 18, 2024 Medical Necessity Reason Pt with a Central, PICC or Fol: No Subjective Patient reports: No new complaints Review of Systems: HEENT:Normal, CVS:Normal, RESPIRATORY:Normal, GI:Normal, :Normal, MSK:Normal, NEURO:Normal Objective vital signs Vital Sign Date Time Temp Pulse Resp B/P (MAP) Pulse Ox O2 Delivery O2 Flow Rate FiO2 02/18/24 13:37 97.8 100 20 132/80 (97) 99 97.8 02/18/24 11:03 Nasal Cannula* 4 36 Total Intake and Output 02/17/24 02/17/24 02/18/24 15:00 23:00 07:00 Intake Total 50 ml 420 ml 300 ml Output Total 600 ml 500 ml Balance 50 ml -180 ml -200 ml medications Current Medications Medications Dose Ordered Sig/Terrence Route Start Time Stop Time Status Last Admin Dose Admin Nitroglycerin 0.4 mg Q5MINP PRN SL 02/16/24 12:15 Morphine Sulfate 2 mg Q30M PRN IV 02/16/24 12:15 Hold Levalbuterol HCl 1.25 mg Q6HR NEB 02/16/24 18:00 02/18/24 11:03 1.25 MG Ipratropium [place] 0.5 mg Q4HPRN PRN NEB 02/16/24 12:15 Ipratropium [place] 0.5 mg Q6HR NEB 02/16/24 18:00 02/18/24 11:03 0.5 MG Azithromycin 250 ml @ 125 mls/hr DAILY IV 02/17/24 10:00 Hold Ceftriaxone Sodium 50 ml @ 100 mls/hr DAILY@09 IV 02/17/24 09:00 02/18/24 09:28 100 MLS/HR Furosemide 40 mg DAILY IV 02/17/24 10:00 02/18/24 09:28 40 MG Amiodarone HCl 200 mg DAILY PO 02/17/24 10:00 02/18/24 09:26 200 MG Donepezil HCl 5 mg DAILY PO 02/17/24 10:00 02/18/24 09:26 5 MG Empaglifozin 10 mg DAILY PO 02/17/24 10:00 02/18/24 09:26 10 MG Gabapentin 300 mg BID PO 02/16/24 22:00 02/18/24 09:26 300 MG Oxycodone/ Acetaminophen 1 tab QID PO 02/16/24 18:00 02/18/24 05:55 1 TAB Levothyroxine Sodium 75 mcg DAILY@0600 PO 02/17/24 06:00 02/18/24 05:52 75 MCG Sertraline HCl 150 mg DAILY PO 02/17/24 10:00 02/18/24 09:25 150 MG Diagnostic Test (Pha) 1 strip ACHS 02/16/24 17:00 02/18/24 05:55 1 STRIP Insulin Human Regular ACHS SC 02/16/24 17:00 02/18/24 05:56 2 UNITS Dextrose 50 ml UD PRN IV 02/16/24 13:00 Magnesium Oxide 400 mg BID PO 02/16/24 22:00 02/18/24 09:26 400 MG Metoprolol Succinate 25 mg DAILY PO 02/18/24 10:00 02/18/24 09:27 25 MG Docusate Sodium 100 mg BIDPRN PRN PO 02/17/24 14:45 02/17/24 15:31 100 MG Lorazepam 1 mg ONCE PRN IV 02/17/24 23:00 Apixaban 2.5 mg BID PO 02/18/24 22:00 Examination: GENERAL:Normal, HEENT:Normal, NECK:Normal, LUNGS:Normal, LUNGS:Abnormal (on oxygen), CVS:Normal, ABDOMEN:Normal, MSK:Normal, SKIN:Normal, NEURO:Normal, NEURO:Abnormal (quadriparesis), :Normal laboratory and microbiology Laboratory Tests 02/18/24 09:29 Test 02/18/24 09:29 Range/Units Serum Glucose 190 H 74-106 mg/dL Problem List/Assessment/Plan Problem List/Assessment/Plan #1 acute resp failure: cont oxygen #2 acute on chronic systolic heart failure: lasixi iv #3 liver cirrhosis: check hep panel #4 hypothyroidism: check tsh #5 acute renal failure ?vasomotor nephropathy #6 h/o a fib #7 copd #8 anemia #9 quadriparesis/ cervical spine compression: consult dr Yanes advance care planning- full code-time spent 21 mins Plan discussed with: Patient My Orders My Orders Orders - SAIDA HAN MD Procedure Category Date Status Time Consultdr. Jamil CONS 02/18/24 Transmitted [place](Spine) 14:47 Date of Service: Feb 18, 2024 Billing Provider: SAIDA HAN MD Common Visit Codes: [id number] INP/OBS CARE(HIGH) SAIDA HAN MD Feb 18, 2024 14:50
--- NOTE | 2024-02-18 15:14 | DVHPN2 ---
Progress Note - Dictate Date Seen: Feb 18, 2024 Medical Necessity Reason Pt with a Central, PICC or Fol: No Subjective Mr. Whitney is a 78 years old right-handed female with a history of hypertension, diabetes, congestive heart failure, atrial fibrillation, asthma, scoliosis, breast cancer, she was brought [facility] to [facility] on 02/16/2024 for shortness breath, but patient also has other complaints. I have seen and examined the patient, I have discussed the case with Dr. Bergeron and her nurse, I have reviewed the imaging in the MRI center She is doing fine, no change in her paraparesis, no new complaints Urinalysis, 02/16/2024: Unremarkable ABG, 02/16/2024: Hypoxia, carbon dioxide retention WBC/HB/PLT/MCV, 02/17/2024: 4.5/9.5/277/81.3 PTT/INR/ABG, 02/16/2024: 14/1.35/35.8 BUN/CR, 02/17/2024: 46/1.43 Liver function tests, 02/17/2024: Unremarkable TG/HDL/LDL/HDL, 09/14/2023: 96/106/54/31 TSH, 09/14/2023: 0.56, 01/11/2024: 41.3 CT head, 02/16/2024: No acute intracranial abnormality CTA chest, 02/16/2024: 1. No pulmonary embolism. 2. Consolidation in the right middle lobe concerning for infectious process with [id number] right pleural effusion 3. Chronic appearing fibrotic subpleural changes in interstitial thickening. 4. Cirrhotic appearance of the liver with mild ascites MRI brain 02/18/2024: No evidence of acute infarction, intracranial hemorrhage, mass effect or hydrocephalus. Mild changes of chronic microvascular ischemic disease MRI C-spine 02/18/2024: 1. Multilevel degenerative changes in the cervical spine as described above, worst at C3-C4. There is a 6 mm broad-based central disc protrusion at this level resulting in moderate to severe spinal canal stenosis. 2. There is moderate spinal canal stenosis at C4-C5(The cervical spinal cord grossly demonstrates normal signal) vital signs Vital Sign Date Time Temp Pulse Resp B/P (MAP) Pulse Ox O2 Delivery O2 Flow Rate FiO2 02/18/24 13:37 97.8 100 20 132/80 (97) 99 97.8 02/18/24 11:03 Nasal Cannula* 4 36 Total Intake and Output 02/17/24 02/17/24 02/18/24 15:00 23:00 07:00 Intake Total 50 ml 420 ml 300 ml Output Total 600 ml 500 ml Balance 50 ml -180 ml -200 ml medications Current Medications Medications Dose Ordered Sig/Terrence Route Start Time Stop Time Status Last Admin Dose Admin Nitroglycerin 0.4 mg Q5MINP PRN SL 02/16/24 12:15 Morphine Sulfate 2 mg Q30M PRN IV 02/16/24 12:15 Hold Levalbuterol HCl 1.25 mg Q6HR NEB 02/16/24 18:00 02/18/24 11:03 1.25 MG Ipratropium [place] 0.5 mg Q4HPRN PRN NEB 02/16/24 12:15 Ipratropium [place] 0.5 mg Q6HR NEB 02/16/24 18:00 02/18/24 11:03 0.5 MG Azithromycin 250 ml @ 125 mls/hr DAILY IV 02/17/24 10:00 Hold Ceftriaxone Sodium 50 ml @ 100 mls/hr DAILY@09 IV 02/17/24 09:00 02/18/24 09:28 100 MLS/HR Furosemide 40 mg DAILY IV 02/17/24 10:00 02/18/24 09:28 40 MG Amiodarone HCl 200 mg DAILY PO 02/17/24 10:00 02/18/24 09:26 200 MG Donepezil HCl 5 mg DAILY PO 02/17/24 10:00 02/18/24 09:26 5 MG Empaglifozin 10 mg DAILY PO 02/17/24 10:00 02/18/24 09:26 10 MG Gabapentin 300 mg BID PO 02/16/24 22:00 02/18/24 09:26 300 MG Oxycodone/ Acetaminophen 1 tab QID PO 02/16/24 18:00 02/18/24 05:55 1 TAB Levothyroxine Sodium 75 mcg DAILY@0600 PO 02/17/24 06:00 02/18/24 05:52 75 MCG Sertraline HCl 150 mg DAILY PO 02/17/24 10:00 02/18/24 09:25 150 MG Diagnostic Test (Pha) 1 strip ACHS 02/16/24 17:00 02/18/24 05:55 1 STRIP Insulin Human Regular ACHS SC 02/16/24 17:00 02/18/24 05:56 2 UNITS Dextrose 50 ml UD PRN IV 02/16/24 13:00 Magnesium Oxide 400 mg BID PO 02/16/24 22:00 02/18/24 09:26 400 MG Metoprolol Succinate 25 mg DAILY PO 02/18/24 10:00 02/18/24 09:27 25 MG Docusate Sodium 100 mg BIDPRN PRN PO 02/17/24 14:45 02/17/24 15:31 100 MG Lorazepam 1 mg ONCE PRN IV 02/17/24 23:00 Apixaban 2.5 mg BID PO 02/18/24 22:00 objective General: the patient is well developed and nourished. No acute distress. MUSCULOSKELETAL EXAM: Mild tenderness to palpation in the cervical spine MENTAL STATUS: Subjective SPEECH, LANGUAGE, HIGHER CORTICAL FUNCTION: no aphasia or dysathria. CRANIAL NERVES: Pupils are equal, round and reactive. EOMs full and conjugate. No nystagmus. Facial sensation intact in all three divisions bilaterally. Mandibular strength intact. Facial muscles symmetrical and strength intact. SENSATION: Sensation to touch and pinprick is normal. No sensory level MOTOR: Normal tone in the upper and lower extremity. Normal muscle bulk. No fasciculations. No abnormal movements or posturing. Muscle strength of the major groups in the upper extremities is 4-5/5 with left side weaker. Muscle strength of the major groups in the lower extremities is 3-4/with left-sided weaker REFLEXES: Deep tendon reflexes symmetrically increased in the arms, knees, with possible clonus in the left wrist. Upgoing toes in left foot CEREBELLAR/COORDINATION: Finger to nose is unremarkable GAIT/STATION: deferred laboratory and microbiology Laboratory Tests 02/18/24 09:29 Test 02/18/24 09:29 Range/Units Serum Glucose 190 H 74-106 mg/dL Problem List Quadriparesis, hyperreflexia, gait disturbance, upgoing toes in the left foot C-spine spondylosis/C-spine myelopathy Intracranial pathology ? Stroke Scoliosis Acute on chronic respiratory failure, on home oxygen Congestive heart failure AFib Overall she has a complicated medical background Assessment/Plan Monitoring Supportive treatment Telemetry Respiratory support p.r.n. Oxygen IV antibiotics Eliquis 2.[address] Yanes Spine surgeon to evaluate More recommendation per clinical course This medical document was created using an electronic medical record system with [employer] dictation system. Although this document has been carefully reviewed, there may still be some phonetic and typographical errors. These areas are purely typographical due to imperfections of the software programs, and do not reflect any compromise in the patient's medical care Prognosis Poor, Plan discussed with: Patient, Other Total Time (mins): 40 HARESH BURNETTE MD Feb 18, 2024 15:14
[2024-02-18] MEDS: APIXABAN 2.5 MG TAB PO SCH (21:50)
[2024-02-19] VITALS (16 sets, daily range): BP systolic 87–104; BP diastolic 38–55; PULSE 71–102; RESP 16–20; TEMP 97.5–97.8; O2SAT 91–100
--- NOTE | 2024-02-19 10:52 | DVHPN2 ---
Consult Progress Note Date Seen: Feb 19, 2024 Subjective Review of Systems: CVS:Normal, RESPIRATORY:Normal, NEURO:Normal Other Systems: Denies any cardiac symptoms Objective vital signs Vital Sign Date Time Temp Pulse Resp B/P (MAP) Pulse Ox O2 Delivery O2 Flow Rate FiO2 02/19/24 08:36 97.5 72 18 104/38 (60) 94 97.5 02/19/24 05:33 Nasal Cannula 3.0 02/19/24 05:33 32 Total Intake and Output 02/18/24 02/18/24 02/19/24 15:00 23:00 07:00 Intake Total 100 ml 420 ml 150 ml Output Total 400 ml 150 ml Balance 100 ml 20 ml 0 ml medications Current Medications Medications Dose Ordered Sig/Terrence Route Start Time Stop Time Status Last Admin Dose Admin Nitroglycerin 0.4 mg Q5MINP PRN SL 02/16/24 12:15 Morphine Sulfate 2 mg Q30M PRN IV 02/16/24 12:15 Hold Levalbuterol HCl 1.25 mg Q6HR NEB 02/16/24 18:00 02/19/24 05:33 1.25 MG Ipratropium [place] 0.5 mg Q4HPRN PRN NEB 02/16/24 12:15 [place] [place] 0.5 mg Q6HR NEB 02/16/24 18:00 02/19/24 05:33 0.5 MG Azithromycin 250 ml @ 125 mls/hr DAILY IV 02/17/24 10:00 Hold Ceftriaxone Sodium 50 ml @ 100 mls/hr DAILY@09 IV 02/17/24 09:00 02/19/24 08:16 100 MLS/HR Furosemide 40 mg DAILY IV 02/17/24 10:00 02/19/24 08:18 40 MG Amiodarone HCl 200 mg DAILY PO 02/17/24 10:00 02/19/24 08:17 200 MG Donepezil HCl 5 mg DAILY PO 02/17/24 10:00 02/19/24 08:17 5 MG Empaglifozin 10 mg DAILY PO 02/17/24 10:00 02/19/24 08:18 10 MG Gabapentin 300 mg BID PO 02/16/24 22:00 02/19/24 08:17 300 MG Oxycodone/ Acetaminophen 1 tab QID PO 02/16/24 18:00 02/19/24 05:26 1 TAB Levothyroxine Sodium 75 mcg DAILY@0600 PO 02/17/24 06:00 02/19/24 05:26 75 MCG Sertraline HCl 150 mg DAILY PO 02/17/24 10:00 02/19/24 08:18 150 MG Diagnostic Test (Pha) 1 strip ACHS 02/16/24 17:00 02/19/24 05:26 1 STRIP Insulin Human Regular ACHS SC 02/16/24 17:00 02/18/24 21:55 3 UNITS Dextrose 50 ml UD PRN IV 02/16/24 13:00 Magnesium Oxide 400 mg BID PO 02/16/24 22:00 02/19/24 08:18 400 MG Metoprolol Succinate 25 mg DAILY PO 02/18/24 10:00 02/18/24 09:27 25 MG Docusate Sodium 100 mg BIDPRN PRN PO 02/17/24 14:45 02/17/24 15:31 100 MG Lorazepam 1 mg ONCE PRN IV 02/17/24 23:00 Apixaban 2.5 mg BID PO 02/18/24 22:00 02/19/24 08:17 2.5 MG Examination: GENERAL:Abnormal (Chronically ill), LUNGS:Normal, CVS:Normal (A- fib controlled rate), NEURO:Normal laboratory and microbiology Laboratory Tests 02/18/24 09:29 Test 02/18/24 09:29 Range/Units Serum Glucose 190 H 74-106 mg/dL Problem List/Assessment/Plan Problem List/Assessment/Plan Acute on chronic decompensated HFrEF, NYHA class III-IV Acute on chronic respiratory failure with possible pneumonia Paroxysmal atrial fibrillation (on Amiodarone and Eliquis) 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 Joseph) Patient seen and examined at bedside by Dr. Joseph. The patient presented with an acute on chronic exacerbation of a nonischemic cardiomyopathy. She underwent a recent transthoracic echocardiogram revealing an LVEF of 25% with severe biventricular dilatation. She also underwent a left cardiac catheterization and coronary angiogram on 12/25/2023 revealing no significant atherosclerotic plaquing and anomalous origin of the LCx from the distal RCA system. Continue antiarrhythmic agent. Continue DOAC therapy with low-dose Eliquis ([id number] VASc score: 6 points). Continue GDMT for CHF as renal function permits. Appears euvolemic at this time. Thyroid management per primary care team. We will sign off. Kindly call if in need to continue follow-up. Thank you for allowing us to participate in this patient's care. This medical document was created using an electronic medical record system with voice recognition software and computerized dictation system. Although this document has been carefully reviewed, there might still be some phonetic and typographical errors. Occasional wrong-word or ``sound-alike substitutions may have occurred due to the inherent limitations of voice recognition software. These areas are purely typographical due to imperfections of the software programs and do not reflect any compromise in the patient's medical care. Please read the chart carefully and recognize, using context, where these substitutions have occurred. Plan discussed with: Patient, Other Date of Service: Feb 19, 2024 Billing Provider: NÉSTOR JOSEPH MD Cardiology Common Codes: [id number] INP/OBS CARE(Mod) JOAQUIN ALDRIDGE [facility] Feb 19, 2024 10:52
--- NOTE | 2024-02-19 11:00 | DVHINCON2 ---
Consultation - Spinal Surgery Date Seen: Feb 19, 2024 Referring Physician Referring Physician Linda Bermudez Reason for Consultation Reason for Visit: Shortness of breath History of Present Illness History of Present Illness History of Present Illness This 78-year-old female presents in the ED with a chief complaint of shortness of breath. The patient reports progressive shortness of breath for the past two days, associated with productive cough, difficulty in breathing and chest heaviness for which prompted her ED visit. The patient denies dizziness, lightheadedness, syncope, chest pain, palpitations, or any other acute symptoms. The patient also complains of left-sided weakness for which CT of head stat was ordered. The patient reports that she had last seen her dermatology procedural physician Dr. Brandon six months ago for a routine checkup. The patient with significant cardiac history was admitted in this facility in January 01, 2024 she underwent cardiac catheterization for which she was found to have low EF 25% and was advised aggressive medical treatment. The patient is currently on amiodarone and Eliquis for chronic AFib. The patient reports that she was placed on digoxin which dropped her heart rate significantly thus discontinued taking digoxin. Other past medical history includes hypertension, diabetes, COPD, and asthma. Past Medical/Surgical History Past Medical/Surgical History Past Medical History As stated in HPI Past Surgical History Cholecystectomy Hysterectomy Family and Social History Family and Social History Family History Reviewed, non-contributory to the management of this case. Past Social History Currently resides in a longterm facility Allergies and medications Allergies: Coded Allergies: Cephalexin (Verified Allergy, Unknown, 08/10/23) Ciprofloxacin (Verified Allergy, Unknown, 08/10/23) Lidocaine (Verified Allergy, Unknown, 08/10/23) Sucralfate (Verified Allergy, Unknown, 08/10/23) Sulfamethoxazole w/Trimethoprim (Verified Allergy, Unknown, 08/10/23) Hydrocodone (Verified Adverse Reaction, Unknown, 08/10/23) itching Home Meds Active Scripts Digoxin (Lanoxin) 125 Mcg Tab, 0.125 MG PO DAILY for 30 Days, #30 TAB 5 Refills Prov:ENIO BARRY MD 08/14/23 Sacubitril-Valsartan (Entresto 24-26 mg) 1 Tab Tab, 1 TAB PO BID for 30 Days, #60 TAB 5 Refills Prov:ENIO BARRY MD 08/14/23 Reported Medications Diltiazem HCl (Diltiazem Hydrochloride E) 180 Mg Cap, 1 CAP PO DAILY 09/16/23 Suhunthccfx-Rpkozjvdidjm-Wuptd (Trelegy Ellipta 200-62.5-25 Mcg/INH) 1 Aer Aer, 1 PUFF INH DAILY 09/16/23 Albuterol Sulfate (Proair Respiclick) 108 Mcg/Act Aer, 2 PUFF INH Q6HR PRN 08/13/23 Furosemide (Furosemide) 20 Mg Tab, 1 TAB PO BID 08/13/23 Potassium Chloride (Potassium Chloride ER) 20 Meq Tab, 1 TAB PO DAILY 08/13/23 Anastrozole (Anastrozole) 1 Mg Tab, 1 TAB PO DAILY 08/13/23 Oxycodone W/ Acetaminophen (Percocet 5/325MG) 1 Tab Tb, 1 TAB PO QID, #120 TAB 08/10/23 Alendronate Sodium (Alendronate Sodium) 70 Mg Tab, 1 TAB PO QWEEKLY 08/10/23 Donepezil Hydrochloride (DONEPEZIL HCL) 5 Mg Tab, 1 TAB PO DAILY 08/10/23 Gabapentin (Gabapentin) 300 Mg Cap, 1 CAP PO BID 08/10/23 Clonidine Hydrochloride (Clonidine Hcl) 0.2 Mg/24 Hr Dis, 1 PATCH TOP QWEEKLY 08/10/23 Ferrous Sulfate (Ferosul) 325 Mg Tab, 1 TAB PO DAILY 08/10/23 Sertraline Hcl (Sertraline Hcl) 100 Mg Tab, 1.5 TAB PO DAILY Take 1.5 tablets (150 mg) by mouth daily after breakfast. 08/10/23 Amiodarone HCl (Amiodarone HCl) 200 Mg Tab, 1 TAB PO DAILY 08/10/23 Spironolactone (Spironolactone) 25 Mg Tab, 1 TAB PO DAILY 08/10/23 Empagliflozin (Jardiance) 10 Mg Tab, 1 TAB PO DAILY 08/10/23 Levothyroxine Sodium (Levothyroxine Sodium) 75 Mcg Tab, 1 TAB PO DAILY 08/10/23 Losartan Potassium (Losartan Potassium) 100 Mg Tab, 1 TAB PO DAILY 08/10/23 Pantoprazole Sodium Sesquihydr (Pantoprazole Sodium) 40 Mg Tab, 1 TAB PO DAILY 08/10/23 Metoprolol Succinate (Metoprolol Succinate Er) 100 Mg Tab, 1 TAB PO BID 08/10/23 Apixaban Base (ELIQUIS) 5 Mg Tab, 1 TAB PO BID 08/10/23 Review of systems Review of Systems: HEENT:Normal, CVS:Abnormal, RESPIRATORY:Abnormal, :Normal, MSK:Abnormal, NEURO:Abnormal Examination Vital signs Imaging MRI CERVICAL SPINE CLINICAL HISTORY: Quadriparesis, C-spine myelopathy Comparison: None Technique: Multi planar, multi sequence MR images of the cervical spine without intravenous contrast. FINDINGS: The cervical spinal cord grossly demonstrates normal signal. The visualized posterior fossa contents appear unremarkable. The craniocervical junction is within normal limits. The vertebral body heights and bone marrow signal are appropriate. There is straightening of the cervical lordosis. There are multilevel degenerative disc changes with disc desiccation and disc space narrowing / loss. At C2-C3 there is no significant disc herniation. At C3-C4 there is a 6 mm broad-based central disc protrusion. There is advanced left facet arthropathy with fluid in the left facet joint. There is moderate to severe spinal canal stenosis. There is moderate left and mild right neural foraminal stenosis. At C4-C5 there is posterior disc osteophyte complex and bilateral facet arthropathy, left greater than right. There is fluid in the left facet joint. There is moderate spinal canal stenosis. There is moderate left and mild-to-mod erate right neural foraminal stenosis. At C5-C6 there is posterior disc osteophyte complex and bilateral uncovertebral arthropathy. There is effacement of the ventral thecal sac without canal stenosis. There is moderate bilateral neural foraminal stenosis, [id number]-left. At C6-C7 there is posterior disc osteophyte complex and bilateral uncovertebral arthropathy. There is effacement of the ventral thecal sac without canal stenosis. There is moderate bilateral neural foraminal stenosis, right-grea txx-cpxs-deup. At C7-T1 there is bilateral facet arthropathy, ashh-xyphdhp-ixtp-right. There is slight grade 1 anterolisthesis of C7 on T1. There is disc bulge without canal stenosis. There is moderate left and mild right neural foraminal stenosis. IMPRESSION: 1. Multilevel degenerative changes in the cervical spine as described above, worst at C3-C4. There is a 6 mm broad-based central disc protrusion at this level resulting in moderate to severe spinal canal stenosis. 2. There is moderate spinal canal stenosis at C4-C5. Vital Signs Date Time Temp Pulse Resp B/P (MAP) Pulse Ox O2 Delivery O2 Flow Rate FiO2 02/19/24 08:36 97.5 72 18 104/38 (60) 94 97.5 02/19/24 05:33 Nasal Cannula 3.0 02/19/24 05:33 32 Medications Current Medications Medications (Trade) Dose Ordered Sig/Terrence Route PRN Reason Start Time Stop Time Status Last Admin Apixaban (Eliquis) 2.5 mg BID PO 02/18/24 22:00 02/19/24 08:17 Furosemide (Lasix Tablet) 40 mg DAILY PO 02/20/24 10:00 UNV Laboratory Labs Test 02/18/24 09:29 02/17/24 15:55 02/17/24 05:05 02/16/24 13:12 Range/Units White Blood Count 7.6 # 4.4-10.8 10^3/uL Red Blood Count 3.68 L 4.0-5.20 10^6/uL Hemoglobin 9.1 L 12.2-16.2 g/dL Hematocrit 29.8 L 36.0-46.0 % Mean Corpuscular Volume 81.1 80.0-100.0 fL Mean Corpuscular Hemoglobin 24.9 L 28.0-32.0 pg Mean Corpuscular Hemoglobin Concent 30.6 L 32.0-36.0 g/dL Red Cell Distribution Width 19.5 H 11.8-14.3 % Platelet Count 316 140-450 10^3/uL Mean Platelet Volume 7.9 6.9-10.8 fL Neutrophils (%) (Auto) 88.3 H 37.0-80.0 % Lymphocytes (%) (Auto) 4.7 L 10.0-50.0 % Monocytes (%) (Auto) 6.9 0.0-12.0 % Eosinophils (%) (Auto) 0.0 0.0-7.0 % Basophils (%) (Auto) 0.1 0.0-2.0 % Neutrophils # (Auto) 6.7 1.6-8.6 10 ^3/uL Lymphocytes # (Auto) 0.4 0.4-5.4 10 ^3/uL Monocytes # (Auto) 0.5 0-1.3 10 ^3/uL Eosinophils # (Auto) 0 0-0.8 10 ^3/uL Basophils # (Auto) 0 0-0.2 10 ^3/uL Nucleated Red Blood Cells 0.0 % Sodium Level 135 L 136-145 mmol/L Potassium Level 4.5 3.5-5.1 mmol/L Chloride Level 97 L 98-107 mmol/L Carbon Dioxide Level 32 H 20-31 mmol/L Anion Gap 6 5-15 Blood Urea Nitrogen 49 H 9-23 mg/dL Creatinine 1.52 H 0.550-1.02 mg/dL Glomerular Filtration Rate Calc 35 >90 mL/min BUN/Creatinine Ratio 32.2 H 10.0-20.0 Serum Glucose 190 H 74-106 mg/dL Calcium Level 9.5 8.7-10.4 mg/dL Thyroid Stimulating Hormone (TSH) 78.12 H 0.55-4.78 uIU/mL Digoxin Level < 0.14 L 0.8-2 ng/mL Total Bilirubin 0.5 0.2-1.0 mg/dL Aspartate Amino Transferase (AST) 38 13-40 U/L Alanine Aminotransferase (ALT) 23 7-40 U/L Alkaline Phosphatase 124 H 46-116 U/L B-Type Natriuretic Peptide 1912.43 0-100 pg/mL Total Protein 6.9 5.7-8.2 g/dL Albumin 4.1 3.2-4.8 g/dL Hepatitis A IgM Antibody Negative Hepatitis B Surface Antigen Negative Negative Hepatitis B Core IgM Antibody Negative Negative Hepatitis C Antibody Negative Negative Magnesium Level 2.8 H 1.6-2.6 mg/dL Test 02/16/24 12:51 02/16/24 06:30 02/16/24 03:20 02/16/24 03:13 Range/Units Urine Color Yellow Yellow Urine Clarity Clear Clear Urine pH 5.0 5.0-9.0 Urine Specific [place] 1.020 1.001-1.035 Urine Protein Negative Negative Urine Ketones Negative Negative Urine Blood Negative Negative /uL Urine Nitrite Negative Negative Urine Bilirubin Negative Negative Urine Urobilinogen Normal Negative mg/dL Urine Leukocyte Esterase Negative Negative /uL Urine RBC 1 0 - 4 /hpf Urine WBC 1 0 - 5 /hpf Urine Squamous Epithelial Cells Few <5 /hpf Urine Bacteria Few H None Seen /hpf Urine Hyaline Casts Few 0 - 2 /lpf Urine Glucose Normal Normal mg/dL Troponin I High Sensitivity 4 </=34 ng/L Platelet Estimate Adequate Polychromasia Slight Hypochromasia (manual) Slight Anisocytosis (manual) Slight Prothrombin Time 14.0 H 9.3-11.8 sec Prothrombin Time INR 1.35 H 0.9-1.15 Activated Partial Thromboplast Time 35.8 H 24.5-34.5 SEC D-Dimer, Quantitative 0.58 H 0.0-0.49 mg/L FEU Blood Gas Specimen Type Arterial Blood Gas Sample Site Right radial Blood Gas Patient Temperature 37.0 Arterial Blood Date Drawn [id number] Arterial Blood pH 7.447 7.350-7.450 Arterial Blood Partial Pressure CO2 44.5 32.0-45.0 mmHg Arterial Blood Partial Pressure O2 72.6 L 83.0-108.0 mmHg Arterial Blood HCO3 30.0 H 21.0-28.0 mmol/L Arterial Blood Oxygen Saturation 94.2 94.0-98.0 % Arterial Blood Base Excess 5.4 H -2.0-3.0 mmol/L Arterial Blood Oxyhemoglobin 92.8 L 94.0-98.0 % Arterial Blood Carboxyhemoglobin 0.9 0.5-1.5 % Arterial Blood Methemoglobin 0.6 0.0-1.5 % Nathanael Test Modified Blood Gas Total Hemoglobin 10.40 L 12.0-16.0 g/dL Blood Gas Liter Flow 4.00 Blood Gas Modality Nasal cannula Blood Gas Spontaneous Rate 18 FiO2 % 36.0 Specimen Drawn By Tera otero rt Examination: GENERAL:Normal, HEENT:Normal, NECK:Abnormal (Complaints of neck pain), LUNGS:Abnormal, CVS:Abnormal, ABDOMEN:Normal, MSK:Abnormal (Limited left upper extremity range of motion, unable to lift her arm over her shoulder. Full range of motion on her right upper extremity, patient has equal quality reviewer strengths 4/5 however she is unable to control her hands and unable to hold utensils to eat for items to drink. Patient states that her legs feel weak which limits her ambulation), SKIN:Normal, NEURO:Abnormal, :Abnormal Problem List/Assessment/Plan Problems: (1) Cervical stenosis of spinal canal (2) Muscle spasms of neck Assessment and Plan 1. Multilevel degenerative changes in the cervical spine as described above, worst at C3-C4. There is a 6 mm broad-based central disc protrusion at this level resulting in moderate to severe spinal canal stenosis. 2. There is moderate spinal canal stenosis at C4-C5. This patient would benefit from cervical spine surgery to address her severe stenosis and findings presented above. The surgical process was explained to the patient she desires to have her daughter and granddaughter informed in order to make a decision. Spoke to patient's daughter Mima and she is going to reach out to the patient's discuss options. 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 Patient is experiencing limited range of motion on her left upper extremity. Further care and treatment per admitting team's discretion Recommend muscle relaxers and oral analgesics PT evaluation and recommendations Were so waiting for the patient's decision on having surgery, we would plan for surgery on Saturday if she is agreeable Call with keerthi Hough [facility] Orthopaedic Spine Surgery nurse practitioner For Dr Cleopatra Yanes Patient was examined, chart reviewed, labs evaluated, and diagnostic studies and findings analyzed. Case was discussed with Dr. Omero Yanes who formulated the plan of care. This medical document was created using an electronic medical record system with [employer] dictation system. Although this document has been carefully reviewed, there might still be some phonetic and typographical errors. These areas are purely typographical due to imperfections of the software programs, and do not reflect any compromise in the patient's medical care. Plan discussed with Plan discussed with: Patient, Other PETER HOUGH NP Feb 19, 2024 11:00
--- NOTE | 2024-02-19 16:07 | DVHPN2 ---
Progress Note Date Seen: Feb 19, 2024 Medical Necessity Reason Pt with a Central, PICC or Fol: No Subjective Patient reports: No new complaints Review of Systems: HEENT:Normal, CVS:Normal, RESPIRATORY:Normal, GI:Normal, :Normal, MSK:Normal, NEURO:Normal Objective vital signs Vital Sign Date Time Temp Pulse Resp B/P (MAP) Pulse Ox O2 Delivery O2 Flow Rate FiO2 02/19/24 13:56 87 16 95/48 99 3.0 02/19/24 12:54 97.7 97.7 02/19/24 11:13 Nasal Cannula* 32 Total Intake and Output 02/18/24 02/18/24 02/19/24 15:00 23:00 07:00 Intake Total 100 ml 420 ml 150 ml Output Total 400 ml 150 ml Balance 100 ml 20 ml 0 ml medications Current Medications Medications Dose Ordered Sig/Terrence Route Start Time Stop Time Status Last Admin Dose Admin Nitroglycerin 0.4 mg Q5MINP PRN SL 02/16/24 12:15 Morphine Sulfate 2 mg Q30M PRN IV 02/16/24 12:15 Hold Levalbuterol HCl 1.25 mg Q6HR NEB 02/16/24 18:00 02/19/24 11:13 1.25 MG Ipratropium [place] 0.5 mg Q4HPRN PRN NEB 02/16/24 12:15 Ipratropium [place] 0.5 mg Q6HR NEB 02/16/24 18:00 02/19/24 11:13 0.5 MG Azithromycin 250 ml @ 125 mls/hr DAILY IV 02/17/24 10:00 Hold Ceftriaxone Sodium 50 ml @ 100 mls/hr DAILY@09 IV 02/17/24 09:00 02/19/24 08:16 100 MLS/HR Amiodarone HCl 200 mg DAILY PO 02/17/24 10:00 02/19/24 08:17 200 MG Donepezil HCl 5 mg DAILY PO 02/17/24 10:00 02/19/24 08:17 5 MG Empaglifozin 10 mg DAILY PO 02/17/24 10:00 02/19/24 08:18 10 MG Gabapentin 300 mg BID PO 02/16/24 22:00 02/19/24 08:17 300 MG Oxycodone/ Acetaminophen 1 tab QID PO 02/16/24 18:00 02/19/24 11:49 1 TAB Levothyroxine Sodium 75 mcg DAILY@0600 PO 02/17/24 06:00 02/19/24 05:26 75 MCG Sertraline HCl 150 mg DAILY PO 02/17/24 10:00 02/19/24 08:18 150 MG Diagnostic Test (Pha) 1 strip ACHS 02/16/24 17:00 02/19/24 11:41 1 STRIP Insulin Human Regular ACHS SC 02/16/24 17:00 02/18/24 21:55 3 UNITS Dextrose 50 ml UD PRN IV 02/16/24 13:00 Magnesium Oxide 400 mg BID PO 02/16/24 22:00 02/19/24 08:18 400 MG Metoprolol Succinate 25 mg DAILY PO 02/18/24 10:00 02/18/24 09:27 25 MG Docusate Sodium 100 mg BIDPRN PRN PO 02/17/24 14:45 02/17/24 15:31 100 MG Lorazepam 1 mg ONCE PRN IV 02/17/24 23:00 Apixaban 2.5 mg BID PO 02/18/24 22:00 02/19/24 08:17 2.5 MG Furosemide 40 mg DAILY PO 02/20/24 10:00 Examination: GENERAL:Normal, HEENT:Normal, NECK:Normal, LUNGS:Normal, CVS:Normal, ABDOMEN:Normal, MSK:Normal, SKIN:Normal, NEURO:Normal, :Normal laboratory and microbiology Laboratory Tests 02/18/24 09:29 Test 02/18/24 09:29 Range/Units Serum Glucose 190 H 74-106 mg/dL Problem List/Assessment/Plan Problem List/Assessment/Plan #1 acute resp failure: cont oxygen #2 acute on chronic systolic heart failure: lasix #3 liver cirrhosis: check hep panel #4 hypothyroidism: check tsh #5 acute renal failure ?vasomotor nephropathy #6 h/o a fib #7 copd #8 anemia #9 quadriparesis/ cervical spine compression: consult dr Yanes advance care planning- full code-time spent 21 mins Plan discussed with: Patient Date of Service: Feb 19, 2024 Billing Provider: SAIDA HAN MD Common Visit Codes: [id number] INP/OBS CARE(HIGH) SAIDA HAN MD Feb 19, 2024 16:07
[2024-02-20] VITALS (18 sets, daily range): BP systolic 94–132; BP diastolic 58–84; PULSE 78–113; RESP 16–22; TEMP 97.4–97.8; O2SAT 94–100
--- NOTE | 2024-02-20 00:01 | DVHPN2 ---
Progress Note - Dictate Date Seen: Feb 19, 2024 Medical Necessity Reason Pt with a Central, PICC or Fol: No Subjective Mr. Whitney is a 78 years old right-handed female with a history of hypertension, diabetes, congestive heart failure, atrial fibrillation, asthma, scoliosis, breast cancer, she was brought from her nursing home facility to [facility] on 02/16/2024 for shortness breath, but patient also has other complaints. I have seen and examined the patient, I have discussed with her nurse Spine surgeon input appreciated Urinalysis, 02/16/2024: Unremarkable ABG, 02/16/2024: Hypoxia, carbon dioxide retention WBC/HB/PLT/MCV, 02/17/2024: 4.5/9.5/277/81.3 PTT/INR/ABG, 02/16/2024: 14/1.35/35.8 BUN/CR, 02/17/2024: 46/1.43 Liver function tests, 02/17/2024: Unremarkable TG/HDL/LDL/HDL, 09/14/2023: 96/106/54/31 TSH, 09/14/2023: 0.56, 01/11/2024: 41.3 CT head, 02/16/2024: No acute intracranial abnormality CTA chest, 02/16/2024: 1. No pulmonary embolism. 2. Consolidation in the right middle lobe concerning for infectious process with [id number] right pleural effusion 3. Chronic appearing fibrotic subpleural changes in interstitial thickening. 4. Cirrhotic appearance of the liver with mild ascites MRI brain 02/18/2024: No evidence of acute infarction, intracranial hemorrhage, mass effect or hydrocephalus. Mild changes of chronic microvascular ischemic disease MRI C-spine 02/18/2024: 1. Multilevel degenerative changes in the cervical spine as described above, worst at C3-C4. There is a 6 mm broad-based central disc protrusion at this level resulting in moderate to severe spinal canal stenosis. 2. There is moderate spinal canal stenosis at C4-C5(The cervical spinal cord grossly demonstrates normal signal) vital signs Vital Sign Date Time Temp Pulse Resp B/P (MAP) Pulse Ox O2 Delivery O2 Flow Rate FiO2 02/19/24 21:19 97.6 77 20 98/53 (68) 94 97.6 02/19/24 20:00 Nasal Cannula* 2 28 Total Intake and Output 02/18/24 02/18/24 02/19/24 15:00 23:00 07:00 Intake Total 100 ml 420 ml 150 ml Output Total 400 ml 150 ml Balance 100 ml 20 ml 0 ml medications Current Medications Medications Dose Ordered Sig/Terrence Route Start Time Stop Time Status Last Admin Dose Admin Nitroglycerin 0.4 mg Q5MINP PRN SL 02/16/24 12:15 Levalbuterol HCl 1.25 mg Q6HR NEB 02/16/24 18:00 02/19/24 18:48 1.25 MG Ipratropium [place] 0.5 mg Q4HPRN PRN NEB 02/16/24 12:15 Ipratropium [place] 0.5 mg Q6HR NEB 02/16/24 18:00 02/19/24 18:47 0.5 MG Ceftriaxone Sodium 50 ml @ 100 mls/hr DAILY@09 IV 02/17/24 09:00 02/19/24 08:16 100 MLS/HR Amiodarone HCl 200 mg DAILY PO 02/17/24 10:00 02/19/24 08:17 200 MG Donepezil HCl 5 mg DAILY PO 02/17/24 10:00 02/19/24 08:17 5 MG Empaglifozin 10 mg DAILY PO 02/17/24 10:00 02/19/24 08:18 10 MG Gabapentin 300 mg BID PO 02/16/24 22:00 02/19/24 22:15 300 MG Oxycodone/ Acetaminophen 1 tab QID PO 02/16/24 18:00 02/19/24 22:15 1 TAB Levothyroxine Sodium 75 mcg DAILY@0600 PO 02/17/24 06:00 02/19/24 05:26 75 MCG Sertraline HCl 150 mg DAILY PO 02/17/24 10:00 02/19/24 08:18 150 MG Diagnostic Test (Pha) 1 strip ACHS 02/16/24 17:00 02/19/24 22:15 1 STRIP Insulin Human Regular ACHS SC 02/16/24 17:00 02/19/24 23:15 3 UNITS Dextrose 50 ml UD PRN IV 02/16/24 13:00 Magnesium Oxide 400 mg BID PO 02/16/24 22:00 02/19/24 22:15 400 MG Metoprolol Succinate 25 mg DAILY PO 02/18/24 10:00 02/18/24 09:27 25 MG Docusate Sodium 100 mg BIDPRN PRN PO 02/17/24 14:45 02/17/24 15:31 100 MG Lorazepam 1 mg ONCE PRN IV 02/17/24 23:00 Apixaban 2.5 mg BID PO 02/18/24 22:00 02/19/24 22:15 2.5 MG Furosemide 40 mg DAILY PO 02/20/24 10:00 objective General: the patient is well developed and nourished. No acute distress. MUSCULOSKELETAL EXAM: Mild tenderness to palpation in the cervical spine MENTAL STATUS: Subjective SPEECH, LANGUAGE, HIGHER CORTICAL FUNCTION: no aphasia or dysathria. CRANIAL NERVES: Pupils are equal, round and reactive. EOMs full and conjugate. No nystagmus. Facial sensation intact in all three divisions bilaterally. Mandibular strength intact. Facial muscles symmetrical and strength intact. SENSATION: Sensation to touch and pinprick is normal. No sensory level MOTOR: Normal tone in the upper and lower extremity. Normal muscle bulk. No fasciculations. No abnormal movements or posturing. Muscle strength of the major groups in the upper extremities is 4-5/5 with left side weaker. Muscle strength of the major groups in the lower extremities is 3-4/with left-sided weaker REFLEXES: Deep tendon reflexes symmetrically increased in the arms, knees, with possible clonus in the left wrist. Upgoing toes in left foot CEREBELLAR/COORDINATION: Finger to nose is unremarkable GAIT/STATION: deferred laboratory and microbiology Laboratory Tests 02/18/24 09:29 Test 02/18/24 09:29 Range/Units Serum Glucose 190 H 74-106 mg/dL Problem List Quadriparesis, hyperreflexia, gait disturbance, upgoing toes in the left foot C-spine spondylosis/C-spine myelopathy Intracranial pathology ? Stroke Scoliosis Acute on chronic respiratory failure, on home oxygen Congestive heart failure AFib Overall she has a complicated medical background Assessment/Plan Monitoring Supportive treatment Telemetry Respiratory support p.r.n. Oxygen IV antibiotics Eliquis 2.[address] Yanes on case More recommendation per clinical course This medical document was created using an electronic medical record system with Brain[employer] dictation system. Although this document has been carefully reviewed, there may still be some phonetic and typographical errors. These areas are purely typographical due to imperfections of the software programs, and do not reflect any compromise in the patient's medical care Prognosis poor Plan discussed with: Patient, Other HARESH BURNETTE MD Feb 20, 2024 00:01
[2024-02-20] MEDS: FUROSEMIDE 40 MG TAB PO SCH (10:00)
--- NOTE | 2024-02-20 17:33 | MEDREC ---
[facility] Intervention Section I [facility] Intervention: Review courses of therapy (PLEASE CONSIDER DISCONTINUING CEFTRIAXONE IF THERE IS NO MORE CONCERN FOR INFECTIONS) ELLIOT CRENSHAW Feb 20, 2024 17:33
--- NOTE | 2024-02-20 19:12 | PRN ---
Misceleneous Note Note Note Discussion with patient and family on 02/19/2024 reveals that they are in favor of pursuing a surgical option of cervical spine fusion. Patient is undergoing pulmonology and cardiology clearance for surgery, patient is scheduled for surgery on Saturday02/21/2024 at 1300. NPO at midnight The patient was informed of the risks and benefits of the procedure. These include but are not limited to complications of anesthesia, postoperative infection, incomplete relief of symptoms, recurrence of symptoms, damage to blood vessels, nerves and tendons, deep venous thrombosis, pulmonary embolism and possible need for repeat surgery in the future. Extended intubation was discussed. Pulmonology arrived to bedside for consult. The risks/benefits/alternatives of surgery including but not limited to pain, bleeding, infection, damage to surrounding soft tissue structures, need for reoperation or future surgery, persistent pain/disability/deformity, pseudoarthrotsis, bone graft collapse or extrusion of interbody device, instrumentation failure, need for instrumentation removal, dural tear, temporary or permanent nerve root damage, paralysis, stroke, deep vein thrombosis, pulmonary embolism, and any associated anesthetic risk (dry mouth, sore throat, dental damage, myocardial infarction, respiratory depression, blindness) were described to the patient in detail and the patient wishes to proceed. No guarantee of surgical outcome/improvement was implied. All of the questions were answered thoroughly and consents were obtained. We will obtain all the necessary preop tests in order for the patient to be cleared medically. Call with questions Solange Larose [facility] Orthopaedic Spine Surgery nurse practitioner For Dr Cleopatra Yanes Patient was examined, chart reviewed, labs evaluated, and diagnostic studies and findings analyzed. Case was discussed with Dr. Omero Yanes who formulated the plan of care. This medical document was created using an electronic medical record system with Tablo dictation system. Although this document has been carefully reviewed, there might still be some phonetic and typographical errors. These areas are purely typographical due to imperfections of the software programs, and do not reflect any compromise in the patient's medical care. PETER LAROSE NP Feb 20, 2024 19:12
--- NOTE | 2024-02-20 20:10 | DVHPN2 ---
Progress Note - Dictate Date Seen: Feb 20, 2024 Medical Necessity Reason Pt with a Central, PICC or Fol: No Subjective Patient seen and examined at bedside. On supplemental oxygen Overnight events reviewed. vital signs Vital Sign Date Time Temp Pulse Resp B/P (MAP) Pulse Ox O2 Delivery O2 Flow Rate FiO2 02/20/24 19:00 92 22 100 02/20/24 16:38 97.6 116/60 (78) 97.6 02/20/24 13:47 Nasal Cannula 3.0 02/20/24 13:47 32 Total Intake and Output 02/19/24 02/19/24 02/20/24 15:00 23:00 07:00 Intake Total 50 ml 460 ml 200 ml Output Total 400 ml 300 ml Balance 50 ml 60 ml -100 ml medications Current Medications Medications Dose Ordered Sig/Terrence Route Start Time Stop Time Status Last Admin Dose Admin Nitroglycerin 0.4 mg Q5MINP PRN SL 02/16/24 12:15 Levalbuterol HCl 1.25 mg Q6HR NEB 02/16/24 18:00 02/20/24 19:02 1.25 MG Ipratropium [place] 0.5 mg Q4HPRN PRN NEB 02/16/24 12:15 Ipratropium [place] 0.5 mg Q6HR NEB 02/16/24 18:00 02/20/24 19:02 0.5 MG Ceftriaxone Sodium 50 ml @ 100 mls/hr DAILY@09 IV 02/17/24 09:00 02/20/24 09:20 100 MLS/HR Amiodarone HCl 200 mg DAILY PO 02/17/24 10:00 02/20/24 09:20 200 MG Donepezil HCl 5 mg DAILY PO 02/17/24 10:00 02/20/24 11:52 5 MG Empaglifozin 10 mg DAILY PO 02/17/24 10:00 02/20/24 11:52 10 MG Gabapentin 300 mg BID PO 02/16/24 22:00 02/20/24 09:20 300 MG Oxycodone/ Acetaminophen 1 tab QID PO 02/16/24 18:00 02/20/24 17:41 1 TAB Levothyroxine Sodium 75 mcg DAILY@0600 PO 02/17/24 06:00 02/20/24 05:32 75 MCG Sertraline HCl 150 mg DAILY PO 02/17/24 10:00 02/20/24 09:22 150 MG Diagnostic Test (Pha) 1 strip ACHS 02/16/24 17:00 02/20/24 17:47 1 STRIP Insulin Human Regular ACHS SC 02/16/24 17:00 02/20/24 17:46 2 UNITS Dextrose 50 ml UD PRN IV 02/16/24 13:00 Magnesium Oxide 400 mg BID PO 02/16/24 22:00 02/19/24 22:15 400 MG Metoprolol Succinate 25 mg DAILY PO 02/18/24 10:00 02/18/24 09:27 25 MG Docusate Sodium 100 mg BIDPRN PRN PO 02/17/24 14:45 02/17/24 15:31 100 MG Lorazepam 1 mg ONCE PRN IV 02/17/24 23:00 Furosemide 40 mg DAILY PO 02/20/24 10:00 objective Gen.: Patient lying in bed in no apparent distress. On supplemental oxygen. Eyes: EOMI/PERRLA. Ears: Normal hearing. Normal anatomy. Neck/trachea: Trachea midline, supple. Nose: Normal external anatomy. Mouth: Moist mucous membranes. Chest: Fair air entry bilaterally. No wheezing or rhonchi. Cardio vascular: Positive S1, positive S2. Regular rate and rhythm. Abdomen: Positive bowel sounds in all 4 quadrants. Soft, non-tender, non- distended. : Deferred. Rectal: Deferred Skin: Warm, dry. Extremities: 2+ radial pulses bilaterally. No lower extremity edema. Neuro: Awake, alert, oriented x3. No gross motor or sensory deficits. Cranial nerves II through XII intact. Gait not assessed. laboratory and microbiology Laboratory Tests 02/18/24 09:29 Test 02/18/24 09:29 Range/Units Serum Glucose 190 H 74-106 mg/dL Assessment/Plan Impression: Acute on chronic hypoxic respiratory failure COPD exacerbation Elevated D-dimer CHF exacerbation Possible pneumonia, right mid lobe with pleural effusion Chronic AFib with RVR ZEKE on CKD stage 3 DM type II Dementia Events: Pulmonary reconsulted to obtain preoperative risk stratification and optimization for planned spine surgical procedure. Obtain spirometry testing to evaluate FEV1, FVC pre and post-bronchodilator. Wheezing improving. CT of the chest report and images reviewed. No acute pulmonary embolism. Right middle lobe infectious process with [id number] right pleural effusion. Chronic fibrotic subpleural changes in the interstitial thickening. Recommend to obtain chest x-ray for interval changes. Bronchodilators Continue steroids Continue antibiotics. Spine surgery recommendations appreciated. Of plan as outlined below. Plan: Supplemental oxygen Titrate to keep O2 sats above 92%. Continue steroids Continue antibiotics Follow up cultures PO amiodarone Follow up cardiology recs Pain control Avoid oversedation Monitor renal function. Monitor electrolytes. Supplement as necessary. Monitor ins and outs. Follow up nephrology recs DVT prophylaxis. Prognosis: Poor given patient's multiple co-morbidities. Rest of plan per hospitalist and other consultants. Thank you Dr. Roa, for allowing me to participate in this patient's care. Further recommendations will depend on the patient's clinical course. Please do not hesitate to contact me if you have any questions or concerns. This medical document was created using an electronic medical record system with MyClasses dictation system. Although these documentations are being carefully reviewed, there may still be some phonetic and typographical changes. The errors are purely typographical, due to imperfection on the software program, and do not reflect any compromise in the patient's medical care. Dietary Evaluation Review Comments: 1. For better ocntrolled DM, recommen 2 gNa Lo Fat Lo Cholesterol CCHO-60g diet. 2. Monitor Po intake to meet 75% pf her needs. Expected Outcomes/Goals: Gradual weight loss. Plan discussed with: Patient, Daughter, Other (ROYAL Ratliff MD) JONE ALEXANDRA MD Feb 20, 2024 20:10
[2024-02-21] VITALS (18 sets, daily range): BP systolic 106–128; BP diastolic 57–74; PULSE 57–121; RESP 18–22; TEMP 97.3–98.5; O2SAT 92–100
--- NOTE | 2024-02-21 06:02 | DVH ---
CHEST RADIOGRAPH Indication: Interval changes Technique: Single frontal view of the chest was obtained Comparison: XY CHEST PORTABLE on DOS: 02/16/24 FINDINGS: Lines and Tubes: None Lungs: Patchy right lung consolidation. Bilateral prominent interstitial markings. Pleura: No effusion. No pneumothorax. Cardiomediastinal contours: Unremarkable Bones: No acute osseous abnormality. IMPRESSION: 1. Pulmonary congestion. Superiorimposed pneumonia particularly at the right lung base is not exclud ed.
--- NOTE | 2024-02-21 09:00 | DVHPN2 ---
Progress Note - Dictate Date Seen: Feb 21, 2024 Medical Necessity Reason Pt with a Central, PICC or Fol: No Subjective Patient seen and examined at bedside. On supplemental oxygen Overnight events reviewed. vital signs Vital Sign Date Time Temp Pulse Resp B/P (MAP) Pulse Ox O2 Delivery O2 Flow Rate FiO2 02/21/24 08:36 71 18 97 02/21/24 08:30 Nasal Cannula 4.0 02/21/24 08:30 36 02/21/24 05:00 98.5 119/66 (83) 98.5 Total Intake and Output 02/20/24 02/20/24 02/21/24 15:00 23:00 07:00 Intake Total 50 ml 475 ml 150 ml Output Total 300 ml 450 ml Balance 50 ml 175 ml -300 ml medications Current Medications Medications Dose Ordered Sig/Terrence Route Start Time Stop Time Status Last Admin Dose Admin Nitroglycerin 0.4 mg Q5MINP PRN SL 02/16/24 12:15 Levalbuterol HCl 1.25 mg Q6HR NEB 02/16/24 18:00 02/21/24 08:30 1.25 MG Ipratropium [place] 0.5 mg Q4HPRN PRN NEB 02/16/24 12:15 Ipratropium [place] 0.5 mg Q6HR NEB 02/16/24 18:00 02/21/24 08:30 0.5 MG Ceftriaxone Sodium 50 ml @ 100 mls/hr DAILY@09 IV 02/17/24 09:00 02/20/24 09:20 100 MLS/HR Amiodarone HCl 200 mg DAILY PO 02/17/24 10:00 02/20/24 09:20 200 MG Donepezil HCl 5 mg DAILY PO 02/17/24 10:00 02/20/24 11:52 5 MG Empaglifozin 10 mg DAILY PO 02/17/24 10:00 02/20/24 11:52 10 MG Gabapentin 300 mg BID PO 02/16/24 22:00 02/20/24 21:14 300 MG Oxycodone/ Acetaminophen 1 tab QID PO 02/16/24 18:00 02/21/24 05:30 1 TAB Levothyroxine Sodium 75 mcg DAILY@0600 PO 02/17/24 06:00 02/21/24 05:30 75 MCG Sertraline HCl 150 mg DAILY PO 02/17/24 10:00 02/20/24 09:22 150 MG Diagnostic Test (Pha) 1 strip ACHS 02/16/24 17:00 02/21/24 05:23 1 STRIP Insulin Human Regular ACHS SC 02/16/24 17:00 02/20/24 21:20 3 UNITS Dextrose 50 ml UD PRN IV 02/16/24 13:00 Magnesium Oxide 400 mg BID PO 02/16/24 22:00 02/20/24 21:14 400 MG Metoprolol Succinate 25 mg DAILY PO 02/18/24 10:00 02/18/24 09:27 25 MG Docusate Sodium 100 mg BIDPRN PRN PO 02/17/24 14:45 02/17/24 15:31 100 MG Lorazepam 1 mg ONCE PRN IV 02/17/24 23:00 Furosemide 40 mg DAILY PO 02/20/24 10:00 Atorvastatin Calcium 40 mg HS PO 02/21/24 22:00 objective Gen.: Patient lying in bed in no apparent distress. On supplemental oxygen. Eyes: EOMI/PERRLA. Ears: Normal hearing. Normal anatomy. Neck/trachea: Trachea midline, supple. Nose: Normal external anatomy. Mouth: Moist mucous membranes. Chest: Fair air entry bilaterally. No wheezing or rhonchi. Cardio vascular: Positive S1, positive S2. Regular rate and rhythm. Abdomen: Positive bowel sounds in all 4 quadrants. Soft, non-tender, non- distended. : Deferred. Rectal: Deferred Skin: Warm, dry. Extremities: 2+ radial pulses bilaterally. No lower extremity edema. Neuro: Awake, alert, oriented x3. No gross motor or sensory deficits. Cranial nerves II through XII intact. Gait not assessed. laboratory and microbiology Laboratory Tests 02/18/24 09:29 Test 02/18/24 09:29 Range/Units Serum Glucose 190 H 74-106 mg/dL Assessment/Plan Impression: Acute on chronic hypoxic respiratory failure COPD exacerbation, improving Elevated D-dimer CHF exacerbation Possible pneumonia, right mid lobe with pleural effusion Chronic AFib with RVR ZEKE on CKD stage 3 DM type II Dementia Obesity BMI 30 Events: CXR is notable for patchy right lung opacities. Bilateral prominent interstitial markings. FEV1 on bedside spirometry is below 1 L Pt is at moderate to high risk for pulmonary complications given her FEV1 is below 1 L. Pt can proceed to procedure with knowledge of underlying risks of procedure and knowledge of the inherent risks. No further pulmonary testing is needed. Wheezing improving. CT of the chest report and images reviewed. No acute pulmonary embolism. Right middle lobe infectious process with [id number] right pleural effusion. Chronic fibrotic subpleural changes in the interstitial thickening. Bronchodilators Continue steroids Continue antibiotics. Spine surgery recommendations appreciated. Rest of plan as outlined below. Plan: Supplemental oxygen Titrate to keep O2 sats above 92%. Continue steroids Continue antibiotics Follow up cultures PO amiodarone Follow up cardiology recs Pain control Avoid oversedation Monitor renal function. Monitor electrolytes. Supplement as necessary. Monitor ins and outs. Follow up nephrology recs DVT prophylaxis. Prognosis: Poor given patient's multiple co-morbidities. Rest of plan per hospitalist and other consultants. Thank you Dr. Roa, for allowing me to participate in this patient's care. Further recommendations will depend on the patient's clinical course. Please do not hesitate to contact me if you have any questions or concerns. This medical document was created using an electronic medical record system with [employer] dictation system. Although these documentations are being carefully reviewed, there may still be some phonetic and typographical changes. The errors are purely typographical, due to imperfection on the software program, and do not reflect any compromise in the patient's medical care. Dietary Evaluation Review Comments: 1. For better ocntrolled DM, recommen 2 gNa Lo Fat Lo Cholesterol CCHO-60g diet. 2. Monitor Po intake to meet 75% pf her needs. Expected Outcomes/Goals: Gradual weight loss. Plan discussed with: Other (ROYAL White MD) JOEN ALEXANDRA MD Feb 21, 2024 09:00
--- NOTE | 2024-02-21 12:59 | ECG ---
[facility] Test Date: 2024-02-21 Test Time: 11:47:20 Pat Name: ZEYAD PENNY Department: Room: 0273T B Gender: F Workforce Development Specialist: Tamia : 1945 Requested By: KHUSHBOO MAZARIEGOS Order Number: [id number] Reading MD: Bobby Walker Measurements Intervals [place] Rate: 101 P: 0 DE: 0 QRS: -75 QRSD: 155 T: 69 QT: 408 QTc: 529 Interpretive Statements Atrial fibrillation Nonspecific IVCD with LAD Inferior infarct, old Anterior infarct, old Lateral leads are also involved Electronically Signed On 02-24-2024 8:36:36 PST by Bobby Walker Please click the below link to view image of tracing.
--- NOTE | 2024-02-21 15:02 | DVHPN2 ---
Consult Progress Note Subjective Other Systems: Remains in atrial fibrillation with controlled rate Objective vital signs Vital Sign Date Time Temp Pulse Resp B/P (MAP) Pulse Ox O2 Delivery O2 Flow Rate FiO2 02/21/24 14:26 104 18 96 02/21/24 13:00 97.8 128/74 (92) 97.8 02/21/24 10:00 Nasal Cannula 4.0 02/21/24 10:00 36 Total Intake and Output 02/20/24 02/20/24 02/21/24 15:00 23:00 07:00 Intake Total 50 ml 475 ml 150 ml Output Total 300 ml 450 ml Balance 50 ml 175 ml -300 ml medications Current Medications Medications Dose Ordered Sig/Terrence Route Start Time Stop Time Status Last Admin Dose Admin Nitroglycerin 0.4 mg Q5MINP PRN SL 02/16/24 12:15 Levalbuterol HCl 1.25 mg Q6HR NEB 02/16/24 18:00 02/21/24 11:46 1.25 MG Ipratropium [place] 0.5 mg Q4HPRN PRN NEB 02/16/24 12:15 Ipratropium [place] 0.5 mg Q6HR NEB 02/16/24 18:00 02/21/24 14:20 0.5 MG Ceftriaxone Sodium 50 ml @ 100 mls/hr DAILY@09 IV 02/17/24 09:00 02/21/24 09:17 100 MLS/HR Amiodarone HCl 200 mg DAILY PO 02/17/24 10:00 02/21/24 10:27 200 MG Donepezil HCl 5 mg DAILY PO 02/17/24 10:00 02/21/24 10:27 5 MG Empaglifozin 10 mg DAILY PO 02/17/24 10:00 02/21/24 10:26 10 MG Gabapentin 300 mg BID PO 02/16/24 22:00 02/21/24 10:26 300 MG Oxycodone/ Acetaminophen 1 tab QID PO 02/16/24 18:00 02/21/24 05:30 1 TAB Levothyroxine Sodium 75 mcg DAILY@0600 PO 02/17/24 06:00 02/21/24 05:30 75 MCG Sertraline HCl 150 mg DAILY PO 02/17/24 10:00 02/21/24 10:27 150 MG Diagnostic Test (Pha) 1 strip ACHS 02/16/24 17:00 02/21/24 12:07 1 STRIP Insulin Human Regular ACHS SC 02/16/24 17:00 02/21/24 12:07 2 UNITS Dextrose 50 ml UD PRN IV 02/16/24 13:00 Magnesium Oxide 400 mg BID PO 02/16/24 22:00 02/21/24 10:28 400 MG Metoprolol Succinate 25 mg DAILY PO 02/18/24 10:00 02/21/24 10:29 25 MG Docusate Sodium 100 mg BIDPRN PRN PO 02/17/24 14:45 02/17/24 15:31 100 MG Lorazepam 1 mg ONCE PRN IV 02/17/24 23:00 Furosemide 40 mg DAILY PO 02/20/24 10:00 02/21/24 10:28 40 MG Atorvastatin Calcium 40 mg HS PO 02/21/24 22:00 Examination: GENERAL:Abnormal (Generalized weakness), LUNGS:Normal, CVS:Normal, NEURO:Normal laboratory and microbiology Laboratory Tests 02/18/24 09:29 Test 02/18/24 09:29 Range/Units Serum Glucose 190 H 74-106 mg/dL Problem List/Assessment/Plan Problem List/Assessment/Plan Preprocedural cardiovascular examination Acute on chronic decompensated HFrEF, NYHA class III-IV Acute on chronic respiratory failure with possible pneumonia Paroxysmal atrial fibrillation (on Amiodarone and Eliquis) 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 Willis) Transthoracic echocardiogram reveals an LVEF of 25% with severe biventricular dilatation. A twelve lead electrocardiogram reveals atrial fibrillation. Revised cardiac risk index (Shola criteria): 2 points (10.1%, risk of major cardiac event). A chest x-ray done today shows pulmonary congestion. The patient has an underlying history of congestive heart failure. Prior to admission, the patient reports a poor functional capacity in which she is mostly bed ridden for the last couple of months. Per Cardiology standpoint, the patient is at a high risk for moderate risk surgery. We will recommend to optimize the patient prior to surgical intervention including diuresis as tolerated. Of note, the patient takes NOAC therapy with low-dose Eliquis ([id number] VASc score: 6 points). We will recommend to resume NOAC therapy within 24 hours status post procedure if low postprocedural bleeding risk. Resume NOAC therapy within 48-72 hours if high postprocedural bleeding risk. Continue with GDMT for CHF as tolerated. The patient may qualify for ICD implantation if no improvement in EF within 3-6 months on GDMT. There is no additional cardiac workup indicated prior to surgery. Thank you for allowing us to care for this patient. Please call with any questions or concerns. We will sign off. This medical document was created using an electronic medical record system with voice recognition software and computerized dictation system. Although this document has been carefully reviewed, there might still be some phonetic and typographical errors. Occasional wrong-word or ``sound-alike substitutions may have occurred due to the inherent limitations of voice recognition software. These areas are purely typographical due to imperfections of the software programs and do not reflect any compromise in the patient's medical care. Please read the chart carefully and recognize, using context, where these substitutions have occurred. Plan discussed with: Patient, Daughter Dietary Evaluation Review Comments: 1. For better ocntrolled DM, recommen 2 gNa Lo Fat Lo Cholesterol CCHO-60g diet. 2. Monitor Po intake to meet 75% pf her needs. Expected Outcomes/Goals: Gradual weight loss. Date of Service: Feb 21, 2024 Billing Provider: KHUSHBOO MAZARIEGOS Common Visit Codes: [id number] INP/OBS CARE(HIGH) KHUSHBOO MAZARIEGOS Feb 21, 2024 15:02
--- NOTE | 2024-02-21 16:59 | DVHPN2 ---
Progress Note - Dictate Date Seen: Feb 21, 2024 Medical Necessity Reason Pt with a Central, PICC or Fol: No Subjective Mr. Whitney is a 78 years old right-handed female with a history of hypertension, diabetes, congestive heart failure, atrial fibrillation, asthma, scoliosis, breast cancer, she was brought from her retirement facility to [facility] on 02/16/2024 for shortness breath, but patient also has other complaints. I have seen and examined the patient, I have discussed with her nurse, her daughter is in the room She was awake, oriented x3 Her daughter wants to get a 2nd opinion about the C-spine stenosis and surgery (her daughter relates that she has heart failure, COPD) Urinalysis, 02/16/2024: Unremarkable ABG, 02/16/2024: Hypoxia, carbon dioxide retention WBC/HB/PLT/MCV, 02/17/2024: 4.5/9.5/277/81.3 PTT/INR/ABG, 02/16/2024: 14/1.35/35.8 BUN/CR, 02/17/2024: 46/1.43 Liver function tests, 02/17/2024: Unremarkable TG/HDL/LDL/HDL, 09/14/2023: 96/106/54/31 TSH, 09/14/2023: 0.56, 01/11/2024: 41.3 CT head, 02/16/2024: No acute intracranial abnormality CTA chest, 02/16/2024: 1. No pulmonary embolism. 2. Consolidation in the right middle lobe concerning for infectious process with terri-cy-obqtoxny right pleural effusion 3. Chronic appearing fibrotic subpleural changes in interstitial thickening. 4. Cirrhotic appearance of the liver with mild ascites MRI brain 02/18/2024: No evidence of acute infarction, intracranial hemorrhage, mass effect or hydrocephalus. Mild changes of chronic microvascular ischemic disease MRI C-spine 02/18/2024: 1. Multilevel degenerative changes in the cervical spine as described above, worst at C3-C4. There is a 6 mm broad-based central disc protrusion at this level resulting in moderate to severe spinal canal stenosis. 2. There is moderate spinal canal stenosis at C4-C5(The cervical spinal cord grossly demonstrates normal signal) vital signs Vital Sign Date Time Temp Pulse Resp B/P (MAP) Pulse Ox O2 Delivery O2 Flow Rate FiO2 02/21/24 16:36 97.3 97 18 108/57 (74) 98 97.3 02/21/24 10:00 Nasal Cannula 4.0 02/21/24 10:00 36 Total Intake and Output 02/20/24 02/20/24 02/21/24 15:00 23:00 07:00 Intake Total 50 ml 475 ml 150 ml Output Total 300 ml 450 ml Balance 50 ml 175 ml -300 ml medications Current Medications Medications Dose Ordered Sig/Terrence Route Start Time Stop Time Status Last Admin Dose Admin Nitroglycerin 0.4 mg Q5MINP PRN SL 02/16/24 12:15 Levalbuterol HCl 1.25 mg Q6HR NEB 02/16/24 18:00 02/21/24 11:46 1.25 MG Ipratropium [place] 0.5 mg Q4HPRN PRN NEB 02/16/24 12:15 Ipratropium [place] 0.5 mg Q6HR NEB 02/16/24 18:00 02/21/24 14:20 0.5 MG Ceftriaxone Sodium 50 ml @ 100 mls/hr DAILY@09 IV 02/17/24 09:00 02/21/24 09:17 100 MLS/HR Amiodarone HCl 200 mg DAILY PO 02/17/24 10:00 02/21/24 10:27 200 MG Donepezil HCl 5 mg DAILY PO 02/17/24 10:00 02/21/24 10:27 5 MG Empaglifozin 10 mg DAILY PO 02/17/24 10:00 02/21/24 10:26 10 MG Gabapentin 300 mg BID PO 02/16/24 22:00 02/21/24 10:26 300 MG Oxycodone/ Acetaminophen 1 tab QID PO 02/16/24 18:00 02/21/24 05:30 1 TAB Levothyroxine Sodium 75 mcg DAILY@0600 PO 02/17/24 06:00 02/21/24 05:30 75 MCG Sertraline HCl 150 mg DAILY PO 02/17/24 10:00 02/21/24 10:27 150 MG Diagnostic Test (Pha) 1 strip ACHS 02/16/24 17:00 02/21/24 12:07 1 STRIP Insulin Human Regular ACHS SC 02/16/24 17:00 02/21/24 12:07 2 UNITS Dextrose 50 ml UD PRN IV 02/16/24 13:00 Magnesium Oxide 400 mg BID PO 02/16/24 22:00 02/21/24 10:28 400 MG Metoprolol Succinate 25 mg DAILY PO 02/18/24 10:00 02/21/24 10:29 25 MG Docusate Sodium 100 mg BIDPRN PRN PO 02/17/24 14:45 02/17/24 15:31 100 MG Lorazepam 1 mg ONCE PRN IV 02/17/24 23:00 Furosemide 40 mg DAILY PO 02/20/24 10:00 02/21/24 10:28 40 MG Atorvastatin Calcium 40 mg HS PO 02/21/24 22:00 objective General: the patient is well developed and nourished. No acute distress. MUSCULOSKELETAL EXAM: Mild tenderness to palpation in the cervical spine MENTAL STATUS: Subjective SPEECH, LANGUAGE, HIGHER CORTICAL FUNCTION: no aphasia or dysathria. CRANIAL NERVES: Pupils are equal, round and reactive. EOMs full and conjugate. No nystagmus. Facial sensation intact in all three divisions bilaterally. Mandibular strength intact. Facial muscles symmetrical and strength intact. SENSATION: Sensation to touch and pinprick is normal. No sensory level MOTOR: Normal tone in the upper and lower extremity. Normal muscle bulk. No fasciculations. No abnormal movements or posturing. Muscle strength of the major groups in the upper extremities is 4-5/5 with left side weaker. Muscle strength of the major groups in the lower extremities is 2-3/5 with left-sided weaker REFLEXES: Deep tendon reflexes symmetrically increased in the arms, knees, with possible clonus in the left wrist. Upgoing toes in feet CEREBELLAR/COORDINATION: Finger to nose is unremarkable GAIT/STATION: deferred laboratory and microbiology Laboratory Tests 02/18/24 09:29 Test 02/18/24 09:29 Range/Units Serum Glucose 190 H 74-106 mg/dL Problem List Quadriparesis, hyperreflexia, gait disturbance, upgoing toes in the left foot C-spine spondylosis/C-spine myelopathy Intracranial pathology ? Stroke Scoliosis Acute on chronic respiratory failure, on home oxygen Congestive heart failure AFib Overall she has a complicated medical background Assessment/Plan Monitoring Supportive treatment Telemetry Respiratory support p.r.n. Oxygen IV antibiotics Eliquis 2.[address] Yanes on case Family is seeking for 2nd opinion More recommendation per clinical course This medical document was created using an electronic medical record system with in3Depth dictation system. Although this document has been carefully reviewed, there may still be some phonetic and typographical errors. These areas are purely typographical due to imperfections of the software programs, and do not reflect any compromise in the patient's medical care Prognosis poor Dietary Evaluation Review Comments: 1. For better ocntrolled DM, recommen 2 gNa Lo Fat Lo Cholesterol CCHO-60g diet. 2. Monitor Po intake to meet 75% pf her needs. Expected Outcomes/Goals: Gradual weight loss. Plan discussed with: Patient, Daughter, Other HARESH BURNETTE MD Feb 21, 2024 16:59
[2024-02-21] MEDS: IPRATROPIUM BROM 0.5 MG/2.5ML INH SOL NEB PRN (19:04)
--- NOTE | 2024-02-21 19:42 | DVHPN2 ---
Consult Progress Note Subjective Other Systems: Patient was seen and evaluated in follow up. Patient remains in atrial fibrillation with controlled rate. Chest x-ray shows pulmonary congestion. Telemetry reviewed. Objective vital signs Vital Sign Date Time Temp Pulse Resp B/P (MAP) Pulse Ox O2 Delivery O2 Flow Rate FiO2 02/21/24 16:36 97.3 97 18 108/57 (74) 98 97.3 02/21/24 10:00 Nasal Cannula 4.0 02/21/24 10:00 36 Total Intake and Output 02/20/24 02/20/24 02/21/24 15:00 23:00 07:00 Intake Total 50 ml 475 ml 150 ml Output Total 300 ml 450 ml Balance 50 ml 175 ml -300 ml medications Current Medications Medications Dose Ordered Sig/Terrence Route Start Time Stop Time Status Last Admin Dose Admin Nitroglycerin 0.4 mg Q5MINP PRN SL 02/16/24 12:15 Levalbuterol HCl 1.25 mg Q6HR NEB 02/16/24 18:00 02/21/24 11:46 1.25 MG Ipratropium [place] 0.5 mg Q4HPRN PRN NEB 02/16/24 12:15 Ipratropium [place] 0.5 mg Q6HR NEB 02/16/24 18:00 02/21/24 14:20 0.5 MG Ceftriaxone Sodium 50 ml @ 100 mls/hr DAILY@09 IV 02/17/24 09:00 02/21/24 09:17 100 MLS/HR Amiodarone HCl 200 mg DAILY PO 02/17/24 10:00 02/21/24 10:27 200 MG Donepezil HCl 5 mg DAILY PO 02/17/24 10:00 02/21/24 10:27 5 MG Empaglifozin 10 mg DAILY PO 02/17/24 10:00 02/21/24 10:26 10 MG Gabapentin 300 mg BID PO 02/16/24 22:00 02/21/24 10:26 300 MG Oxycodone/ Acetaminophen 1 tab QID PO 02/16/24 18:00 02/21/24 17:08 1 TAB Levothyroxine Sodium 75 mcg DAILY@0600 PO 02/17/24 06:00 02/21/24 05:30 75 MCG Sertraline HCl 150 mg DAILY PO 02/17/24 10:00 02/21/24 10:27 150 MG Diagnostic Test (Pha) 1 strip ACHS 02/16/24 17:00 02/21/24 17:26 1 STRIP Insulin Human Regular ACHS SC 02/16/24 17:00 02/21/24 12:07 2 UNITS Dextrose 50 ml UD PRN IV 02/16/24 13:00 Magnesium Oxide 400 mg BID PO 02/16/24 22:00 02/21/24 10:28 400 MG Metoprolol Succinate 25 mg DAILY PO 02/18/24 10:00 02/21/24 10:29 25 MG Docusate Sodium 100 mg BIDPRN PRN PO 02/17/24 14:45 02/17/24 15:31 100 MG Lorazepam 1 mg ONCE PRN IV 02/17/24 23:00 Furosemide 40 mg DAILY PO 02/20/24 10:00 02/21/24 10:28 40 MG Atorvastatin Calcium 40 mg HS PO 02/21/24 22:00 Examination: GENERAL:Abnormal (Generalized weakness), HEENT:Normal, NECK:Normal, LUNGS:Normal, CVS:Normal, ABDOMEN:Normal, MSK:Normal, SKIN:Normal, NEURO:Normal laboratory and microbiology Laboratory Tests 02/18/24 09:29 Test 02/18/24 09:29 Range/Units Serum Glucose 190 H 74-106 mg/dL Problem List/Assessment/Plan Problem List/Assessment/Plan Preprocedural cardiovascular examination. Acute on chronic decompensated HFrEF, NYHA class III-IV. Acute on chronic respiratory failure with possible pneumonia. Paroxysmal atrial fibrillation (on Amiodarone and Eliquis). 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 Insulin-dependent diabetes mellitus. Hypertension. COPD on home O2. Uncontrolled hypothyroidism (TSH 78.12). Obesity. Plan/Recommendation Continued all current supportive medical care. Patient has been seen by Radha Ballesteros NP on my behalf, her and I discussed the plan with the patient. Transthoracic echocardiogram reveals an LVEF of 25% with severe biventricular dilatation. A twelve lead electrocardiogram reveals atrial fibrillation. Revised cardiac risk index (Shola criteria): 2 points (10.1%, risk of major cardiac event). A chest x-ray done today shows pulmonary congestion. The patient has an underlying history of congestive heart failure. Prior to admission, the patient reports a poor functional capacity in which she is mostly bed ridden for the last couple of months. Per Cardiology standpoint, the patient is at a high risk for moderate risk surgery. We will recommend to optimize the patient prior to surgical intervention including diuresis as tolerated. Of note, the patient takes NOAC therapy with low-dose Eliquis ([id number] VASc score: 6 points). We will recommend to resume NOAC therapy within 24 hours status post procedure if low postprocedural bleeding risk. Resume NOAC therapy within 48-72 hours if high postprocedural bleeding risk. Continue with GDMT for CHF as tolerated. The patient may qualify for ICD implantation if no improvement in EF within 3-6 months on GDMT. Additional plan as per the hospital course. Plan discussed with: Patient Dietary Evaluation Review Comments: 1. For better ocntrolled DM, recommen 2 gNa Lo Fat Lo Cholesterol CCHO-60g diet. 2. Monitor Po intake to meet 75% pf her needs. Expected Outcomes/Goals: Gradual weight loss. Date of Service: Feb 21, 2024 Billing Provider: GEE MIDDLETON MD Cardiology Common Codes: [id number] [facility](High GEE MIDDLETON MD Feb 21, 2024 18:16
--- NOTE | 2024-02-21 20:40 | DVHPN2 ---
Assessment/Plan Assessment/Plan Progress note Subjective Family would like to hold procedure for now, high risk for moderate risk procedure per cardio, moderate to high risk of pulmonary complication per pulm. Physical exam Alert oriented s1 s2 RRR, systolic murmur jvd midneck basal crackles abdomen soft nontender trace le edema UE LE strength R>L equal sensory to touch Labs and imaging reviewed Assessment and plan acute on chronic hypoxic respiratory failure COPD group E on home O2 acute on chronic systolic heart failure heart failure with reduced ejection fraction 25% cervical spondylolithesis with cord compression? IDDM hypothyroidism uncontrolled afib on NOAC seen by NS, for surgery, however patient want to hold cardio consult high risk for moderate risk procedure pulm consult moderate to high risk neuro consult appreciated c/w lasix resume [facility] pt candidate for ICD albuterol ipatropium nebs decadron levothyroxine basal bolus ISS fs x4 if no surgery, will do pt and placement after medically stable diet mechanical soft diabetic DVT PPX on full AC Plan discussed with: Patient, Daughter My Orders Orders - STU GALINDO MD Procedure Category Date Status Time Mechanical Soft Diet DIET 02/21/24 Transmitted Dinner Basic Metabolic Panel LAB 02/22/24 Verified 04:00 Complete Blood Count LAB 02/22/24 Verified 04:00 Magnesium LAB 02/22/24 Verified 04:00 Phosphorus LAB 02/22/24 Verified 04:00 Date of Service: Feb 21, 2024 Billing Provider: STU GALINDO MD Common Visit Codes: [id number] INP/OBS CARE(HIGH) STU GALINDO MD Feb 21, 2024 20:40
[2024-02-21] MEDS: ATORVASTATIN 20 MG TAB PO SCH (21:29)
[2024-02-22] VITALS (22 sets, daily range): BP systolic 111–132; BP diastolic 59–84; PULSE 68–105; RESP 18–20; TEMP 97.5–98.1; O2SAT 94–100
[2024-02-22 06:22] LABS: Anion Gap 8 (5-15); Chloride 100 mmol/L (98-107); Sodium 139 mmol/L (136-145)
[2024-02-22 06:23] LABS: Calcium 8.9 mg/dL (8.7-10.4)
[2024-02-22 06:30] LABS: Phosphorus 3.1 mg/dL (2.4-5.1)
[2024-02-22 06:36] LABS: Carbon Dioxide 31 mmol/L (20-31); Glucose 116 mg/dL (74-106); Magnesium 3.1 mg/dL (1.6-2.6); Potassium 5.5 mmol/L (3.5-5.1)
[2024-02-22 07:23] LABS: BUN/Creatinine Ratio 31.1 (10.0-20.0)
[2024-02-22 07:44] LABS: Blood Urea Nitrogen 37 mg/dL (9-23)
[2024-02-22 09:58] LABS: Basophils # (auto) 0 10 ^3/uL (0-0.2); Eosinophils # (auto) 0.3 10 ^3/uL (0-0.8); Lymphocytes # (auto) 0.3 10 ^3/uL (0.4-5.4); Monocytes # (auto) 0.5 10 ^3/uL (0-1.3); Nucleated Red Blood Cells % 0.1 %
[2024-02-22 10:00] LABS: Basophils % (auto) 0.8 % (0.0-2.0); Eosinophils % (auto) 4.3 % (0.0-7.0); Hematocrit 28.8 % (36.0-46.0); Hemoglobin 8.8 g/dL (12.2-16.2); Lymphocytes % (auto) 4.9 % (10.0-50.0); Mean Corpuscular Hemoglobin 25.1 pg (28.0-32.0); Mean Corpuscular Hgb Conc. 30.7 g/dL (32.0-36.0); Mean Corpuscular Volume 81.7 fL (80.0-100.0); Monocytes % (auto) 7.5 % (0.0-12.0); Neutrophils # (auto) 5.1 10 ^3/uL (1.6-8.6); Neutrophils % (auto) 82.5 % (37.0-80.0); Platelet Count (auto) 119 10^3/uL (140-450); Red Blood Cells 3.52 10^6/uL (4.0-5.20); White Blood Cell 6.2 10^3/uL (4.4-10.8)
[2024-02-22] MEDS: DexAMETHasone SOD PHOS 10MG/1ML VIAL INJ IV SCH (10:06)
[2024-02-22] MEDS: PANTOPRAZOLE 40 MG/10 ML VIAL INJ IV ONE (13:13)
[2024-02-22] MEDS: LEVALBUTEROL HCL 1.25 MG/3 ML NEB NEB SCH (13:47)
[2024-02-22] MEDS: IPRATROPIUM BROM 0.5 MG/2.5ML INH SOL NEB SCH (13:47)
--- NOTE | 2024-02-22 15:22 | DVHPN2 ---
Assessment/Plan Assessment/Plan Progress note Subjective Family requested 2nd opinion from neurosurgery for procedure. Not hypoxic with normal work of breathing, however patient requested nursing staff to keep o2 at 5. Physical exam Alert oriented s1 s2 RRR, systolic murmur jvd midneck basal crackles abdomen soft nontender trace le edema UE LE strength R>L equal sensory to touch Labs and imaging reviewed Assessment and plan acute on chronic hypoxic respiratory failure COPD group E on home O2 acute on chronic systolic heart failure heart failure with reduced ejection fraction 25% cervical spondylolithesis with cord compression? IDDM hypothyroidism uncontrolled afib on NOAC seen by NS, for surgery, however patient want to hold cardio consult high risk for moderate risk procedure pulm consult moderate to high risk neuro consult appreciated c/w lasix resume [facility] pt candidate for ICD albuterol ipatropium nebs decadron levothyroxine basal bolus ISS fs x4 if no surgery, will do pt and placement after medically stable family wants 2nd opinion from NS diet mechanical soft diabetic DVT PPX on full AC Plan discussed with: Patient, Daughter My Orders Orders - STU GALINDO MD Procedure Category Date Status Time Mechanical Soft Diet DIET 02/21/24 Transmitted Dinner Dexamethasone PHA 02/22/24 In Process Injection (Decadron 10:00 Date of Service: Feb 22, 2024 Billing Provider: STU GALINDO MD Common Visit Codes: [id number] INP/OBS CARE(HIGH) STU GALINDO MD Feb 22, 2024 15:22
[2024-02-22] MEDS: SODIUM ZIRCONIUM CYCL 10 GM PAK PO ONE (15:51)
--- NOTE | 2024-02-22 16:15 | DVH ---
CHEST RADIOGRAPH Indication: SOB Technique: Single frontal view of the chest was obtained Comparison: XY CHEST XRAY 1 VIEW on DOS: 02/21/24, XY CHEST PORTABLE on DOS: 02/16/24, XY CHEST PORTABLE on DOS: 12/23/23 FINDINGS: Lines and Tubes: None Lungs: Right lower lung zone opacification. Diffuse interstitial prominence. Bronchovascular crowdi ng due to low lung volumes. Elevated right hemidiaphragm. No pneumothorax. Cardiomediastinal contours: Mild cardiomegaly. Bones: No acute osseous abnormality. Surgical clips are noted over the left axilla. IMPRESSION: Mild cardiomegaly with findings suggestive of congestive heart failure. Right lower lung zone opacification which may represent pneumonia / atelectasis. Underlying trace ri ght-sided pleural effusion can not be excluded.
--- NOTE | 2024-02-22 18:50 | DVHPN2 ---
Progress Note - Dictate Date Seen: Feb 22, 2024 Medical Necessity Reason Pt with a Central, PICC or Fol: Yes The following are medically ne: Pandya Catheter Reason for pandya catheter: Strict I&O Subjective Patient seen and examined at bedside. On supplemental oxygen Overnight events reviewed. vital signs Vital Sign Date Time Temp Pulse Resp B/P (MAP) Pulse Ox O2 Delivery O2 Flow Rate FiO2 02/22/24 16:41 97.5 84 18 111/59 (76) 96 97.5 02/22/24 13:47 Nasal Cannula 5.0 02/22/24 13:47 40 Total Intake and Output 02/21/24 02/21/24 02/22/24 15:00 23:00 07:00 Intake Total 50 ml 120 ml 360 ml Output Total 425 ml 250 ml Balance 50 ml -305 ml 110 ml medications Current Medications Medications Dose Ordered Sig/Terrence Route Start Time Stop Time Status Last Admin Dose Admin Nitroglycerin 0.4 mg Q5MINP PRN SL 02/16/24 12:15 Ceftriaxone Sodium 50 ml @ 100 mls/hr DAILY@09 IV 02/17/24 09:00 02/22/24 08:32 100 MLS/HR Amiodarone HCl 200 mg DAILY PO 02/17/24 10:00 02/22/24 09:10 200 MG Donepezil HCl 5 mg DAILY PO 02/17/24 10:00 02/22/24 09:09 5 MG Empaglifozin 10 mg DAILY PO 02/17/24 10:00 02/22/24 09:10 10 MG Gabapentin 300 mg BID PO 02/16/24 22:00 02/22/24 09:10 300 MG Oxycodone/ Acetaminophen 1 tab QID PO 02/16/24 18:00 02/22/24 18:03 1 TAB Levothyroxine Sodium 75 mcg DAILY@0600 PO 02/17/24 06:00 02/22/24 05:53 75 MCG Sertraline HCl 150 mg DAILY PO 02/17/24 10:00 02/22/24 09:12 150 MG Diagnostic Test (Pha) 1 strip ACHS 02/16/24 17:00 02/22/24 16:12 1 STRIP Insulin Human Regular ACHS SC 02/16/24 17:00 02/22/24 16:14 2 UNITS Dextrose 50 ml UD PRN IV 02/16/24 13:00 Magnesium Oxide 400 mg BID PO 02/16/24 22:00 02/22/24 09:10 400 MG Metoprolol Succinate 25 mg DAILY PO 02/18/24 10:00 02/22/24 09:13 25 MG Docusate Sodium 100 mg BIDPRN PRN PO 02/17/24 14:45 02/17/24 15:31 100 MG Lorazepam 1 mg ONCE PRN IV 02/17/24 23:00 Furosemide 40 mg DAILY PO 02/20/24 10:00 02/22/24 09:13 40 MG Atorvastatin Calcium 40 mg HS PO 02/21/24 22:00 02/21/24 21:29 40 MG Dexamethasone Sodium Phosphate 6 mg DAILY IV 02/22/24 10:00 02/22/24 10:06 6 MG Pantoprazole Sodium 40 mg DAILY IV 02/23/24 10:00 Ipratropium [place] 0.5 mg Q4HR NEB 02/22/24 14:00 02/22/24 13:47 0.5 MG Levalbuterol HCl 1.25 mg Q4HR NEB 02/22/24 14:00 02/22/24 13:47 1.25 MG objective Gen.: Patient lying in bed in no apparent distress. On supplemental oxygen. Eyes: EOMI/PERRLA. Ears: Normal hearing. Normal anatomy. Neck/trachea: Trachea midline, supple. Nose: Normal external anatomy. Mouth: Moist mucous membranes. Chest: Fair air entry bilaterally. No wheezing or rhonchi. Cardio vascular: Positive S1, positive S2. Regular rate and rhythm. Abdomen: Positive bowel sounds in all 4 quadrants. Soft, non-tender, non- distended. : Deferred. Rectal: Deferred Skin: Warm, dry. Extremities: 2+ radial pulses bilaterally. No lower extremity edema. Neuro: Awake, alert, oriented x3. No gross motor or sensory deficits. Cranial nerves II through XII intact. Gait not assessed. laboratory and microbiology Laboratory Tests 02/22/24 09:23 02/22/24 05:26 Test 02/22/24 05:26 Range/Units Serum Glucose 116 H 74-106 mg/dL Assessment/Plan Impression: Acute on chronic hypoxic respiratory failure COPD exacerbation, improving Elevated D-dimer CHF exacerbation Possible pneumonia, right mid lobe with pleural effusion Pulmonary hypertension Chronic AFib with RVR ZEKE on CKD stage 3 DM type II Dementia Obesity BMI 30 Events: Remains on supplemental oxygen at 5 LPM NC Increased O2 requirements Taper O2 as tolerated BiPAP PRN. CXR is notable for Mild cardiomegaly with findings suggestive of congestive heart failure. Right lower lung zone opacification which may represent pneumonia / atelectasis. Underlying trace right-sided pleural effusion cannot be excluded. Wheezing improving. Continue bronchodilators Continue steroids - Decadron Continue antibiotics. Diurese as tolerated w/ Lasix QD Monitor renal function Monitor electrolytes. Supplement as necessary. Mag supplementation CT of the chest report and images reviewed. No acute pulmonary embolism. Right middle lobe infectious process with [id number] right pleural effusion. Chronic fibrotic subpleural changes and interstitial thickening. FEV1 on bedside spirometry is below 1 L Pt is at moderate to high risk for pulmonary complications given her FEV1 is below 1 L. Pt can proceed to procedure with knowledge of underlying risks of procedure and knowledge of the inherent risks. No further pulmonary testing is needed. Spine surgery recommendations appreciated. Rest of plan as outlined below. Plan: Supplemental oxygen Titrate to keep O2 sats above 92%. Continue steroids Continue antibiotics Follow up cultures PO amiodarone Cardiology recs appreciated Pain control Avoid oversedation Monitor renal function. Monitor electrolytes. Supplement as necessary. Monitor ins and outs. Follow up nephrology recs DVT prophylaxis. Prognosis: Poor given patient's multiple co-morbidities. Rest of plan per hospitalist and other consultants. Thank you Dr. Roa, for allowing me to participate in this patient's care. Further recommendations will depend on the patient's clinical course. Please do not hesitate to contact me if you have any questions or concerns. This medical document was created using an electronic medical record system with [employer] dictation system. Although these documentations are being carefully reviewed, there may still be some phonetic and typographical changes. The errors are purely typographical, due to imperfection on the software program, and do not reflect any compromise in the patient's medical care. Dietary Evaluation Review Comments: 1. For better ocntrolled DM, recommen 2 gNa Lo Fat Lo Cholesterol CCHO-60g diet. 2. Monitor Po intake to meet 75% pf her needs. Expected Outcomes/Goals: Gradual weight loss. Plan discussed with: Patient, Other (ROYAL Dowd) JONE ALEXANDRA MD Feb 22, 2024 18:50
--- NOTE | 2024-02-22 22:03 | DVHPN2 ---
Progress Note - Dictate Date Seen: Feb 22, 2024 Medical Necessity Reason Pt with a Central, PICC or Fol: No Subjective Patient was seen and evaluated in follow up. No overnight events. Patient is tolerating current diet. Family is requesting 2nd opinion from neurosurgery for procedure. HGB 8.8, HCT 28.8, K 5.5, BUN 37, PAROLE OFFICER 1.19. Chest x-ray shows mild cardiomegaly with findings suggestive of congestive heart failure and right lower lung zone opacification. PN-Work vital signs Vital Sign Date Time Temp Pulse Resp B/P (MAP) Pulse Ox O2 Delivery O2 Flow Rate FiO2 02/22/24 16:41 97.5 84 18 111/59 (76) 96 97.5 02/22/24 13:47 Nasal Cannula 5.0 02/22/24 13:47 40 Total Intake and Output 02/21/24 02/21/24 02/22/24 15:00 23:00 07:00 Intake Total 50 ml 120 ml 360 ml Output Total 425 ml 250 ml Balance 50 ml -305 ml 110 ml medications Current Medications Medications Dose Ordered Sig/Terrence Route Start Time Stop Time Status Last Admin Dose Admin Nitroglycerin 0.4 mg Q5MINP PRN SL 02/16/24 12:15 Ceftriaxone Sodium 50 ml @ 100 mls/hr DAILY@09 IV 02/17/24 09:00 02/22/24 08:32 100 MLS/HR Amiodarone HCl 200 mg DAILY PO 02/17/24 10:00 02/22/24 09:10 200 MG Donepezil HCl 5 mg DAILY PO 02/17/24 10:00 02/22/24 09:09 5 MG Empaglifozin 10 mg DAILY PO 02/17/24 10:00 02/22/24 09:10 10 MG Gabapentin 300 mg BID PO 02/16/24 22:00 02/22/24 09:10 300 MG Oxycodone/ Acetaminophen 1 tab QID PO 02/16/24 18:00 02/22/24 18:03 1 TAB Levothyroxine Sodium 75 mcg DAILY@0600 PO 02/17/24 06:00 02/22/24 05:53 75 MCG Sertraline HCl 150 mg DAILY PO 02/17/24 10:00 02/22/24 09:12 150 MG Diagnostic Test (Pha) 1 strip ACHS 02/16/24 17:00 02/22/24 16:12 1 STRIP Insulin Human Regular ACHS SC 02/16/24 17:00 02/22/24 16:14 2 UNITS Dextrose 50 ml UD PRN IV 02/16/24 13:00 Magnesium Oxide 400 mg BID PO 02/16/24 22:00 02/22/24 09:10 400 MG Metoprolol Succinate 25 mg DAILY PO 02/18/24 10:00 02/22/24 09:13 25 MG Docusate Sodium 100 mg BIDPRN PRN PO 02/17/24 14:45 02/17/24 15:31 100 MG Lorazepam 1 mg ONCE PRN IV 02/17/24 23:00 Furosemide 40 mg DAILY PO 02/20/24 10:00 02/22/24 09:13 40 MG Atorvastatin Calcium 40 mg HS PO 02/21/24 22:00 02/21/24 21:29 40 MG Dexamethasone Sodium Phosphate 6 mg DAILY IV 02/22/24 10:00 02/22/24 10:06 6 MG Pantoprazole Sodium 40 mg DAILY IV 02/23/24 10:00 Ipratropium [place] 0.5 mg Q4HR NEB 02/22/24 14:00 02/22/24 13:47 0.5 MG Levalbuterol HCl 1.25 mg Q4HR NEB 02/22/24 14:00 02/22/24 13:47 1.25 MG objective GENERAL: Awake, alert, oriented. LUNGS: Clear. CARDIOVASCULAR: Heart sounds are good. ABDOMEN: Soft. laboratory and microbiology Laboratory Tests 02/22/24 09:23 02/22/24 05:26 Test 02/22/24 05:26 Range/Units Serum Glucose 116 H 74-106 mg/dL Problem List Preprocedural cardiovascular examination. Acute on chronic decompensated HFrEF, NYHA class III-IV. Acute on chronic respiratory failure with possible pneumonia. Paroxysmal atrial fibrillation (on Amiodarone and Eliquis). 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 Insulin-dependent diabetes mellitus. Hypertension. COPD on home O2. Uncontrolled hypothyroidism (TSH 78.12). Obesity. Plan/Recommendation Continued all current supportive medical care. Patient has been seen by Radha Ballesteros NP on my behalf, her and I discussed the plan with the patient. Transthoracic echocardiogram reveals an LVEF of 25% with severe biventricular dilatation. A twelve lead electrocardiogram reveals atrial fibrillation. Revised cardiac risk index (Shola criteria): 2 points (10.1%, risk of major cardiac event). A chest x-ray done today shows pulmonary congestion. The patient has an underlying history of congestive heart failure. Prior to admission, the patient reports a poor functional capacity in which she is mostly bed ridden for the last couple of months. Per Cardiology standpoint, the patient is at a high risk for moderate risk surgery. We will recommend to optimize the patient prior to surgical intervention including diuresis as tolerated. Of note, the patient takes NOAC therapy with low-dose Eliquis ([id number] VASc score: 6 points). We will recommend to resume NOAC therapy within 24 hours status post procedure if low postprocedural bleeding risk. Resume NOAC therapy within 48-72 hours if high postprocedural bleeding risk. Continue with GDMT for CHF as tolerated. The patient may qualify for ICD implantation if no improvement in EF within 3-6 months on GDMT. Additional plan as per the hospital course. Assessment/Plan Continued all current supportive medical care. Amiodarone. Lipitor, Metoprolol. IV antibiotics as ordered. Jardiance. Diuretics with Lasix. GI prophylactics. Oxycodone for pain management. Additional plan as per the hospital course. Dietary Evaluation Review Comments: 1. For better ocntrolled DM, recommen 2 gNa Lo Fat Lo Cholesterol CCHO-60g diet. 2. Monitor Po intake to meet 75% pf her needs. Expected Outcomes/Goals: Gradual weight loss. Plan discussed with: Patient GEE MIDDLETON MD Feb 22, 2024 18:13
[2024-02-23] VITALS (22 sets, daily range): BP systolic 99–121; BP diastolic 60–78; PULSE 72–106; RESP 14–20; TEMP 97.3–98; O2SAT 94–100
[2024-02-23 11:02] LABS: Anion Gap 6 (5-15); Chloride 99 mmol/L (98-107); Potassium 4.2 mmol/L (3.5-5.1); Sodium 138 mmol/L (136-145)
[2024-02-23 11:04] LABS: Calcium 9.1 mg/dL (8.7-10.4); Carbon Dioxide 33 mmol/L (20-31)
[2024-02-23 11:08] LABS: BUN/Creatinine Ratio 26.8 (10.0-20.0)
[2024-02-23 11:10] LABS: Blood Urea Nitrogen 30 mg/dL (9-23); Glucose 141 mg/dL (74-106); Magnesium 3.2 mg/dL (1.6-2.6)
[2024-02-23] MEDS: PANTOPRAZOLE 40 MG/10 ML VIAL INJ IV SCH (12:05)
--- NOTE | 2024-02-23 20:29 | DVHPN2 ---
Assessment/Plan Assessment/Plan Progress note Subjective family conference tomorrow at 10am, discussed plan with daughter bedside. Physical exam Alert oriented s1 s2 RRR, systolic murmur jvd midneck basal crackles abdomen soft nontender trace le edema UE LE strength R>L equal sensory to touch Labs and imaging reviewed Assessment and plan acute on chronic hypoxic respiratory failure COPD group E on home O2 acute on chronic systolic heart failure heart failure with reduced ejection fraction 25% cervical spondylolithesis with cord compression? IDDM hypothyroidism uncontrolled afib on NOAC seen by ortho spine, for surgery, however patient want to hold cardio consult high risk for moderate risk procedure pulm consult moderate to high risk neuro consult appreciated c/w lasix resume [facility] em[facility] pt candidate for ICD albuterol ipatropium nebs decadron levothyroxine basal bolus ISS fs x4 if no surgery, will do pt and placement after medically stable family wants 2nd opinion from NS diet mechanical soft diabetic DVT PPX on full AC Plan discussed with: Patient, Daughter My Orders Orders - STU GALINDO MD Procedure Category Date Status Time Insert Midline ORDERS 02/23/24 Transmitted 09:55 Patients Own PHA 02/23/24 In Process Medication 16:00 Date of Service: Feb 23, 2024 Billing Provider: STU GALINDO MD Common Visit Codes: [id number] INP/OBS CARE(HIGH) STU GALINDO MD Feb 23, 2024 20:29
--- NOTE | 2024-02-23 23:09 | DVHPN2 ---
Progress Note - Dictate Date Seen: Feb 23, 2024 Medical Necessity Reason Pt with a Central, PICC or Fol: No The following are medically ne: Pandya Catheter Reason for pandya catheter: Strict I&O Subjective Patient was seen and evaluated in follow up. No overnight events. Patient denies any current complaints. CO2 33, BUN 30, SPICE MIXER 1.12. Telemetry reviewed. vital signs Vital Sign Date Time Temp Pulse Resp B/P (MAP) Pulse Ox O2 Delivery O2 Flow Rate FiO2 02/23/24 18:49 96 20 98 02/23/24 18:38 Nasal Cannula* 5 40 02/23/24 17:00 97.8 112/74 (87) 97.8 Total Intake and Output 02/22/24 02/22/24 02/23/24 15:00 23:00 07:00 Intake Total 50 ml 300 ml 295 ml Output Total 550 ml 300 ml Balance 50 ml -250 ml -5 ml medications Current Medications Medications Dose Ordered Sig/Terrence Route Start Time Stop Time Status Last Admin Dose Admin Nitroglycerin 0.4 mg Q5MINP PRN SL 02/16/24 12:15 Ceftriaxone Sodium 50 ml @ 100 mls/hr DAILY@09 IV 02/17/24 09:00 02/23/24 11:59 100 MLS/HR Amiodarone HCl 200 mg DAILY PO 02/17/24 10:00 02/23/24 09:41 200 MG Donepezil HCl 5 mg DAILY PO 02/17/24 10:00 02/23/24 09:41 5 MG Empaglifozin 10 mg DAILY PO 02/17/24 10:00 02/23/24 09:40 10 MG Gabapentin 300 mg BID PO 02/16/24 22:00 02/23/24 09:41 300 MG Oxycodone/ Acetaminophen 1 tab QID PO 02/16/24 18:00 02/23/24 17:42 1 TAB Levothyroxine Sodium 75 mcg DAILY@0600 PO 02/17/24 06:00 02/23/24 06:01 75 MCG Sertraline HCl 150 mg DAILY PO 02/17/24 10:00 02/23/24 09:41 150 MG Diagnostic Test (Pha) 1 strip ACHS 02/16/24 17:00 02/23/24 17:35 1 STRIP Insulin Human Regular ACHS SC 02/16/24 17:00 02/23/24 17:35 4 UNITS Dextrose 50 ml UD PRN IV 02/16/24 13:00 Magnesium Oxide 400 mg BID PO 02/16/24 22:00 02/23/24 09:40 400 MG Metoprolol Succinate 25 mg DAILY PO 02/18/24 10:00 02/23/24 09:43 25 MG Docusate Sodium 100 mg BIDPRN PRN PO 02/17/24 14:45 02/17/24 15:31 100 MG Lorazepam 1 mg ONCE PRN IV 02/17/24 23:00 Furosemide 40 mg DAILY PO 02/20/24 10:00 02/23/24 09:49 40 MG Atorvastatin Calcium 40 mg HS PO 02/21/24 22:00 02/22/24 22:12 40 MG Dexamethasone Sodium Phosphate 6 mg DAILY IV 02/22/24 10:00 02/23/24 12:03 6 MG Pantoprazole Sodium 40 mg DAILY IV 02/23/24 10:00 02/23/24 12:05 40 MG Ipratropium [place] 0.5 mg Q4HR NEB 02/22/24 14:00 02/23/24 18:41 0.5 MG Levalbuterol HCl 1.25 mg Q4HR NEB 02/22/24 14:00 02/23/24 18:41 1.25 MG Patient Own Medication 1 PRN PRN TOP 02/23/24 16:00 objective GENERAL: Awake, alert, oriented. LUNGS: Clear. CARDIOVASCULAR: Heart sounds are good. ABDOMEN: Soft. laboratory and microbiology Laboratory Tests 02/23/24 09:15 02/22/24 09:23 Test 02/23/24 09:15 Range/Units Serum Glucose 141 H 74-106 mg/dL Problem List Preprocedural cardiovascular examination. Acute on chronic decompensated HFrEF, NYHA class III-IV. Acute on chronic respiratory failure with possible pneumonia. Paroxysmal atrial fibrillation (on Amiodarone and Eliquis). 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 Insulin-dependent diabetes mellitus. Hypertension. COPD on home O2. Uncontrolled hypothyroidism (TSH 78.12). Obesity. Plan/Recommendation Continued all current supportive medical care. Patient has been seen by Radha Ballesteros NP on my behalf, her and I discussed the plan with the patient. Transthoracic echocardiogram reveals an LVEF of 25% with severe biventricular dilatation. A twelve lead electrocardiogram reveals atrial fibrillation. Revised cardiac risk index (Shola criteria): 2 points (10.1%, risk of major cardiac event). A chest x-ray done today shows pulmonary congestion. The patient has an underlying history of congestive heart failure. Prior to admission, the patient reports a poor functional capacity in which she is mostly bed ridden for the last couple of months. Per Cardiology standpoint, the patient is at a high risk for moderate risk surgery. We will recommend to optimize the patient prior to surgical intervention including diuresis as tolerated. Of note, the patient takes NOAC therapy with low-dose Eliquis ([id number] VASc score: 6 points). We will recommend to resume NOAC therapy within 24 hours status post procedure if low postprocedural bleeding risk. Resume NOAC therapy within 48-72 hours if high postprocedural bleeding risk. Continue with GDMT for CHF as tolerated. The patient may qualify for ICD implantation if no improvement in EF within 3-6 months on GDMT. Additional plan as per the hospital course. Assessment/Plan Continued all current supportive medical care. Amiodarone. Lipitor, Metoprolol. IV antibiotics as ordered. Jardiance. Diuretics with Lasix. GI prophylactics. Oxycodone for pain management. Additional plan as per the hospital course. Dietary Evaluation Review Comments: 1. For better ocntrolled DM, recommen 2 gNa Lo Fat Lo Cholesterol CCHO-60g diet. 2. Monitor Po intake to meet 75% pf her needs. Expected Outcomes/Goals: Gradual weight loss. Plan discussed with: Patient GEE MIDDLETON MD Feb 23, 2024 19:26
--- NOTE | 2024-02-23 23:52 | DVHPN2 ---
Progress Note - Dictate Date Seen: Feb 23, 2024 Medical Necessity Reason Pt with a Central, PICC or Fol: No The following are medically ne: Pandya Catheter Reason for pandya catheter: Strict I&O Subjective Patient seen and examined at bedside. On supplemental oxygen Overnight events reviewed. vital signs Vital Sign Date Time Temp Pulse Resp B/P (MAP) Pulse Ox O2 Delivery O2 Flow Rate FiO2 02/23/24 22:04 92 20 100 02/23/24 21:54 Nasal Cannula* 5 40 02/23/24 21:00 97.5 106/72 (83) 97.5 Total Intake and Output 02/22/24 02/22/24 02/23/24 15:00 23:00 07:00 Intake Total 50 ml 300 ml 295 ml Output Total 550 ml 300 ml Balance 50 ml -250 ml -5 ml medications Current Medications Medications Dose Ordered Sig/Terrence Route Start Time Stop Time Status Last Admin Dose Admin Nitroglycerin 0.4 mg Q5MINP PRN SL 02/16/24 12:15 Ceftriaxone Sodium 50 ml @ 100 mls/hr DAILY@09 IV 02/17/24 09:00 02/23/24 11:59 100 MLS/HR Amiodarone HCl 200 mg DAILY PO 02/17/24 10:00 02/23/24 09:41 200 MG Donepezil HCl 5 mg DAILY PO 02/17/24 10:00 02/23/24 09:41 5 MG Empaglifozin 10 mg DAILY PO 02/17/24 10:00 02/23/24 09:40 10 MG Gabapentin 300 mg BID PO 02/16/24 22:00 02/23/24 22:12 300 MG Oxycodone/ Acetaminophen 1 tab QID PO 02/16/24 18:00 02/23/24 22:14 1 TAB Levothyroxine Sodium 75 mcg DAILY@0600 PO 02/17/24 06:00 02/23/24 06:01 75 MCG Sertraline HCl 150 mg DAILY PO 02/17/24 10:00 02/23/24 09:41 150 MG Diagnostic Test (Pha) 1 strip ACHS 02/16/24 17:00 02/23/24 22:14 1 STRIP Insulin Human Regular ACHS SC 02/16/24 17:00 02/23/24 22:12 6 UNITS Dextrose 50 ml UD PRN IV 02/16/24 13:00 Magnesium Oxide 400 mg BID PO 02/16/24 22:00 02/23/24 22:12 400 MG Metoprolol Succinate 25 mg DAILY PO 02/18/24 10:00 02/23/24 09:43 25 MG Docusate Sodium 100 mg BIDPRN PRN PO 02/17/24 14:45 02/17/24 15:31 100 MG Lorazepam 1 mg ONCE PRN IV 02/17/24 23:00 Furosemide 40 mg DAILY PO 02/20/24 10:00 02/23/24 09:49 40 MG Atorvastatin Calcium 40 mg HS PO 02/21/24 22:00 02/23/24 22:12 40 MG Dexamethasone Sodium Phosphate 6 mg DAILY IV 02/22/24 10:00 02/23/24 12:03 6 MG Pantoprazole Sodium 40 mg DAILY IV 02/23/24 10:00 02/23/24 12:05 40 MG Ipratropium [place] 0.5 mg Q4HR NEB 02/22/24 14:00 02/23/24 21:58 0.5 MG Levalbuterol HCl 1.25 mg Q4HR NEB 02/22/24 14:00 02/23/24 21:58 1.25 MG Patient Own Medication 1 PRN PRN TOP 02/23/24 16:00 objective Gen.: Patient lying in bed in no apparent distress. On supplemental oxygen. Eyes: EOMI/PERRLA. Ears: Normal hearing. Normal anatomy. Neck/trachea: Trachea midline, supple. Nose: Normal external anatomy. Mouth: Moist mucous membranes. Chest: Fair air entry bilaterally. No wheezing or rhonchi. Cardio vascular: Positive S1, positive S2. Regular rate and rhythm. Abdomen: Positive bowel sounds in all 4 quadrants. Soft, non-tender, non- distended. : Deferred. Rectal: Deferred Skin: Warm, dry. Extremities: 2+ radial pulses bilaterally. No lower extremity edema. Neuro: Awake, alert, oriented x3. No gross motor or sensory deficits. Cranial nerves II through XII intact. Gait not assessed. laboratory and microbiology Laboratory Tests 02/23/24 09:15 02/22/24 09:23 Test 02/23/24 09:15 Range/Units Serum Glucose 141 H 74-106 mg/dL Assessment/Plan Impression: Acute on chronic hypoxic respiratory failure COPD exacerbation, improving Elevated D-dimer CHF exacerbation Possible pneumonia, right mid lobe with pleural effusion Pulmonary hypertension Chronic AFib with RVR ZEKE on CKD stage 3 DM type II Dementia Obesity BMI 30 Events: Remains on supplemental oxygen at 5 LPM NC Increased O2 requirements Taper O2 as tolerated BiPAP PRN. Continue bronchodilators Continue steroids - Decadron Continue antibiotics. Diurese as tolerated w/ Lasix QD Monitor renal function Monitor electrolytes. Supplement as necessary. Plan for spine surgery. CT of the chest report and images reviewed. No acute pulmonary embolism. Right middle lobe infectious process with [id number] right pleural effusion. Chronic fibrotic subpleural changes and interstitial thickening. FEV1 on bedside spirometry is below 1 L Pt is at moderate to high risk for pulmonary complications given her FEV1 is below 1 L. Pt can proceed to procedure with knowledge of underlying risks of procedure and knowledge of the inherent risks. No further pulmonary testing is needed. Spine surgery recommendations appreciated. Rest of plan as outlined below. Plan: Supplemental oxygen Titrate to keep O2 sats above 92%. Continue steroids Continue antibiotics Follow up cultures PO amiodarone Cardiology recs appreciated Pain control Avoid oversedation Monitor renal function. Monitor electrolytes. Supplement as necessary. Monitor ins and outs. Follow up nephrology recs DVT prophylaxis. Prognosis: Poor given patient's multiple co-morbidities. Rest of plan per hospitalist and other consultants. Thank you Dr. Roa, for allowing me to participate in this patient's care. Further recommendations will depend on the patient's clinical course. Please do not hesitate to contact me if you have any questions or concerns. This medical document was created using an electronic medical record system with [employer] dictation system. Although these documentations are being carefully reviewed, there may still be some phonetic and typographical changes. The errors are purely typographical, due to imperfection on the software program, and do not reflect any compromise in the patient's medical care. Dietary Evaluation Review Comments: 1. For better ocntrolled DM, recommen 2 gNa Lo Fat Lo Cholesterol CCHO-60g diet. 2. Monitor Po intake to meet 75% pf her needs. Expected Outcomes/Goals: Gradual weight loss. Plan discussed with: Patient, Other (ROYAL Ruiz) JONE ALEXANDRA MD Feb 23, 2024 23:52
[2024-02-24] VITALS (22 sets, daily range): BP systolic 92–121; BP diastolic 57–88; PULSE 76–96; RESP 14–20; TEMP 97.3–98; O2SAT 95–100
[2024-02-24 05:49] LABS: Chloride 101 mmol/L (98-107); Potassium 4.1 mmol/L (3.5-5.1); Sodium 137 mmol/L (136-145)
[2024-02-24 05:50] LABS: Anion Gap 9 (5-15); Calcium 9.7 mg/dL (8.7-10.4); Carbon Dioxide 27 mmol/L (20-31)
[2024-02-24 05:55] LABS: BUN/Creatinine Ratio 19.2 (10.0-20.0); Blood Urea Nitrogen 14 mg/dL (9-23)
[2024-02-24 05:59] LABS: Glucose 125 mg/dL (74-106)
--- NOTE | 2024-02-24 11:09 | DVHPN2 ---
Progress Note Date Seen: Feb 24, 2024 Medical Necessity Reason Pt with a Central, PICC or Fol: No The following are medically ne: Pandya Catheter Reason for pandya catheter: Strict I&O Subjective Patient reports: No new complaints Review of Systems: HEENT:Normal, CVS:Normal, RESPIRATORY:Normal, GI:Normal, :Normal, MSK:Normal, NEURO:Normal Objective vital signs Vital Sign Date Time Temp Pulse Resp B/P (MAP) Pulse Ox O2 Delivery O2 Flow Rate FiO2 02/24/24 10:11 96 20 98 02/24/24 09:00 97.3 108/88 (95) 97.3 02/24/24 06:40 Nasal Cannula* 4 36 Total Intake and Output 02/23/24 02/23/24 02/24/24 15:00 23:00 07:00 Intake Total 50 ml 380 ml 240 ml Output Total 550 ml 350 ml Balance 50 ml -170 ml -110 ml medications Current Medications Medications Dose Ordered Sig/Terrence Route Start Time Stop Time Status Last Admin Dose Admin Nitroglycerin 0.4 mg Q5MINP PRN SL 02/16/24 12:15 Ceftriaxone Sodium 50 ml @ 100 mls/hr DAILY@09 IV 02/17/24 09:00 02/23/24 11:59 100 MLS/HR Amiodarone HCl 200 mg DAILY PO 02/17/24 10:00 02/23/24 09:41 200 MG Donepezil HCl 5 mg DAILY PO 02/17/24 10:00 02/23/24 09:41 5 MG Empaglifozin 10 mg DAILY PO 02/17/24 10:00 02/23/24 09:40 10 MG Gabapentin 300 mg BID PO 02/16/24 22:00 02/23/24 22:12 300 MG Oxycodone/ Acetaminophen 1 tab QID PO 02/16/24 18:00 02/24/24 06:21 1 TAB Levothyroxine Sodium 75 mcg DAILY@0600 PO 02/17/24 06:00 02/24/24 06:21 75 MCG Sertraline HCl 150 mg DAILY PO 02/17/24 10:00 02/23/24 09:41 150 MG Diagnostic Test (Pha) 1 strip ACHS 02/16/24 17:00 02/24/24 06:19 1 STRIP Insulin Human Regular ACHS SC 02/16/24 17:00 02/23/24 22:12 6 UNITS Dextrose 50 ml UD PRN IV 02/16/24 13:00 Magnesium Oxide 400 mg BID PO 02/16/24 22:00 02/23/24 22:12 400 MG Metoprolol Succinate 25 mg DAILY PO 02/18/24 10:00 02/23/24 09:43 25 MG Docusate Sodium 100 mg BIDPRN PRN PO 02/17/24 14:45 02/17/24 15:31 100 MG Lorazepam 1 mg ONCE PRN IV 02/17/24 23:00 Furosemide 40 mg DAILY PO 02/20/24 10:00 02/23/24 09:49 40 MG Atorvastatin Calcium 40 mg HS PO 02/21/24 22:00 02/23/24 22:12 40 MG Dexamethasone Sodium Phosphate 6 mg DAILY IV 02/22/24 10:00 02/23/24 12:03 6 MG Pantoprazole Sodium 40 mg DAILY IV 02/23/24 10:00 02/23/24 12:05 40 MG Ipratropium [place] 0.5 mg Q4HR NEB 02/22/24 14:00 02/24/24 10:02 0.5 MG Levalbuterol HCl 1.25 mg Q4HR NEB 02/22/24 14:00 02/24/24 10:02 1.25 MG Patient Own Medication 1 PRN PRN TOP 02/23/24 16:00 Examination: GENERAL:Normal, HEENT:Normal, NECK:Normal, LUNGS:Normal, LUNGS:Abnormal (on oxygen), CVS:Normal, ABDOMEN:Normal, MSK:Normal, SKIN:Normal, NEURO:Normal, :Normal laboratory and microbiology Laboratory Tests 02/24/24 04:48 02/22/24 09:23 Test 02/24/24 04:48 Range/Units Serum Glucose 125 H 74-106 mg/dL Problem List/Assessment/Plan Problem List/Assessment/Plan #1 acute resp failure: cont oxygen #2 acute on chronic systolic heart failure: lasix iv #3 liver cirrhosis: check hep panel #4 hypothyroidism: check tsh #5 acute renal failure ?vasomotor nephropathy #6 h/o a fib: hold eliquis #7 copd #8 anemia #9 quadriparesis/ cervical spine compression: consult dr Farzana thakkar dw daughter/grand daughter- reviewed labs and plan of care advance care planning- full code-time spent 21 mins Plan discussed with: Patient, Daughter Dietary Evaluation Review Comments: 1. For better ocntrolled DM, recommen 2 gNa Lo Fat Lo Cholesterol CCHO-60g diet. 2. Monitor Po intake to meet 75% pf her needs. Expected Outcomes/Goals: Gradual weight loss. Date of Service: Feb 24, 2024 Billing Provider: SAIDA HAN MD Common Visit Codes: [id number] INP/OBS CARE(HIGH) SAIDA HAN MD Feb 24, 2024 11:09
[2024-02-24] MEDS: FUROSEMIDE 40 MG/4 ML VIAL IV ONE (11:49)
--- NOTE | 2024-02-24 12:35 | DVH ---
CHEST RADIOGRAPH Indication: chf Technique: Single frontal view of the chest was obtained Comparison: XY CHEST PORTABLE on DOS: 02/22/24, XY CHEST XRAY 1 VIEW on DOS: 02/21/24, XY CHEST PORTABL E on DOS: 02/16/24, XY CHEST PORTABLE on DOS: 12/23/23, XY CHEST PORTABLE on DOS: 09/12/23, XY CHEST PORT ABLE on DOS: 02/22/24 FINDINGS: Lines and Tubes: None Lungs: Right lower lung zone opacification. Diffuse interstitial prominence. Bronchovascular crowdi ng due to low lung volumes. Elevated right hemidiaphragm. No pneumothorax. Cardiomediastinal contours: Mild cardiomegaly. Bones: No acute osseous abnormality. Surgical clips are noted over the left axilla. IMPRESSION: Mild cardiomegaly with findings suggestive of congestive heart failure. Right lower lung zone opacification which may represent pneumonia / atelectasis. Underlying trace ri ght-sided pleural effusion can not be excluded.
--- NOTE | 2024-02-24 20:20 | DVHPN2 ---
Progress Note - Dictate Date Seen: Feb 24, 2024 Medical Necessity Reason Pt with a Central, PICC or Fol: No The following are medically ne: Pandya Catheter Reason for pandya catheter: Strict I&O Subjective Mr. Whitney is a 78 years old right-handed female with a history of hypertension, diabetes, congestive heart failure, atrial fibrillation, asthma, scoliosis, breast cancer, she was brought from her nursing home facility to [facility] on 02/16/2024 for shortness breath, but patient also has other complaints. I have seen and examined the patient, I have discussed with her nurse, her daughter is in the room. The reports no changes She was awake, oriented x3 On physical examination, there is no of the changes in muscle power, there is no sensory level Urinalysis, 02/16/2024: Unremarkable ABG, 02/16/2024: Hypoxia, carbon dioxide retention WBC/HB/PLT/MCV, 02/17/2024: 4.5/9.5/277/81.3 PTT/INR/ABG, 02/16/2024: 14/1.35/35.8 BUN/CR, 02/17/2024: 46/1.43 Liver function tests, 02/17/2024: Unremarkable TG/HDL/LDL/HDL, 09/14/2023: 96/106/54/31 TSH, 09/14/2023: 0.56, 01/11/2024: 41.3 CT head, 02/16/2024: No acute intracranial abnormality CTA chest, 02/16/2024: 1. No pulmonary embolism. 2. Consolidation in the right middle lobe concerning for infectious process with [id number] right pleural effusion 3. Chronic appearing fibrotic subpleural changes in interstitial thickening. 4. Cirrhotic appearance of the liver with mild ascites MRI brain 02/18/2024: No evidence of acute infarction, intracranial hemorrhage, mass effect or hydrocephalus. Mild changes of chronic microvascular ischemic disease MRI C-spine 02/18/2024: 1. Multilevel degenerative changes in the cervical spine as described above, worst at C3-C4. There is a 6 mm broad-based central disc protrusion at this level resulting in moderate to severe spinal canal stenosis. 2. There is moderate spinal canal stenosis at C4-C5(The cervical spinal cord grossly demonstrates normal signal) vital signs Vital Sign Date Time Temp Pulse Resp B/P (MAP) Pulse Ox O2 Delivery O2 Flow Rate FiO2 02/24/24 18:52 92 20 100 02/24/24 17:00 98.0 104/60 (75) 98.0 02/24/24 14:49 Nasal Cannula 4.0 02/24/24 14:49 36 Total Intake and Output 02/23/24 02/23/24 02/24/24 15:00 23:00 07:00 Intake Total 50 ml 380 ml 240 ml Output Total 550 ml 350 ml Balance 50 ml -170 ml -110 ml medications Current Medications Medications Dose Ordered Sig/Terrence Route Start Time Stop Time Status Last Admin Dose Admin Nitroglycerin 0.4 mg Q5MINP PRN SL 02/16/24 12:15 Ceftriaxone Sodium 50 ml @ 100 mls/hr DAILY@09 IV 02/17/24 09:00 02/24/24 11:23 100 MLS/HR Amiodarone HCl 200 mg DAILY PO 02/17/24 10:00 02/24/24 11:22 200 MG Donepezil HCl 5 mg DAILY PO 02/17/24 10:00 02/24/24 11:22 5 MG Empaglifozin 10 mg DAILY PO 02/17/24 10:00 02/24/24 11:49 10 MG Gabapentin 300 mg BID PO 02/16/24 22:00 02/24/24 11:21 300 MG Oxycodone/ Acetaminophen 1 tab QID PO 02/16/24 18:00 02/24/24 18:28 1 TAB Levothyroxine Sodium 75 mcg DAILY@0600 PO 02/17/24 06:00 02/24/24 06:21 75 MCG Sertraline HCl 150 mg DAILY PO 02/17/24 10:00 02/24/24 11:21 150 MG Diagnostic Test (Pha) 1 strip ACHS 02/16/24 17:00 02/24/24 18:28 1 STRIP Insulin Human Regular ACHS SC 02/16/24 17:00 02/24/24 18:47 2 UNITS Dextrose 50 ml UD PRN IV 02/16/24 13:00 Magnesium Oxide 400 mg BID PO 02/16/24 22:00 02/24/24 11:23 400 MG Docusate Sodium 100 mg BIDPRN PRN PO 02/17/24 14:45 02/17/24 15:31 100 MG Lorazepam 1 mg ONCE PRN IV 02/17/24 23:00 Atorvastatin Calcium 40 mg HS PO 02/21/24 22:00 02/23/24 22:12 40 MG Pantoprazole Sodium 40 mg DAILY IV 02/23/24 10:00 02/24/24 11:21 40 MG Ipratropium [place] 0.5 mg Q4HR NEB 02/22/24 14:00 02/24/24 18:48 0.5 MG Levalbuterol HCl 1.25 mg Q4HR NEB 02/22/24 14:00 02/24/24 18:49 1.25 MG Patient Own Medication 1 PRN PRN TOP 02/23/24 16:00 02/24/24 11:20 1 Furosemide 40 mg DAILY IV 02/25/24 10:00 objective General: the patient is well developed and nourished. No acute distress. MUSCULOSKELETAL EXAM: Mild tenderness to palpation in the cervical spine MENTAL STATUS: Subjective SPEECH, LANGUAGE, HIGHER CORTICAL FUNCTION: no aphasia or dysathria. CRANIAL NERVES: Pupils are equal, round and reactive. EOMs full and conjugate. No nystagmus. Facial sensation intact in all three divisions bilaterally. Mandibular strength intact. Facial muscles symmetrical and strength intact. SENSATION: Sensation to touch and pinprick is normal. No sensory level MOTOR: Normal tone in the upper and lower extremity. Normal muscle bulk. No fasciculations. No abnormal movements or posturing. Muscle strength of the major groups in the upper extremities is 4-5/5 with left side weaker. Muscle strength of the major groups in the lower extremities is 2-3/5 with left-sided weaker REFLEXES: Deep tendon reflexes symmetrically increased in the arms, knees, with possible clonus in the left wrist. Upgoing toes in feet CEREBELLAR/COORDINATION: Finger to nose is unremarkable GAIT/STATION: deferred laboratory and microbiology Laboratory Tests 02/24/24 04:48 02/22/24 09:23 Test 02/24/24 04:48 Range/Units Serum Glucose 125 H 74-106 mg/dL Problem List Quadriparesis, hyperreflexia, gait disturbance, upgoing toes in the left foot C-spine spondylosis/C-spine myelopathy Intracranial pathology ? Stroke Scoliosis Acute on chronic respiratory failure, on home oxygen Congestive heart failure AFib Overall she has a complicated medical background Assessment/Plan Monitoring Supportive treatment Telemetry Respiratory support p.r.n. Oxygen IV antibiotics Eliquis 2.[address] Yanes on case More recommendation per clinical course This medical document was created using an electronic medical record system with [employer] dictation system. Although this document has been carefully reviewed, there may still be some phonetic and typographical errors. These areas are purely typographical due to imperfections of the software programs, and do not reflect any compromise in the patient's medical care Prognosis poor Dietary Evaluation Review Comments: 1. For better ocntrolled DM, recommen 2 gNa Lo Fat Lo Cholesterol CCHO-60g diet. 2. Monitor Po intake to meet 75% pf her needs. Expected Outcomes/Goals: Gradual weight loss. Plan discussed with: Patient, Daughter, Other HARESH BURNETTE MD Feb 24, 2024 20:20
--- NOTE | 2024-02-24 23:28 | DVHPN2 ---
Progress Note - Dictate Date Seen: Feb 24, 2024 Medical Necessity Reason Pt with a Central, PICC or Fol: No The following are medically ne: Pandya Catheter Reason for pandya catheter: Strict I&O Subjective Patient was seen and evaluated in follow up. No overnight events. Family is at bedside. Patient is resting in bed. She is on 4 LPM NC. Patient is receiving PRN med neb treatments. Telemetry reviewed. vital signs Vital Sign Date Time Temp Pulse Resp B/P (MAP) Pulse Ox O2 Delivery O2 Flow Rate FiO2 02/24/24 22:52 94 20 100 02/24/24 21:00 97.8 92/57 (69) 97.8 02/24/24 14:49 Nasal Cannula 4.0 02/24/24 14:49 36 Total Intake and Output 02/23/24 02/23/24 02/24/24 15:00 23:00 07:00 Intake Total 50 ml 380 ml 240 ml Output Total 550 ml 350 ml Balance 50 ml -170 ml -110 ml medications Current Medications Medications Dose Ordered Sig/Terrence Route Start Time Stop Time Status Last Admin Dose Admin Nitroglycerin 0.4 mg Q5MINP PRN SL 02/16/24 12:15 Ceftriaxone Sodium 50 ml @ 100 mls/hr DAILY@09 IV 02/17/24 09:00 02/24/24 11:23 100 MLS/HR Amiodarone HCl 200 mg DAILY PO 02/17/24 10:00 02/24/24 11:22 200 MG Donepezil HCl 5 mg DAILY PO 02/17/24 10:00 02/24/24 11:22 5 MG Empaglifozin 10 mg DAILY PO 02/17/24 10:00 02/24/24 11:49 10 MG Gabapentin 300 mg BID PO 02/16/24 22:00 02/24/24 22:09 300 MG Oxycodone/ Acetaminophen 1 tab QID PO 02/16/24 18:00 02/24/24 22:10 1 TAB Levothyroxine Sodium 75 mcg DAILY@0600 PO 02/17/24 06:00 02/24/24 06:21 75 MCG Sertraline HCl 150 mg DAILY PO 02/17/24 10:00 02/24/24 11:21 150 MG Diagnostic Test (Pha) 1 strip ACHS 02/16/24 17:00 02/24/24 22:00 1 STRIP Insulin Human Regular ACHS SC 02/16/24 17:00 02/24/24 22:30 2 UNITS Dextrose 50 ml UD PRN IV 02/16/24 13:00 Magnesium Oxide 400 mg BID PO 02/16/24 22:00 02/24/24 22:10 400 MG Docusate Sodium 100 mg BIDPRN PRN PO 02/17/24 14:45 02/17/24 15:31 100 MG Lorazepam 1 mg ONCE PRN IV 02/17/24 23:00 Atorvastatin Calcium 40 mg HS PO 02/21/24 22:00 02/24/24 22:09 40 MG Pantoprazole Sodium 40 mg DAILY IV 02/23/24 10:00 02/24/24 11:21 40 MG Ipratropium [place] 0.5 mg Q4HR NEB 02/22/24 14:00 02/24/24 22:37 0.5 MG Levalbuterol HCl 1.25 mg Q4HR NEB 02/22/24 14:00 02/24/24 22:37 1.25 MG Patient Own Medication 1 PRN PRN TOP 02/23/24 16:00 02/24/24 11:20 1 Furosemide 40 mg DAILY IV 02/25/24 10:00 objective GENERAL: Awake, alert, oriented. LUNGS: Clear. CARDIOVASCULAR: Heart sounds are good. ABDOMEN: Soft. laboratory and microbiology Laboratory Tests 02/24/24 04:48 02/22/24 09:23 Test 02/24/24 04:48 Range/Units Serum Glucose 125 H 74-106 mg/dL Problem List Preprocedural cardiovascular examination. Acute on chronic decompensated HFrEF, NYHA class III-IV. Acute on chronic respiratory failure with possible pneumonia. Paroxysmal atrial fibrillation (on Amiodarone and Eliquis). 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 Insulin-dependent diabetes mellitus. Hypertension. COPD on home O2. Uncontrolled hypothyroidism (TSH 78.12). Obesity. Plan/Recommendation Continued all current supportive medical care. Patient has been seen by Radha Ballesteros NP on my behalf, her and I discussed the plan with the patient. Transthoracic echocardiogram reveals an LVEF of 25% with severe biventricular dilatation. A twelve lead electrocardiogram reveals atrial fibrillation. Revised cardiac risk index (Shola criteria): 2 points (10.1%, risk of major cardiac event). A chest x-ray done today shows pulmonary congestion. The patient has an underlying history of congestive heart failure. Prior to admission, the patient reports a poor functional capacity in which she is mostly bed ridden for the last couple of months. Per Cardiology standpoint, the patient is at a high risk for moderate risk surgery. We will recommend to optimize the patient prior to surgical intervention including diuresis as tolerated. Of note, the patient takes NOAC therapy with low-dose Eliquis ([id number] VASc score: 6 points). We will recommend to resume NOAC therapy within 24 hours status post procedure if low postprocedural bleeding risk. Resume NOAC therapy within 48-72 hours if high postprocedural bleeding risk. Continue with GDMT for CHF as tolerated. The patient may qualify for ICD implantation if no improvement in EF within 3-6 months on GDMT. Additional plan as per the hospital course. Assessment/Plan Continued all current supportive medical care. Amiodarone. Lipitor, Metoprolol. IV antibiotics as ordered. Jardiance. Diuretics with Lasix. GI prophylactics. Oxycodone for pain management. Additional plan as per the hospital course. Dietary Evaluation Review Comments: 1. For better ocntrolled DM, recommen 2 gNa Lo Fat Lo Cholesterol CCHO-60g diet. 2. Monitor Po intake to meet 75% pf her needs. Expected Outcomes/Goals: Gradual weight loss. Plan discussed with: Patient GEE MIDDLETON MD Feb 24, 2024 23:28
[2024-02-25] VITALS (23 sets, daily range): BP systolic 108–130; BP diastolic 59–79; PULSE 78–108; RESP 14–20; TEMP 97–98; O2SAT 94–100
[2024-02-25 06:57] LABS: Basophils # (auto) 0 10 ^3/uL (0-0.2); Eosinophils # (auto) 0.1 10 ^3/uL (0-0.8); Hematocrit 32.7 % (36.0-46.0); Lymphocytes # (auto) 0.6 10 ^3/uL (0.4-5.4); Lymphocytes % (auto) 7.7 % (10.0-50.0); Monocytes # (auto) 0.8 10 ^3/uL (0-1.3); Nucleated Red Blood Cells % 0.2 %; Platelet Count (auto) 135 10^3/uL (140-450); Red Cell Distribution Width 20.4 % (11.8-14.3)
[2024-02-25 07:02] LABS: Basophils % (auto) 0.4 % (0.0-2.0); Eosinophils % (auto) 1.2 % (0.0-7.0); Hemoglobin 9.6 g/dL (12.2-16.2); Mean Corpuscular Hemoglobin 24.5 pg (28.0-32.0); Mean Corpuscular Hgb Conc. 29.4 g/dL (32.0-36.0); Mean Corpuscular Volume 83.3 fL (80.0-100.0); Monocytes % (auto) 9.8 % (0.0-12.0); Neutrophils # (auto) 6.3 10 ^3/uL (1.6-8.6); Neutrophils % (auto) 80.9 % (37.0-80.0); Red Blood Cells 3.92 10^6/uL (4.0-5.20); White Blood Cell 7.8 10^3/uL (4.4-10.8)
[2024-02-25 07:15] LABS: INR 1.09 (0.9-1.15); Partial Thromboplastin Time 25.2 SEC (24.5-34.5); Prothrombin Time 11.5 sec (9.3-11.8)
[2024-02-25 07:21] LABS: Anion Gap 8 (5-15); BUN/Creatinine Ratio 29.8 (10.0-20.0); Bilirubin, Total 0.4 mg/dL (0.2-1.0); Calcium 8.9 mg/dL (8.7-10.4); Chloride 99 mmol/L (98-107); Sodium 141 mmol/L (136-145); Total Protein 6.6 g/dL (5.7-8.2)
[2024-02-25 07:23] LABS: Alanine Aminotransferase 117 U/L (7-40); Alkaline Phosphatase 119 U/L (46-116); Aspartate Aminotransferase 172 U/L (13-40); Blood Urea Nitrogen 34 mg/dL (9-23); Carbon Dioxide 34 mmol/L (20-31); Glucose 128 mg/dL (74-106)
[2024-02-25] MEDS: FUROSEMIDE 40 MG/4 ML VIAL IV SCH (10:50)
--- NOTE | 2024-02-25 11:14 | DVHPN2 ---
Progress Note Date Seen: Feb 25, 2024 Medical Necessity Reason Pt with a Central, PICC or Fol: No The following are medically ne: Pandya Catheter Reason for pandya catheter: Strict I&O Subjective Patient reports: No new complaints Review of Systems: HEENT:Normal, CVS:Normal, RESPIRATORY:Normal, GI:Normal, :Normal, MSK:Normal, NEURO:Normal Objective vital signs Vital Sign Date Time Temp Pulse Resp B/P (MAP) Pulse Ox O2 Delivery O2 Flow Rate FiO2 02/25/24 10:50 121/79 02/25/24 10:18 92 16 100 02/25/24 09:00 98.0 98.0 02/25/24 06:15 Nasal Cannula 4.0 02/25/24 06:15 36 Total Intake and Output 02/24/24 02/24/24 02/25/24 15:00 23:00 07:00 Intake Total 50 ml 320 ml 300 ml Output Total 550 ml 250 ml Balance 50 ml -230 ml 50 ml medications Current Medications Medications Dose Ordered Sig/Terrence Route Start Time Stop Time Status Last Admin Dose Admin Nitroglycerin 0.4 mg Q5MINP PRN SL 02/16/24 12:15 Ceftriaxone Sodium 50 ml @ 100 mls/hr DAILY@09 IV 02/17/24 09:00 02/25/24 10:20 100 MLS/HR Amiodarone HCl 200 mg DAILY PO 02/17/24 10:00 02/25/24 10:22 200 MG Donepezil HCl 5 mg DAILY PO 02/17/24 10:00 02/25/24 10:21 5 MG Empaglifozin 10 mg DAILY PO 02/17/24 10:00 02/25/24 10:23 10 MG Gabapentin 300 mg BID PO 02/16/24 22:00 02/25/24 10:22 300 MG Oxycodone/ Acetaminophen 1 tab QID PO 02/16/24 18:00 02/25/24 06:00 1 TAB Levothyroxine Sodium 75 mcg DAILY@0600 PO 02/17/24 06:00 02/25/24 06:00 75 MCG Sertraline HCl 150 mg DAILY PO 02/17/24 10:00 02/25/24 10:21 150 MG Diagnostic Test (Pha) 1 strip ACHS 02/16/24 17:00 02/25/24 06:00 1 STRIP Insulin Human Regular ACHS SC 02/16/24 17:00 02/24/24 22:30 2 UNITS Dextrose 50 ml UD PRN IV 02/16/24 13:00 Magnesium Oxide 400 mg BID PO 02/16/24 22:00 02/25/24 10:22 400 MG Docusate Sodium 100 mg BIDPRN PRN PO 02/17/24 14:45 02/17/24 15:31 100 MG Lorazepam 1 mg ONCE PRN IV 02/17/24 23:00 Atorvastatin Calcium 40 mg HS PO 02/21/24 22:00 02/24/24 22:09 40 MG Pantoprazole Sodium 40 mg DAILY IV 02/23/24 10:00 02/25/24 10:18 40 MG Ipratropium [place] 0.5 mg Q4HR NEB 02/22/24 14:00 02/25/24 10:02 0.5 MG Levalbuterol HCl 1.25 mg Q4HR NEB 02/22/24 14:00 02/25/24 10:02 1.25 MG Patient Own Medication 1 PRN PRN TOP 02/23/24 16:00 02/24/24 11:20 1 Furosemide 40 mg DAILY IV 02/25/24 10:00 02/25/24 10:50 40 MG Examination: GENERAL:Normal, HEENT:Normal, NECK:Normal, LUNGS:Normal, LUNGS:Abnormal (on oxygen), CVS:Normal, ABDOMEN:Normal, MSK:Normal, SKIN:Normal, NEURO:Normal, :Normal laboratory and microbiology Laboratory Tests 02/25/24 06:10 Test 02/25/24 06:10 Range/Units Serum Glucose 128 H 74-106 mg/dL Problem List/Assessment/Plan Problem List/Assessment/Plan #1 acute resp failure: cont oxygen #2 acute on chronic systolic heart failure: lasix #3 liver cirrhosis: check hep panel, dc lipitor #4 hypothyroidism: check tsh #5 acute renal failure ?vasomotor nephropathy #6 h/o a fib: hold eliquis #7 copd #8 anemia #9 quadriparesis/ cervical spine compression: consult dr Farzana thakkar dw daughter/grand daughter- reviewed labs and plan of care advance care planning- full code-time spent 21 mins Plan discussed with: Patient My Orders My Orders Orders - SAIDA HAN MD Procedure Category Date Status Time Pureed DIET 02/24/24 Transmitted Dinner Furosemide Tablet PHA 02/26/24 Verified (Lasix Tablet) 10:00 Oxycodone W/ Acet PHA 02/25/24 Verified 5/325mg Tab (Percocet 11:15 Dietary Evaluation Review Comments: 1. For better ocntrolled DM, recommen 2 gNa Lo Fat Lo Cholesterol CCHO-60g diet. 2. Monitor Po intake to meet 75% pf her needs. Expected Outcomes/Goals: Gradual weight loss. Date of Service: Feb 25, 2024 Billing Provider: SAIDA HAN MD Common Visit Codes: [id number] INP/OBS CARE(HIGH) Secondary Visit Codes: [id number] CARE PLAN 30 MINUTES SAIDA HAN MD Feb 25, 2024 11:14
[2024-02-25] MEDS ORDERED: OXYCODONE W/ ACETAMINOPHEN 5/325MG TABLET PO PRN (11:15)
--- NOTE | 2024-02-25 21:57 | DVHPN2 ---
Progress Note - Dictate Date Seen: Feb 25, 2024 Medical Necessity Reason Pt with a Central, PICC or Fol: No The following are medically ne: Pandya Catheter Reason for pandya catheter: Strict I&O Subjective Patient was seen and evaluated in follow up. Patient is complaining of SOB and is on 3 LPM NC. Patient receiving PRN nebulized breathing treatments. HGB 9.6, HCT 32.7, O2 34, BUN 34, Primary Class Teacher 1.14. Telemetry reviewed. vital signs Vital Sign Date Time Temp Pulse Resp B/P (MAP) Pulse Ox O2 Delivery O2 Flow Rate FiO2 02/25/24 21:00 97.7 108 18 108/69 (82) 97 97.7 02/25/24 18:40 Nasal Cannula 3.0 02/25/24 18:40 32 Total Intake and Output 02/24/24 02/24/24 02/25/24 15:00 23:00 07:00 Intake Total 50 ml 320 ml 300 ml Output Total 550 ml 250 ml Balance 50 ml -230 ml 50 ml medications Current Medications Medications Dose Ordered Sig/Terrence Route Start Time Stop Time Status Last Admin Dose Admin Nitroglycerin 0.4 mg Q5MINP PRN SL 02/16/24 12:15 Amiodarone HCl 200 mg DAILY PO 02/17/24 10:00 02/25/24 10:22 200 MG Donepezil HCl 5 mg DAILY PO 02/17/24 10:00 02/25/24 10:21 5 MG Empaglifozin 10 mg DAILY PO 02/17/24 10:00 02/25/24 10:23 10 MG Levothyroxine Sodium 75 mcg DAILY@0600 PO 02/17/24 06:00 02/25/24 06:00 75 MCG Sertraline HCl 150 mg DAILY PO 02/17/24 10:00 02/25/24 10:21 150 MG Diagnostic Test (Pha) 1 strip ACHS 02/16/24 17:00 02/25/24 21:50 1 STRIP Insulin Human Regular ACHS SC 02/16/24 17:00 02/25/24 21:43 2 UNITS Dextrose 50 ml UD PRN IV 02/16/24 13:00 Magnesium Oxide 400 mg BID PO 02/16/24 22:00 02/25/24 21:17 400 MG Docusate Sodium 100 mg BIDPRN PRN PO 02/17/24 14:45 02/17/24 15:31 100 MG Lorazepam 1 mg ONCE PRN IV 02/17/24 23:00 Pantoprazole Sodium 40 mg DAILY IV 02/23/24 10:00 02/25/24 10:18 40 MG Ipratropium [place] 0.5 mg Q4HR NEB 02/22/24 14:00 02/25/24 18:39 0.5 MG Levalbuterol HCl 1.25 mg Q4HR NEB 02/22/24 14:00 02/25/24 18:40 1.25 MG Patient Own Medication 1 PRN PRN TOP 02/23/24 16:00 02/24/24 11:20 1 Furosemide 40 mg DAILY PO 02/26/24 10:00 Oxycodone/ Acetaminophen 1 tab Q6HP PRN PO 02/25/24 11:15 Hold objective GENERAL: Awake, alert, oriented. LUNGS: Clear. CARDIOVASCULAR: Heart sounds are good. ABDOMEN: Soft. laboratory and microbiology Laboratory Tests 02/25/24 06:10 Test 02/25/24 06:10 Range/Units Serum Glucose 128 H 74-106 mg/dL Problem List Preprocedural cardiovascular examination. Acute on chronic decompensated HFrEF, NYHA class III-IV. Acute on chronic respiratory failure with possible pneumonia. Paroxysmal atrial fibrillation (on Amiodarone and Eliquis). 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 Insulin-dependent diabetes mellitus. Hypertension. COPD on home O2. Uncontrolled hypothyroidism (TSH 78.12). Obesity. Plan/Recommendation Continued all current supportive medical care. Patient has been seen by Radha Ballesteros NP on my behalf, her and I discussed the plan with the patient. Transthoracic echocardiogram reveals an LVEF of 25% with severe biventricular dilatation. A twelve lead electrocardiogram reveals atrial fibrillation. Revised cardiac risk index (Shola criteria): 2 points (10.1%, risk of major cardiac event). A chest x-ray done today shows pulmonary congestion. The patient has an underlying history of congestive heart failure. Prior to admission, the patient reports a poor functional capacity in which she is mostly bed ridden for the last couple of months. Per Cardiology standpoint, the patient is at a high risk for moderate risk surgery. We will recommend to optimize the patient prior to surgical intervention including diuresis as tolerated. Of note, the patient takes NOAC therapy with low-dose Eliquis ([id number] VASc score: 6 points). We will recommend to resume NOAC therapy within 24 hours status post procedure if low postprocedural bleeding risk. Resume NOAC therapy within 48-72 hours if high postprocedural bleeding risk. Continue with GDMT for CHF as tolerated. The patient may qualify for ICD implantation if no improvement in EF within 3-6 months on GDMT. Additional plan as per the hospital course. Assessment/Plan Continued all current supportive medical care. Amiodarone. Lipitor, Metoprolol. IV antibiotics as ordered. Jardiance. Diuretics with Lasix. GI prophylactics. Oxycodone for pain management. Additional plan as per the hospital course. Dietary Evaluation Review Comments: 1. For better ocntrolled DM, recommen 2 gNa Lo Fat Lo Cholesterol CCHO-60g diet. 2. Monitor Po intake to meet 75% pf her needs. Expected Outcomes/Goals: Gradual weight loss. Plan discussed with: Patient GEE MIDDLETON MD Feb 25, 2024 21:57
[2024-02-26] VITALS (19 sets, daily range): BP systolic 109–142; BP diastolic 57–78; PULSE 89–118; RESP 16–19; TEMP 97.5–98; O2SAT 10–100
[2024-02-26 06:49] LABS: Alanine Aminotransferase 127 U/L (7-40); Albumin 4.1 g/dL (3.2-4.8); Alkaline Phosphatase 128 U/L (46-116); Anion Gap 7 (5-15); Aspartate Aminotransferase 164 U/L (13-40); BUN/Creatinine Ratio 30.2 (10.0-20.0); Bilirubin, Total 0.4 mg/dL (0.2-1.0); Blood Urea Nitrogen 29 mg/dL (9-23); Calcium 9.1 mg/dL (8.7-10.4); Carbon Dioxide 37 mmol/L (20-31); Chloride 98 mmol/L (98-107); Glucose 128 mg/dL (74-106); Sodium 142 mmol/L (136-145); Total Protein 6.8 g/dL (5.7-8.2)
[2024-02-26] MEDS: FUROSEMIDE 40 MG TAB PO SCH (09:04)
--- NOTE | 2024-02-26 11:31 | DVHPN2 ---
Progress Note Date Seen: Feb 26, 2024 Medical Necessity Reason Pt with a Central, PICC or Fol: No The following are medically ne: Pandya Catheter Reason for pandya catheter: Strict I&O Subjective Patient reports: No new complaints Review of Systems: HEENT:Normal, CVS:Normal, RESPIRATORY:Normal, GI:Normal, :Normal, MSK:Normal, NEURO:Normal Objective vital signs Vital Sign Date Time Temp Pulse Resp B/P (MAP) Pulse Ox O2 Delivery O2 Flow Rate FiO2 02/26/24 09:56 100 Nasal Cannula* 4 36 02/26/24 09:56 102 19 02/26/24 09:04 142/78 02/26/24 09:00 97.5 97.5 Total Intake and Output 02/25/24 02/25/24 02/26/24 15:00 23:00 07:00 Intake Total 250 ml 450 ml Output Total 900 ml 350 ml Balance -650 ml 100 ml medications Current Medications Medications Dose Ordered Sig/Terrence Route Start Time Stop Time Status Last Admin Dose Admin Nitroglycerin 0.4 mg Q5MINP PRN SL 02/16/24 12:15 Amiodarone HCl 200 mg DAILY PO 02/17/24 10:00 02/26/24 09:04 200 MG Donepezil HCl 5 mg DAILY PO 02/17/24 10:00 02/26/24 09:02 5 MG Empaglifozin 10 mg DAILY PO 02/17/24 10:00 02/26/24 09:02 10 MG Levothyroxine Sodium 75 mcg DAILY@0600 PO 02/17/24 06:00 02/26/24 06:13 75 MCG Sertraline HCl 150 mg DAILY PO 02/17/24 10:00 02/26/24 09:02 150 MG Diagnostic Test (Pha) 1 strip ACHS 02/16/24 17:00 02/26/24 11:17 1 STRIP Insulin Human Regular ACHS SC 02/16/24 17:00 02/26/24 06:16 2 UNITS Dextrose 50 ml UD PRN IV 02/16/24 13:00 Magnesium Oxide 400 mg BID PO 02/16/24 22:00 02/26/24 10:00 400 MG Docusate Sodium 100 mg BIDPRN PRN PO 02/17/24 14:45 02/17/24 15:31 100 MG Lorazepam 1 mg ONCE PRN IV 02/17/24 23:00 Pantoprazole Sodium 40 mg DAILY IV 02/23/24 10:00 02/26/24 09:04 40 MG Ipratropium [place] 0.5 mg Q4HR NEB 02/22/24 14:00 02/26/24 09:50 0.5 MG Levalbuterol HCl 1.25 mg Q4HR NEB 02/22/24 14:00 02/26/24 09:50 1.25 MG Patient Own Medication 1 PRN PRN TOP 02/23/24 16:00 02/24/24 11:20 1 Furosemide 40 mg DAILY PO 02/26/24 10:00 02/26/24 09:04 40 MG Oxycodone/ Acetaminophen 1 tab Q6HP PRN PO 02/25/24 11:15 Hold Examination: GENERAL:Normal, HEENT:Normal, NECK:Normal, LUNGS:Normal, LUNGS:Abnormal (ON OXYGEN), CVS:Normal, ABDOMEN:Normal, MSK:Normal, SKIN:Normal, NEURO:Normal, :Normal laboratory and microbiology Laboratory Tests 02/26/24 05:37 02/25/24 06:10 Test 02/26/24 05:37 Range/Units Serum Glucose 128 H 74-106 mg/dL Problem List/Assessment/Plan Problem List/Assessment/Plan #1 acute resp failure: cont oxygen #2 acute on chronic systolic heart failure: lasix #3 liver cirrhosis: check hep panel, dc lipitor #4 hypothyroidism: check tsh #5 acute renal failure ?vasomotor nephropathy #6 h/o a fib: hold eliquis #7 copd #8 anemia #9 quadriparesis/ cervical spine compression: consult dr Farzana htakkar dw daughter/grand daughter- reviewed labs and plan of care advance care planning- full code-time spent 21 mins Plan discussed with: Patient My Orders My Orders Orders - SAIDA HAN MD Procedure Category Date Status Time Sertraline Hcl PHA 02/27/24 Verified (Zoloft) 10:00 Tramadol Hcl (Ultram) PHA 02/26/24 Verified 11:30 Comprehensive LAB 02/27/24 Verified Metabolic Panel 06:00 Dietary Evaluation Review Comments: 1. For better ocntrolled DM, recommen 2 gNa Lo Fat Lo Cholesterol CCHO-60g diet. 2. Monitor Po intake to meet 75% pf her needs. Expected Outcomes/Goals: Gradual weight loss. Date of Service: Feb 26, 2024 Billing Provider: SAIDA HAN MD Common Visit Codes: [id number] INP/OBS CARE(HIGH) SAIDA HAN MD Feb 26, 2024 11:31
--- NOTE | 2024-02-26 19:20 | DVHPN2 ---
Progress Note - Dictate Date Seen: Feb 26, 2024 Medical Necessity Reason Pt with a Central, PICC or Fol: No The following are medically ne: Pandya Catheter Reason for pandya catheter: Strict I&O Subjective Patient was seen and evaluated in follow up. Patient is complaining of SOB and O2 was increased to 4 LPM NC. Patient to continue receiving PRN nebulized breathing treatments. CO2 37, BUN 29, AST 164, ALT 127. Patient is awaiting for transfer to [facility]. Telemetry reviewed. vital signs Vital Sign Date Time Temp Pulse Resp B/P (MAP) Pulse Ox O2 Delivery O2 Flow Rate FiO2 02/26/24 13:46 114 19 98 02/26/24 13:40 Nasal Cannula* 4 36 02/26/24 12:55 97.7 120/59 (79) 97.7 Total Intake and Output 02/25/24 02/25/24 02/26/24 15:00 23:00 07:00 Intake Total 250 ml 450 ml Output Total 900 ml 350 ml Balance -650 ml 100 ml medications Current Medications Medications Dose Ordered Sig/Terrence Route Start Time Stop Time Status Last Admin Dose Admin Nitroglycerin 0.4 mg Q5MINP PRN SL 02/16/24 12:15 Amiodarone HCl 200 mg DAILY PO 02/17/24 10:00 02/26/24 09:04 200 MG Donepezil HCl 5 mg DAILY PO 02/17/24 10:00 02/26/24 09:02 5 MG Empaglifozin 10 mg DAILY PO 02/17/24 10:00 02/26/24 09:02 10 MG Levothyroxine Sodium 75 mcg DAILY@0600 PO 02/17/24 06:00 02/26/24 06:13 75 MCG Diagnostic Test (Pha) 1 strip ACHS 02/16/24 17:00 02/26/24 11:17 1 STRIP Insulin Human Regular ACHS SC 02/16/24 17:00 02/26/24 06:16 2 UNITS Dextrose 50 ml UD PRN IV 02/16/24 13:00 Magnesium Oxide 400 mg BID PO 02/16/24 22:00 02/26/24 10:00 400 MG Docusate Sodium 100 mg BIDPRN PRN PO 02/17/24 14:45 02/17/24 15:31 100 MG Lorazepam 1 mg ONCE PRN IV 02/17/24 23:00 Pantoprazole Sodium 40 mg DAILY IV 02/23/24 10:00 02/26/24 09:04 40 MG Ipratropium [place] 0.5 mg Q4HR NEB 02/22/24 14:00 02/26/24 13:40 0.5 MG Levalbuterol HCl 1.25 mg Q4HR NEB 02/22/24 14:00 02/26/24 13:40 1.25 MG Patient Own Medication 1 PRN PRN TOP 02/23/24 16:00 02/24/24 11:20 1 Furosemide 40 mg DAILY PO 02/26/24 10:00 02/26/24 09:04 40 MG Sertraline HCl 100 mg DAILY PO 02/27/24 10:00 Tramadol HCl 50 mg Q6HP PRN PO 02/26/24 11:30 objective GENERAL: Awake, alert, oriented. LUNGS: Clear. CARDIOVASCULAR: Heart sounds are good. ABDOMEN: Soft. laboratory and microbiology Laboratory Tests 02/26/24 05:37 02/25/24 06:10 Test 02/26/24 05:37 Range/Units Serum Glucose 128 H 74-106 mg/dL Problem List Preprocedural cardiovascular examination. Acute on chronic decompensated HFrEF, NYHA class III-IV. Acute on chronic respiratory failure with possible pneumonia. Paroxysmal atrial fibrillation (on Amiodarone and Eliquis). 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 Insulin-dependent diabetes mellitus. Hypertension. COPD on home O2. Uncontrolled hypothyroidism (TSH 78.12). Obesity. Plan/Recommendation Continued all current supportive medical care. Patient has been seen by Radha Ballesteros NP on my behalf, her and I discussed the plan with the patient. Transthoracic echocardiogram reveals an LVEF of 25% with severe biventricular dilatation. A twelve lead electrocardiogram reveals atrial fibrillation. Revised cardiac risk index (Shola criteria): 2 points (10.1%, risk of major cardiac event). A chest x-ray done today shows pulmonary congestion. The patient has an underlying history of congestive heart failure. Prior to admission, the patient reports a poor functional capacity in which she is mostly bed ridden for the last couple of months. Per Cardiology standpoint, the patient is at a high risk for moderate risk surgery. We will recommend to optimize the patient prior to surgical intervention including diuresis as tolerated. Of note, the patient takes NOAC therapy with low-dose Eliquis ([id number] VASc score: 6 points). We will recommend to resume NOAC therapy within 24 hours status post procedure if low postprocedural bleeding risk. Resume NOAC therapy within 48-72 hours if high postprocedural bleeding risk. Continue with GDMT for CHF as tolerated. The patient may qualify for ICD implantation if no improvement in EF within 3-6 months on GDMT. Additional plan as per the hospital course. Assessment/Plan Continued all current supportive medical care. Amiodarone. Lipitor, Metoprolol. IV antibiotics as ordered. Jardiance. Diuretics with Lasix. GI prophylactics. Oxycodone for pain management. Additional plan as per the hospital course. Dietary Evaluation Review Comments: 1. For better ocntrolled DM, recommen 2 gNa Lo Fat Lo Cholesterol CCHO-60g diet. 2. Monitor Po intake to meet 75% pf her needs. Expected Outcomes/Goals: Gradual weight loss. Plan discussed with: Patient GEE MIDDLETON MD Feb 26, 2024 14:22
--- NOTE | 2024-02-26 23:15 | DVHPN2 ---
Progress Note - Dictate Date Seen: Feb 26, 2024 Medical Necessity Reason Pt with a Central, PICC or Fol: No The following are medically ne: Pandya Catheter Reason for pandya catheter: Strict I&O Subjective Mr. Whitney is a 78 years old right-handed female with a history of hypertension, diabetes, congestive heart failure, atrial fibrillation, asthma, scoliosis, breast cancer, she [facility] on 02/16/2024 for shortness breath, but patient also has other complaints. I have seen and examined the patient, I have discussed with her nurse, her daughter is in the room. She was awake, oriented x3 Family had lot of concerns about the C-spine surgery, especially with congestive heart failure, respiratory failure Urinalysis, 02/16/2024: Unremarkable ABG, 02/16/2024: Hypoxia, carbon dioxide retention WBC/HB/PLT/MCV, 02/17/2024: 4.5/9.5/277/81.3 PTT/INR/ABG, 02/16/2024: 14/1.35/35.8 BUN/CR, 02/17/2024: 46/1.43 Liver function tests, 02/17/2024: Unremarkable TG/HDL/LDL/HDL, 09/14/2023: 96/106/54/31 TSH, 09/14/2023: 0.56, 01/11/2024: 41.3 CT head, 02/16/2024: No acute intracranial abnormality CTA chest, 02/16/2024: 1. No pulmonary embolism. 2. Consolidation in the right middle lobe concerning for infectious process with [id number] right pleural effusion 3. Chronic appearing fibrotic subpleural changes in interstitial thickening. 4. Cirrhotic appearance of the liver with mild ascites MRI brain 02/18/2024: No evidence of acute infarction, intracranial hemorrhage, mass effect or hydrocephalus. Mild changes of chronic microvascular ischemic disease MRI C-spine 02/18/2024: 1. Multilevel degenerative changes in the cervical spine as described above, worst at C3-C4. There is a 6 mm broad-based central disc protrusion at this level resulting in moderate to severe spinal canal stenosis. 2. There is moderate spinal canal stenosis at C4-C5(The cervical spinal cord grossly demonstrates normal signal) vital signs Vital Sign Date Time Temp Pulse Resp B/P (MAP) Pulse Ox O2 Delivery O2 Flow Rate FiO2 02/26/24 21:37 91 18 100 02/26/24 21:00 97.8 119/57 (77) 97.8 02/26/24 18:11 Nasal Cannula* 5 40 Total Intake and Output 02/25/24 02/25/24 02/26/24 15:00 23:00 07:00 Intake Total 250 ml 450 ml Output Total 900 ml 350 ml Balance -650 ml 100 ml medications Current Medications Medications Dose Ordered Sig/Terrence Route Start Time Stop Time Status Last Admin Dose Admin Nitroglycerin 0.4 mg Q5MINP PRN SL 02/16/24 12:15 Amiodarone HCl 200 mg DAILY PO 02/17/24 10:00 02/26/24 09:04 200 MG Donepezil HCl 5 mg DAILY PO 02/17/24 10:00 02/26/24 09:02 5 MG Empaglifozin 10 mg DAILY PO 02/17/24 10:00 02/26/24 09:02 10 MG Levothyroxine Sodium 75 mcg DAILY@0600 PO 02/17/24 06:00 02/26/24 06:13 75 MCG Diagnostic Test (Pha) 1 strip ACHS 02/16/24 17:00 02/26/24 21:49 1 STRIP Insulin Human Regular ACHS SC 02/16/24 17:00 02/26/24 16:56 2 UNITS Dextrose 50 ml UD PRN IV 02/16/24 13:00 Magnesium Oxide 400 mg BID PO 02/16/24 22:00 02/26/24 21:49 400 MG Docusate Sodium 100 mg BIDPRN PRN PO 02/17/24 14:45 02/17/24 15:31 100 MG Lorazepam 1 mg ONCE PRN IV 02/17/24 23:00 Pantoprazole Sodium 40 mg DAILY IV 02/23/24 10:00 02/26/24 09:04 40 MG Ipratropium [place] 0.5 mg Q4HR NEB 02/22/24 14:00 02/26/24 21:37 0.5 MG Levalbuterol HCl 1.25 mg Q4HR NEB 02/22/24 14:00 02/26/24 21:37 1.25 MG Patient Own Medication 1 PRN PRN TOP 02/23/24 16:00 02/24/24 11:20 1 Furosemide 40 mg DAILY PO 02/26/24 10:00 02/26/24 09:04 40 MG Sertraline HCl 100 mg DAILY PO 02/27/24 10:00 Tramadol HCl 50 mg Q6HP PRN PO 02/26/24 11:30 objective General: the patient is well developed and nourished. No acute distress. MUSCULOSKELETAL EXAM: Mild tenderness to palpation in the cervical spine MENTAL STATUS: Subjective SPEECH, LANGUAGE, HIGHER CORTICAL FUNCTION: no aphasia or dysathria. CRANIAL NERVES: Pupils are equal, round and reactive. EOMs full and conjugate. No nystagmus. Facial sensation intact in all three divisions bilaterally. Mandibular strength intact. Facial muscles symmetrical and strength intact. SENSATION: Sensation to touch and pinprick is normal. No sensory level MOTOR: Normal tone in the upper and lower extremity. Normal muscle bulk. No fasciculations. No abnormal movements or posturing. Muscle strength of the major groups in the upper extremities is 4-5/5 with left side weaker. Muscle strength of the major groups in the lower extremities is 2-3/5 with left-sided weaker REFLEXES: Deep tendon reflexes symmetrically increased in the arms, knees, with possible clonus in the left wrist. Upgoing toes in feet CEREBELLAR/COORDINATION: Finger to nose is unremarkable GAIT/STATION: deferred laboratory and microbiology Laboratory Tests 02/26/24 05:37 02/25/24 06:10 Test 02/26/24 05:37 Range/Units Serum Glucose 128 H 74-106 mg/dL Problem List Quadriparesis, hyperreflexia, gait disturbance, upgoing toes in the left foot C-spine spondylosis/C-spine myelopathy Intracranial pathology ? Stroke Scoliosis Acute on chronic respiratory failure, on home oxygen Congestive heart failure AFib Assessment/Plan Monitoring Supportive treatment Telemetry Respiratory support p.r.n. Oxygen IV antibiotics Eliquis 2.5 mg b.i.d., hold Dr. Yanes on case Cardiology on Case More recommendation per clinical course This medical document was created using an electronic medical record system with [employer] dictation system. Although this document has been carefully reviewed, there may still be some phonetic and typographical errors. These areas are purely typographical due to imperfections of the software programs, and do not reflect any compromise in the patient's medical care Prognosis poor Dietary Evaluation Review Comments: 1. For better ocntrolled DM, recommen 2 gNa Lo Fat Lo Cholesterol CCHO-60g diet. 2. Monitor Po intake to meet 75% pf her needs. Expected Outcomes/Goals: Gradual weight loss. Plan discussed with: Other HARESH BURNETTE MD Feb 26, 2024 23:15
[2024-02-27] VITALS (19 sets, daily range): BP systolic 110–142; BP diastolic 56–76; PULSE 75–141; RESP 15–21; TEMP 97.3–98.5; O2SAT 93–100
[2024-02-27] MEDS: LORazepam 0.5 MG TAB PO PRN (02:36)
[2024-02-27] MEDS: dilTIAZem 25 MG/5 ML VIAL IV ONE (03:31)
[2024-02-27 08:27] LABS: Anion Gap 5 (5-15); BUN/Creatinine Ratio 24.5 (10.0-20.0); Calcium 9.2 mg/dL (8.7-10.4); Sodium 143 mmol/L (136-145)
[2024-02-27 08:28] LABS: Bilirubin, Total 0.6 mg/dL (0.2-1.0); Total Protein 6.6 g/dL (5.7-8.2)
[2024-02-27 08:36] LABS: Chloride 98 mmol/L (98-107); Potassium 3.4 mmol/L (3.5-5.1)
[2024-02-27 08:37] LABS: Alanine Aminotransferase 147 U/L (7-40); Alkaline Phosphatase 123 U/L (46-116); Aspartate Aminotransferase 188 U/L (13-40); Blood Urea Nitrogen 24 mg/dL (9-23); Carbon Dioxide 40 mmol/L (20-31); Glucose 141 mg/dL (74-106)
[2024-02-27] MEDS: SERTRALINE HCL 50 MG TAB PO SCH (10:21)
[2024-02-27] MEDS: traMADol HCL 50 MG TAB PO PRN (10:22)
--- NOTE | 2024-02-27 10:32 | DVHDS ---
DATE OF DISCHARGE: 02/27/2024 DATE OF TRANSFER: 02/27/2024 HISTORY OF PRESENT ILLNESS: The patient is a 78-year-old lady who was admitted with history of increasing shortness of breath, cough and chest heaviness. The patient has previous history of atrial fibrillation, hypertension, diabetes, COPD and congestive heart failure. HOSPITAL COURSE: The patient was seen in cardiology consult by Dr. Benítez. The patient was noted to have quadriparesis. She had a CT angiography. A CT angiography showed consolidation of the right middle lobe with cirrhosis of the liver. The patient had a brain MRI that showed no acute disease. The patient had a cervical spine MRI, however, that showed multiple DJD in the cervical spine worse at C3 and C4 with severe spinal canal stenosis. The patient was seen by Dr. Yanes who recommended transfer to higher level of care. The patient had elevated liver function tests and will have a liver ultrasound. The patient was thrombocytopenic and her Lovenox was stopped. Hepatitis panel has been negative. The patient will now be transferred to higher level of care once arrangements have been made. FINAL DIAGNOSES: Therefore, * Acute respiratory failure. * Acute on chronic systolic heart failure. * Liver cirrhosis. * Hypothyroidism. * Acute renal failure, questionable vasomotor nephropathy. * History of atrial fibrillation with secondary hypercoagulable state. * Chronic obstructive pulmonary disease. * Anemia. * Quadriparesis with spinal cord compression. * Transaminitis. Time spent in discharge planning and review of plan with the patient's family, consultants was 41 minutes. MD KRYSTLE Blanton/MARY TID: [id number] RECEIPT: [id number]
--- NOTE | 2024-02-27 10:33 | DVHDS2 ---
Discharge Summary Date of Admission Feb 16, 2024 at 12:02 Date of Discharge: Feb 27, 2024 Labs/Diagnostic Data: Laboratory Results Test 02/27/24 07:10 02/26/24 22:03 02/25/24 06:10 02/23/24 09:15 Sodium Level 143 mmol/L (136-145) Potassium Level 3.4 mmol/L (3.5-5.1) Chloride Level 98 mmol/L (98-107) Carbon Dioxide Level 40 mmol/L (20-31) Anion Gap 5 (5-15) Blood Urea Nitrogen 24 mg/dL (9-23) Creatinine 0.98 mg/dL (0.550-1.02) Glomerular Filtration Rate Calc 60 mL/min (>90) BUN/Creatinine Ratio 24.5 (10.0-20.0) Serum Glucose 141 mg/dL (74-106) Calcium Level 9.2 mg/dL (8.7-10.4) Total Bilirubin 0.6 mg/dL (0.2-1.0) Aspartate Amino Transferase (AST) 188 U/L (13-40) Alanine Aminotransferase (ALT) 147 U/L (7-40) Alkaline Phosphatase 123 U/L (46-116) Total Protein 6.6 g/dL (5.7-8.2) Albumin 4.0 g/dL (3.2-4.8) POC Glucose 135 mg/dl (70-106) White Blood Count 7.8 10^3/uL (4.4-10.8) Red Blood Count 3.92 10^6/uL (4.0-5.20) Hemoglobin 9.6 g/dL (12.2-16.2) Hematocrit 32.7 % (36.0-46.0) Mean Corpuscular Volume 83.3 fL (80.0-100.0) Mean Corpuscular Hemoglobin 24.5 pg (28.0-32.0) Mean Corpuscular Hemoglobin Concent 29.4 g/dL (32.0-36.0) Red Cell Distribution Width 20.4 % (11.8-14.3) Platelet Count 135 10^3/uL (140-450) Mean Platelet Volume 9.0 fL (6.9-10.8) Neutrophils (%) (Auto) 80.9 % (37.0-80.0) Lymphocytes (%) (Auto) 7.7 % (10.0-50.0) Monocytes (%) (Auto) 9.8 % (0.0-12.0) Eosinophils (%) (Auto) 1.2 % (0.0-7.0) Basophils (%) (Auto) 0.4 % (0.0-2.0) Neutrophils # (Auto) 6.3 10 ^3/uL (1.6-8.6) Lymphocytes # (Auto) 0.6 10 ^3/uL (0.4-5.4) Monocytes # (Auto) 0.8 10 ^3/uL (0-1.3) Eosinophils # (Auto) 0.1 10 ^3/uL (0-0.8) Basophils # (Auto) 0 10 ^3/uL (0-0.2) Nucleated Red Blood Cells 0.2 % Prothrombin Time 11.5 sec (9.3-11.8) Prothrombin Time INR 1.09 (0.9-1.15) Activated Partial Thromboplast Time 25.2 SEC (24.5-34.5) Phosphorus Level 3.0 mg/dL (2.4-5.1) Magnesium Level 3.2 mg/dL (1.6-2.6) Test 02/18/24 09:29 02/17/24 15:55 02/17/24 05:05 02/16/24 12:51 Thyroid Stimulating Hormone (TSH) 78.12 uIU/mL (0.55-4.78) Digoxin Level < 0.14 ng/mL (0.8-2) B-Type Natriuretic Peptide 1912.43 pg/mL (0-100) Hepatitis A IgM Antibody Negative Hepatitis B Surface Antigen Negative (Negative) Hepatitis B Core IgM Antibody Negative (Negative) Hepatitis C Antibody Negative (Negative) Urine Color Yellow (Yellow) Urine Clarity Clear (Clear) Urine pH 5.0 (5.0-9.0) Urine Specific [place] 1.020 (1.001-1.035) Urine Protein Negative (Negative) Urine Ketones Negative (Negative) Urine Blood Negative /uL (Negative) Urine Nitrite Negative (Negative) Urine Bilirubin Negative (Negative) Urine Urobilinogen Normal mg/dL (Negative) Urine Leukocyte Esterase Negative /uL (Negative) Urine RBC 1 /hpf (0 - 4) Urine WBC 1 /hpf (0 - 5) Urine Squamous Epithelial Cells Few /hpf (<5) Urine Bacteria Few /hpf (None Seen) Urine Hyaline Casts Few /lpf (0 - 2) Urine Glucose Normal mg/dL (Normal) Test 02/16/24 06:30 02/16/24 03:20 02/16/24 03:13 Troponin I High Sensitivity 4 ng/L (</=34) Platelet Estimate Adequate Polychromasia Slight Hypochromasia (manual) Slight Anisocytosis (manual) Slight D-Dimer, Quantitative 0.58 mg/L FEU (0.0-0.49) Blood Gas Specimen Type Arterial Blood Gas Sample Site Right radial Blood Gas Patient Temperature 37.0 Arterial Blood Date Drawn [id number] Arterial Blood pH 7.447 (7.350-7.450) Arterial Blood Partial Pressure CO2 44.5 mmHg (32.0-45.0) Arterial Blood Partial Pressure O2 72.6 mmHg (83.0-108.0) Arterial Blood HCO3 30.0 mmol/L (21.0-28.0) Arterial Blood Oxygen Saturation 94.2 % (94.0-98.0) Arterial Blood Base Excess 5.4 mmol/L (-2.0-3.0) Arterial Blood Oxyhemoglobin 92.8 % (94.0-98.0) Arterial Blood Carboxyhemoglobin 0.9 % (0.5-1.5) Arterial Blood Methemoglobin 0.6 % (0.0-1.5) Nathanael Test Modified Blood Gas Total Hemoglobin 10.40 g/dL (12.0-16.0) Blood Gas Liter Flow 4.00 Blood Gas Modality Nasal cannula Blood Gas Spontaneous Rate 18 FiO2 % 36.0 Specimen Drawn By Tera otero rt Other Laboratory Tests 02/27/24 07:10 02/25/24 06:10 Brief Hx & Hospital Course: see dictated note Condition at Discharge: Fair Final Diagnosis/Problems List cord compression Discharge Disposition: Acute Care Facility Discharge Instruct/Medications Diet: Cardiac 2g Na,low cholest Activity: No Restrictions, As Tolerated Follow Up/Referral: fu with pcp Medications: per apr Discharge Statement: "Patient was advised to return to the ER or call 911 if any headaches, dizziness, shortness of breath, chest pain, abdominal pain, bleeding, fevers, or worsening of medical condition. Patient was counseled about treatment plan, medications, possible side effects, patientverbalized understanding. All questions were answered to the best of my ability. This discharge took greater then 30 minutes in planning, reviewing documentation, counseling the patient, and discussing with other team members." ASSESSMENT ASSESSMENT Assessment cord compression Date of Service: Feb 27, 2024 Billing Provider: SAIDA HAN MD Common Visit Codes: 22003-NWG/OBS DISCH DAY >30min SAIDA HAN MD Feb 27, 2024 10:33
[2024-02-27] MEDS: POTASSIUM EFFERVESENT TAB 25 MEQ PO ONE (11:23)
[2024-02-27 11:25] LABS: Base Excess 10.3 mmol/L (-2.0-3.0)
--- NOTE | 2024-02-27 11:39 | DVH ---
ULTRASOUND ABDOMEN LIMITED INDICATION: elevated lft TECHNIQUE: Multiple real-time sonographic images of the abdomen were obtained. COMPARISON: None FINDINGS: Study is limited secondary to body habitus and bowel gas. The left hepatic lobe is not adequately see n on the current study. The liver demonstrates nodular surface contour. The visualized liver parench yma appears heterogeneous which May relate to hepatocellular disease. . The liver measures 14.6 cm. No discrete hepatic lesion or intrahepatic biliary ductal dilatation is identified. Gallbladder is surgically absent. The common biliary duct is not dilated. The right kidney measures 7.5 cm length. No sonographic evidence of nephrolithiasis or hydronephros is. Pancreas is obscured by bowel gas. IMPRESSION: 1. The liver demonstrates cirrhotic morphology with heterogeneous echotexture and lobular surface con tour. Further evaluation with multiphase CT or MRI abdomen with contrast is recommended. 2. Cholecystectomy. HS:Y
--- NOTE | 2024-02-27 13:04 | ECG ---
[facility] Test Date: 2024-02-27 Test Time: 03:02:49 Pat Name: ZEYAD PENNY Department: Room: [facility]T B Gender: F Bellman: [id number] : 1945 Requested By: SAIDA RYAN Order Number: [id number] Reading MD: Bobby Walker Measurements Intervals [place] Rate: 142 P: 256 DE: 82 QRS: -112 QRSD: 158 T: 78 QT: 341 QTc: 524 Interpretive Statements Atrial fibrillation with rapid ventricular response NIVCD, consider atypical LBBB Electronically Signed On 02-27-2024 13:39:17 PST by Bobby Walker Please click the below link to view image of tracing.
--- NOTE | 2024-02-27 16:47 | CODING ---
Date of Service: Feb 27, 2024 Billing Provider: SAIDA HAN MD Common Visit Codes: [id number] CARE 30-74 MIN SAIDA HAN MD Feb 27, 2024 16:47
[2024-02-27] MEDS: AMPICILLIN & SULBACTAM SODIUM 3 GM in SODIUM CHL 0.9% 100 ML IV SCH (16:51)
[2024-02-27] MEDS: AMIODARONE BOLUS KIT 100 ML IV ONE (17:53)
[2024-02-27] MEDS: AMIODARONE 360mg/200mL PREMIX 200 ML IV ONE (18:03)
[2024-02-27] MEDS: IPRATROPIUM BROM 0.5 MG/2.5ML INH SOL NEB SCH (18:05)
[2024-02-27] MEDS: LEVALBUTEROL HCL 1.25 MG/3 ML NEB NEB SCH (18:05)
[2024-02-27] MEDS ORDERED: SACUBITRIL-VALSARTAN 24mg/26mg TAB PO SCH (22:00)
[2024-02-27] MEDS: APIXABAN 5 MG TAB PO SCH (22:41)
--- NOTE | 2024-02-27 23:21 | DVHPN2 ---
Progress Note - Dictate Date Seen: Feb 27, 2024 Medical Necessity Reason Pt with a Central, PICC or Fol: No The following are medically ne: Pandya Catheter Reason for pandya catheter: Strict I&O Subjective Patient was seen and evaluated in follow up. Patient is complaining of SOB. Patient remains on 2 LPM NC. K 3.4, CO2 40, BUN 24, AST 188, ALT 147. Liver US shows cirrhotic morphology with heterogeneous echotexture and lobular surface contour. vital signs Vital Sign Date Time Temp Pulse Resp B/P (MAP) Pulse Ox O2 Delivery O2 Flow Rate FiO2 02/27/24 10:20 125/68 02/27/24 10:00 98 Nasal Cannula* 2 28 02/27/24 06:28 107 16 02/27/24 05:00 98.4 98.4 Total Intake and Output 02/26/24 02/26/24 02/27/24 15:00 23:00 07:00 Intake Total 350 ml 400 ml Output Total 600 ml 200 ml Balance -250 ml 200 ml medications Current Medications Medications Dose Ordered Sig/Terrence Route Start Time Stop Time Status Last Admin Dose Admin Nitroglycerin 0.4 mg Q5MINP PRN SL 02/16/24 12:15 Amiodarone HCl 200 mg DAILY PO 02/17/24 10:00 02/27/24 10:20 200 MG Donepezil HCl 5 mg DAILY PO 02/17/24 10:00 02/27/24 10:20 5 MG Empaglifozin 10 mg DAILY PO 02/17/24 10:00 02/27/24 10:21 10 MG Levothyroxine Sodium 75 mcg DAILY@0600 PO 02/17/24 06:00 02/27/24 06:15 75 MCG Diagnostic Test (Pha) 1 strip ACHS 02/16/24 17:00 02/27/24 11:23 1 STRIP Insulin Human Regular ACHS SC 02/16/24 17:00 02/27/24 11:32 2 UNITS Dextrose 50 ml UD PRN IV 02/16/24 13:00 Magnesium Oxide 400 mg BID PO 02/16/24 22:00 02/27/24 10:21 400 MG Docusate Sodium 100 mg BIDPRN PRN PO 02/17/24 14:45 02/17/24 15:31 100 MG Lorazepam 1 mg ONCE PRN IV 02/17/24 23:00 Pantoprazole Sodium 40 mg DAILY IV 02/23/24 10:00 02/27/24 10:16 40 MG Ipratropium [place] 0.5 mg Q4HR NEB 02/22/24 14:00 02/27/24 06:20 0.5 MG Levalbuterol HCl 1.25 mg Q4HR NEB 02/22/24 14:00 02/27/24 06:20 1.25 MG Patient Own Medication 1 PRN PRN TOP 02/23/24 16:00 02/24/24 11:20 1 Furosemide 40 mg DAILY PO 02/26/24 10:00 02/27/24 10:20 40 MG Sertraline HCl 100 mg DAILY PO 02/27/24 10:00 02/27/24 10:21 100 MG Tramadol HCl 50 mg Q6HP PRN PO 02/26/24 11:30 02/27/24 10:22 50 MG Lorazepam 0.5 mg Q8HP PRN PO 02/26/24 23:15 02/27/24 02:36 0.5 MG Apixaban 5 mg BID PO 02/27/24 22:00 Sacubitril/ Valsartan 0.5 tab BID PO 02/27/24 22:00 Ampicillin Sodium/ Sulbactam Sodium 3 gm/Sodium Chloride 100 ml @ 100 mls/hr Q8HR IV 02/27/24 14:00 objective GENERAL: Awake, alert, oriented. LUNGS: Clear. CARDIOVASCULAR: Heart sounds are good. ABDOMEN: Soft. laboratory and microbiology Laboratory Tests 02/27/24 07:10 02/25/24 06:10 Test 02/27/24 07:10 Range/Units Serum Glucose 141 H 74-106 mg/dL Problem List Preprocedural cardiovascular examination. Acute on chronic decompensated HFrEF, NYHA class III-IV. Acute on chronic respiratory failure with possible pneumonia. Paroxysmal atrial fibrillation (on Amiodarone and Eliquis). 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 Insulin-dependent diabetes mellitus. Hypertension. COPD on home O2. Uncontrolled hypothyroidism (TSH 78.12). Obesity. Plan/Recommendation Continued all current supportive medical care. Patient has been seen by Radha Ballesteros NP on my behalf, her and I discussed the plan with the patient. Transthoracic echocardiogram reveals an LVEF of 25% with severe biventricular dilatation. A twelve lead electrocardiogram reveals atrial fibrillation. Revised cardiac risk index (Shola criteria): 2 points (10.1%, risk of major cardiac event). A chest x-ray done today shows pulmonary congestion. The patient has an underlying history of congestive heart failure. Prior to admission, the patient reports a poor functional capacity in which she is mostly bed ridden for the last couple of months. Per Cardiology standpoint, the patient is at a high risk for moderate risk surgery. We will recommend to optimize the patient prior to surgical intervention including diuresis as tolerated. Of note, the patient takes NOAC therapy with low-dose Eliquis ([id number] VASc score: 6 points). We will recommend to resume NOAC therapy within 24 hours status post procedure if low postprocedural bleeding risk. Resume NOAC therapy within 48-72 hours if high postprocedural bleeding risk. Continue with GDMT for CHF as tolerated. The patient may qualify for ICD implantation if no improvement in EF within 3-6 months on GDMT. Additional plan as per the hospital course. Assessment/Plan Continued all current supportive medical care. Amiodarone. Lipitor, Metoprolol. IV antibiotics as ordered. Jardiance. Diuretics with Lasix. GI prophylactics. Oxycodone for pain management. Additional plan as per the hospital course. Dietary Evaluation Review Comments: 1. For better ocntrolled DM, recommen 2 gNa Lo Fat Lo Cholesterol CCHO-60g diet. 2. Monitor Po intake to meet 75% pf her needs. Expected Outcomes/Goals: Gradual weight loss. Plan discussed with: Patient GEE MIDDLETON MD Feb 27, 2024 12:41
[2024-02-27] MEDS: AMIODARONE 360mg/200mL PREMIX 200 ML IV SCH (23:40)
[2024-02-28] VITALS (18 sets, daily range): BP systolic 88–148; BP diastolic 63–108; PULSE 113–143; RESP 20–28; TEMP 96.5–97.6; O2SAT 91–98
--- NOTE | 2024-02-28 06:31 | DVH ---
CHEST RADIOGRAPH Indication: CHF Technique: Single frontal view of the chest was obtained Comparison: XY CHEST PORTABLE on DOS: 02/24/24 FINDINGS: Lines and Tubes: There are surgical clips overlying the left axilla. Lungs: The right hemidiaphragm is elevated. Patchy bilateral opacities similar to the prior study. Pleura: Probable right pleural effusion. No pneumothorax. Cardiomediastinal contours: Stable cardiovascular silhouette. Bones: No acute osseous abnormality. IMPRESSION: 1. No significant change in bilateral airspace disease and probable right pleural effusion.
[2024-02-28 07:42] LABS: Eosinophils # (auto) 0 10 ^3/uL (0-0.8); Lymphocytes % (auto) 7.4 % (10.0-50.0); Mean Corpuscular Hgb Conc. 30.1 g/dL (32.0-36.0); White Blood Cell 14.1 10^3/uL (4.4-10.8)
[2024-02-28 07:44] LABS: Basophils # (auto) 0 10 ^3/uL (0-0.2); Basophils % (auto) 0.3 % (0.0-2.0); Eosinophils % (auto) 0.3 % (0.0-7.0); Hematocrit 30.8 % (36.0-46.0); Hemoglobin 9.3 g/dL (12.2-16.2); Mean Corpuscular Hemoglobin 24.3 pg (28.0-32.0); Mean Corpuscular Volume 80.6 fL (80.0-100.0); Monocytes % (auto) 7.2 % (0.0-12.0); Neutrophils % (auto) 84.8 % (37.0-80.0); Nucleated Red Blood Cells % 0.2 %; Platelet Count (auto) 183 10^3/uL (140-450); Red Blood Cells 3.82 10^6/uL (4.0-5.20); Red Cell Distribution Width 20.8 % (11.8-14.3)
[2024-02-28 08:04] LABS: Albumin 4.3 g/dL (3.2-4.8); Anion Gap 12 (5-15); BUN/Creatinine Ratio 21.6 (10.0-20.0); Calcium 9.7 mg/dL (8.7-10.4); Carbon Dioxide 31 mmol/L (20-31); Potassium 3.9 mmol/L (3.5-5.1); Sodium 137 mmol/L (136-145)
[2024-02-28 08:05] LABS: Bilirubin, Total 1.1 mg/dL (0.2-1.0); Chloride 94 mmol/L (98-107); Glucose 162 mg/dL (74-106)
[2024-02-28 08:06] LABS: Alanine Aminotransferase 291 U/L (7-40); Alkaline Phosphatase 205 U/L (46-116); Aspartate Aminotransferase 428 U/L (13-40); Blood Urea Nitrogen 25 mg/dL (9-23)
[2024-02-28 11:46] LABS: Lactic Acid w/Reflex 3.4 mmol/L (0.4-2.0)
--- NOTE | 2024-02-28 11:46 | DVHPNRES ---
Progress Note Date Seen: Feb 28, 2024 Resident Creating Document: BRANDON SOLER RESIDENT Medical Necessity Reason Pt with a Central, PICC or Fol: No The following are medically ne: Pandya Catheter Reason for pandya catheter: Strict I&O Subjective Review of Systems ZEYAD PENNY,Is a 78 years old female with a PMH of HTN, type 2 DM, COPD, asthma, CHF, AFib presented to the ED with the chief complaints of difficulty breathing. Patient also complained left-sided weakness, ordered head CT which showed negative for acute CVA then ordered cervical spine MRI which showed multilevel degenerative changes in cervical spine worst at C3-C4 with a moderate to severe spinal canal stenosis and C4-C5 moderate spinal canal stenosis. Spinal surgeon evaluated the patient and advised Ophthalmology and Cardiology clearance for surgery, cafeteria attendant to give high-risk for surgery due to given ejection fraction 25%. So planning to transfer patient to higher level of care for possible surgery. Patient seen and examined at the bedside. Reported difficulty in breathing, currently on 3 L oxygen NC. No other complaints reported. Patient was continuously having AFib, started on amiodarone drip. Currently JENNY status. continuously monitoring. Objective vital signs Vital Sign Date Time Temp Pulse Resp B/P (MAP) Pulse Ox O2 Delivery O2 Flow Rate FiO2 02/28/24 11:07 128 22 128/80 95 3.0 32 02/28/24 10:00 Nasal Cannula* 02/28/24 09:42 97.6 97.6 Total Intake and Output 02/27/24 02/27/24 02/28/24 15:00 23:00 07:00 Intake Total 220 ml 230 ml Output Total 500 ml 425 ml Balance -280 ml -195 ml medications Current Medications Medications Dose Ordered Sig/Terrence Route Start Time Stop Time Status Last Admin Dose Admin Nitroglycerin 0.4 mg Q5MINP PRN SL 02/16/24 12:15 Donepezil HCl 5 mg DAILY PO 02/17/24 10:00 02/28/24 09:54 5 MG Empaglifozin 10 mg DAILY PO 02/17/24 10:00 02/28/24 09:54 10 MG Levothyroxine Sodium 75 mcg DAILY@0600 PO 02/17/24 06:00 02/28/24 06:22 75 MCG Diagnostic Test (Pha) 1 strip ACHS 02/16/24 17:00 02/28/24 11:39 1 STRIP Insulin Human Regular ACHS SC 02/16/24 17:00 02/28/24 11:16 3 UNITS Dextrose 50 ml UD PRN IV 02/16/24 13:00 Magnesium Oxide 400 mg BID PO 02/16/24 22:00 02/28/24 09:54 400 MG Docusate Sodium 100 mg BIDPRN PRN PO 02/17/24 14:45 02/17/24 15:31 100 MG Lorazepam 1 mg ONCE PRN IV 02/17/24 23:00 Pantoprazole Sodium 40 mg DAILY IV 02/23/24 10:00 02/28/24 09:55 40 MG Patient Own Medication 1 PRN PRN TOP 02/23/24 16:00 02/24/24 11:20 1 Furosemide 40 mg DAILY PO 02/26/24 10:00 02/28/24 09:54 40 MG Tramadol HCl 50 mg Q6HP PRN PO 02/26/24 11:30 02/28/24 10:03 50 MG Lorazepam 0.5 mg Q8HP PRN PO 02/26/24 23:15 02/27/24 22:58 0.5 MG Apixaban 5 mg BID PO 02/27/24 22:00 02/28/24 09:53 5 MG Ampicillin Sodium/ Sulbactam Sodium 3 gm/Sodium Chloride 100 ml @ 100 mls/hr Q8HR IV 02/27/24 14:00 02/28/24 06:22 100 MLS/HR Ipratropium [place] 0.5 mg Q6HR NEB 02/27/24 18:00 02/28/24 06:02 0.5 MG Levalbuterol HCl 1.25 mg Q6HR NEB 02/27/24 18:00 02/28/24 06:02 1.25 MG Examination Pt is lying on bed General Appearance: Alert, Oriented X3, Cooperative, moderate distress HEENT: Atraumatic, Mucous membranes moist/pink Respiratory: decreased breath sounds, on oxygen Cardiovascular: Regular rate, Normal S1, Normal S2, No murmurs Abdominal: Active bowel sounds, Soft, no distention, no tenderness Extremities: Cool extremities, Weak pulses in LL. No edema,, No tenderness/swelling Skin: No Significant rash, except past surgical scars Neuro: Normal speech, sensorimotor deficits none Psych/Mental Status: Mental status NL, Mood NL Nurse was there as aaliyahne during examination laboratory and microbiology Laboratory Tests 02/28/24 06:34 Test 02/28/24 06:34 Range/Units Serum Glucose 162 H 74-106 mg/dL Labs and/or images reviewed: Labs reviewed by me, Image(s) reviewed by me Problem List/Assessment/Plan Problem List/Assessment/Plan Neurology # Ruled out acute CVA - head CT showed no acute abnormalities # Quadriparesis/ cervical spine compression # Quadriparesis, hyperreflexia, gait disturbance, upgoing toes in the left foot # C-spine spondylosis/C-spine myelopathy # Scoliosis - spinal MRI showed severe spinal stenosis at C3-C4, moderate spinal stenosis C4-C5 - Neurologist evaluated the patient advised supportive treatment and surgery - Consulted spine surgeon - Per Cardiology standpoint, the patient is at a high risk for moderate risk surgery. - pain management as needed Cardiology # Acute on chronic decompensated HFrEF, NYHA class III-IV. 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 # HTN - Echo on 12/23 showed severely dilated left ventricle. with EF 25% in a global fashion. Severely dilated RV and RV systoloic function. Moderately elevated RV systolic pressure [id number] mmHg - Per Cardiology standpoint, the patient is at a high risk for moderate risk surgery. - Continue with GDMT for CHF as tolerated. Lipitor, Metoprolol. Jardiance, diuretics with Lasix. - The patient may qualify for ICD implantation if no improvement in EF within 3- 6 months on GDMT. - fluid restriction, strict I&Os # Paroxysmal atrial fibrillation with RVR with a secondary hypercoagulable state [id number] VASc score: 6 points). - started amiodarone drip yesterday 02/26 - Currently on Eliquis 5mg - Cardio recommended to resume NOAC therapy within 24 hours status post procedure if low postprocedural bleeding risk and within 48-72 hours if high postprocedural bleeding risk. Respiratory # Acute on chronic hypoxic respiratory failure likely 2/2 PNA vs CHF # COPD on home O2 # Asthama # ?? Acute Gram-positive/negative bacterial PNA - currently on 3 L oxygen NC - CXR showed congesition - patient is currently on ampicillin/sulbactam 02/26 - ordered sputum culture - elevated lactate GI/Liver # Liver cirrhosis, chronic # transaminitis likely due to cirrhosis - monitor lab - DC Lipitor if needed - pureed diet - liver ultrasound showed chronic changes Renal//Metabolic # ZEKE likely VMN - Monitor lab for now - nephrotoxic agents - Pandya is in place # Hypokalemia - Repleting - Monitor lab # hypermagnesemia - monitor lab MSK # Quadriparesis/ cervical spine compression # Quadriparesis, hyperreflexia, gait disturbance, upgoing toes in the left foot # C-spine spondylosis/C-spine myelopathy # Scoliosis - Read above Endocrine # Hypothyroidism uncontrolled - levothyroxine 75 mcg # uncontrolled type 2 DM - Accu-Cheks and ISS Heam-Onc # Hypochromic, normocytic anemia - Monitor lab DRIPS Amiodarone 02/26 Lines Midline today Today elevated WBC, ordered pancultures and urinalysis. PUD PPX: Protonix DVT PPX: Eliquis Goals of care has been discussed with the patient daughter for more than 37 minutes, DNR/DNI Critical care time including chart review, discussing with the patient's family excluding procedures: 54 minutes Family meeting done 02/28/2024 with patient's daughters and grand daughter at the bedside and and conference held for more than 37 minutes in which all questions have been answered, they want to know all options for the discharge planning, consulted social group worker. Case discussed with Dr. Olivia, family and nurse. Plan discussed with: Patient, Daughter, Other (Granddaughter) My Orders My Orders Orders - BRANDON SOLER RESIDENT Procedure Category Date Status Time Potassium Effervesent PHA 02/28/24 Logged Tab (Klor-Con/Ef) 11:45 Magnesium LAB 02/28/24 In Process 11:35 Dietary Evaluation Review Comments: 1. For better ocntrolled DM, recommen 2 gNa Lo Fat Lo Cholesterol CCHO-60g diet. 2. Monitor Po intake to meet 75% pf her needs. Expected Outcomes/Goals: Gradual weight loss. Date of Service: Feb 28, 2024 Billing Provider: JULY OLIVIA DO Common Visit Codes: [id number] INP/OBS CARE(HIGH) BRANDON SOLER RESIDENT Feb 28, 2024 11:45 JULY OLIVIA DO Feb 29, 2024 20:42
[2024-02-28] MEDS: SODIUM CHLORIDE 0.9% 1,000 ML IV SCH (15:48)
[2024-02-28] MEDS: POTASSIUM EFFERVESENT TAB 25 MEQ PO ONE (16:46)
[2024-02-28] MEDS: FUROSEMIDE 40 MG/4 ML VIAL IV SCH (18:04)
--- NOTE | 2024-02-28 21:51 | DVHPN2 ---
Progress Note - Dictate Date Seen: Feb 28, 2024 Medical Necessity Reason Pt with a Central, PICC or Fol: No The following are medically ne: Pandya Catheter Reason for pandya catheter: Strict I&O Subjective Patient was seen and evaluated in follow up. Patient is complaining of SOB, O2 was increased to 3 LPM NC. Patient tachycardic in the 120's. HGB 9.3, HCT 30.8, CL 94, BUN 25, RACK ROOM WORKER 1.16, AST 428, ALT 291. Telemetry reviewed. vital signs Vital Sign Date Time Temp Pulse Resp B/P (MAP) Pulse Ox O2 Delivery O2 Flow Rate FiO2 02/28/24 11:07 128 22 128/80 95 3.0 32 02/28/24 10:00 Nasal Cannula* 02/28/24 09:42 97.6 97.6 Total Intake and Output 02/27/24 02/27/24 02/28/24 15:00 23:00 07:00 Intake Total 220 ml 230 ml Output Total 500 ml 425 ml Balance -280 ml -195 ml medications Current Medications Medications Dose Ordered Sig/Terrence Route Start Time Stop Time Status Last Admin Dose Admin Nitroglycerin 0.4 mg Q5MINP PRN SL 02/16/24 12:15 Donepezil HCl 5 mg DAILY PO 02/17/24 10:00 02/28/24 09:54 5 MG Empaglifozin 10 mg DAILY PO 02/17/24 10:00 02/28/24 09:54 10 MG Levothyroxine Sodium 75 mcg DAILY@0600 PO 02/17/24 06:00 02/28/24 06:22 75 MCG Diagnostic Test (Pha) 1 strip ACHS 02/16/24 17:00 02/28/24 11:39 1 STRIP Insulin Human Regular ACHS SC 02/16/24 17:00 02/28/24 11:16 3 UNITS Dextrose 50 ml UD PRN IV 02/16/24 13:00 Magnesium Oxide 400 mg BID PO 02/16/24 22:00 02/28/24 09:54 400 MG Docusate Sodium 100 mg BIDPRN PRN PO 02/17/24 14:45 02/17/24 15:31 100 MG Lorazepam 1 mg ONCE PRN IV 02/17/24 23:00 Pantoprazole Sodium 40 mg DAILY IV 02/23/24 10:00 02/28/24 09:55 40 MG Patient Own Medication 1 PRN PRN TOP 02/23/24 16:00 02/24/24 11:20 1 Furosemide 40 mg DAILY PO 02/26/24 10:00 02/28/24 09:54 40 MG Tramadol HCl 50 mg Q6HP PRN PO 02/26/24 11:30 02/28/24 10:03 50 MG Lorazepam 0.5 mg Q8HP PRN PO 02/26/24 23:15 02/27/24 22:58 0.5 MG Apixaban 5 mg BID PO 02/27/24 22:00 02/28/24 09:53 5 MG Ampicillin Sodium/ Sulbactam Sodium 3 gm/Sodium Chloride 100 ml @ 100 mls/hr Q8HR IV 02/27/24 14:00 02/28/24 06:22 100 MLS/HR Ipratropium [place] 0.5 mg Q6HR NEB 02/27/24 18:00 02/28/24 06:02 0.5 MG Levalbuterol HCl 1.25 mg Q6HR NEB 02/27/24 18:00 02/28/24 06:02 1.25 MG objective GENERAL: Awake, alert, oriented. LUNGS: Clear. CARDIOVASCULAR: Heart sounds are good. ABDOMEN: Soft. laboratory and microbiology Laboratory Tests 02/28/24 06:34 Test 02/28/24 06:34 Range/Units Serum Glucose 162 H 74-106 mg/dL Problem List Preprocedural cardiovascular examination. Acute on chronic decompensated HFrEF, NYHA class III-IV. Acute on chronic respiratory failure with possible pneumonia. Paroxysmal atrial fibrillation (on Amiodarone and Eliquis). 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 Insulin-dependent diabetes mellitus. Hypertension. COPD on home O2. Uncontrolled hypothyroidism (TSH 78.12). Obesity. Plan/Recommendation Continued all current supportive medical care. Patient has been seen by Radha Ballesteros NP on my behalf, her and I discussed the plan with the patient. Transthoracic echocardiogram reveals an LVEF of 25% with severe biventricular dilatation. A twelve lead electrocardiogram reveals atrial fibrillation. Revised cardiac risk index (Shola criteria): 2 points (10.1%, risk of major cardiac event). A chest x-ray done today shows pulmonary congestion. The patient has an underlying history of congestive heart failure. Prior to admission, the patient reports a poor functional capacity in which she is mostly bed ridden for the last couple of months. Per Cardiology standpoint, the patient is at a high risk for moderate risk surgery. We will recommend to optimize the patient prior to surgical intervention including diuresis as tolerated. Of note, the patient takes NOAC therapy with low-dose Eliquis ([id number] VASc score: 6 points). We will recommend to resume NOAC therapy within 24 hours status post procedure if low postprocedural bleeding risk. Resume NOAC therapy within 48-72 hours if high postprocedural bleeding risk. Continue with GDMT for CHF as tolerated. The patient may qualify for ICD implantation if no improvement in EF within 3-6 months on GDMT. Additional plan as per the hospital course. Assessment/Plan Continued all current supportive medical care. Amiodarone. Lipitor, Metoprolol. IV antibiotics as ordered. Jardiance. Diuretics with Lasix. GI prophylactics. Oxycodone for pain management. Additional plan as per the hospital course. Dietary Evaluation Review Comments: 1. For better ocntrolled DM, recommen 2 gNa Lo Fat Lo Cholesterol CCHO-60g diet. 2. Monitor Po intake to meet 75% pf her needs. Expected Outcomes/Goals: Gradual weight loss. Plan discussed with: Patient GEE MIDDLETON MD Feb 28, 2024 12:02
[2024-02-29] VITALS (18 sets, daily range): BP systolic 101–123; BP diastolic 48–99; PULSE 104–128; RESP 18–24; TEMP 97.3–97.9; O2SAT 94–100
[2024-02-29 01:01] LABS: Urine Bacteria None Seen /hpf (None Seen)
[2024-02-29 01:10] LABS: Urine Blood 2+ /uL (Negative); Urine Clarity Clear (Clear); Urine Color Light-Yellow (Yellow); Urine Hyaline Cast MANY /lpf (0 - 2); Urine Protein, UAD TRACE (Negative); Urine Specific Gravity 1.019 (1.001-1.035); Urine Squamous Epithelial Cell FEW /hpf (<5); Urine Urobilinogen Normal (Negative); Urine WBC 13 /hpf (0 - 5)
[2024-02-29 07:16] LABS: Calcium 9.6 mg/dL (8.7-10.4); Potassium 3.6 mmol/L (3.5-5.1); Sodium 137 mmol/L (136-145)
[2024-02-29 07:17] LABS: Anion Gap 12 (5-15)
[2024-02-29 07:23] LABS: BUN/Creatinine Ratio 19.8 (10.0-20.0)
[2024-02-29 07:24] LABS: Blood Urea Nitrogen 26 mg/dL (9-23); Carbon Dioxide 32 mmol/L (20-31); Chloride 93 mmol/L (98-107); Glucose 120 mg/dL (74-106)
[2024-02-29 07:27] LABS: Lactic Acid w/Reflex 2.7 mmol/L (0.4-2.0)
[2024-02-29 07:42] LABS: Eosinophils # (auto) 0 10 ^3/uL (0-0.8); Eosinophils % (auto) 0.3 % (0.0-7.0); Monocytes # (auto) 1.3 10 ^3/uL (0-1.3); Red Blood Cells 3.84 10^6/uL (4.0-5.20); White Blood Cell 11.8 10^3/uL (4.4-10.8)
[2024-02-29 07:44] LABS: Basophils # (auto) 0 10 ^3/uL (0-0.2); Basophils % (auto) 0.4 % (0.0-2.0); Hematocrit 30.9 % (36.0-46.0); Hemoglobin 9.4 g/dL (12.2-16.2); Lymphocytes # (auto) 0.7 10 ^3/uL (0.4-5.4); Lymphocytes % (auto) 6.2 % (10.0-50.0); Mean Corpuscular Hemoglobin 24.4 pg (28.0-32.0); Mean Corpuscular Hgb Conc. 30.3 g/dL (32.0-36.0); Mean Corpuscular Volume 80.6 fL (80.0-100.0); Monocytes % (auto) 10.8 % (0.0-12.0); Neutrophils # (auto) 9.7 10 ^3/uL (1.6-8.6); Neutrophils % (auto) 82.3 % (37.0-80.0); Nucleated Red Blood Cells % 0.2 %; Platelet Count (auto) 168 10^3/uL (140-450); Red Cell Distribution Width 20.8 % (11.8-14.3)
--- NOTE | 2024-02-29 15:14 | DVHPN2 ---
Progress Note - Dictate Date Seen: Feb 29, 2024 Medical Necessity Reason Pt with a Central, PICC or Fol: No The following are medically ne: Pandya Catheter Reason for pandya catheter: Strict I&O Subjective Patient was seen and evaluated in follow up. Patient is complaining of SOB, she is on 3 LPM NC. Patient is pending hospice placement. WBC 11.8, HGB 9.4, HCT 30.9, CL 93, CO2 32, BUN 26, EDUCATION ANALYST 1.31, LA 2.7. Telemetry reviewed. vital signs Vital Sign Date Time Temp Pulse Resp B/P (MAP) Pulse Ox O2 Delivery O2 Flow Rate FiO2 02/29/24 11:53 97 Nasal Cannula* 3 32 02/29/24 11:53 120 20 02/29/24 09:00 97.3 101/65 (77) 97.3 Total Intake and Output 02/28/24 02/28/24 02/29/24 15:00 23:00 07:00 Intake Total 100 ml 650 ml 200 ml Output Total 200 ml 450 ml Balance 100 ml 450 ml -250 ml medications Current Medications Medications Dose Ordered Sig/Terrence Route Start Time Stop Time Status Last Admin Dose Admin Nitroglycerin 0.4 mg Q5MINP PRN SL 02/16/24 12:15 Donepezil HCl 5 mg DAILY PO 02/17/24 10:00 02/29/24 09:38 5 MG Empaglifozin 10 mg DAILY PO 02/17/24 10:00 02/29/24 09:37 10 MG Levothyroxine Sodium 75 mcg DAILY@0600 PO 02/17/24 06:00 02/28/24 06:22 75 MCG Diagnostic Test (Pha) 1 strip ACHS 02/16/24 17:00 02/29/24 11:16 1 STRIP Insulin Human Regular ACHS SC 02/16/24 17:00 02/29/24 11:16 2 UNITS Dextrose 50 ml UD PRN IV 02/16/24 13:00 Magnesium Oxide 400 mg BID PO 02/16/24 22:00 02/29/24 09:37 400 MG Docusate Sodium 100 mg BIDPRN PRN PO 02/17/24 14:45 02/17/24 15:31 100 MG Lorazepam 1 mg ONCE PRN IV 02/17/24 23:00 Pantoprazole Sodium 40 mg DAILY IV 02/23/24 10:00 02/29/24 09:38 40 MG Patient Own Medication 1 PRN PRN TOP 02/23/24 16:00 02/24/24 11:20 1 Tramadol HCl 50 mg Q6HP PRN PO 02/26/24 11:30 02/29/24 11:19 50 MG Lorazepam 0.5 mg Q8HP PRN PO 02/26/24 23:15 02/29/24 01:41 0.5 MG Apixaban 5 mg BID PO 02/27/24 22:00 02/29/24 09:38 5 MG Ampicillin Sodium/ Sulbactam Sodium 3 gm/Sodium Chloride 100 ml @ 100 mls/hr Q8HR IV 02/27/24 14:00 02/29/24 06:03 100 MLS/HR Ipratropium [place] 0.5 mg Q6HR NEB 02/27/24 18:00 02/29/24 11:53 0.5 MG Levalbuterol HCl 1.25 mg Q6HR NEB 02/27/24 18:00 02/29/24 11:53 1.25 MG Furosemide 40 mg BIDD IV 02/28/24 18:00 02/29/24 06:11 40 MG Sodium Chloride 1,000 ml @ 75 mls/hr [id number] IV 02/28/24 15:00 02/28/24 15:48 75 MLS/HR objective GENERAL: Awake, alert, oriented. LUNGS: Clear. CARDIOVASCULAR: Heart sounds are good. ABDOMEN: Soft. laboratory and microbiology Laboratory Tests 02/29/24 06:26 Test 02/29/24 06:26 Range/Units Serum Glucose 120 H 74-106 mg/dL Problem List Preprocedural cardiovascular examination. Acute on chronic decompensated HFrEF, NYHA class III-IV. Acute on chronic respiratory failure with possible pneumonia. Paroxysmal atrial fibrillation (on Amiodarone and Eliquis). 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 Insulin-dependent diabetes mellitus. Hypertension. COPD on home O2. Uncontrolled hypothyroidism (TSH 78.12). Obesity. Plan/Recommendation Continued all current supportive medical care. Patient has been seen by Radha Ballesteros NP on my behalf, her and I discussed the plan with the patient. Transthoracic echocardiogram reveals an LVEF of 25% with severe biventricular dilatation. A twelve lead electrocardiogram reveals atrial fibrillation. Revised cardiac risk index (Shola criteria): 2 points (10.1%, risk of major cardiac event). A chest x-ray done today shows pulmonary congestion. The patient has an underlying history of congestive heart failure. Prior to admission, the patient reports a poor functional capacity in which she is mostly bed ridden for the last couple of months. Per Cardiology standpoint, the patient is at a high risk for moderate risk surgery. We will recommend to optimize the patient prior to surgical intervention including diuresis as tolerated. Of note, the patient takes NOAC therapy with low-dose Eliquis ([id number] VASc score: 6 points). We will recommend to resume NOAC therapy within 24 hours status post procedure if low postprocedural bleeding risk. Resume NOAC therapy within 48-72 hours if high postprocedural bleeding risk. Continue with GDMT for CHF as tolerated. The patient may qualify for ICD implantation if no improvement in EF within 3-6 months on GDMT. Additional plan as per the hospital course. Assessment/Plan Continued all current supportive medical care. Amiodarone. Lipitor, Metoprolol. IV antibiotics as ordered. Jardiance. Diuretics with Lasix. GI prophylactics. Oxycodone for pain management. Additional plan as per the hospital course. Dietary Evaluation Review Comments: 1. For better ocntrolled DM, recommen 2 gNa Lo Fat Lo Cholesterol CCHO-60g diet. 2. Monitor Po intake to meet 75% pf her needs. Expected Outcomes/Goals: Gradual weight loss. Plan discussed with: Patient GEE MIDDLETON MD Feb 29, 2024 12:21
--- NOTE | 2024-02-29 20:36 | DVHPN2 ---
Reviewed: Care Plan Changes from previous H/P or p: No Changes Eyes: No Pain, No Vision change, No Conjunctivae inflammation, No Eyelid inflammation, No Other, No Redness ENT: No Ear pain, No Ear discharge, No Nose pain, No Nose discharge, No Nose congestion, No Mouth pain, No Mouth swelling, No Throat pain, No Throat swelling, No Other Cardiovascular: No Chest Pain, No Palpitations, No Orthopnea, No Paroxysmal Noc. Dyspnea, No Edema, No Lt Headedness; Other (Atrial fibrillation) Respiratory: Cough; No Dry; Shortness of breath, SOB with excertion, Wheezing; No Hemoptysis, No Pleuritic Pain, No Sputum, No Other Gastrointestinal: No Nausea, No Vomiting, No Abdominal Pain, No Diarrhea, No Constipation, No Melena, No Hematochezia, No Other Musculoskeletal: No other, No neck pain, No shoulder pain, No arm pain, No back pain, No hand pain, No leg pain, No foot pain Skin: No Rash, No Lesions, No Jaundice, No Bruising, No Other Objective Vitals Vital Signs Date Time Temp Pulse Resp B/P (MAP) Pulse Ox O2 Delivery O2 Flow Rate FiO2 02/29/24 18:23 123 20 100 02/29/24 18:14 Nasal Cannula* 3 32 02/29/24 17:46 117/68 02/29/24 17:00 97.7 97.7 Intake/Output Intake and Output 02/29/24 07:00 Intake Total 950 ml Output Total 650 ml Balance 300 ml Intake Oral 400 ml IV Total 550 ml Output Urine Total 650 ml # Bowel Movements 1 Medications Current Medications Medications Dose Ordered Sig/Terrence Route Start Time Stop Time Status Last Admin Dose Admin Nitroglycerin 0.4 mg Q5MINP PRN SL 02/16/24 12:15 Donepezil HCl 5 mg DAILY PO 02/17/24 10:00 02/29/24 09:38 5 MG Empaglifozin 10 mg DAILY PO 02/17/24 10:00 02/29/24 09:37 10 MG Levothyroxine Sodium 75 mcg DAILY@0600 PO 02/17/24 06:00 02/28/24 06:22 75 MCG Diagnostic Test (Pha) 1 strip ACHS 02/16/24 17:00 02/29/24 11:16 1 STRIP Insulin Human Regular ACHS SC 02/16/24 17:00 02/29/24 11:16 2 UNITS Dextrose 50 ml UD PRN IV 02/16/24 13:00 Magnesium Oxide 400 mg BID PO 02/16/24 22:00 02/29/24 09:37 400 MG Docusate Sodium 100 mg BIDPRN PRN PO 02/17/24 14:45 02/17/24 15:31 100 MG Lorazepam 1 mg ONCE PRN IV 02/17/24 23:00 Pantoprazole Sodium 40 mg DAILY IV 02/23/24 10:00 02/29/24 09:38 40 MG Patient Own Medication 1 PRN PRN TOP 02/23/24 16:00 02/24/24 11:20 1 Tramadol HCl 50 mg Q6HP PRN PO 02/26/24 11:30 02/29/24 17:26 50 MG Lorazepam 0.5 mg Q8HP PRN PO 02/26/24 23:15 02/29/24 15:57 0.5 MG Apixaban 5 mg BID PO 02/27/24 22:00 02/29/24 09:38 5 MG Ampicillin Sodium/ Sulbactam Sodium 3 gm/Sodium Chloride 100 ml @ 100 mls/hr Q8HR IV 02/27/24 14:00 02/29/24 13:46 100 MLS/HR Ipratropium [place] 0.5 mg Q6HR NEB 02/27/24 18:00 02/29/24 18:12 0.5 MG Levalbuterol HCl 1.25 mg Q6HR NEB 02/27/24 18:00 02/29/24 18:13 1.25 MG Furosemide 40 mg BIDD IV 02/28/24 18:00 02/29/24 17:46 40 MG Sodium Chloride 1,000 ml @ 75 mls/hr [id number] IV 02/28/24 15:00 02/29/24 13:46 75 MLS/HR Laboratory Results Laboratory Tests 02/29/24 06:26 Chemistry Test 02/29/24 06:26 Calcium Level 9.6 mg/dL (8.7-10.4) Urinalysis Test 02/29/24 00:30 Urine Color Light-yellow (Yellow) Urine Clarity Clear (Clear) Urine pH 5.0 (5.0-9.0) Urine Specific [place] 1.019 (1.001-1.035) Urine Protein Trace (Negative) H Urine Ketones Trace (Negative) Urine Blood 2+ /uL (Negative) H Urine Nitrite Negative (Negative) Urine Bilirubin Negative (Negative) Urine Urobilinogen Normal mg/dL (Negative) Urine Leukocyte Esterase Trace /uL (Negative) Urine RBC 34 /hpf (0 - 4) Urine WBC 13 /hpf (0 - 5) Urine Squamous Epithelial Cells Few /hpf (<5) Urine Bacteria None seen /hpf (None Seen) Urine Hyaline Casts Many /lpf (0 - 2) Urine Glucose 3+ mg/dL (Normal) H Assessment/Plan Assessment/Plan 02/29/2024: pt needs to be hospice. Discussed with family (daughter and granddaughter who want to continue care at this time). However, i discussed with them to explore hospice care. They agreed. Neurology # Ruled out acute CVA - head CT showed no acute abnormalities # Quadriparesis/ cervical spine compression # Quadriparesis, hyperreflexia, gait disturbance, upgoing toes in the left foot # C-spine spondylosis/C-spine myelopathy # Scoliosis - spinal MRI showed severe spinal stenosis at C3-C4, moderate spinal stenosis C4-C5 - Neurologist evaluated the patient advised supportive treatment and surgery - Consulted spine surgeon - Per Cardiology standpoint, the patient is at a high risk for moderate risk surgery. - pain management as needed Cardiology # Acute on chronic decompensated HFrEF, NYHA class III-IV. 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 # HTN - Echo on 12/23 showed severely dilated left ventricle. with EF 25% in a global fashion. Severely dilated RV and RV systoloic function. Moderately elevated RV systolic pressure [id number] mmHg - Per Cardiology standpoint, the patient is at a high risk for moderate risk surgery. - Continue with GDMT for CHF as tolerated. Lipitor, Metoprolol. Jardiance, diuretics with Lasix. - The patient may qualify for ICD implantation if no improvement in EF within 3- 6 months on GDMT. - fluid restriction, strict I&Os # Paroxysmal atrial fibrillation with RVR with a secondary hypercoagulable state [id number] VASc score: 6 points). - started amiodarone drip yesterday 02/26 - Currently on Eliquis 5mg - Cardio recommended to resume NOAC therapy within 24 hours status post procedure if low postprocedural bleeding risk and within 48-72 hours if high postprocedural bleeding risk. Respiratory # Acute on chronic hypoxic respiratory failure likely 2/2 PNA vs CHF # COPD on home O2 # Asthama # ?? Acute Gram-positive/negative bacterial PNA - currently on 3 L oxygen NC - CXR showed congesition - patient is currently on ampicillin/sulbactam 02/26 - ordered sputum culture - elevated lactate GI/Liver # Liver cirrhosis, chronic # transaminitis likely due to cirrhosis - monitor lab - DC Lipitor if needed - pureed diet - liver ultrasound showed chronic changes Renal//Metabolic # ZEKE likely VMN - Monitor lab for now - nephrotoxic agents - Talavera is in place # Hypokalemia - Repleting - Monitor lab # hypermagnesemia - monitor lab MSK # Quadriparesis/ cervical spine compression # Quadriparesis, hyperreflexia, gait disturbance, upgoing toes in the left foot # C-spine spondylosis/C-spine myelopathy # Scoliosis - Read above Endocrine # Hypothyroidism uncontrolled - levothyroxine 75 mcg # uncontrolled type 2 DM - Accu-Cheks and ISS Heam-Onc # Hypochromic, normocytic anemia - Monitor lab DRIPS Amiodarone 02/26 Lines Midline today Today elevated WBC, ordered pancultures and urinalysis. PUD PPX: Protonix DVT PPX: Eliquis Goals of care has been discussed with the patient daughter for more than 37 minutes, DNR/DNI Critical care time including chart review, discussing with the patient's family excluding procedures: 54 minutes Family meeting done 02/28/2024 with patient's daughters and grand daughter at the bedside and and conference held for more than 37 minutes in which all questions have been answered, they want to know all options for the discharge planning, consulted social security benefits interviewer. Plan discussed with: Patient My Orders Orders - JULY OLIVIA DO Procedure Category Date Status Time Zolpidem Tartrate PHA 02/29/24 Verified (Ambien) 20:45 Diphenhdramine PHA 02/29/24 Verified Injection (Benadryl 20:45 Date of Service: Feb 29, 2024 Billing Provider: JULY OLIVIA DO Common Visit Codes: [id number] INP/OBS CARE(HIGH) JULY OLIVIA DO Feb 29, 2024 20:36
[2024-02-29] MEDS ORDERED: ZOLPIDEM TARTRATE 5 MG TAB PO PRN (20:45)
[2024-02-29] MEDS: diphenhdrAMINE HCL 50 MG/1 ML VL IV ONE (20:45)
[2024-02-29] MEDS: FUROSEMIDE 40 MG/4 ML VIAL IV SCH (21:44)
[2024-03-01] VITALS (19 sets, daily range): BP systolic 106–131; BP diastolic 53–91; PULSE 75–111; RESP 16–20; TEMP 96.2–98.6; O2SAT 94–100
[2024-03-01] MEDS: metOLazone 5 MG TAB PO SCH (01:01)
--- NOTE | 2024-03-01 20:30 | DVHPN2 ---
Reviewed: Care Plan Changes from previous H/P or p: No Changes General: Per HPI Eyes: No Pain, No Vision change, No Conjunctivae inflammation, No Eyelid inflammation, No Other, No Redness ENT: No Ear pain, No Ear discharge, No Nose pain, No Nose discharge, No Nose congestion, No Mouth pain, No Mouth swelling, No Throat pain, No Throat swelling, No Other Cardiovascular: No Chest Pain, No Palpitations, No Orthopnea, No Paroxysmal Noc. Dyspnea, No Edema, No Lt Headedness; Other (Atrial fibrillation) Respiratory: Cough; No Dry; Shortness of breath, SOB with excertion, Wheezing; No Hemoptysis, No Pleuritic Pain, No Sputum, No Other Gastrointestinal: No Nausea, No Vomiting, No Abdominal Pain, No Diarrhea, No Constipation, No Melena, No Hematochezia, No Other Musculoskeletal: No other, No neck pain, No shoulder pain, No arm pain, No back pain, No hand pain, No leg pain, No foot pain Skin: No Rash, No Lesions, No Jaundice, No Bruising, No Other Objective Vitals Vital Signs Date Time Temp Pulse Resp B/P (MAP) Pulse Ox O2 Delivery O2 Flow Rate FiO2 03/01/24 18:27 111 18 100 03/01/24 18:17 Nasal Cannula* 3 32 03/01/24 17:51 121/68 03/01/24 17:00 98.3 98.3 Intake/Output Intake and Output 03/01/24 07:00 Intake Total 1424.92 ml Output Total 750 ml Balance 674.92 ml Intake Oral 350 ml IV Total 1074.92 ml Output Urine Total 750 ml # Bowel Movements 1 General Appearance: Alert, Oriented X3 HEENT: Atraumatic Lungs: Clear to auscultation Cardiovascular: Regular rate, Normal S1, Normal S2 Abdomen: Normal bowel sounds, Soft Medications Current Medications Medications Dose Ordered Sig/Terrence Route Start Time Stop Time Status Last Admin Dose Admin Nitroglycerin 0.4 mg Q5MINP PRN SL 02/16/24 12:15 Donepezil HCl 5 mg DAILY PO 02/17/24 10:00 03/01/24 09:30 5 MG Empaglifozin 10 mg DAILY PO 02/17/24 10:00 03/01/24 09:25 10 MG Levothyroxine Sodium 75 mcg DAILY@0600 PO 02/17/24 06:00 03/01/24 06:19 75 MCG Diagnostic Test (Pha) 1 strip ACHS 02/16/24 17:00 03/01/24 06:18 1 STRIP Insulin Human Regular ACHS SC 02/16/24 17:00 03/01/24 06:33 2 UNITS Dextrose 50 ml UD PRN IV 02/16/24 13:00 Magnesium Oxide 400 mg BID PO 02/16/24 22:00 03/01/24 09:24 400 MG Docusate Sodium 100 mg BIDPRN PRN PO 02/17/24 14:45 02/17/24 15:31 100 MG Lorazepam 1 mg ONCE PRN IV 02/17/24 23:00 Pantoprazole Sodium 40 mg DAILY IV 02/23/24 10:00 03/01/24 09:24 40 MG Patient Own Medication 1 PRN PRN TOP 02/23/24 16:00 02/24/24 11:20 1 Tramadol HCl 50 mg Q6HP PRN PO 02/26/24 11:30 03/01/24 09:44 50 MG Lorazepam 0.5 mg Q8HP PRN PO 02/26/24 23:15 03/01/24 19:17 0.5 MG Apixaban 5 mg BID PO 02/27/24 22:00 03/01/24 09:25 5 MG Ampicillin Sodium/ Sulbactam Sodium 3 gm/Sodium Chloride 100 ml @ 100 mls/hr Q8HR IV 02/27/24 14:00 03/01/24 13:40 100 MLS/HR Ipratropium [place] 0.5 mg Q6HR NEB 02/27/24 18:00 03/01/24 18:17 0.5 MG Levalbuterol HCl 1.25 mg Q6HR NEB 02/27/24 18:00 03/01/24 18:17 1.25 MG Zolpidem Tartrate 10 mg HSPRN PRN PO 02/29/24 20:45 Furosemide 80 mg BIDD IV 02/29/24 20:45 03/01/24 17:51 80 MG Metolazone 5 mg BID PO 02/29/24 22:00 03/01/24 09:44 5 MG Guaifenesin/ Dextromethorphan 10 ml Q6HPRN PRN PO 03/01/24 19:00 Laboratory Results Laboratory Tests 02/29/24 06:26 Chemistry Test 02/29/24 22:24 Magnesium Level 2.8 mg/dL (1.6-2.6) H Urinalysis Test 02/29/24 00:30 Urine Color Light-yellow (Yellow) Urine Clarity Clear (Clear) Urine pH 5.0 (5.0-9.0) Urine Specific [place] 1.019 (1.001-1.035) Urine Protein Trace (Negative) H Urine Ketones Trace (Negative) Urine Blood 2+ /uL (Negative) H Urine Nitrite Negative (Negative) Urine Bilirubin Negative (Negative) Urine Urobilinogen Normal mg/dL (Negative) Urine Leukocyte Esterase Trace /uL (Negative) Urine RBC 34 /hpf (0 - 4) Urine WBC 13 /hpf (0 - 5) Urine Squamous Epithelial Cells Few /hpf (<5) Urine Bacteria None seen /hpf (None Seen) Urine Hyaline Casts Many /lpf (0 - 2) Urine Glucose 3+ mg/dL (Normal) H Microbiology Microbiology Date/Time Source Procedure Growth Status 02/29/24 00:30 Voided Urine Urine Culture - Preliminary Resulted Labs and/or images reviewed: Labs reviewed by me, Image(s) reviewed by me Assessment/Plan Assessment/Plan 02/29/2024: pt needs to be hospice. Discussed with family (daughter and granddaughter who want to continue care at this time). However, i discussed with them to explore hospice care. They agreed. 03/01/2024: pt is not doing well. hospice would be appropriate. Neurology # Ruled out acute CVA - head CT showed no acute abnormalities # Quadriparesis/ cervical spine compression # Quadriparesis, hyperreflexia, gait disturbance, upgoing toes in the left foot # C-spine spondylosis/C-spine myelopathy # Scoliosis - spinal MRI showed severe spinal stenosis at C3-C4, moderate spinal stenosis C4-C5 - Neurologist evaluated the patient advised supportive treatment and surgery - Consulted spine surgeon - Per Cardiology standpoint, the patient is at a high risk for moderate risk surgery. - pain management as needed Cardiology # Acute on chronic decompensated HFrEF, NYHA class III-IV. 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 # HTN - Echo on 12/23 showed severely dilated left ventricle. with EF 25% in a global fashion. Severely dilated RV and RV systoloic function. Moderately elevated RV systolic pressure [id number] mmHg - Per Cardiology standpoint, the patient is at a high risk for moderate risk surgery. - Continue with GDMT for CHF as tolerated. Lipitor, Metoprolol. Jardiance, diuretics with Lasix. - The patient may qualify for ICD implantation if no improvement in EF within 3- 6 months on GDMT. - fluid restriction, strict I&Os # Paroxysmal atrial fibrillation with RVR with a secondary hypercoagulable state [id number] VASc score: 6 points). - started amiodarone drip yesterday 02/26 - Currently on Eliquis 5mg - Cardio recommended to resume NOAC therapy within 24 hours status post procedure if low postprocedural bleeding risk and within 48-72 hours if high postprocedural bleeding risk. Respiratory # Acute on chronic hypoxic respiratory failure likely 2/2 PNA vs CHF # COPD on home O2 # Asthama # ?? Acute Gram-positive/negative bacterial PNA - currently on 3 L oxygen NC - CXR showed congesition - patient is currently on ampicillin/sulbactam 02/26 - ordered sputum culture - elevated lactate GI/Liver # Liver cirrhosis, chronic # transaminitis likely due to cirrhosis - monitor lab - DC Lipitor if needed - pureed diet - liver ultrasound showed chronic changes Renal//Metabolic # ZEKE likely VMN - Monitor lab for now - nephrotoxic agents - Talavera is in place # Hypokalemia - Repleting - Monitor lab # hypermagnesemia - monitor lab MSK # Quadriparesis/ cervical spine compression # Quadriparesis, hyperreflexia, gait disturbance, upgoing toes in the left foot # C-spine spondylosis/C-spine myelopathy # Scoliosis - Read above Endocrine # Hypothyroidism uncontrolled - levothyroxine 75 mcg # uncontrolled type 2 DM - Accu-Cheks and ISS Heam-Onc # Hypochromic, normocytic anemia - Monitor lab DRIPS Amiodarone 02/26 Lines Midline today Today elevated WBC, ordered pancultures and urinalysis. PUD PPX: Protonix DVT PPX: Eliquis Goals of care has been discussed with the patient daughter for more than 37 minutes, DNR/DNI Critical care time including chart review, discussing with the patient's family excluding procedures: 54 minutes Family meeting done 02/28/2024 with patient's daughters and grand daughter at the bedside and and conference held for more than 37 minutes in which all questions have been answered, they want to know all options for the discharge planning, consulted social contact worker. Plan discussed with: Patient, Daughter My Orders Orders - JULY OLIVIA DO Procedure Category Date Status Time Zolpidem Tartrate PHA 02/29/24 In Process (Ambien) 20:45 Furosemide Injection PHA 02/29/24 In Process (Lasix Injection) 20:45 Metolazone (Zaroxolyn) PHA 02/29/24 In Process 22:00 * Wound Consult CONS 03/01/24 Transmitted Cover Wound With Foam MICHAEL 03/01/24 In Process Dressing 11:40 Date of Service: Mar 01, 2024 Billing Provider: JULY OLIVIA DO Common Visit Codes: [id number] INP/OBS CARE(HIGH) JULY OLIVIA DO Mar 01, 2024 20:30
[2024-03-01] MEDS: guaiFENesin-DM 100/10mg/5ml SYR PO PRN (22:01)
--- NOTE | 2024-03-01 23:17 | DVHPN2 ---
Progress Note - Dictate Date Seen: Mar 01, 2024 Medical Necessity Reason Pt with a Central, PICC or Fol: No The following are medically ne: Pandya Catheter Reason for pandya catheter: Strict I&O Subjective Patient was seen and evaluated in follow up. Patient is complaining of SOB, she is on 3 LPM NC. CM is working on hospice placement. Telemetry reviewed. vital signs Vital Sign Date Time Temp Pulse Resp B/P (MAP) Pulse Ox O2 Delivery O2 Flow Rate FiO2 03/01/24 11:02 98 Nasal Cannula 3.0 03/01/24 11:02 32 03/01/24 09:44 121/64 03/01/24 09:00 98.5 105 16 98.5 Total Intake and Output 02/29/24 02/29/24 03/01/24 15:00 23:00 07:00 Intake Total 100 ml 1024.92 ml 300 ml Output Total 150 ml 600 ml Balance 100 ml 874.92 ml -300 ml medications Current Medications Medications Dose Ordered Sig/Terrence Route Start Time Stop Time Status Last Admin Dose Admin Nitroglycerin 0.4 mg Q5MINP PRN SL 02/16/24 12:15 Donepezil HCl 5 mg DAILY PO 02/17/24 10:00 03/01/24 09:30 5 MG Empaglifozin 10 mg DAILY PO 02/17/24 10:00 03/01/24 09:25 10 MG Levothyroxine Sodium 75 mcg DAILY@0600 PO 02/17/24 06:00 03/01/24 06:19 75 MCG Diagnostic Test (Pha) 1 strip ACHS 02/16/24 17:00 03/01/24 06:18 1 STRIP Insulin Human Regular ACHS SC 02/16/24 17:00 03/01/24 06:33 2 UNITS Dextrose 50 ml UD PRN IV 02/16/24 13:00 Magnesium Oxide 400 mg BID PO 02/16/24 22:00 03/01/24 09:24 400 MG Docusate Sodium 100 mg BIDPRN PRN PO 02/17/24 14:45 02/17/24 15:31 100 MG Lorazepam 1 mg ONCE PRN IV 02/17/24 23:00 Pantoprazole Sodium 40 mg DAILY IV 02/23/24 10:00 03/01/24 09:24 40 MG Patient Own Medication 1 PRN PRN TOP 02/23/24 16:00 02/24/24 11:20 1 Tramadol HCl 50 mg Q6HP PRN PO 02/26/24 11:30 03/01/24 09:44 50 MG Lorazepam 0.5 mg Q8HP PRN PO 02/26/24 23:15 03/01/24 11:15 0.5 MG Apixaban 5 mg BID PO 02/27/24 22:00 03/01/24 09:25 5 MG Ampicillin Sodium/ Sulbactam Sodium 3 gm/Sodium Chloride 100 ml @ 100 mls/hr Q8HR IV 02/27/24 14:00 03/01/24 06:19 100 MLS/HR Ipratropium [place] 0.5 mg Q6HR NEB 02/27/24 18:00 03/01/24 11:29 0.5 MG Levalbuterol HCl 1.25 mg Q6HR NEB 02/27/24 18:00 03/01/24 11:29 1.25 MG Zolpidem Tartrate 10 mg HSPRN PRN PO 02/29/24 20:45 Furosemide 80 mg BIDD IV 02/29/24 20:45 02/29/24 21:44 80 MG Metolazone 5 mg BID PO 02/29/24 22:00 03/01/24 09:44 5 MG objective GENERAL: Awake, alert, oriented. LUNGS: Clear. CARDIOVASCULAR: Heart sounds are good. ABDOMEN: Soft. laboratory and microbiology Laboratory Tests 02/29/24 06:26 Test 02/29/24 06:26 Range/Units Serum Glucose 120 H 74-106 mg/dL Problem List Preprocedural cardiovascular examination. Acute on chronic decompensated HFrEF, NYHA class III-IV. Acute on chronic respiratory failure with possible pneumonia. Paroxysmal atrial fibrillation (on Amiodarone and Eliquis). 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 Insulin-dependent diabetes mellitus. Hypertension. COPD on home O2. Uncontrolled hypothyroidism (TSH 78.12). Obesity. Plan/Recommendation Continued all current supportive medical care. Patient has been seen by Radha Ballesteros NP on my behalf, her and I discussed the plan with the patient. Transthoracic echocardiogram reveals an LVEF of 25% with severe biventricular dilatation. A twelve lead electrocardiogram reveals atrial fibrillation. Revised cardiac risk index (Shola criteria): 2 points (10.1%, risk of major cardiac event). A chest x-ray done today shows pulmonary congestion. The patient has an underlying history of congestive heart failure. Prior to admission, the patient reports a poor functional capacity in which she is mostly bed ridden for the last couple of months. Per Cardiology standpoint, the patient is at a high risk for moderate risk surgery. We will recommend to optimize the patient prior to surgical intervention including diuresis as tolerated. Of note, the patient takes NOAC therapy with low-dose Eliquis ([id number] VASc score: 6 points). We will recommend to resume NOAC therapy within 24 hours status post procedure if low postprocedural bleeding risk. Resume NOAC therapy within 48-72 hours if high postprocedural bleeding risk. Continue with GDMT for CHF as tolerated. The patient may qualify for ICD implantation if no improvement in EF within 3-6 months on GDMT. Additional plan as per the hospital course. Assessment/Plan Continued all current supportive medical care. Amiodarone. Lipitor, Metoprolol. IV antibiotics as ordered. Jardiance. Diuretics with Lasix. GI prophylactics. Oxycodone for pain management. Additional plan as per the hospital course. Dietary Evaluation Review Comments: 1. For better ocntrolled DM, recommen 2 gNa Lo Fat Lo Cholesterol CCHO-60g diet. 2. Monitor Po intake to meet 75% pf her needs. Expected Outcomes/Goals: Gradual weight loss. Plan discussed with: Patient GEE MIDDLETON MD Mar 01, 2024 12:51
[2024-03-02] VITALS (13 sets, daily range): BP systolic 100–122; BP diastolic 43–77; PULSE 69–97; RESP 14–19; TEMP 97–98; O2SAT 95–100
--- NOTE | 2024-03-02 10:37 | DVHPN2 ---
Progress Note Date Seen: Mar 02, 2024 Medical Necessity Reason Pt with a Central, PICC or Fol: No The following are medically ne: Pandya Catheter Reason for pandya catheter: Strict I&O Subjective Patient reports: No new complaints Review of Systems: HEENT:Normal, CVS:Normal, RESPIRATORY:Normal, GI:Normal, :Normal, MSK:Normal, NEURO:Normal Objective vital signs Vital Sign Date Time Temp Pulse Resp B/P (MAP) Pulse Ox O2 Delivery O2 Flow Rate FiO2 03/02/24 09:18 105/70 03/02/24 09:00 98.0 69 18 95 98.0 03/02/24 06:07 Nasal Cannula 3.0 03/02/24 06:07 32 Total Intake and Output 03/01/24 03/01/24 03/02/24 14:59 22:59 06:59 Intake Total 100 ml 12 ml 395 ml Output Total 925 ml 1400 ml Balance 100 ml -913 ml -1005 ml medications Current Medications Medications Dose Ordered Sig/Terrence Route Start Time Stop Time Status Last Admin Dose Admin Nitroglycerin 0.4 mg Q5MINP PRN SL 02/16/24 12:15 Donepezil HCl 5 mg DAILY PO 02/17/24 10:00 03/02/24 09:19 5 MG Empaglifozin 10 mg DAILY PO 02/17/24 10:00 03/02/24 09:17 10 MG Levothyroxine Sodium 75 mcg DAILY@0600 PO 02/17/24 06:00 03/02/24 06:21 75 MCG Diagnostic Test (Pha) 1 strip ACHS 02/16/24 17:00 03/02/24 06:22 1 STRIP Insulin Human Regular ACHS SC 02/16/24 17:00 03/01/24 06:33 2 UNITS Dextrose 50 ml UD PRN IV 02/16/24 13:00 Magnesium Oxide 400 mg BID PO 02/16/24 22:00 03/02/24 09:14 400 MG Docusate Sodium 100 mg BIDPRN PRN PO 02/17/24 14:45 02/17/24 15:31 100 MG Lorazepam 1 mg ONCE PRN IV 02/17/24 23:00 Pantoprazole Sodium 40 mg DAILY IV 02/23/24 10:00 03/02/24 09:14 40 MG Patient Own Medication 1 PRN PRN TOP 02/23/24 16:00 02/24/24 11:20 1 Tramadol HCl 50 mg Q6HP PRN PO 02/26/24 11:30 03/01/24 09:44 50 MG Lorazepam 0.5 mg Q8HP PRN PO 02/26/24 23:15 03/02/24 09:15 0.5 MG Apixaban 5 mg BID PO 02/27/24 22:00 03/02/24 09:15 5 MG Ampicillin Sodium/ Sulbactam Sodium 3 gm/Sodium Chloride 100 ml @ 100 mls/hr Q8HR IV 02/27/24 14:00 03/02/24 06:13 100 MLS/HR Ipratropium [place] 0.5 mg Q6HR NEB 02/27/24 18:00 03/02/24 06:05 0.5 MG Levalbuterol HCl 1.25 mg Q6HR NEB 02/27/24 18:00 03/02/24 06:05 1.25 MG Zolpidem Tartrate 10 mg HSPRN PRN PO 02/29/24 20:45 Furosemide 80 mg BIDD IV 02/29/24 20:45 03/01/24 17:51 80 MG Metolazone 5 mg BID PO 02/29/24 22:00 03/02/24 09:18 5 MG Guaifenesin/ Dextromethorphan 10 ml Q6HPRN PRN PO 03/01/24 19:00 03/02/24 06:28 10 ML Examination: GENERAL:Normal, HEENT:Normal, NECK:Normal, LUNGS:Normal, LUNGS:Abnormal (on oxygen), CVS:Normal, ABDOMEN:Normal, MSK:Normal, SKIN:Normal, NEURO:Normal, :Normal laboratory and microbiology Laboratory Tests 02/29/24 06:26 Test 02/29/24 06:26 Range/Units Serum Glucose 120 H 74-106 mg/dL Microbiology Date/Time Source Procedure Growth Status 02/29/24 22:24 Blood Blood Culture - Preliminary NO GROWTH AFTER 24 HOURS OF INCUBATION. Resulted 02/29/24 00:30 Voided Urine Urine Culture - Preliminary Resulted Problem List/Assessment/Plan Problem List/Assessment/Plan #1 acute resp failure: cont oxygen #2 acute on chronic systolic heart failure: lasix, metolazone #3 liver cirrhosis: check hep panel, dc lipitor #4 hypothyroidism: check tsh #5 acute renal failure ?vasomotor nephropathy #6 h/o a fib: hold eliquis #7 copd #8 anemia #9 quadriparesis/ cervical spine compression: consult dr Farzana fuller daughter/grand daughter- reviewed labs and plan of care- they are considering hospice advance care planning- full code-time spent 21 mins Plan discussed with: Patient, Daughter Dietary Evaluation Review Comments: 1. For better ocntrolled DM, recommen 2 gNa Lo Fat Lo Cholesterol CCHO-60g diet. 2. Monitor Po intake to meet 75% pf her needs. Expected Outcomes/Goals: Gradual weight loss. Date of Service: Mar 02, 2024 Billing Provider: SAIDA HAN MD Common Visit Codes: [id number] INP/OBS CARE(HIGH) Secondary Visit Codes: [id number] CARE PLAN 30 MINUTES SAIDA HAN MD Mar 02, 2024 10:37
[2024-03-02 11:25] LABS: Basophils # (auto) 0 10 ^3/uL (0-0.2); Eosinophils # (auto) 0 10 ^3/uL (0-0.8); Hemoglobin 8.8 g/dL (12.2-16.2); Lymphocytes # (auto) 0.4 10 ^3/uL (0.4-5.4); Monocytes # (auto) 0.7 10 ^3/uL (0-1.3)
[2024-03-02 11:29] LABS: Basophils % (auto) 0.3 % (0.0-2.0); Eosinophils % (auto) 0.3 % (0.0-7.0); Hematocrit 28.8 % (36.0-46.0); Lymphocytes % (auto) 5.6 % (10.0-50.0); Mean Corpuscular Hemoglobin 24.6 pg (28.0-32.0); Mean Corpuscular Hgb Conc. 30.6 g/dL (32.0-36.0); Mean Corpuscular Volume 80.3 fL (80.0-100.0); Monocytes % (auto) 9.4 % (0.0-12.0); Neutrophils # (auto) 6.1 10 ^3/uL (1.6-8.6); Neutrophils % (auto) 84.4 % (37.0-80.0); Nucleated Red Blood Cells % 0.1 %; Platelet Count (auto) 115 10^3/uL (140-450); Red Blood Cells 3.58 10^6/uL (4.0-5.20); Red Cell Distribution Width 20.9 % (11.8-14.3); White Blood Cell 7.2 10^3/uL (4.4-10.8)
[2024-03-02 11:41] LABS: Sodium 137 mmol/L (136-145)
[2024-03-02 11:42] LABS: Anion Gap 14 (5-15)
[2024-03-02 11:43] LABS: Calcium 9.4 mg/dL (8.7-10.4)
[2024-03-02 11:48] LABS: BUN/Creatinine Ratio 17.9 (10.0-20.0)
[2024-03-02 12:04] LABS: Chloride 90 mmol/L (98-107)
[2024-03-02 12:05] LABS: Blood Urea Nitrogen 26 mg/dL (9-23); Carbon Dioxide 33 mmol/L (20-31); Glucose 122 mg/dL (74-106)
[2024-03-02 12:07] LABS: Potassium 2.5 mmol/L (3.5-5.1)
[2024-03-02] MEDS ORDERED: POTASSIUM CHLORIDE 40 MEQ, LIDOCAINE 1% (LOCAL ANESTH.) 4 ML in SODIUM CHL 0.9% 250 ML IV ONE (14:15)
--- NOTE | 2024-03-02 15:50 | DVHDS2 ---
Discharge Summary Date of Admission Feb 16, 2024 at 12:02 Date of Discharge: Mar 02, 2024 Labs/Diagnostic Data: Laboratory Results Test 03/02/24 11:10 03/02/24 10:30 02/29/24 06:26 02/29/24 00:30 POC Glucose 134 mg/dl (70-106) White Blood Count 7.2 10^3/uL (4.4-10.8) Red Blood Count 3.58 10^6/uL (4.0-5.20) Hemoglobin 8.8 g/dL (12.2-16.2) Hematocrit 28.8 % (36.0-46.0) Mean Corpuscular Volume 80.3 fL (80.0-100.0) Mean Corpuscular Hemoglobin 24.6 pg (28.0-32.0) Mean Corpuscular Hemoglobin Concent 30.6 g/dL (32.0-36.0) Red Cell Distribution Width 20.9 % (11.8-14.3) Platelet Count 115 10^3/uL (140-450) Mean Platelet Volume 9.1 fL (6.9-10.8) Neutrophils (%) (Auto) 84.4 % (37.0-80.0) Lymphocytes (%) (Auto) 5.6 % (10.0-50.0) Monocytes (%) (Auto) 9.4 % (0.0-12.0) Eosinophils (%) (Auto) 0.3 % (0.0-7.0) Basophils (%) (Auto) 0.3 % (0.0-2.0) Neutrophils # (Auto) 6.1 10 ^3/uL (1.6-8.6) Lymphocytes # (Auto) 0.4 10 ^3/uL (0.4-5.4) Monocytes # (Auto) 0.7 10 ^3/uL (0-1.3) Eosinophils # (Auto) 0 10 ^3/uL (0-0.8) Basophils # (Auto) 0 10 ^3/uL (0-0.2) Nucleated Red Blood Cells 0.1 % Sodium Level 137 mmol/L (136-145) Potassium Level 2.5 mmol/L (3.5-5.1) Chloride Level 90 mmol/L (98-107) Carbon Dioxide Level 33 mmol/L (20-31) Anion Gap 14 (5-15) Blood Urea Nitrogen 26 mg/dL (9-23) Creatinine 1.45 mg/dL (0.550-1.02) Glomerular Filtration Rate Calc 37 mL/min (>90) BUN/Creatinine Ratio 17.9 (10.0-20.0) Serum Glucose 122 mg/dL (74-106) Calcium Level 9.4 mg/dL (8.7-10.4) Magnesium Level 2.5 mg/dL (1.6-2.6) Lactic Acid Level 2.7 mmol/L (0.4-2.0) Urine Color Light-yellow (Yellow) Urine Clarity Clear (Clear) Urine pH 5.0 (5.0-9.0) Urine Specific [place] 1.019 (1.001-1.035) Urine Protein Trace (Negative) Urine Ketones Trace (Negative) Urine Blood 2+ /uL (Negative) Urine Nitrite Negative (Negative) Urine Bilirubin Negative (Negative) Urine Urobilinogen Normal mg/dL (Negative) Urine Leukocyte Esterase Trace /uL (Negative) Urine RBC 34 /hpf (0 - 4) Urine WBC 13 /hpf (0 - 5) Urine Squamous Epithelial Cells Few /hpf (<5) Urine Bacteria None seen /hpf (None Seen) Urine Hyaline Casts Many /lpf (0 - 2) Urine Glucose 3+ mg/dL (Normal) Test 02/28/24 06:34 02/28/24 06:20 02/27/24 11:18 02/25/24 06:10 Total Bilirubin 1.1 mg/dL (0.2-1.0) Aspartate Amino Transferase (AST) 428 U/L (13-40) Alanine Aminotransferase (ALT) 291 U/L (7-40) Alkaline Phosphatase 205 U/L (46-116) Total Protein 7.0 g/dL (5.7-8.2) Albumin 4.3 g/dL (3.2-4.8) Blood Gas Specimen Type Arterial Blood Gas Sample Site Right radial Blood Gas Patient Temperature 37.0 Arterial Blood Date Drawn [id number] Arterial Blood pH 7.591 (7.350-7.450) Arterial Blood Partial Pressure CO2 31.8 mmHg (32.0-45.0) Arterial Blood Partial Pressure O2 45.1 mmHg (83.0-108.0) Arterial Blood HCO3 29.9 mmol/L (21.0-28.0) Arterial Blood Oxygen Saturation 83.5 % (94.0-98.0) Arterial Blood Base Excess 8.0 mmol/L (-2.0-3.0) Arterial Blood Oxyhemoglobin 82.4 % (94.0-98.0) Arterial Blood Carboxyhemoglobin 1.0 % (0.5-1.5) Arterial Blood Methemoglobin 0.3 % (0.0-1.5) Nathanael Test Yes Blood Gas Total Hemoglobin 10.20 g/dL (12.0-16.0) Blood Gas Modality Room air FiO2 % 21.0 Blood Gas Critical Value Read Back Yes Blood Gas Notified Whom Dr. dudley Blood Gas Notified Time [id number] Blood Gas Notified By Blood Gas Liter Flow 2.00 Prothrombin Time 11.5 sec (9.3-11.8) Prothrombin Time INR 1.09 (0.9-1.15) Activated Partial Thromboplast Time 25.2 SEC (24.5-34.5) Test 02/23/24 09:15 02/18/24 09:29 02/17/24 15:55 02/17/24 05:05 Phosphorus Level 3.0 mg/dL (2.4-5.1) Thyroid Stimulating Hormone (TSH) 78.12 uIU/mL (0.55-4.78) Digoxin Level < 0.14 ng/mL (0.8-2) B-Type Natriuretic Peptide 1912.43 pg/mL (0-100) Hepatitis A IgM Antibody Negative Hepatitis B Surface Antigen Negative (Negative) Hepatitis B Core IgM Antibody Negative (Negative) Hepatitis C Antibody Negative (Negative) Test 02/16/24 06:30 02/16/24 03:20 02/16/24 03:13 Troponin I High Sensitivity 4 ng/L (</=34) Platelet Estimate Adequate Polychromasia Slight Hypochromasia (manual) Slight Anisocytosis (manual) Slight D-Dimer, Quantitative 0.58 mg/L FEU (0.0-0.49) Blood Gas Spontaneous Rate 18 Specimen Drawn By Tera otero rt Other Laboratory Tests 03/02/24 10:30 Brief Hx & Hospital Course: see dictated note Condition at Discharge: Poor Final Diagnosis/Problems List cord compression Discharge Disposition: Hospice- Medical Facility Discharge Instruct/Medications Diet: Cardiac 2g Na,low cholest Activity: No Restrictions, As Tolerated Follow Up/Referral: fu with hospice Medications: per HOSPCIE Discharge Statement: "Patient was advised to return to the ER or call 911 if any headaches, dizziness, shortness of breath, chest pain, abdominal pain, bleeding, fevers, or worsening of medical condition. Patient was counseled about treatment plan, medications, possible side effects, patientverbalized understanding. All questions were answered to the best of my ability. This discharge took greater then 30 minutes in planning, reviewing documentation, counseling the patient, and discussing with other team members." ASSESSMENT ASSESSMENT Assessment cord compression Date of Service: Mar 02, 2024 Billing Provider: SAIDA HAN MD Common Visit Codes: [id number] DISCH DAY >30min SAIDA HAN MD Mar 02, 2024 15:50
[2024-03-02] MEDS: POTASSIUM CHL 20MEQ/100ML 100 ML IV SCH (16:06)
--- NOTE | 2024-03-02 16:59 | DVHPN2 ---
Progress Note - Dictate Date Seen: Mar 02, 2024 Medical Necessity Reason Pt with a Central, PICC or Fol: No The following are medically ne: Pandya Catheter Reason for pandya catheter: Strict I&O Subjective Patient was seen and evaluated in follow up. Patient is on 3 LPM NC. HGB 8.8, HCT 28.8, K 2.5, BUN 26, ECONOMIC FORECASTER 1.45. Patients potassium was replaced. The patient will be going to [facility] board and care. Telemetry reviewed. vital signs Vital Sign Date Time Temp Pulse Resp B/P (MAP) Pulse Ox O2 Delivery O2 Flow Rate FiO2 03/02/24 13:00 97.6 96 14 101/77 (85) 100 97.6 03/02/24 11:07 3.0 32 03/02/24 10:00 Nasal Cannula* Total Intake and Output 03/01/24 03/01/24 03/02/24 15:00 23:00 07:00 Intake Total 100 ml 12 ml 395 ml Output Total 925 ml 1400 ml Balance 100 ml -913 ml -1005 ml medications Current Medications Medications Dose Ordered Sig/Terrence Route Start Time Stop Time Status Last Admin Dose Admin Nitroglycerin 0.4 mg Q5MINP PRN SL 02/16/24 12:15 Levothyroxine Sodium 75 mcg DAILY@0600 PO 02/17/24 06:00 03/02/24 06:21 75 MCG Diagnostic Test (Pha) 1 strip ACHS 02/16/24 17:00 03/02/24 11:11 1 STRIP Insulin Human Regular ACHS SC 02/16/24 17:00 03/01/24 06:33 2 UNITS Dextrose 50 ml UD PRN IV 02/16/24 13:00 Docusate Sodium 100 mg BIDPRN PRN PO 02/17/24 14:45 02/17/24 15:31 100 MG Lorazepam 1 mg ONCE PRN IV 02/17/24 23:00 Pantoprazole Sodium 40 mg DAILY IV 02/23/24 10:00 03/02/24 09:14 40 MG Patient Own Medication 1 PRN PRN TOP 02/23/24 16:00 02/24/24 11:20 1 Tramadol HCl 50 mg Q6HP PRN PO 02/26/24 11:30 03/02/24 13:28 50 MG Lorazepam 0.5 mg Q8HP PRN PO 02/26/24 23:15 03/02/24 09:15 0.5 MG Apixaban 5 mg BID PO 02/27/24 22:00 03/02/24 09:15 5 MG Ampicillin Sodium/ Sulbactam Sodium 3 gm/Sodium Chloride 100 ml @ 100 mls/hr Q8HR IV 02/27/24 14:00 03/02/24 13:27 100 MLS/HR Ipratropium [place] 0.5 mg Q6HR NEB 02/27/24 18:00 03/02/24 11:21 0.5 MG Levalbuterol HCl 1.25 mg Q6HR NEB 02/27/24 18:00 03/02/24 11:21 1.25 MG Zolpidem Tartrate 10 mg HSPRN PRN PO 02/29/24 20:45 Furosemide 80 mg BIDD IV 02/29/24 20:45 03/01/24 17:51 80 MG Metolazone 5 mg BID PO 02/29/24 22:00 03/02/24 09:18 5 MG Guaifenesin/ Dextromethorphan 10 ml Q6HPRN PRN PO 03/01/24 19:00 03/02/24 13:29 10 ML Potassium Chloride 100 ml @ 50 mls/hr Q2H IV 03/02/24 15:45 03/02/24 19:44 03/02/24 16:06 50 MLS/HR objective GENERAL: Awake, alert, oriented. LUNGS: Clear. CARDIOVASCULAR: Heart sounds are good. ABDOMEN: Soft. laboratory and microbiology Laboratory Tests 03/02/24 10:30 Test 03/02/24 10:30 Range/Units Serum Glucose 122 H 74-106 mg/dL Problem List Preprocedural cardiovascular examination. Acute on chronic decompensated HFrEF, NYHA class III-IV. Acute on chronic respiratory failure with possible pneumonia. Paroxysmal atrial fibrillation (on Amiodarone and Eliquis). 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 Insulin-dependent diabetes mellitus. Hypertension. COPD on home O2. Uncontrolled hypothyroidism (TSH 78.12). Obesity. Plan/Recommendation Continued all current supportive medical care. Patient has been seen by Radha Ballesteros NP on my behalf, her and I discussed the plan with the patient. Transthoracic echocardiogram reveals an LVEF of 25% with severe biventricular dilatation. A twelve lead electrocardiogram reveals atrial fibrillation. Revised cardiac risk index (Shola criteria): 2 points (10.1%, risk of major cardiac event). A chest x-ray done today shows pulmonary congestion. The patient has an underlying history of congestive heart failure. Prior to admission, the patient reports a poor functional capacity in which she is mostly bed ridden for the last couple of months. Per Cardiology standpoint, the patient is at a high risk for moderate risk surgery. We will recommend to optimize the patient prior to surgical intervention including diuresis as tolerated. Of note, the patient takes NOAC therapy with low-dose Eliquis ([id number] VASc score: 6 points). We will recommend to resume NOAC therapy within 24 hours status post procedure if low postprocedural bleeding risk. Resume NOAC therapy within 48-72 hours if high postprocedural bleeding risk. Continue with GDMT for CHF as tolerated. The patient may qualify for ICD implantation if no improvement in EF within 3-6 months on GDMT. Additional plan as per the hospital course. Assessment/Plan Continued all current supportive medical care. IV antibiotics as ordered. Eliquis. Diuretics with Lasix. GI prophylactics. Oxycodone for pain management. Additional plan as per the hospital course. Dietary Evaluation Review Comments: 1. For better ocntrolled DM, recommen 2 gNa Lo Fat Lo Cholesterol CCHO-60g diet. 2. Monitor Po intake to meet 75% pf her needs. Expected Outcomes/Goals: Gradual weight loss. Plan discussed with: Patient GEE MIDDLETON MD Mar 02, 2024 16:59
== END 2024-03-02 17:48 | disposition hospice, home (50) | DRG 291 ==
LOC: EDBD 01:55 → ER 01:55 → TELE 04:14 → TELE-WESTW 21:45
PROVIDERS: ADMIT Internal Medicine; ATTEND Internal Medicine
PROC: 05HB33Z Insertion of Infusion Device into Right Basilic Vein, Percutaneous Approach (ICD-10-PCS; principal; 2024-02-28)
PROC: B54MZZA Ultrasonography of Right Upper Extremity Veins, Guidance (ICD-10-PCS; 2024-02-28)
DX: I13.0 Hypertensive heart and chronic kidney disease with heart failure and stage 1 through stage 4 chronic kidney disease, or unspecified chronic kidney disease (principal); G82.50 Quadriplegia, unspecified; I50.23 Acute on chronic systolic (congestive) heart failure; J96.21 Acute and chronic respiratory failure with hypoxia; N17.0 Acute kidney failure with tubular necrosis; J44.1 Chronic obstructive pulmonary disease with (acute) exacerbation; G95.29 Other cord compression; I48.20 Chronic atrial fibrillation, unspecified; E87.29 Other acidosis; M47.12 Other spondylosis with myelopathy, cervical region; D68.69 Other thrombophilia; I42.8 Other cardiomyopathies; E11.22 Type 2 diabetes mellitus with diabetic chronic kidney disease; F03.90 Unspecified dementia, unspecified severity, without behavioral disturbance, psychotic disturbance, mood disturbance, and anxiety; G89.4 Chronic pain syndrome; N18.30 Chronic kidney disease, stage 3 unspecified; Z51.5 Encounter for palliative care; E66.9 Obesity, unspecified; M48.02 Spinal stenosis, cervical region; R26.9 Unspecified abnormalities of gait and mobility; M62.838 Other muscle spasm; K74.60 Unspecified cirrhosis of liver; D64.9 Anemia, unspecified; E03.9 Hypothyroidism, unspecified; I27.20 Pulmonary hypertension, unspecified; E83.41 Hypermagnesemia; E87.6 Hypokalemia; D69.6 Thrombocytopenia, unspecified; Z88.3 Allergy status to other anti-infective agents; Z88.1 Allergy status to other antibiotic agents; Z90.49 Acquired absence of other specified parts of digestive tract; Z90.710 Acquired absence of both cervix and uterus; Z79.4 Long term (current) use of insulin; Z68.30 Body mass index [BMI] 30.0-30.9, adult; Z79.01 Long term (current) use of anticoagulants; Z83.3 Family history of diabetes mellitus; Z82.49 Family history of ischemic heart disease and other diseases of the circulatory system; Z99.81 Dependence on supplemental oxygen; Z85.3 Personal history of malignant neoplasm of breast
CPT/HCPCS: 36415; 36600; 70450; 70551; 71045; 71275; 72141; 76705; 80048; 80053; 80074; 80162; 81001; 82805; 82962; 83605; 83735; 83880; 84100; 84132; 84443; 84484; 85025; 85379; 85610; 85730; 87040; 87086; 93005; 94640; 99291; G0378; J1100; J1815; J2470; J3480